=== PATIENT | male | born 1965 | race Caucasian/White ===

== ENCOUNTER 2018-03-10 01:23 | Inpatient (IN) | payer OTHER ==
[2018-03-10] MEDS ORDERED: MORPHINE SULFATE 2 MG/ML SYRINGE ONE ×2 (01:50→04:14)
[2018-03-10] MEDS ORDERED: PIPERACILLIN-TAZO 3.375 GM/50 ML PMX BAG ONE (01:50)
[2018-03-10] MEDS ORDERED: ONDANSETRON 4 MG/2 ML VIAL ONE (01:50)
[2018-03-10] MEDS ORDERED: SODIUM CHLORIDE 0.9% 1,000 ML BAG ONE (01:50)
[2018-03-10 05:31] LABS: Basophils % (A) 0 %; Eosinophils # (A) 0.1 k/uL (0-0.7); Eosinophils % (A) 1 %; HGB 16.9 gm/dL (13.0-17.5); Lymphocytes # (A) 1.5 k/uL (1.0-4.8); Lymphocytes % (A) 16 %; MCH 32.4 pg (25.0-35.0); MCHC 33.2 g/dL (31.0-37.0); MCV 97.4 fL (80.0-100.0); Mean Platelet Volume 7.1; Monocytes # (A) 0.5 k/uL (0-1.0); Monocytes % (A) 6 %; Neutrophils # (A) 7.3 k/uL (1.3-7.7); Neutrophils % (A) 76 %; Platelet Count 248 k/uL (150-450); RBC 5.23 m/uL (4.30-5.90); RDW 12.8 % (11.5-15.5); WBC 9.6 k/uL (3.8-10.6)
[2018-03-10 05:33] LABS: ALT 37 U/L (21-72); AST 35 U/L (17-59); Albumin 4.7 g/dL (3.5-5.0); Alkaline Phosphatase 62 U/L (38-126); Amylase 116 U/L (30-110); Anion Gap 16 mmol/L; Blood Urea Nitrogen 12 mg/dL (9-20); Calcium 10.6 mg/dL (8.4-10.2); Carbon Dioxide 25 mmol/L (22-30); Chloride 99 mmol/L (98-107); Glucose 121 mg/dL (74-99); Lipase 146 U/L (23-300); Potassium 4.6 mmol/L (3.5-5.1); Sodium 140 mmol/L (137-145); Total Bilirubin 0.6 mg/dL (0.2-1.3); Total Protein 8.1 g/dL (6.3-8.2)
--- NOTE | 2018-03-10 06:47 | CT ---
INDICATION: Hernia TECHNIQUE: CT acquisition is performed through the abdomen and pelvis following the administration of 100 mL Isovue-300 IV contrast. Sagittal and coronal reformatted images are provided. DOSE INFORMATION: CTDIvol 6.30 mGy; DLP 533.20 mGy-cm. One or more of the following dose reduction techniques were used: automated exposure control, adjustment of the mA and/or kV according to patient size, use of iterative reconstruction technique. COMPARISON: None. FINDINGS: The lung bases are clear. The liver, gallbladder, spleen, pancreas, adrenal glands, and kidneys are unremarkable. Aorta demonstrates mild atherosclerotic calcifications. There is no aneurysm. There is no adenopathy. There is a left inguinal hernia containing an incarcerated loop of small bowel. This results in small bowel obstruction with multiple dilated and fluid-filled loops of small bowel in the abdomen. Small bowel loops distal to the hernia are decompressed. There is no free fluid or free air. There is no pneumatosis or portal venous gas. Urinary bladder and prostate are unremarkable. There are no acute osseous findings. IMPRESSION: 1. Left inguinal hernia containing an incarcerated loop of small bowel and causing high-grade small bowel obstruction.
[2018-03-10] MEDS ORDERED: MORPHINE SULFATE 2 MG/ML SYRINGE IV PRN (09:50)
[2018-03-10] MEDS: PIPERACILLIN-TAZOBACTAM 3.375 GM in DEXTROSE/WATER 1 50ML.BAG IVPB SCH ×2 (12:50→19:54)
--- NOTE | 2018-03-10 13:21 | P.GSHP ---
History of Present Illness H&P Date: 03/10/18 Chief Complaint: Incarcerated left inguinal hernia This a 52-year-old male who's had a history of a left we will hernia. Patient has had a hernia for several years. It has been reducible the past. He presented emergently with complaints of abdominal pain nausea. His hernia is incarcerated. He is being admitted for repair of left incarcerated inguinal hernia. Past Medical History Past Medical History: Asthma, GERD/Reflux Additional Past Medical History / Comment(s): Asthma as a child History of Any Multi-Drug Resistant Organisms: None Reported Past Surgical History: Hernia Repair, Orthopedic Surgery Additional Past Surgical History / Comment(s): R forearm flexor muscle laceration with I&D/repair, possible L inguinal surgery as a child (pt not certain), circumcism. Past Anesthesia/Blood Transfusion Reactions: No Reported Reaction Smoking Status: Current every day smoker - Past Family History Mother Additional Family Medical History / Comment(s): Mother has had to have brain surgery but pt does not know the reason. She is 76yrs old. Father Family Medical History: Myocardial Infarction (AK) Additional Family Medical History / Comment(s): Father of a AK at the age of 69yrs. Medications and Allergies Home Medications Medication Instructions Recorded Confirmed Type Naproxen Sodium [Aleve] 220 mg PO BID PRN 03/10/18 03/10/18 History Allergies Allergy/AdvReac Type Severity Reaction Status Date / Time No Known Allergies Allergy Unverified 03/10/18 09:38 Surgical - Exam Vital Signs Temp Pulse Resp BP Pulse Ox 98.2 F 69 16 131/86 94 L 03/10/18 13:09 03/10/18 13:09 03/10/18 13:09 03/10/18 13:09 03/10/18 13:09 - General well developed, no distress - Eyes PERRL - ENT normal pinna - Neck no masses - Respiratory normal expansion - Cardiovascular Rhythm: regular - Abdomen Abdomen: soft, non tender Hernia: inguinal (Incarcerated left inguinal hernia) Results - Labs 03/10/18 01:55 03/10/18 01:55 Abnormal Lab Results - Last 24 Hours (Table) 03/10/18 03/10/18 Range/Units 01:55 01:55 Glucose 121 H (74-99) mg/dL Plasma Lactic Acid [place] 2.1 H* (0.7-2.0) mmol/L Calcium 10.6 H (8.4-10.2) mg/dL Amylase 116 H (30-110) U/L Diabetes panel 03/10/18 Range/Units 01:55 Sodium 140 (137-145) mmol/L Potassium 4.6 (3.5-5.1) mmol/L Chloride 99 (98-107) mmol/L Carbon Dioxide 25 (22-30) mmol/L BUN 12 (9-20) mg/dL Creatinine 1.00 (0.66-1.25) mg/dL Glucose 121 H (74-99) mg/dL Calcium 10.6 H (8.4-10.2) mg/dL AST 35 (17-59) U/L ALT 37 (21-72) U/L Alkaline Phosphatase 62 (38-126) U/L Total Protein 8.1 (6.3-8.2) g/dL Albumin 4.7 (3.5-5.0) g/dL Calcium panel 03/10/18 Range/Units 01:55 Calcium 10.6 H (8.4-10.2) mg/dL Albumin 4.7 (3.5-5.0) g/dL Pituitary panel 03/10/18 Range/Units 01:55 Sodium 140 (137-145) mmol/L Potassium 4.6 (3.5-5.1) mmol/L Chloride 99 (98-107) mmol/L Carbon Dioxide 25 (22-30) mmol/L BUN 12 (9-20) mg/dL Creatinine 1.00 (0.66-1.25) mg/dL Glucose 121 H (74-99) mg/dL Calcium 10.6 H (8.4-10.2) mg/dL Adrenal panel 03/10/18 Range/Units 01:55 Sodium 140 (137-145) mmol/L Potassium 4.6 (3.5-5.1) mmol/L Chloride 99 (98-107) mmol/L Carbon Dioxide 25 (22-30) mmol/L BUN 12 (9-20) mg/dL Creatinine 1.00 (0.66-1.25) mg/dL Glucose 121 H (74-99) mg/dL Calcium 10.6 H (8.4-10.2) mg/dL Total Bilirubin 0.6 (0.2-1.3) mg/dL AST 35 (17-59) U/L ALT 37 (21-72) U/L Alkaline Phosphatase 62 (38-126) U/L Total Protein 8.1 (6.3-8.2) g/dL Albumin 4.7 (3.5-5.0) g/dL - Imaging CT scan - abdomen: report reviewed (Incarcerated left inguinal hernia with high- grade small bowel obstruction) Assessment and Plan Assessment: Incarcerated left inguinal hernia. We'll perform repair.
[2018-03-10] MEDS ORDERED: IV FLUID CONTINUATION 1,000 ML IV ONE (13:28)
[2018-03-10] MEDS ORDERED: DEXAMETHASONE SOD PHOS (MDV) 100 MG/10 ML VIAL IVP ONE (13:52)
[2018-03-10] MEDS ORDERED: GLYCOPYRROLATE 0.2 MG/ML 2 ML VIAL ONE (14:10)
[2018-03-10] MEDS ORDERED: SUCCINYLCHOLINE CHLORIDE 100 MG/5 ML SYR IV ONE (14:10)
[2018-03-10] MEDS ORDERED: LIDOCAINE 1% INJ 10MG/ML (20 ML MDV) ONE (14:10)
[2018-03-10] MEDS ORDERED: ROCURONIUM BROMIDE 10 MG/ML 10 ML VIAL IV ONE (14:10)
[2018-03-10] MEDS ORDERED: NEOSTIGMINE 1 MG/ML 10 ML VIAL ONE (14:10)
[2018-03-10] MEDS ORDERED: fentaNYL (PF) 50 MCG/ML 2 ML AMP ONE (14:10)
[2018-03-10] MEDS ORDERED: HEPARIN SODIUM,PORCINE 5,000 UNIT/ML 1 ML VIAL ONE (14:10)
[2018-03-10] MEDS ORDERED: MIDAZOLAM 2 MG/2 ML VIAL ONE (14:10)
[2018-03-10] MEDS ORDERED: PROPOFOL 10 MG/ML 20 ML VIAL IV ONE (14:10)
[2018-03-10 14:28] VITALS: BMI 24.4
[2018-03-10] MEDS ORDERED: SODIUM CHLORIDE 0.9% 100 ML with ceFAZolin 2,000 MG IV ONE ×2 (14:32)
[2018-03-10] MEDS ORDERED: HEPARIN SODIUM,PORCINE 5,000 UNIT/ML 1 ML VIAL SQ STA (14:33)
[2018-03-10] MEDS ORDERED: LACTATED RINGERS 1,000 ML IV ONE ×2 (14:42→15:02)
[2018-03-10] MEDS ORDERED: BUPIVACAINE (PF) 0.5% 30 ML VIAL SQ ONE (14:45)
[2018-03-10] MEDS ORDERED: HYDROcodone/APAP 5-325MG 1 EACH TAB PO PRN (15:02)
[2018-03-10] MEDS ORDERED: METOCLOPRAMIDE 5 MG/ML 2 ML VIAL IVP PRN (15:02)
[2018-03-10] MEDS ORDERED: NALOXONE 0.4 MG/ML 1 ML VIAL IV PRN (15:02)
[2018-03-10] MEDS ORDERED: HYDROmorphone 0.5 MG/0.5 ML SYRINGE IVP PRN (15:02)
[2018-03-10] MEDS ORDERED: ONDANSETRON 4 MG/2 ML VIAL IVP PRN (15:02)
--- NOTE | 2018-03-10 15:09 | P.OP ---
Date of Procedure: 03/10/18 Preoperative Diagnosis: Incarcerated left inguinal hernia Postoperative Diagnosis: Incarcerated left inguinal hernia Procedure(s) Performed: Repair of incarcerated left inguinal hernia with Prolene hernia mesh system plug Anesthesia: GUILLAUMEA Surgeon: Power Humphrey Estimated Blood Loss (ml): 5 Pathology: none sent Condition: stable Disposition: PACU Description of Procedure: DESCRIPTION OF PROCEDURE: The patient was placed in the supine position after receiving adequate anesthesia. Patients groin was prepped and draped in the usual sterile fashion. A standard hernia incision was made and the subcutaneous tissues were divided with electrocautery. The fascia of the external oblique was exposed. A melba the fascia was made with #15 blade. The fascia was then opened with pair of Metzenbaum scissors. A Weitlaner retractor was placed in the wound and the cord structures were grasped and dissected free from the inguinal canal. A rubber Helena drain was placed around the cord structures. The hernial sac was seen on the anterior-medial portion of the cord and this was dissected free from the cord. The hernia sac was then invaginated to the peritoneal cavity. Using blunt finger dissection, the preperitoneal space was dissected and then the Prolene hernial mesh plug was placed into the prepared space. The inferior leaf was expanded. The superior leaf was secured to the pubic tubercle using 2-0 Prolene suture. The lateral portion of the superior leaf was incised and cords tied and secured to the transversalis fascia using 2-0 Prolene suture. Fascia of the external oblique was then closed using #0 Vicryl suture. The Helena drain was removed. The Scarpas fascia was then closed with 3-0 Vicryl suture and skin was closed with heidy. The patient tolerated the procedure well.
[2018-03-10] MEDS ORDERED: diphenhydrAMINE 50 MG/ML 1 ML VIAL IVP ONE (15:25)
[2018-03-10] MEDS: KETOROLAC 30 MG/ML 1 ML VIAL IVP SCH ×2 (15:25→19:53)
[2018-03-10 16:41] VITALS: RESP 16
[2018-03-11] MEDS: PIPERACILLIN-TAZOBACTAM 3.375 GM in DEXTROSE/WATER 1 50ML.BAG IVPB SCH ×2 (03:08→11:44)
[2018-03-11] MEDS: KETOROLAC 30 MG/ML 1 ML VIAL IVP SCH ×2 (03:08→09:49)
[2018-03-11 06:37] VITALS: BP 103/70; PULSE 77; TEMP 97.2
[2018-03-11] MEDS ORDERED: ENOXAPARIN 40 MG/0.4 ML SYRINGE SQ SCH (09:00)
--- NOTE | 2018-03-11 13:06 | P.DS ---
Providers Date of admission: 03/10/18 03:48 Expected date of discharge: 03/11/18 Attending physician: Power Humphrey Consults: 03/10/18 15:02 Consult Physician Routine Consulting Provider: Joslyn Lamb Consult Reason/Comments: med manage Do you want consulting provider notified?: Yes Primary care physician: Stated None Hospital Course: This is a 53-year-old male who was admitted to the hospital with complaints of abdominal pain and nausea. Patient's workup found have an incarcerated left hernia. Patient underwent operative repair. Please see hospital chart for details. Procedures: (Left incarcerated inguinal hernia Patient Condition at Discharge: Good Plan - Discharge Summary Discharge Rx Participant: Yes New Discharge Prescriptions: New Docusate [Colace] 100 mg PO BID #20 capsule HYDROcodone/APAP 7.5-325MG [Prosperity 7.5-325] 1 tab PO Q4H PRN 3 Days #18 tab PRN Reason: Pain No Action Naproxen Sodium [Aleve] 220 mg PO BID PRN PRN Reason: Pain Discharge Medication List Naproxen Sodium [Aleve] 220 mg PO BID PRN 03/10/18 [History] Docusate [Colace] 100 mg PO BID #20 capsule 03/11/18 [Rx] HYDROcodone/APAP 7.5-325MG [Prosperity 7.5-325] 1 tab PO Q4H PRN 3 Days #18 tab 03/11 [Rx] Follow up Appointment(s)/Referral(s): None,Stated [Primary Care Provider] - 1-2 days Power Humphrey MD [STAFF PHYSICIAN] - 1 Week Discharge Disposition: HOME SELF-CARE
--- NOTE | 2018-03-12 00:35 | P.CONS ---
History of Present Illness - Reason for Consult Consult date: 03/11/18 Medical management of asthma and GERD - Chief Complaint Hernia the patient - History of Present Illness Patient is a 53-year-old male with a known history of asthma and GERD and also history of left inguinal hernia for several years. It was reducible in the past. Patient came to ER with complaints of abdominal pain and nausea and was found have incarcerated hernia. Patient was admitted to the hospital for repair of left incarcerated inguinal hernia. Patient tolerated the procedure very well. Currently denied any complaints of chest pain or shortness of breath. No nausea vomiting or abdominal pain. Pain is fairly controlled. Patient underwent laparoscopic hernia repair. Patient is currently day smoker otherwise. Review of Systems Constitutional: Patient denies any fever or chills . No generalized weakness or weight loss. Abdomen: Patient denied nausea vomiting and diarrhea and abdominal pain. Cardiovascular: Patient denies any chest pain or short of breath no palpitations. Respiratory: patient denied any cough is from production. No shortness of breath Neurologic: Patient denied any numbness or tingling headache. Musculoskeletal: Patient denies any complaints of joint swelling or deformity. Skin: Negative Psychiatric: Negative Endocrine: No heat or cold intolerance. No recent weight gain. Genitourinary: No dysuria or hematuria. All other 14 point ROS negative except the above Past Medical History Past Medical History: Asthma, GERD/Reflux Additional Past Medical History / Comment(s): Asthma as a child History of Any Multi-Drug Resistant Organisms: None Reported Past Surgical History: Hernia Repair, Orthopedic Surgery Additional Past Surgical History / Comment(s): R forearm flexor muscle laceration with I&D/repair, possible L inguinal surgery as a child (pt not certain), circumcism. Past Anesthesia/Blood Transfusion Reactions: No Reported Reaction Smoking Status: Current every day smoker - Past Family History Mother Additional Family Medical History / Comment(s): Mother has had to have brain surgery but pt does not know the reason. She is 76yrs old. Father Family Medical History: Myocardial Infarction ([place]) Additional Family Medical History / Comment(s): Father of a ME at the age of 69yrs. Medications and Allergies Home Medications Medication Instructions Recorded Confirmed Type Naproxen Sodium [Aleve] 220 mg PO BID PRN 03/10/18 03/10/18 History Docusate [Colace] 100 mg PO BID #20 capsule 03/11/18 Rx HYDROcodone/APAP 7.5-325MG [Mentcle 1 tab PO Q4H PRN 3 Days #18 tab 03/11/18 Rx 7.5-325] Allergies Allergy/AdvReac Type Severity Reaction Status Date / Time No Known Allergies Allergy Unverified 03/10/18 09:38 Physical Exam Vitals: Vital Signs Temp Pulse Pulse Pulse Resp BP BP 03/11/18 05:45 97.2 F L 77 16 103/70 03/10/18 22:20 98.5 F 88 16 108/76 03/10/18 18:20 66 126/86 03/10/18 18:05 70 136/91 03/10/18 17:50 65 131/87 03/10/18 17:35 69 136/91 03/10/18 17:25 73 127/78 03/10/18 17:00 98.5 F 61 130/88 03/10/18 16:30 67 16 121/85 03/10/18 16:15 66 16 127/81 03/10/18 16:00 66 18 128/75 03/10/18 15:45 68 18 132/76 03/10/18 15:30 59 L 16 139/87 03/10/18 15:15 60 18 137/84 03/10/18 15:05 98.1 F 86 18 141/87 Pulse Ox 03/11/18 05:45 97 03/10/18 22:20 95 03/10/18 18:20 95 03/10/18 18:05 94 L 03/10/18 17:50 94 L 03/10/18 17:35 97 03/10/18 17:25 95 03/10/18 17:00 96 03/10/18 16:30 92 L 03/10/18 16:15 91 L 03/10/18 16:00 97 03/10/18 15:45 91 L 03/10/18 15:30 92 L 03/10/18 15:15 95 03/10/18 15:05 97 Intake and Output 03/10/18 03/11/18 03/11/18 22:59 06:59 14:59 Intake Total 400 50 Output Total 400 250 Balance 0 -200 Intake: IV 400 50 Piperacillin-Tazobactam 3 50 50 .375 gm In Dextrose/Water 1 50ml.bag @ 12.5 mls/hr IVPB Q8H [facility] Rx#: [id number] Output: Gastric Drainage 400 Urine 250 Other: # Voids 3 PHYSICAL EXAMINATION: Patient is lying in the bed comfortably, no acute distress, awake alert and oriented.. HEENT: Normocephalic. Neck is supple. Pupils reactive. Nostrils clear. Oral cavity is moist. Ears reveal no drainage. Neck reveals no JVD, carotid bruits, or thyromegaly. CHEST EXAMINATION: Trachea is central. Symmetrical expansion. Lung mendez clear to auscultation and percussion. CARDIAC: Normal S1, S2 with no gallops. No murmurs ABDOMEN: Soft. Mildly tender at surgical site. Site is intact. Bowel sounds normal. No organomegaly. No abdominal bruits. Extremities: reveal no edema. No clubbing or cyanosis Neurologically awake, alert, oriented x3 with well-coordinated movements. No focal deficits noted Skin: No rash or skin lesions. Psychiatric: Coperative. Nonsuicidal Musculoskeletal: No joint swelling or deformity. Normal range of motion. Results CBC & Chem 7: 03/10/18 01:55 03/10/18 01:55 Assessment and Plan Assessment: Left incarcerated inguinal hernia. Status post laparoscopic repair Asthma stable. Continue with the breathing treatments GERD Currently everyday smoker DVT prophylaxis Plan: Patient be continued on pain management and incentive spirometry. Negative examination. Continue the home medications including breathing treatments and as needed. Patient is ready to be discharged home today . Further recommendations based on the clinical course. Smoking cessation has been counseled. Recommended to follow with primary care physician as outpatient in 1-3 days. Time with Patient: Greater than 30
== END 2018-03-11 14:14 | disposition home or self-care (01) | DRG 352 ==
LOC: EC 01:23 → 4MS4W 03:48 → EC 05:50
PROVIDERS: ADMIT Surgery; ATTEND Surgery
PROC: 0YU60JZ Supplement Left Inguinal Region with Synthetic Substitute, Open Approach (ICD-10-PCS; principal; 2018-03-10 09:00)
DX: K40.30 Unilateral inguinal hernia, with obstruction, without gangrene, not specified as recurrent (principal); K21.9 Gastro-esophageal reflux disease without esophagitis; J45.909 Unspecified asthma, uncomplicated; F17.210 Nicotine dependence, cigarettes, uncomplicated; Z82.49 Family history of ischemic heart disease and other diseases of the circulatory system
CPT/HCPCS: 36415; 74177; 80053; 82150; 83605; 83690; 85025; 96361; 96365; 96366; 96375; 96376; 99285

== ENCOUNTER 2025-02-12 17:53 | Inpatient (IN) | payer OTHER ==
[2025-02-12] MEDS: ONDANSETRON 4 MG/2 ML VIAL IVP STA (18:31)
[2025-02-12] MEDS: SODIUM CHLORIDE 0.9% 1,000 ML IV ONE ×4 (18:34→21:47)
[2025-02-12] MEDS: PANTOPRAZOLE 40 MG/10 ML VIAL IVP STA (18:35)
[2025-02-12 18:40] LABS: HCT 23.6 % (39.6-50.0); HGB 7.8 g/dL (13.0-17.0); MCH 26.2 pg (27.0-32.0); MCHC 33.1 g/dL (32.0-37.0); MCV 79.2 fL (80.0-97.0); Platelet Count 571 10*3/uL (140-440); RBC 2.98 10*6/uL (4.40-5.60); RDW 16.2 % (11.5-14.5); WBC 8.47 10*3/uL (4.50-10.00)
[2025-02-12] MEDS: MORPHINE SULFATE 4 MG/ML SYRINGE IVP STA ×2 (18:44→19:44)
[2025-02-12 18:50] LABS: ALT 8 U/L (4-49); AST 14 U/L (17-59); African American GFR (CKD) >90 (>60 ml/min/1.73 sqM); Albumin 2.7 g/dL (3.5-5.0); Alkaline Phosphatase 102 U/L (38-126); Amylase 35 U/L (30-110); Anion Gap 12 mmol/L; Blood Urea Nitrogen 17 mg/dL (9-20); Calcium 8.7 mg/dL (8.4-10.2); Carbon Dioxide 24 mmol/L (22-30); Chloride 94 mmol/L (98-107); Glucose 88 mg/dL (74-99); Lipase 46 U/L (23-300); Non-African American GFR(CKD) 86 (>60 ml/min/1.73 sqM); Potassium 3.4 mmol/L (3.5-5.1); Sodium 130 mmol/L (137-145); Total Protein 5.4 g/dL (6.3-8.2)
[2025-02-12 18:54] LABS: INR 1.0 (<1.2); Partial Thromboplastin Time 23.3 sec (22.0-30.0); Prothrombin Time 11.1 sec (10.0-12.5)
[2025-02-12] MEDS: LACTATED RINGERS 1,000 ML IV ONE (19:22)
[2025-02-12] MEDS ORDERED: VANCOMYCIN IV PER PHARMACY 1 EACH MISC MISCELLANE PRN (19:45)
--- NOTE | 2025-02-12 19:52 | CT ---
EXAMINATION TYPE: CT abdomen pelvis w con DATE OF EXAM: 02/12/2025 7:23 PM COMPARISON: 03/10/2018 CLINICAL INDICATION: Male, 59 years old with history of abdominal pain; generalized abdominal pain TECHNIQUE: Axial CT abdomen pelvis w con;Sagittal and coronal reformats were created on a separate w orkstation. Contrast used:100 mL of Isovue 300 with IV Contrast, (none if empty) Oral contrast used: without Oral Contrast (none if empty) CT DLP: 744 mGycm, Automated exposure control for dose reduction was used. FINDINGS: LOWER CHEST: Unremarkable ABDOMEN LIVER: Hepatic lobe 50 mm lesion not seen on prior measuring 23 Hounsfield units suggestive of necrot ic mass versus abscess. GALLBLADDER AND BILE DUCTS: Unremarkable. PANCREAS: Unremarkable. SPLEEN: Unremarkable. ADRENAL GLANDS: Unremarkable. KIDNEYS AND URETERS: No evidence of hydronephrosis or obstructing renal calculus. The ureters are unr emarkable. PELVIS BLADDER: No evidence for wall thickening or mass given limitations of exam. REPRODUCTIVE: Unremarkable. ABDOMEN & PELVIS STOMACH AND BOWEL: Circumferential wall thickening of the hepatic flexure within the colon suspected to be in colonic mass measuring 7.4 x 4.7 cm in the right upper quadrant. Hyperemia of the small bowel throughout the abdomen with free fluid throughout the abdomen PERITONEUM/RETROPERITONEUM: . There is free air along the liver dome seen on series 201 image 8. Jose tionally along the anterior abdomen image 23 image 33. A organizing fluid collection he right abdomen measuring 7.9 x 3.7 cm is compatible with abscess. VASCULATURE: No evidence of aortic aneurysm. MUSCULOSKELETAL: No acute osseous abnormalities. Moderate disc degeneration changes are present throu ghout the thoracolumbar spine. LYMPH NODES: Suspicious lymph node mass in the mesentery series 201 image 42 with the largest measuri ng up to 25 mm series 201 image 38. SOFT TISSUE/ABDOMINAL WALL: Unremarkable IMPRESSION: 1. Hepatic flexure colonic mass with perforation resulting in pneumoperitoneum in and abscess format ion along the right lateral abdomen. 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 There is also a indeterminate but probable liver metastatic disease versus abscess. 2. Reactive enteritis/colitis likely secondary to perforation and intra-abdominal leak feces content s. Findings communicated to Nabil Zarco MD on 02/12/2025 7:[address] Joshua Underwood. [facility], , 02/12/2025 7:49 PM
[2025-02-12] MEDS ORDERED: ONDANSETRON 4 MG/2 ML VIAL IVP PRN (19:54)
[2025-02-12] MEDS ORDERED: NALOXONE 0.4 MG/ML 1 ML VIAL IV PRN (19:54)
--- NOTE | 2025-02-12 19:54 | ED ---
General Adult HPI - General Chief complaint: Abdominal Pain Stated complaint: Abd pain Time Seen by Provider: 02/12/25 18:05 Source: patient, EMS, RN notes reviewed, old records reviewed Mode of arrival: EMS Limitations: no limitations - History of Present Illness Initial comments: Patient is a 59-year-old male with past medical history remarkable for abdominal surgery for hernia repair in 2018 as well as prior history of chronic alcohol use presents emergency department with worsening of chronic abdominal pain. Has a history of chronic abdominal pain. Has been ongoing for months. States he had sudden worsening of it approximately 5 minutes prior to calling EMS. States he felt something pop over the upper right side of his abdomen. Denies any nausea. Denies any constipation lately. Denies any diarrhea. Denies any chest pain or shortness of breath. Is a tobacco user. Presents for further evaluation at this time. - Related Data Home Medications Medication Instructions Recorded Confirmed Naproxen Sodium [Aleve] 220 mg PO BID PRN 03/10/18 03/10/18 Previous Rx's Medication Instructions Recorded Docusate [Colace] 100 mg PO BID #20 capsule 03/11/18 HYDROcodone/APAP 7.5-325MG [[place] 1 tab PO Q4H PRN 3 Days #18 tab 03/11/18 7.5-325] Allergies Allergy/AdvReac Type Severity Reaction Status Date / Time No Known Allergies Allergy Unverified 03/10/18 09:38 Review of Systems ROS Statement: Those systems with pertinent positive or pertinent negative responses have been documented in the HPI. Review of Systems: CONST: Denies fever EYES: Denies blurry vision ENT: Denies nasal congestion C/V: Denies Chest pain RESP: Denies shortness of breath GI: Endorses abdominal pain : Denies dysuria SKIN: Denies rash. MSK: Denies joint pain. NEURO: Denies headache ROS Other: All systems not noted in ROS Statement are negative. Past Medical History Past Medical History: Asthma, GERD/Reflux Additional Past Medical History / Comment(s): Asthma as a child History of Any Multi-Drug Resistant Organisms: None Reported Past Surgical History: Hernia Repair, Orthopedic Surgery Additional Past Surgical History / Comment(s): R forearm flexor muscle laceration with I&D/repair, possible L inguinal surgery as a child (pt not certain), circumcism. Past Anesthesia/Blood Transfusion Reactions: No Reported Reaction Smoking Status: Current every day smoker Past Alcohol Use History: None Reported Past Drug Use History: Marijuana - Past Family History Mother Additional Family Medical History / Comment(s): Mother has had to have brain surgery but pt does not know the reason. She is 76yrs old. Father Family Medical History: Myocardial Infarction ([place]) Additional Family Medical History / Comment(s): Father of a [place] at the age of 69yrs. General Exam - General Exam Comments Initial Comments: General: Appears in moderate distress secondary to abdominal pain. HEAD: Normal with no signs of head trauma. EYES: PERRLA, EOMI, conjunctiva normal, no discharge. ENT: Hearing grossly intact, normal oropharynx. Mildly dry mucous membranes. RESPIRATORY: Mild end expiratory wheeze. No significant hypoxia or increased work of breathing. C/V: Regular rate and rhythm. S1 and S2 auscultated, no edema, peripheral pulses 2+ and intact throughout ABD: Abdomen is relatively soft, nondistended, tender to palpation over the upper abdomen primarily. Somewhat generalized tenderness to palpation. No g uarding or rebound tenderness. No peritoneal signs. EXT: No obvious deformity. SKIN: No rashes or lesions observed on exposed skin. NEURO: Alert and oriented x 4. Limitations: no limitations Course Vital Signs 02/12/25 02/12/25 02/12/25 17:54 18:35 18:44 Temperature 98.4 F Pulse Rate 87 89 90 Respiratory 18 16 16 Rate Blood Pressure 96/69 101/66 111/67 O2 Sat by Pulse 94 L 92 L 92 L Oximetry 02/12/25 02/12/25 19:23 20:06 Temperature Pulse Rate 98 103 H Respiratory 18 18 Rate Blood Pressure 130/72 115/70 O2 Sat by Pulse 100 98 Oximetry Medical Decision Making - Medical Decision Making Was pt. sent in by a medical professional or institution (, PA, RECOVERY COLLECTOR, urgent care, hospital, or custodial...) When possible be specific @ -No Did you speak to anyone other than the patient for history (EMS, parent, family, police, friend...)? What history was obtained from this source @ -No Did you review nursing and triage notes (agree or disagree)? Why? @ -I reviewed and agree with nursing and triage notes Were old charts reviewed (outside hosp., previous admission, EMS record, old EKG, old radiological studies, urgent care reports/EKG's, custodial records)? Report findings @ -No old charts were reviewed Differential Diagnosis (chest pain, altered mental status, abdominal pain women, abdominal pain men, vaginal bleeding, weakness, fever, dyspnea, syncope, headache, dizziness, GI bleed, back pain, seizure, CVA, palpatations, mental health, musculoskeletal)? @ -Differential Abdominal Pain Men: Appendicitis, cholecystitis, diverticulosis, ischemic bowel, pancreatitis, hepatitis, UTI, gastroenteritis, AAA, incarcerated hernia, bowel obstruction, constipation, inflammatory bowel, hepatitis, peptic ulcer disease, splenic infarction, perforated viscus, testicular torsion, this is not meant to be an all-inclusive list EKG interpreted by me (3pts min.). @ -As above X-rays interpreted by me (1pt min.). @ -None done CT interpreted by me (1pt min.). @ -CT imaging reported to me from radiology Dr. Underwood CT imaging remarkable for perforated viscus likely secondary to abdominal abscess and abdominal mass with pneumoperitoneum present. U/S interpreted by me (1pt. min.). @ -None done What testing was considered but not performed or refused? (CT, X-rays, U/S, labs)? Why? @ -None What meds were considered but not given or refused? Why? @ -None Did you discuss the management of the patient with other professionals (professionals i.e. , PA, RECOVERY COLLECTOR, lab, RT, psych nurse, social welfare administrator, grab driver, teacher, chemistry technical officer, rehabilitation case coordinator)? Give summary @ -Discussed with Dr. Humphrey on-call surgeon who accepted the admission. Patient will be taken to the OR. Discussed with the consulting medicine team, just because of the manage she accepted the consult. Was smoking cessation discussed for >3mins.? @ -No Was critical care preformed (if so, how long)? @ -Yes, 36 minutes. Were there social determinants of health that impacted care today? How? (Homelessness, low income, unemployed, alcoholism, drug addiction, transportation, low edu. Level, literacy, decrease access to med. care, nursing home, rehab)? @ -No Was there de-escalation of care discussed even if they declined (Discuss DNR or withdrawal of care, Hospice)? DNR status @ -No What co-morbidities impacted this encounter? (DM, HTN, Smoking, COPD, CAD, Cancer, CVA, ARF, Chemo, Hep., AIDS, mental health diagnosis, sleep apnea, morbid obesity)? @ -None Was patient admitted / discharged? Hospital course, mention meds given and route, prescriptions, significant lab abnormalities, going to OR and other pertinent info. @ -Patient presents with sudden onset worsening of chronic abdominal pain. Worsening occurred approximately 5 minutes prior to calling EMS. Vital signs remarkable for mildly soft blood pressures which did improve with fluids. He will be symptomatically treat with IV pain medications, IV fluids, IV Zofran. He was in agreement this plan. Laboratory studies remarkable for an anemia that is microcytic in nature. No recent comparison. Mild electrolyte abnormalities. EKG shows no signs of acute ischemia. CT abdomen pelvis returned and I was contacted by radiology. Appears to have a perforated viscus at the hepatic flexure where there is an intra- abdominal mass as well as abscess present as well. Concern for pneumoperitoneum. Patient immediately made NPO. Blood culture sent. Started on broad-spectrum antibiotics vancomycin and Zosyn. He has already received 2 L fluid bolus and we will continue on maintenance fluids. I. The patient and he will likely go to the OR. I spoke with the on-call surgeon, Dr. Humphrey who was in agreement this plan and will take the patient to the OR for stat ex lap. Consult placed to medicine and I spoke with Delia LARA who accepted the consult. Vital signs stable at the time of admission. Patient was in agreement with this plan. Undiagnosed new problem with uncertain prognosis? @ -No Drug Therapy requiring intensive monitoring for toxicity (Heparin, Nitro, Insulin, Cardizem)? @ -No Were any procedures done? @ -No Diagnosis/symptom? @ -Perforated bowel, intra-abdominal abscess, pneumoperitoneum, malignancy, anemia Acute, or Chronic, or Acute on Chronic? @ -Acute Uncomplicated (without systemic symptoms) or Complicated (systemic symptoms)? @ -Complicated Side effects of treatment? @ -No Exacerbation, Progression, or Severe Exacerbation? @ -No Poses a threat to life or bodily function? How? (Chest pain, [place], [place], pneumonia, PE, COPD, DKA, ARF, appy, cholecystitis, CVA, Diverticulitis, Homicidal, Suicidal, threat to staff... and all critical care pts) @ -Yes - Lab Data Result diagrams: 02/12/25 18:28 02/12/25 18:28 Lab Results 02/12/25 02/12/25 02/12/25 Range/Units 18:28 18:28 18:28 WBC 8.47 (4.50-10.00) 10*3/uL RBC 2.98 L (4.40-5.60) 10*6/uL Hgb 7.8 L (13.0-17.0) g/dL Hct 23.6 L (39.6-50.0) % MCV 79.2 L (80.0-97.0) fL MCH 26.2 L (27.0-32.0) pg MCHC 33.1 (32.0-37.0) g/dL Plt Count 571 H (140-440) 10*3/uL MPV 9.4 L (9.5-12.2) fL Immature Gran % (Auto) 0.8 % Neutrophils % (Manual) 82 % Band Neuts % (Manual) 3 % Lymphocytes % (Manual) 14 % Monocytes % (Manual) 2 % Basophils % (Manual) 1 % Immature Gran # 0.07 H (0.00-0.04) 10*3/uL Neutrophils # (Manual) 7.19 (1.3-7.7) k/uL Lymphocytes # (Manual) 1.19 (1.0-4.8) k/uL Monocytes # (Manual) 0.17 (0-1.0) k/uL Basophils # (Manual) 0.08 (0-0.2) k/uL Nucleated RBCs 0 (0-0) /100 WBC Manual Slide Review Performed RBC Morphology Normal PT 11.1 (10.0-12.5) sec INR 1.0 (<1.2) APTT 23.3 (22.0-30.0) sec Sodium 130 L (137-145) mmol/L Potassium 3.4 L (3.5-5.1) mmol/L Chloride 94 L (98-107) mmol/L Carbon Dioxide 24 (22-30) mmol/L Anion Gap 12 mmol/L BUN 17 (9-20) mg/dL Creatinine 0.97 (0.66-1.25) mg/dL Est GFR (CKD-EPI)AfAm >90 (>60 ml/min/1.73 sqM) Est GFR (CKD-EPI)NonAf 86 (>60 ml/min/1.73 sqM) Glucose 88 (74-99) mg/dL Plasma Lactic Acid [place] (0.7-2.0) mmol/L Calcium 8.7 (8.4-10.2) mg/dL Total Bilirubin 0.6 (0.2-1.3) mg/dL AST 14 L (17-59) U/L ALT 8 (4-49) U/L Alkaline Phosphatase 102 (38-126) U/L Total Protein 5.4 L (6.3-8.2) g/dL Albumin 2.7 L (3.5-5.0) g/dL Amylase 35 (30-110) U/L Lipase 46 (23-300) U/L / Range/Units 18:28 WBC (4.50-10.00) 10*3/uL RBC (4.40-5.60) 10*6/uL Hgb (13.0-17.0) g/dL Hct (39.6-50.0) % MCV (80.0-97.0) fL MCH (27.0-32.0) pg MCHC (32.0-37.0) g/dL Plt Count (140-440) 10*3/uL MPV (9.5-12.2) fL Immature Gran % (Auto) % Neutrophils % (Manual) % Band Neuts % (Manual) % Lymphocytes % (Manual) % Monocytes % (Manual) % Basophils % (Manual) % Immature Gran # (0.00-0.04) 10*3/uL Neutrophils # (Manual) (1.3-7.7) k/uL Lymphocytes # (Manual) (1.0-4.8) k/uL Monocytes # (Manual) (0-1.0) k/uL Basophils # (Manual) (0-0.2) k/uL Nucleated RBCs (0-0) /100 WBC Manual Slide Review RBC Morphology PT (10.0-12.5) sec INR (<1.2) APTT (22.0-30.0) sec Sodium (137-145) mmol/L Potassium (3.5-5.1) mmol/L Chloride (98-107) mmol/L Carbon Dioxide (22-30) mmol/L Anion Gap mmol/L BUN (9-20) mg/dL Creatinine (0.66-1.25) mg/dL Est GFR (CKD-EPI)AfAm (>60 ml/min/1.73 sqM) Est GFR (CKD-EPI)NonAf (>60 ml/min/1.73 sqM) Glucose (74-99) mg/dL Plasma Lactic Acid [place] 1.4 (0.7-2.0) mmol/L Calcium (8.4-10.2) mg/dL Total Bilirubin (0.2-1.3) mg/dL AST (17-59) U/L ALT (4-49) U/L Alkaline Phosphatase (38-126) U/L Total Protein (6.3-8.2) g/dL Albumin (3.5-5.0) g/dL Amylase (30-110) U/L Lipase (23-300) U/L - EKG Data -: EKG Interpreted by Me EKG Comments: 12-lead Electrocardiogram Interpretation Note EKG was reviewed and interpreted by myself. 12-lead ECG performed at 1021 is interpreted by me as revealing normal sinus rhythm at a rate of 86 beats per minute. [place] is normal. NM interval is 170 ms, QRS durations 86 ms, QTc is 416 ms.. There were no ST or T wave abnormalities to suggest myocardial ischemia or injury. R wave progression across the precordium was satisfactory. By my interpretation this EKG is non-diagnostic for acute ischemia. Critical Care Time Critical Care Time: Yes Total Critical Care Time: 36 Disposition Clinical Impression: Perforated bowel, Intra-abdominal abscess, Pneumoperitoneum, Malignancy, Anemia Disposition: ADMITTED IP TO THIS [facility] Condition: Serious Time of Disposition: 19:54
[2025-02-12] MEDS: SODIUM CHLORIDE 0.9% 1,000 ML IV STA (20:19)
[2025-02-12] MEDS: PIPERACILLIN-TAZOBACTAM 3.375 GM in SODIUM CHLORIDE 0.9% 100 ML IVPB SCH (20:21)
[2025-02-12 20:27] LABS: Basophils # (M) 0.08 k/uL (0-0.2); Lymphocytes # (M) 1.19 k/uL (1.0-4.8); Monocytes # (M) 0.17 k/uL (0-1.0); Neutrophils # (M) 7.19 k/uL (1.3-7.7); Neutrophils % (M) 82 %; Total Cells Counted 200
[2025-02-12 20:32] LABS: RBC Morphology Normal
[2025-02-12] MEDS: LACTATED RINGERS 1,000 ML IV SCH (20:41)
[2025-02-12] MEDS ORDERED: fentaNYL (PF) 50 MCG/ML 2 ML AMP ONE (20:52)
[2025-02-12] MEDS ORDERED: ETOMIDATE 2 MG/ML 10 ML VIAL ONE (20:52)
[2025-02-12] MEDS ORDERED: ROCURONIUM 10 MG/ML (5 ML VIAL) IV ONE (20:52)
[2025-02-12] MEDS ORDERED: PHENYLEPHRINE-0.9% NACL SYG 1,000 MCG/10 ML SYRINGE ONE (20:52)
[2025-02-12] MEDS ORDERED: SUCCINYLCHOLINE CHLORIDE 200 MG/10 ML VIAL IV ONE (20:52)
[2025-02-12] MEDS ORDERED: LIDOCAINE 1% INJ 10MG/ML (20 ML MDV) ONE (20:52)
[2025-02-12] MEDS ORDERED: PROPOFOL 10 MG/ML 20 ML VIAL IV ONE (20:52)
--- NOTE | 2025-02-12 20:58 | P.GSHP ---
History of Present Illness H&P Date: 02/12/25 Chief Complaint: Abdominal pain This a 59-year-old male whose had a several month history of abdominal pain. The patient's pain is worsened over the last few days. The patient presented the emergency room. He had a CAT scan performed which shows evidence of a right colon mass with perforation and abscess. Patient has never had a colonoscopy. He has noted to be anemic with hemoglobin 7.2. Past Medical History Past Medical History: Asthma, GERD/Reflux Additional Past Medical History / Comment(s): Asthma as a child History of Any Multi-Drug Resistant Organisms: None Reported Past Surgical History: Hernia Repair, Orthopedic Surgery Additional Past Surgical History / Comment(s): R forearm flexor muscle laceration with I&D/repair, possible L inguinal surgery as a child (pt not certain), circumcism. Past Anesthesia/Blood Transfusion Reactions: No Reported Reaction Smoking Status: Current every day smoker Past Alcohol Use History: None Reported Past Drug Use History: Marijuana - Past Family History Mother Additional Family Medical History / Comment(s): Mother has had to have brain surgery but pt does not know the reason. She is 76yrs old. Father Family Medical History: Myocardial Infarction ([place]) Additional Family Medical History / Comment(s): Father of a [place] at the age of 69yrs. Medications and Allergies Home Medications Medication Instructions Recorded Confirmed Type Naproxen Sodium [Aleve] 220 mg PO BID PRN 03/10/18 03/10/18 History Docusate [Colace] 100 mg PO BID #20 capsule 03/11/18 Rx HYDROcodone/APAP 7.5-325MG [[place] 1 tab PO Q4H PRN 3 Days #18 tab 03/11/18 Rx 7.5-325] Allergies Allergy/AdvReac Type Severity Reaction Status Date / Time No Known Allergies Allergy Unverified 03/10/18 09:38 Surgical - Exam Vital Signs Temp Pulse Resp BP Pulse Ox 98.4 F 87 18 96/69 94 L 02/12/25 17:54 02/12/25 17:54 02/12/25 17:54 02/12/25 17:54 02/12/25 17:54 - General well developed, moderate distress - Eyes PERRL - ENT normal pinna - Neck no masses - Respiratory normal expansion - Cardiovascular Rhythm: regular - Abdomen Abdomen is mildly distended. Abdomen is tender throughout with peritoneal signs in the right upper quadrant Results - Labs 02/12/25 18:28 02/12/25 18:28 Abnormal Lab Results - Last 24 Hours (Table) 02/12/25 02/12/25 02/12/25 Range/Units 18:28 18:28 20:04 RBC 2.98 L (4.40-5.60) 10*6/uL Hgb 7.8 L (13.0-17.0) g/dL Hct 23.6 L (39.6-50.0) % MCV 79.2 L (80.0-97.0) fL MCH 26.2 L (27.0-32.0) pg Plt Count 571 H (140-440) 10*3/uL MPV 9.4 L (9.5-12.2) fL Immature Gran # 0.07 H (0.00-0.04) 10*3/uL Sodium 130 L (137-145) mmol/L Potassium 3.4 L (3.5-5.1) mmol/L Chloride 94 L (98-107) mmol/L AST 14 L (17-59) U/L Total Protein 5.4 L (6.3-8.2) g/dL Albumin 2.7 L (3.5-5.0) g/dL Crossmatch See Detail Diabetes panel 02/12/25 Range/Units 18:28 Sodium 130 L (137-145) mmol/L Potassium 3.4 L (3.5-5.1) mmol/L Chloride 94 L (98-107) mmol/L Carbon Dioxide 24 (22-30) mmol/L BUN 17 (9-20) mg/dL Creatinine 0.97 (0.66-1.25) mg/dL Glucose 88 (74-99) mg/dL Calcium 8.7 (8.4-10.2) mg/dL AST 14 L (17-59) U/L ALT 8 (4-49) U/L Alkaline Phosphatase 102 (38-126) U/L Total Protein 5.4 L (6.3-8.2) g/dL Albumin 2.7 L (3.5-5.0) g/dL Calcium panel 02/12/25 Range/Units 18:28 Calcium 8.7 (8.4-10.2) mg/dL Albumin 2.7 L (3.5-5.0) g/dL Pituitary panel 02/12/25 Range/Units 18:28 Sodium 130 L (137-145) mmol/L Potassium 3.4 L (3.5-5.1) mmol/L Chloride 94 L (98-107) mmol/L Carbon Dioxide 24 (22-30) mmol/L BUN 17 (9-20) mg/dL Creatinine 0.97 (0.66-1.25) mg/dL Glucose 88 (74-99) mg/dL Calcium 8.7 (8.4-10.2) mg/dL Adrenal panel 02/12/25 Range/Units 18:28 Sodium 130 L (137-145) mmol/L Potassium 3.4 L (3.5-5.1) mmol/L Chloride 94 L (98-107) mmol/L Carbon Dioxide 24 (22-30) mmol/L BUN 17 (9-20) mg/dL Creatinine 0.97 (0.66-1.25) mg/dL Glucose 88 (74-99) mg/dL Calcium 8.7 (8.4-10.2) mg/dL Total Bilirubin 0.6 (0.2-1.3) mg/dL AST 14 L (17-59) U/L ALT 8 (4-49) U/L Alkaline Phosphatase 102 (38-126) U/L Total Protein 5.4 L (6.3-8.2) g/dL Albumin 2.7 L (3.5-5.0) g/dL Assessment and Plan Plan: Right colonic neoplasm with perforation. Patient will undergo exploratory lapa rotomy
--- NOTE | 2025-02-12 22:07 | P.OP ---
Date of Procedure: 02/12/25 Preoperative Diagnosis: Perforated right colon neoplasm with abscess Postoperative Diagnosis: Intraperitoneal abscess Right colon mass Metastatic disease Procedure(s) Performed: Exploratory laparotomy Drainage of abscess Right colectomy with ileostomy Partial omentectomy Anesthesia: MICHEL Surgeon: Power Humphrey Estimated Blood Loss (ml): 25 Pathology: other (Right colon, omentum, culture) Condition: critical Disposition: ICU Description of Procedure: The patient was placed on the operative table in the supine position. He received general endotracheal tube anesthesia. His abdomen was prepped and draped in you sterile fashion. The skin was incised the midline. These electrocautery the abdominal wall was divided. The abdominal cavity was entered. There was purulent fluid seen in the pleural cavity. This was cultured. The Book[place] was placed the wound. There was a large abscess on the right colon. This was drained. And then there was a mass palpated. There is obvious metastatic disease with enlarged lymph nodes in the mesentery. The right colon was mobilized by dividing the white line of [place]. And then the terminal ileum was transected with a LOPEZ stapler. And then the proximal transverse colon was transected with a LOPEZ stapler. Using blunt sharp/electrocautery and the LigaSure device the mesentery of the right colon was divided. The inflammatory mass was adherent to the duodenum. Using meticulous dissection the colon mass was dissected off the duodenum. The specimen sent to pathology. The abdomen irrigated there is no bleeding seen. It was decided perform an ileostomy due to the patient's poor condition. The ileostomy brought up in the right abdominal wall. The fascia was closed looped #1 PDS suture. Skin was closed heidy. Patient was left intubated and sent to the ICU on the ventilator.
[2025-02-12 22:52] LABS: Glucose,Whole Blood 72 mg/dL (70-110)
[2025-02-12 23:16] LABS: ABG HCO3 20 mmol/L (21-25); ABG PCO2 46 mmHg (35-45); ABG PH 7.24 (7.35-7.45); ABG TCO2 21 mmol/L (19-24)
[2025-02-12 23:19] LABS: ABG PO2 420 mmHg (83-108); Allen Test Performed? No
[2025-02-12] MEDS: IPRATROPIUM-ALBUTEROL 3 ML NEB INHALATION STA (23:23)
[2025-02-12] MEDS: VANCOMYCIN 1,500 MG in SODIUM CHLORIDE 0.9% 500 ML 500 ML IVPB STA (23:54)
[2025-02-12 23:56] LABS: Bilirubin,Urine Negative (Negative); Blood,Urine Negative (Negative); Color,Urine Yellow; Glucose,Urine (UA) Negative (Negative); Ketones,Urine 1+ (Negative); Leukocyte Esterase,Urine Negative (Negative); Nitrite,Urine Negative (Negative); PH, Urine 6.0 (5.0-8.0); Protein,Urine Trace (Negative); Urobilinogen,Urine <2.0 mg/dL (<2.0)
[2025-02-13 00:14] LABS: Specific Gravity,Urine >1.050 (1.001-1.035)
[2025-02-13] MEDS ORDERED: Potassium Replacement Protocol 1 EACH MISC MISCELLANE PRN (00:26)
[2025-02-13] MEDS ORDERED: Magnesium Replacement Protocol 1 EACH MISC MISCELLANE PRN (00:26)
[2025-02-13] MEDS: SODIUM CHLORIDE 0.9% 1,000 ML IV ONE (00:42)
[2025-02-13] MEDS: POTASSIUM CHLORIDE 10 MEQ in WATER FOR INJECTION 1 100ML.BAG IVPB SCH (01:48)
--- NOTE | 2025-02-13 03:52 | XR ---
EXAM: XR Chest, 1 View CLINICAL HISTORY: ITS.REASON XR Reason: Tube placement TECHNIQUE: Frontal view of the chest. COMPARISON: No relevant prior studies available. FINDINGS: Lungs: No consolidation or mass. Pleural space: No acute findings. Heart: No cardiomegaly. Bones/joints: No acute findings. ET tube in good position IMPRESSION: ET tube in good position
[2025-02-13 04:27] LABS: ALT 8 U/L (4-49); AST 22 U/L (17-59); African American GFR (CKD) 77 (>60 ml/min/1.73 sqM); Albumin 2.0 g/dL (3.5-5.0); Albumin/Globulin Ratio 0.8; Alkaline Phosphatase 62 U/L (38-126); Anion Gap 14 mmol/L; Blood Urea Nitrogen 23 mg/dL (9-20); Calcium 7.6 mg/dL (8.4-10.2); Carbon Dioxide 14 mmol/L (22-30); Chloride 105 mmol/L (98-107); Globulin 2.5 g/dL; Glucose 92 mg/dL (74-99); Magnesium 1.6 mg/dL (1.6-2.3); Non-African American GFR(CKD) 67 (>60 ml/min/1.73 sqM); Potassium 4.5 mmol/L (3.5-5.1); Sodium 133 mmol/L (137-145); Total Protein 4.5 g/dL (6.3-8.2)
[2025-02-13 04:34] LABS: Basophils # (A) 0.15 10*3/uL (0.00-0.10); Basophils % (A) 0.6 %; Eosinophils # (A) 0.01 10*3/uL (0.04-0.35); Eosinophils % (A) 0.0 %; HCT 47.0 % (39.6-50.0); Lymphocytes # (A) 0.64 10*3/uL (0.90-5.00); Lymphocytes % (A) 2.8 %; MCH 26.0 pg (27.0-32.0); MCHC 31.9 g/dL (32.0-37.0); MCV 81.3 fL (80.0-97.0); Monocytes # (A) 0.58 10*3/uL (0.20-1.00); Monocytes % (A) 2.5 %; Neutrophils # (A) 21.68 10*3/uL (1.80-7.70); Neutrophils % (A) 93.5 %; Platelet Count 772 10*3/uL (140-440); RBC 5.78 10*6/uL (4.40-5.60); RDW 16.4 % (11.5-14.5); WBC 23.21 10*3/uL (4.50-10.00)
[2025-02-13] MEDS: MAGNESIUM SULFATE-D5W PMX 1 GM in DEXTROSE/WATER 1 100ML.BAG IVPB SCH (04:38)
[2025-02-13 04:40] LABS: HGB 15.0 g/dL (13.0-17.0)
[2025-02-13 05:43] LABS: ABG HCO3 16 mmol/L (21-25); ABG PCO2 37 mmHg (35-45); ABG PH 7.23 (7.35-7.45); ABG PO2 177 mmHg (83-108); ABG TCO2 17 mmol/L (19-24)
[2025-02-13 05:46] LABS: Allen Test Performed? No
--- NOTE | 2025-02-13 05:54 | P.CNPUL ---
History of Present Illness Consult date: 02/13/25 Requesting physician: Power Humphrey Reason for consult: other Chief complaint: Abdominal pain History of present illness: Patient is a 59-year-old male with past medical history significant for alcohol abuse, and prior abdominal surgery for hernia repair in 2018. Presented emergency department yesterday evening complaining of abdominal pain. [place] something had popped in his right sided abdomen. Workup at the emergency department including an abdominal/pelvis CT remarkable for an hepatic flexure colonic mass with perforation resulting in pneumoperitoneum and an abscess formation along the right lateral abdomen. Concerns for metastatic disease to the mesentery with multiple lymph nodes present. Also, indeterminate but probable liver metastatic disease versus abscess noted. Reactive enteritis/colitis secondary to perforation and intra-abdominal leak feces contents. Patient was then taken to the operating room for exploratory laparotomy. Patient was noted to have a large abscess within the right colon which was drained. The colon mass was dissected off of the duodenum and sent to pathology. There was obvious concerns for enlarged lymphadenopathy within the mesentery. Underwent right colectomy with ileostomy and partial omentectomy. Following the procedure, patient was transferred to the intensive care unit in critical condition. He remains intubated to the mechanical ventilator. Postoperative chest x-rays the endotracheal tube in appropriate positioning above the nehemias. Nasogastric tube coursing below the diaphragm. No focal opacities, pleural effusions, pneumothoraces, or otherwise acute cardiopulmonary process. Current ventilator settings: AC, respiratory rate 24, tidal volume 450, FiO2 100% PEEP of 5. Postoperative ABG consistent with combined metabolic and respiratory acidosis with a PaO2 of 420, pCO2 46, pH of 7.24. Patient is currently synchronous with current settings and sedated on propofol at 40 mcg/kg/min. Normal saline also infusing at 130 mL/h. He is tachycardic and borderline hypotensive with a blood pressure of 93/72 mmHg, heart rate is 120 bpm. Did previously receive 2.4 L crystalloid fluid bolus. Also, received 2 units PRBCs perioperatively. Mottled appearance to the lower extremities. Previously, noted to be febrile. Patient was empirically covered on a combination of Zosyn and vancomycin for abdominal sepsis. He does have a midline abdominal incision with postoperative dressing clean and intact. There is a right-sided abdominal ileostomy which is pink and beefy red. No significant output. Postoperative labs including a CBC with a WBC count of 8.5, hemoglobin 7.8 g/dL, platelets 571. Postoperative CMP including a sodium 130, potassium 3.4, chloride 94, serum bicarb 24, BUN 17, creatinine 0.97, glucose 88. Lactic 1.4. LFTs unremarkable. Lipase 46. Patient's next of kin is his brother. States he does not have very much known medical history as he does not follow routinely with a doctor. He is reportedly a heavy alcohol drinker. Review of Systems ROS unobtainable: due to endotracheal tube Past Medical History Past Medical History: Asthma, GERD/Reflux Additional Past Medical History / Comment(s): Asthma as a child History of Any Multi-Drug Resistant Organisms: None Reported Past Surgical History: Hernia Repair, Orthopedic Surgery Additional Past Surgical History / Comment(s): R forearm flexor muscle lacerati on with I&D/repair, possible L inguinal surgery as a child (pt not certain), circumcism. Past Anesthesia/Blood Transfusion Reactions: No Reported Reaction Smoking Status: Current every day smoker Past Alcohol Use History: None Reported Past Drug Use History: Marijuana - Past Family History Mother Additional Family Medical History / Comment(s): Mother has had to have brain surgery but pt does not know the reason. She is 76yrs old. Father Family Medical History: Myocardial Infarction (AR) Additional Family Medical History / Comment(s): Father of a AR at the age of 69yrs. Medications and Allergies Home Medications Medication Instructions Recorded Confirmed Type Naproxen Sodium [Aleve] 220 mg PO BID PRN 03/10/18 03/10/18 History Docusate [Colace] 100 mg PO BID #20 capsule 03/11/18 Rx HYDROcodone/APAP 7.5-325MG [[place] 1 tab PO Q4H PRN 3 Days #18 tab 03/11/18 Rx 7.5-325] Allergies Allergy/AdvReac Type Severity Reaction Status Date / Time No Known Allergies Allergy Unverified 03/10/18 09:38 Physical Exam Vitals: Vital Signs Temp Pulse Resp BP Pulse Ox FiO2 02/12/25 23:20 60 02/12/25 22:56 100 02/12/25 22:53 100 02/12/25 20:41 98.3 F 92 18 110/70 98 02/12/25 20:06 103 H 18 115/70 98 02/12/25 19:23 98 18 130/72 100 02/12/25 18:44 90 16 111/67 92 L 02/12/25 18:35 89 16 101/66 92 L 02/12/25 17:54 98.4 F 87 18 96/69 94 L Intake and Output 02/12/25 02/12/25 02/13/25 14:59 22:59 06:59 Intake Total 1620 Output Total 250 Balance 1370 Intake: IV 1000 Blood Product 620 Rc As-1 Unit 310 [id number] Rc As-1 Unit 310 [id number] Output: Urine 200 Estimated Blood Loss 50 Other: Weight 72.575 kg GENERAL EXAM: Sedated, 59-year-old male, intubated to mechanical ventilator, synchronous with current settings HEAD: Normocephalic and atraumatic EYES: Normal reaction of pupils, equal size. NOSE: Clear with pink turbinates. Nasogastric tube inserted through left nare to LIS and small amount of dark brown content. THROAT: No erythema or exudates. NECK: No masses, no JVD. CHEST: No chest wall deformity. LUNGS: Equal air entry with no crackles, wheeze, rhonchi or dullness. No conversational dyspnea or accessory muscle use.. CVS: S1 and S2 normal with no audible murmur, regular rhythm. No extra heart sounds ABDOMEN: Midline abdominal incision with postoperative dressing clean and intact. Right ileostomy noted, stoma appears pink/beefy red. No output. Abdomen is soft. SPINE: No scoliosis or deformity SKIN: No rashes. Mottled appearance lower extremities. CENTRAL NERVOUS SYSTEM: Sedated, no focal deficits, tone is normal in all 4 extremities. EXTREMITIES: There is no peripheral edema, clubbing, or cyanosis. Peripheral pulses are intact. Right brachial arterial line noted. Results - Laboratory Findings CBC and BMP: 02/13/25 03:45 02/13/25 03:45 ABG ABG pH 7.24 (7.35-7.45) L 02/12/25 23:11 ABG pCO2 46 mmHg (35-45) H 02/12/25 23:11 ABG pO2 420 mmHg (83-108) H 02/12/25 23:11 ABG O2 Saturation 99.6 % (94-97) H 02/12/25 23:11 PT/INR, D-dimer PT 11.1 sec (10.0-12.5) 02/12/25 18:28 INR 1.0 (<1.2) 02/12/25 18:28 Abnormal lab findings: Abnormal Labs 02/12/25 02/12/25 02/12/25 18:28 18:28 20:04 RBC 2.98 L Hgb 7.8 L Hct 23.6 L MCV 79.2 L MCH 26.2 L Plt Count 571 H MPV 9.4 L Immature Gran # 0.07 H ABG pH ABG pCO2 ABG pO2 ABG HCO3 ABG O2 Saturation Sodium 130 L Potassium 3.4 L Chloride 94 L AST 14 L Total Protein 5.4 L Albumin 2.7 L Crossmatch See Detail 02/12/25 23:11 RBC Hgb Hct MCV MCH Plt Count MPV Immature Gran # ABG pH 7.24 L ABG pCO2 46 H ABG pO2 420 H ABG HCO3 20 L ABG O2 Saturation 99.6 H Sodium Potassium Chloride AST Total Protein Albumin Crossmatch - Diagnostic Findings Chest x-ray: image reviewed Assessment and Plan Assessment: Colonic mass with perforation, pneumoperitoneum, intra-abdominal abscess Status postoperative day #1 following exploratory laparotomy with drainage of abscess, right colectomy, end ileostomy, and partial omentectomy Colonic mass with concerns for metastatic disease with enlargement of mesenteric lymph nodes, also, indeterminate but probable metastatic disease to the liver. Postoperative ventilator management Abdominal sepsis Combined respiratory and metabolic acidosis Acute blood loss anemia, status post 2 units PRBCs Hypokalemia, replace per protocol History of alcohol abuse Plan: Patient is currently intubated mechanical ventilator, increased respiratory rate to 24 breaths/min. Drop FiO2 to 50% and continue to wean FiO2 as tolerated. Postoperative chest x-ray reviewed endotracheal tube in good location, nasogastric tube coursing below the diaphragm. Otherwise no acute cardiopulmonary process was noted Repeat chest x-ray in the morning, repeat ABG in the morning, continue propofol for sedation, wean for appropriate RASS Blood pressure currently hypotensive, give the patient an additional 1 L normal saline bolus Status post 2 units PRBC transfusion, repeat labs including H&H May end up requiring vasopressors for blood pressure support Continue Zosyn for abdominal sepsis Blood cultures are pending Pathology pending Patient's condition is currently critical and overall prognosis is guarded Case discussed with next of kin and brother at bedside I have personally seen and examined the patient, performed the documentation and the assessment and plan as written. Number of minutes spent on the visit:20 This dictation was produced using [employer] dictation software please excuse grammatical errors Time with Patient: Greater than 30
[2025-02-13] MEDS: SODIUM BICARB 8.4% 50 ML SYR (1 MEQ/ML) IV STA (05:56)
[2025-02-13] MEDS: DEXTROSE 5% IN WATER 1,000 ML with SODIUM BICARB (1 MEQ/ML) 150 ML IV SCH (06:16)
[2025-02-13] MEDS: IPRATROPIUM-ALBUTEROL 3 ML NEB INHALATION SCH (08:19)
[2025-02-13] MEDS: ENOXAPARIN 40 MG/0.4 ML SYRINGE SQ SCH (09:08)
[2025-02-13] MEDS: PANTOPRAZOLE 40 MG/10 ML VIAL IV SCH (09:08)
[2025-02-13] MEDS: CHLORHEXIDINE GLUCONATE 15 ML CUP MUCOUS MEM SCH (09:08)
--- NOTE | 2025-02-13 11:20 | P.PN ---
Subjective Progress Note Date: 02/13/25 SURGICAL PROGRESS NOTE CHIEF COMPLAINT: Right colon mass HISTORY OF PRESENT ILLNESS: Patient is postop day #1 status post exploratory laparotomy, drainage of abscess, right colectomy with ileostomy and partial pneumonectomy. Patient is in the ICU intubated and on mechanical ventilation. His urine output is decreased he is receiving IV fluids and is on a bicarb drip. Afebrile. Mild tachycardia improved. Urine output decreased. WBC is 23 hemoglobin did go up from 7.8-15 after 2 units of blood. OG tube 500 mL output PHYSICAL EXAM: VITAL SIGNS: Reviewed. GENERAL: Well-developed in no acute distress. HEENT: No sclera icterus. Extraocular movements grossly intact. Moist buccal mucosa. Head is atraumatic, normocephalic. ABDOMEN: Soft. Mildly distended. Midline incision dressing clean dry and intact. Ileostomy on the right with serosanguineous drainage noted in the ostomy bag. Ileostomy stoma is beefy red NEUROLOGIC: Alert and oriented. Cranial nerves II through XII grossly intact. ASSESSMENT: 1. Right colon mass with perforation and intraperitoneal abscess with metastatic disease PLAN: - Continue ICU management - Continue supportive care - Continue IV fluids - Continue antibiotics - Follow-up on pathology results - GI prophylaxis Protonix DVT prophylaxis Lovenox Physician Pr Manager note has been reviewed by physician. Signing provider agrees with the documented findings, assessment, and plan of care. Objective - Vital Signs Vital signs: Vital Signs Temp 98.3 F 02/13/25 08:00 Pulse 96 02/13/25 09:00 Resp 19 02/13/25 09:00 BP 100/72 02/13/25 09:00 Pulse Ox 100 02/13/25 09:00 FiO2 40 02/13/25 08:21 Intake & Output 02/12/25 02/13/25 02/13/25 18:59 06:59 18:59 Intake Total 2590.954 133 Output Total 465 60 Balance 2125.954 73 Weight 72.575 kg 69 kg Intake: IV 1931 133 Art line pressure bag 21 3 Sodium Chloride 0.9% 1, 910 130 000 ml @ 130 mls/hr IV . [id number] STA Rx#:[id number] Intake, IV Titration 39.954 Amount propofoL 1,000 mg In 39.954 Empty Bag 1 bag @ 15 MCG/ KG/MIN 6.532 mls/hr IV . [id number] [facility] Rx#:[id number] Blood Product 620 Rc As-1 Unit 310 [id number] Rc As-1 Unit 310 [id number] Output: Gastric Drainage 150 50 Urine 265 10 Estimated Blood Loss 50 Other: Voiding Method Indwelling Catheter ABP, PAP, CO, CI - Last Documented Arterial Blood Pressure 93/63 - Labs CBC & Chem 7: 02/13/25 03:45 02/13/25 03:45 Labs: Abnormal Lab Results - Last 24 Hours (Table) 02/12/25 02/12/25 02/12/25 Range/Units 18:28 18:28 20:04 WBC (4.50-10.00) 10*3/uL RBC 2.98 L (4.40-5.60) 10*6/uL Hgb 7.8 L (13.0-17.0) g/dL Hct 23.6 L (39.6-50.0) % MCV 79.2 L (80.0-97.0) fL MCH 26.2 L (27.0-32.0) pg MCHC (32.0-37.0) g/dL RDW (11.5-14.5) % Plt Count 571 H (140-440) 10*3/uL MPV 9.4 L (9.5-12.2) fL Immature Gran # 0.07 H (0.00-0.04) 10*3/uL Neutrophils # (1.80-7.70) 10*3/uL Lymphocytes # (0.90-5.00) 10*3/uL Eosinophils # (0.04-0.35) 10*3/uL Basophils # (0.00-0.10) 10*3/uL ABG pH (7.35-7.45) ABG pCO2 (35-45) mmHg ABG pO2 (83-108) mmHg ABG HCO3 (21-25) mmol/L ABG Total CO2 (19-24) mmol/L ABG O2 Saturation (94-97) % Sodium 130 L (137-145) mmol/L Potassium 3.4 L (3.5-5.1) mmol/L Chloride 94 L (98-107) mmol/L Carbon Dioxide (22-30) mmol/L BUN (9-20) mg/dL Calcium (8.4-10.2) mg/dL Total Bilirubin (0.2-1.3) mg/dL AST 14 L (17-59) U/L Total Protein 5.4 L (6.3-8.2) g/dL Albumin 2.7 L (3.5-5.0) g/dL Ur Specific [place] (1.001-1.035) Urine Protein (Negative) Urine Ketones (Negative) Crossmatch See Detail 02/12/25 02/12/25 02/13/25 Range/Units 23:11 23:20 03:45 WBC 23.21 H (4.50-10.00) 10*3/uL RBC 5.78 H (4.40-5.60) 10*6/uL Hgb (13.0-17.0) g/dL Hct (39.6-50.0) % MCV (80.0-97.0) fL MCH 26.0 L (27.0-32.0) pg MCHC 31.9 L (32.0-37.0) g/dL RDW 16.4 H (11.5-14.5) % Plt Count 772 H (140-440) 10*3/uL MPV 9.3 L (9.5-12.2) fL Immature Gran # 0.15 H (0.00-0.04) 10*3/uL Neutrophils # 21.68 H (1.80-7.70) 10*3/uL Lymphocytes # 0.64 L (0.90-5.00) 10*3/uL Eosinophils # 0.01 L (0.04-0.35) 10*3/uL Basophils # 0.15 H (0.00-0.10) 10*3/uL ABG pH 7.24 L (7.35-7.45) ABG pCO2 46 H (35-45) mmHg ABG pO2 420 H (83-108) mmHg ABG HCO3 20 L (21-25) mmol/L ABG Total CO2 (19-24) mmol/L ABG O2 Saturation 99.6 H (94-97) % Sodium (137-145) mmol/L Potassium (3.5-5.1) mmol/L Chloride (98-107) mmol/L Carbon Dioxide (22-30) mmol/L BUN (9-20) mg/dL Calcium (8.4-10.2) mg/dL Total Bilirubin (0.2-1.3) mg/dL AST (17-59) U/L Total Protein (6.3-8.2) g/dL Albumin (3.5-5.0) g/dL Ur Specific [place] >1.050 H (1.001-1.035) Urine Protein Trace H (Negative) Urine Ketones 1+ H (Negative) Crossmatch 02/13/25 02/13/25 Range/Units 03:45 05:38 WBC (4.50-10.00) 10*3/uL RBC (4.40-5.60) 10*6/uL Hgb (13.0-17.0) g/dL Hct (39.6-50.0) % MCV (80.0-97.0) fL MCH (27.0-32.0) pg MCHC (32.0-37.0) g/dL RDW (11.5-14.5) % Plt Count (140-440) 10*3/uL MPV (9.5-12.2) fL Immature Gran # (0.00-0.04) 10*3/uL Neutrophils # (1.80-7.70) 10*3/uL Lymphocytes # (0.90-5.00) 10*3/uL Eosinophils # (0.04-0.35) 10*3/uL Basophils # (0.00-0.10) 10*3/uL ABG pH 7.23 L (7.35-7.45) ABG pCO2 (35-45) mmHg ABG pO2 177 H (83-108) mmHg ABG HCO3 16 L (21-25) mmol/L ABG Total CO2 17 L (19-24) mmol/L ABG O2 Saturation 98.8 H (94-97) % Sodium 133 L (137-145) mmol/L Potassium (3.5-5.1) mmol/L Chloride (98-107) mmol/L Carbon Dioxide 14 L (22-30) mmol/L BUN 23 H (9-20) mg/dL Calcium 7.6 L (8.4-10.2) mg/dL Total Bilirubin 3.6 H (0.2-1.3) mg/dL AST (17-59) U/L Total Protein 4.5 L (6.3-8.2) g/dL Albumin 2.0 L (3.5-5.0) g/dL Ur Specific [place] (1.001-1.035) Urine Protein (Negative) Urine Ketones (Negative) Crossmatch
--- NOTE | 2025-02-13 12:00 | P.ANPRN ---
Procedure Note - Anesthesia - Invasive Line Right Arterial Line Time Out Performed: Yes Date of Procedure: 02/12/25 Time of Procedure: 21:10 Location of Patient: OR Preparation: Sterile Prep, Sterile Dressing Arterial Line Location: Briachial Ultrasound Used: No Purpose - Visualization and Identification of Vasculature: No Image Stored and Saved: No Narrative: Invasive line placement per sterile protocol utilized.
--- NOTE | 2025-02-13 12:06 | CONS ---
CONSULTATION REASON FOR CONSULTATION: Advice regarding asthma and other medical issues, requested by Surgery. HISTORY OF PRESENT ILLNESS: This is a 59-year-old gentleman with a past medical history of asthma, GERD, presented with colonic perforation. The patient underwent exploratory laparotomy and colostomy. The patient also had right colonic mass with lymphadenopathy. The patient is mechanically ventilated postop. The patient is being closely monitored in ICU at this time. There is no history of any fever, rigors, or chills. PAST MEDICAL HISTORY: Reviewed include asthma, GERD. Rest of the history and chart also reviewed. MEDICATIONS: [place]. Rest of medications reviewed, not confirmed yet. ALLERGIES: None. FAMILY HISTORY: Could not be taken because the patient is mechanically sedated. SOCIAL HISTORY: Could not be taken because the patient is mechanically sedated. REVIEW OF SYSTEMS: Could not be taken because the patient is mechanically sedated. PHYSICAL EXAMINATION: VITAL SIGNS: Pulse is 96, blood pressure 100/70, respirations 18. HEENT: Conjunctivae normal. NECK: No jugular venous distention. CARDIOVASCULAR: S1, S2. RESPIRATIONS: A few scattered rhonchi and crackles. ABDOMEN: Soft. Status post surgery. LEGS: No edema. NERVOUS SYSTEM: Sedated. LABORATORY DATA: Noted. ASSESSMENT: 1. 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 2. Postoperative mechanical ventilation. 3. Possible sepsis present on admission. 4. History of nicotine dependence. 5. History of asthma. 6. History of gastroesophageal reflux disease. 7. Elevated WBC. RECOMMENDATIONS AND DISCUSSION: This 59-year-old gentleman presented with multiple complex medical issues. We will monitor the patient closely. Broad-spectrum IV antibiotics. The patient is on IV Zosyn. Follow cultures. DVT prophylaxis. Closely follow with Pulmonary. A new chest x-ray was reviewed, discussed with staff. Prognosis guarded. Further recommendations to follow. MMODL / IJN: [id number] /
--- NOTE | 2025-02-13 15:01 | P.CONS ---
History of Present Illness - Reason for Consult Consult date: 02/13/25 colon mass Requesting physician: Nabil Zarco - Chief Complaint Abd pain - History of Present Illness When seen today patient is mechanically ventilated. All information is taken from review of the chart. Patient was brought to the emergency department 02/12/2025 at approximately 1800, complaints of abdominal pain, reported been going on for months with a sudden worsening. He had a CT of the abdomen pelvis with contrast reporting a 15 mm hepatic lesion, possibly a necrotic mass versus an abscess, circumferential wall thickening of the hepatic flexure of the colon, 7.4 x 4.7 cm, hyperemia of the small bowel throughout the abdomen, free fluid throughout the abdomen. Free air along the dome of the liver. Organizing fluid collection in the right abdomen 7.9 x 3.7 cm compatible with an abscess. Suspicious lymph node mass in the mesentery. He was taken to surgery within the hour. 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 Exploratory laparotomy, drainage of abscess, right colectomy with ileostomy, partial omentectomy. Pathology pending. Patient's vital signs are currently stable, CBC postop showing a WBC of 23.2, all neutrophils. Patient's hemoglobin was 7.8. He is status post 2 units of blood with a hemoglobin of 15-this is very unlikely, best Hgb would be after 2 units would be 9.8, re-check in a.m. Platelet count 772,000, BUN 23, creatinine 1.19. On admission patient was not on any home medications, he was hospitalized here in 2018 for an incarcerated hernia and small bowel obstruction, no other hospitalizations noted otherwise. Review of Systems ROS unobtainable: due to endotracheal tube Past Medical History Past Medical History: Asthma, GERD/Reflux Additional Past Medical History / Comment(s): Asthma as a child History of Any Multi-Drug Resistant Organisms: None Reported Past Surgical History: Hernia Repair, Orthopedic Surgery Additional Past Surgical History / Comment(s): R forearm flexor muscle laceration with I&D/repair, possible L inguinal surgery as a child (pt not certain), circumcism. Past Anesthesia/Blood Transfusion Reactions: No Reported Reaction Smoking Status: Current every day smoker Past Alcohol Use History: None Reported Past Drug Use History: Marijuana - Past Family History Mother Additional Family Medical History / Comment(s): Mother has had to have brain surgery but pt does not know the reason. She is 76yrs old. Father Family Medical History: Myocardial Infarction (NC) Additional Family Medical History / Comment(s): Father of a NC at the age of 69yrs. Medications and Allergies Home Medications Medication Instructions Recorded Confirmed Type No Known Home Medications 02/13/25 02/13/25 History Allergies Allergy/AdvReac Type Severity Reaction Status Date / Time No Known Allergies Allergy Verified 02/13/25 11:35 Physical Exam Vitals: Vital Signs Temp Pulse Resp BP Pulse Ox FiO2 02/13/25 12:09 93 02/13/25 11:51 90 40 02/13/25 09:00 96 19 100/72 100 02/13/25 08:40 95 02/13/25 08:30 93 21 100/72 100 02/13/25 08:21 40 02/13/25 08:19 94 02/13/25 08:00 98.3 F 92 25 H 95/69 100 40 02/13/25 07:30 96 24 95/69 100 02/13/25 07:00 99 24 96/78 100 40 02/13/25 06:30 103 H 24 96/78 100 02/13/25 06:09 40 02/13/25 06:00 105 H 24 108/73 100 40 02/13/25 05:30 109 H 24 108/73 100 02/13/25 05:00 111 H 27 H 110/74 100 50 02/13/25 04:30 111 H 26 H 110/74 100 02/13/25 04:13 50 02/13/25 04:00 98.4 F 112 H 28 H 104/50 100 60 02/13/25 03:30 110 H 27 H 104/50 100 02/13/25 03:00 112 H 25 H 114/76 96 60 02/13/25 02:30 112 H 25 H 118/77 93 L 02/13/25 02:00 110 H 24 118/77 96 60 02/13/25 01:30 108 H 24 96 02/13/25 01:00 115 H 24 118/77 97 60 02/13/25 00:31 60 02/13/25 00:30 118 H 24 118/77 98 02/13/25 00:22 118 H 24 118/77 93 L 02/13/25 00:00 120 H 24 96 60 02/12/25 23:30 117 H 20 92 L 02/12/25 23:20 60 02/12/25 23:00 110 H 20 93 L 100 02/12/25 22:56 100 02/12/25 22:53 100 02/12/25 22:42 107 H 20 02/12/25 20:41 98.3 F 92 18 110/70 98 02/12/25 20:06 103 H 18 115/70 98 02/12/25 19:23 98 18 130/72 100 02/12/25 18:44 90 16 111/67 92 L 02/12/25 18:35 89 16 101/66 92 L 02/12/25 17:54 98.4 F 87 18 96/69 94 L Intake and Output 02/12/25 02/13/25 02/13/25 22:59 06:59 14:59 Intake Total 1620 970.954 133 Output Total 250 215 60 Balance 1370 755.954 73 Intake: IV 1000 931 133 Art line pressure bag 21 3 Sodium Chloride 0.9% 1, 910 130 000 ml @ 130 mls/hr IV . Q7H42M [facility] Rx#:[id number] Intake, IV Titration 39.954 Amount propofoL 1,000 mg In 39.954 Empty Bag 1 bag @ 15 MCG/ KG/MIN 6.532 mls/hr IV . [id number] [facility] Rx#:[id number] Blood Product 620 Rc As-1 Unit 310 [id number] Rc As-1 Unit 310 [id number] Output: Gastric Drainage 150 50 Urine 200 65 10 Estimated Blood Loss 50 Other: Voiding Method Indwelling Catheter Weight 72.575 kg 69 kg ABP, PAP, CO, CI - Last 8 Hours Arterial Blood Pressure 93/63 Arterial Blood Pressure 92/62 Arterial Blood Pressure 91/66 Arterial Blood Pressure 90/65 Arterial Blood Pressure 88/63 - Constitutional General appearance: average body habitus, no acute distress - EENT Eyes: anicteric sclerae - Neck Neck: no lymphadenopathy - Respiratory Respiratory: bilateral: CTA - Cardiovascular Rhythm: regular Heart sounds: normal: S1, S2 Abnormal Heart Sounds: no systolic murmur, no diastolic murmur, no rub, no S3 Gallop, no S4 Gallop, no click, no other leg Peripheral Edema: bilateral: None - Gastrointestinal ostomy, midline incision with clean, dry dressing - Psychiatric Psychiatric: no A&O x's 3, no appropriate affect, no intact judgment & insight Results CBC & Chem 7: 02/13/25 03:45 02/13/25 03:45 Labs: Abnormal Lab Results - Last 24 Hours (Table) 02/12/25 02/12/25 02/12/25 Range/Units 18:28 18:28 20:04 WBC (4.50-10.00) 10*3/uL RBC 2.98 L (4.40-5.60) 10*6/uL Hgb 7.8 L (13.0-17.0) g/dL Hct 23.6 L (39.6-50.0) % MCV 79.2 L (80.0-97.0) fL MCH 26.2 L (27.0-32.0) pg MCHC (32.0-37.0) g/dL RDW (11.5-14.5) % Plt Count 571 H (140-440) 10*3/uL MPV 9.4 L (9.5-12.2) fL Immature Gran # 0.07 H (0.00-0.04) 10*3/uL Neutrophils # (1.80-7.70) 10*3/uL Lymphocytes # (0.90-5.00) 10*3/uL Eosinophils # (0.04-0.35) 10*3/uL Basophils # (0.00-0.10) 10*3/uL ABG pH (7.35-7.45) ABG pCO2 (35-45) mmHg ABG pO2 (83-108) mmHg ABG HCO3 (21-25) mmol/L ABG Total CO2 (19-24) mmol/L ABG O2 Saturation (94-97) % Sodium 130 L (137-145) mmol/L Potassium 3.4 L (3.5-5.1) mmol/L Chloride 94 L (98-107) mmol/L Carbon Dioxide (22-30) mmol/L BUN (9-20) mg/dL Calcium (8.4-10.2) mg/dL Total Bilirubin (0.2-1.3) mg/dL AST 14 L (17-59) U/L Total Protein 5.4 L (6.3-8.2) g/dL Albumin 2.7 L (3.5-5.0) g/dL Ur Specific [place] (1.001-1.035) Urine Protein (Negative) Urine Ketones (Negative) Crossmatch See Detail 02/12/25 02/12/25 02/13/25 Range/Units 23:11 23:20 03:45 WBC 23.21 H (4.50-10.00) 10*3/uL RBC 5.78 H (4.40-5.60) 10*6/uL Hgb (13.0-17.0) g/dL Hct (39.6-50.0) % MCV (80.0-97.0) fL MCH 26.0 L (27.0-32.0) pg MCHC 31.9 L (32.0-37.0) g/dL RDW 16.4 H (11.5-14.5) % Plt Count 772 H (140-440) 10*3/uL MPV 9.3 L (9.5-12.2) fL Immature Gran # 0.15 H (0.00-0.04) 10*3/uL Neutrophils # 21.68 H (1.80-7.70) 10*3/uL Lymphocytes # 0.64 L (0.90-5.00) 10*3/uL Eosinophils # 0.01 L (0.04-0.35) 10*3/uL Basophils # 0.15 H (0.00-0.10) 10*3/uL ABG pH 7.24 L (7.35-7.45) ABG pCO2 46 H (35-45) mmHg ABG pO2 420 H (83-108) mmHg ABG HCO3 20 L (21-25) mmol/L ABG Total CO2 (19-24) mmol/L ABG O2 Saturation 99.6 H (94-97) % Sodium (137-145) mmol/L Potassium (3.5-5.1) mmol/L Chloride (98-107) mmol/L Carbon Dioxide (22-30) mmol/L BUN (9-20) mg/dL Calcium (8.4-10.2) mg/dL Total Bilirubin (0.2-1.3) mg/dL AST (17-59) U/L Total Protein (6.3-8.2) g/dL Albumin (3.5-5.0) g/dL Ur Specific [place] >1.050 H (1.001-1.035) Urine Protein Trace H (Negative) Urine Ketones 1+ H (Negative) Crossmatch 02/13/25 02/13/25 Range/Units 03:45 05:38 WBC (4.50-10.00) 10*3/uL RBC (4.40-5.60) 10*6/uL Hgb (13.0-17.0) g/dL Hct (39.6-50.0) % MCV (80.0-97.0) fL MCH (27.0-32.0) pg MCHC (32.0-37.0) g/dL RDW (11.5-14.5) % Plt Count (140-440) 10*3/uL MPV (9.5-12.2) fL Immature Gran # (0.00-0.04) 10*3/uL Neutrophils # (1.80-7.70) 10*3/uL Lymphocytes # (0.90-5.00) 10*3/uL Eosinophils # (0.04-0.35) 10*3/uL Basophils # (0.00-0.10) 10*3/uL ABG pH 7.23 L (7.35-7.45) ABG pCO2 (35-45) mmHg ABG pO2 177 H (83-108) mmHg ABG HCO3 16 L (21-25) mmol/L ABG Total CO2 17 L (19-24) mmol/L ABG O2 Saturation 98.8 H (94-97) % Sodium 133 L (137-145) mmol/L Potassium (3.5-5.1) mmol/L Chloride (98-107) mmol/L Carbon Dioxide 14 L (22-30) mmol/L BUN 23 H (9-20) mg/dL Calcium 7.6 L (8.4-10.2) mg/dL Total Bilirubin 3.6 H (0.2-1.3) mg/dL AST (17-59) U/L Total Protein 4.5 L (6.3-8.2) g/dL Albumin 2.0 L (3.5-5.0) g/dL Ur Specific [place] (1.001-1.035) Urine Protein (Negative) Urine Ketones (Negative) Crossmatch Microbiology - Last 24 Hours (Table) 02/12/25 23:55 Gram Stain - Preliminary Other - Other CT scan - abdomen: report reviewed CT scan - pelvis: report reviewed Assessment and Plan (1) Perforated bowel Current Visit: Yes Status: Acute Priority: High Code(s): K63.1 - PERFORATI ON OF INTESTINE (NONTRAUMATIC) SNOMED Code(s): 73279900 (2) Intra-abdominal abscess Current Visit: Yes Status: Acute Priority: High Code(s): K65.1 - PERITONEAL ABSCESS SNOMED Code(s): 38306935 (3) Anemia Current Visit: Yes Status: Acute Priority: High Code(s): D64.9 - ANEMIA, UNSPECIFIED SNOMED Code(s): 790280957 Plan: Colon mass, perforated mass, intra-abdominal abscess. -Patient presented with sudden onset abdominal pain. He was taken to surgery rather urgently, he is status post exploratory laparotomy, resection of colon mass, partial omentectomy, drainage of abscess and creation of end ileostomy - Pathology is pending. Patient is still sedated and mechanically ventilated. - Will follow-up on pathology results and discuss with the patient and his family - Will need to complete staging imaging at some point in time. Pending when patient is more stable Anemia - Likely secondary to blood loss from colon mass. - Will order iron studies, if able to be done on pre-transfusion blood. If not, we will have to take the laboratory values into account when making recommendations for parenteral iron, which patient is likely going to need Doctor attests: I performed a history and physical examination of this patient, developed impression and plan of care. Discussed with dictator. I agree with dictators note, documented as a scribe.
[2025-02-13] MEDS: VANCOMYCIN 1,250 MG in SODIUM CHLORIDE 0.9% 250 ML IVPB SCH (15:21)
[2025-02-13 17:29] LABS: Glucose,Whole Blood 217 mg/dL (70-110)
[2025-02-13] MEDS: HYDROmorphone 1 MG/ML 1 ML SYRINGE IVP PRN (20:54)
[2025-02-14] MEDS: SODIUM CHLORIDE 0.9% 500 ML 500 ML IV ONE (01:11)
[2025-02-14 03:01] LABS: Ferritin 531.0 ng/mL (22.0-322.0); Iron <6 UG/DL (65-175); Total Iron Binding Capacity 154 UG/DL (228-460); Vitamin B12 1285.0 pg/mL (200.0-944.0)
[2025-02-14 05:00] LABS: ABG HCO3 25 mmol/L (21-25); ABG PCO2 35 mmHg (35-45); ABG PH 7.45 (7.35-7.45); ABG PO2 94 mmHg (83-108); ABG TCO2 26 mmol/L (19-24)
[2025-02-14 05:01] LABS: Allen Test Performed? no
[2025-02-14 05:46] LABS: Glucose,Whole Blood 209 mg/dL (70-110)
[2025-02-14 05:48] LABS: HCT 30.9 % (39.6-50.0); HGB 10.5 g/dL (13.0-17.0); MCH 26.6 pg (27.0-32.0); MCHC 34.0 g/dL (32.0-37.0); MCV 78.2 fL (80.0-97.0); Platelet Count 439 10*3/uL (140-440); RBC 3.95 10*6/uL (4.40-5.60); RDW 16.2 % (11.5-14.5); WBC 23.42 10*3/uL (4.50-10.00)
[2025-02-14 06:08] LABS: African American GFR (CKD) 58 (>60 ml/min/1.73 sqM); Anion Gap 11 mmol/L; Blood Urea Nitrogen 29 mg/dL (9-20); Calcium 6.6 mg/dL (8.4-10.2); Carbon Dioxide 22 mmol/L (22-30); Chloride 104 mmol/L (98-107); Glucose 203 mg/dL (74-99); Magnesium 1.9 mg/dL (1.6-2.3); Non-African American GFR(CKD) 50 (>60 ml/min/1.73 sqM); Potassium 3.3 mmol/L (3.5-5.1); Sodium 137 mmol/L (137-145)
[2025-02-14] MEDS ORDERED: CALCIUM GLUCONATE IN NACL 2 GM in SALINE 1 100ML.BAG IVPB ONE (06:23)
[2025-02-14] MEDS: POTASSIUM CHLORIDE 10 MEQ in WATER FOR INJECTION 1 100ML.BAG IVPB SCH (06:36)
[2025-02-14] MEDS: MAGNESIUM SULFATE-D5W PMX 1 GM in DEXTROSE/WATER 1 100ML.BAG IVPB ONE (06:37)
[2025-02-14 07:21] LABS: Lymphocytes # (M) 0.94 k/uL (1.0-4.8); Monocytes # (M) 0.94 k/uL (0-1.0); Neutrophils # (M) 21.54 k/uL (1.3-7.7); Neutrophils % (M) 67 %; Total Cells Counted 100
--- NOTE | 2025-02-14 08:24 | XR ---
EXAMINATION TYPE: XR chest 1V portable DATE OF EXAM: 02/14/2025 6:04 AM COMPARISON: Chest radiograph from two days prior. CLINICAL INDICATION: Male, 59 years old with history of Tube placement; [facility] TECHNIQUE: XR chest 1V portable Frontal view of the chest. FINDINGS: Lungs/Pleura: Blunting of the right costophrenic angle. Hazy airspace opacities in the left midlung. There is no evidence of left pleural effusion, focal consolidation, or pneumothorax Pulmonary vascularity: Unremarkable. Heart/mediastinum: Cardiomediastinal silhouette is unremarkable. Musculoskeletal: No acute osseous pathology. Other findings: None Lines/Tubes: Endotracheal tube with distal tip 4.9cm above the nehemias. Nasogastric tube with its distal tip and side-port projecting under the diaphragm. IMPRESSION: Suspected right layering pleural effusion. Subtle left-sided airspace opacities correlate for infection.[facility], , 02/14/2025 8:21 AM
--- NOTE | 2025-02-14 10:58 | P.PN ---
Subjective Progress Note Date: 02/14/25 History of present illness; Patient is a 59-year-old male with past medical history significant for alcohol abuse, and prior abdominal surgery for hernia repair in 2018. Presented emergency department yesterday evening complaining of abdominal pain. [place] something had popped in his right sided abdomen. Workup at the emergency department including an abdominal/pelvis CT remarkable for an hepatic flexure colonic mass with perforation resulting in pneumoperitoneum and an abscess formation along the right lateral abdomen. Concerns for metastatic disease to the mesentery with multiple lymph nodes present. Also, indeterminate but probable liver metastatic disease versus abscess noted. Reactive ente ritis/colitis secondary to perforation and intra-abdominal leak feces contents. Patient was then taken to the operating room for exploratory laparotomy. Patient was noted to have a large abscess within the right colon which was drained. The colon mass was dissected off of the duodenum and sent to pathology. There was obvious concerns for enlarged lymphadenopathy within the mesentery. Underwent right colectomy with ileostomy and partial omentectomy. Following the procedure, patient was transferred to the intensive care unit in critical condition. He remains intubated to the mechanical ventilator. Postoperative chest x-rays the endotracheal tube in appropriate positioning above the nehemias. Nasogastric tube coursing below the diaphragm. No focal opacities, pleural effusions, pneumothoraces, or otherwise acute cardiopulmonary process. Current ventilator settings: AC, respiratory rate 24, tidal volume 450, FiO2 100% PEEP of 5. Postoperative ABG consistent with combined metabolic and respiratory acidosis with a PaO2 of 420, pCO2 46, pH of 7.24. Patient is currently synchronous with current settings and sedated on propofol at 40 mcg/kg/min. Normal saline also infusing at 130 mL/h. He is tachycardic and borderline hypotensive with a blood pressure of 93/72 mmHg, heart rate is 120 bpm. Did previously receive 2.4 L crystalloid fluid bolus. Also, received 2 units PRBCs perioperatively. Mottled appearance to the lower extremities. Previously, noted to be febrile. Patient was empirically covered on a combination of Zosyn and vancomycin for abdominal sepsis. He does have a midline abdominal incision with postoperative dressing clean and intact. There is a right-sided abdominal ileostomy which is pink and beefy red. No significant output. Postoperative labs including a CBC with a WBC count of 8.5, hemoglobin 7.8 g/dL, platelets 571. Postoperative CMP including a sodium 130, potassium 3.4, chloride 94, serum bicarb 24, BUN 17, creatinine 0.97, glucose 88. Lactic 1.4. LFTs unremarkable. Lipase 46. Patient's next of kin is his brother. States he does not have very much known medical history as he does not follow routinely with a doctor. He is reportedly a heavy alcohol drinker. 02/14/25 - He is seen and evaluated in the ICU, room 259. He is on the mechanical ventilator, volume assist control , rate of 24, tidal volume of 450, FiO2 40% and PEEP of 5. Blood gases this morning show pO2 of 94, pCO2 of 25, pH of 7.45. He continues to be on Propofol at 35 mcg/kg/min, Zosyn and Vancomycin. Current labs include WBCs 23.42, Hgb 10.5, Hct 30.9, PLT 439, Na 137, K 3.3, BUN 29, Cr 1.52, Ca 6.6. Blood cultures continue to be pending at this time. Chest X-ray from this morning shows possible right layering pleural effusion. REVIEW OF SYSTEMS: Pertinent positives and negatives noted in HPI. Physical Exam: General: nontoxic, no distress, appears at stated age; intubated and mechanically ventilated. Derm: warm, dry, intact Head: atraumatic, normocephalic, symmetric Eyes: EOMI, anicteric sclera NOSE: Clear with pink turbinates. Nasogastric tube inserted through left nare to LIS and small amount of dark brown content. Mouth: no lip lesion, mucus membranes moist Cardiovascular: S1 S2 reg, no murmur, rubs, or gallops; distant heart sounds. Lungs: CTA bilateral, no rales, no accessory muscle use ABDOMEN: Midline abdominal incision with postoperative dressing clean and intact. Right ileostomy noted, stoma appears pink/beefy red. No output. Abdomen is soft. Extremities: No cyanosis or edema present. Right brachial arterial line noted. Neuro: Cannot be assessed at this time. Psych: well appearing, appropriate affect Assessment/Plan: #Colonic mass with perforation, pneumoperitoneum, intra-abdominal abscess #Status postoperative day #1 following exploratory laparotomy with drainage of abscess, right colectomy, end ileostomy, and partial omentectomy #Colonic mass with concerns for metastatic disease with enlargement of mesenteric lymph nodes, also, indeterminate but probable metastatic disease to the liver. #Postoperative ventilator management #Abdominal sepsis #Combined respiratory and metabolic acidosis #Acute blood loss anemia, status post 2 units PRBCs #Hypokalemia, replace per protocol #Hypocalcemia #History of alcohol abuse Plan dated February 14, 2025. The patient is seen today in room 259. He remains on mechanical ventilator, settings noted above. Blood gases show pO2 94, pCO2 25, pH is 7.45. He continues on propofol at 35 mcg/kg/min, Zosyn and Vancomycin. D5W with 3 ampoules of sodium bicarbonate 100 cc an hour has been discontinued as patients bicarb was 22. Calcium was noted to be 6.6 - ionized calcium ordered, will continue to replace as necessary. He will undergo spontaneous breathing trial today to assess whether it may be possible to extubate. Labs, x-rays, and all medications are reviewed. We will continue to follow the patient, make recommendations. Overall prognosis remains guarded. The patient continues on GI and DVT prophylaxis. Dictation was produced using tarpipe dictation software. Please excuse any grammatical, word or spelling errors. Dictation was produced using [employer] software. please excuse any grammatical, word or spelling errors. Doc Nunez MD PGY-1 IM Objective - Vital Signs Vital signs: Vital Signs Temp 97.8 F 02/14/25 08:00 Pulse 101 H 02/14/25 08:36 Resp 19 02/14/25 08:00 BP 98/66 02/14/25 08:00 Pulse Ox 98 02/14/25 08:00 FiO2 40 02/14/25 10:38 Intake & Output 02/13/25 02/14/25 02/14/25 18:59 06:59 18:59 Intake Total 1596 2582.478 Output Total 350 1010 Balance 1246 1572.478 Weight 76.657 kg Intake: IV 1596 2389 Art line pressure bag 36 39 Dextrose 5% in Water 1, 1200 000 ml @ 100 mls/hr IV . [id number] [facility] with Sodium Bicarb (1 Meq/ml) 150 ml Rx#:[id number] Sodium Chloride 0.9% 1, 1560 650 000 ml @ 130 mls/hr IV . Q7H42M [facility] Rx#:[id number] Sodium Chloride 0.9% 500 500 ml 500 ml @ 999 mls/hr IV .Q31M ONE Rx#:[id number] Intake, IV Titration 193.478 Amount propofoL 1,000 mg In 193.478 Empty Bag 1 bag @ 15 MCG/ KG/MIN 6.532 mls/hr IV . [id number] [facility] Rx#:[id number] Output: Gastric Drainage 50 100 Urine 300 910 Other: Voiding Method Indwelling Catheter Indwelling Catheter ABP, PAP, CO, CI - Last Documented Arterial Blood Pressure 82/62 - Labs CBC & Chem 7: 02/14/25 05:00 02/14/25 05:00 Labs: Abnormal Lab Results - Last 24 Hours (Table) 02/13/25 02/13/25 02/14/25 Range/Units 15:01 17:28 04:58 WBC (4.50-10.00) 10*3/uL RBC (4.40-5.60) 10*6/uL Hgb (13.0-17.0) g/dL Hct (39.6-50.0) % MCV (80.0-97.0) fL MCH (27.0-32.0) pg Immature Gran # (0.00-0.04) 10*3/uL Neutrophils # (Manual) (1.3-7.7) k/uL Lymphocytes # (Manual) (1.0-4.8) k/uL ABG Total CO2 26 H (19-24) mmol/L ABG O2 Saturation 97.7 H (94-97) % Hemoglobin 10.7 L (13.0-17.5) gm/dL Potassium (3.5-5.1) mmol/L BUN (9-20) mg/dL Creatinine (0.66-1.25) mg/dL Glucose (74-99) mg/dL POC Glucose (mg/dL) 217 H (70-110) mg/dL Calcium (8.4-10.2) mg/dL Iron <6 L (65-175) UG/DL TIBC 154 L (228-460) UG/DL % Saturation <3.90 L (15.00-50.00) Transferrin 110.0 L (204.0-354.0) mg/dL Ferritin 531.0 H (22.0-322.0) ng/mL Vitamin B12 1285.0 H (200.0-944.0) pg/mL 02/14/25 02/14/25 02/14/25 Range/Units 05:00 05:00 05:45 WBC 23.42 H (4.50-10.00) 10*3/uL RBC 3.95 L (4.40-5.60) 10*6/uL Hgb 10.5 L D (13.0-17.0) g/dL Hct 30.9 L (39.6-50.0) % MCV 78.2 L (80.0-97.0) fL MCH 26.6 L (27.0-32.0) pg Immature Gran # 1.79 H (0.00-0.04) 10*3/uL Neutrophils # (Manual) 21.54 H (1.3-7.7) k/uL Lymphocytes # (Manual) 0.94 L (1.0-4.8) k/uL ABG Total CO2 (19-24) mmol/L ABG O2 Saturation (94-97) % Hemoglobin (13.0-17.5) gm/dL Potassium 3.3 L (3.5-5.1) mmol/L BUN 29 H (9-20) mg/dL Creatinine 1.52 H (0.66-1.25) mg/dL Glucose 203 H (74-99) mg/dL POC Glucose (mg/dL) 209 H (70-110) mg/dL Calcium 6.6 L (8.4-10.2) mg/dL Iron (65-175) UG/DL TIBC (228-460) UG/DL % Saturation (15.00-50.00) Transferrin (204.0-354.0) mg/dL Ferritin (22.0-322.0) ng/mL Vitamin B12 (200.0-944.0) pg/mL Microbiology - Last 24 Hours (Table) 02/12/25 20:04 Blood Culture - Preliminary Blood 02/12/25 23:55 Gram Stain - Preliminary Other - Other
--- NOTE | 2025-02-14 12:39 | P.PN ---
Subjective Progress Note Date: 02/14/25 SURGICAL PROGRESS NOTE CHIEF COMPLAINT: Right colon mass HISTORY OF PRESENT ILLNESS: Patient is postop day #2 status post exploratory laparotomy, drainage of abscess, right colectomy with ileostomy and partial pneumonectomy. Patient was extubated this morning. Pain is controlled. Denies any nausea or vomiting. Afebrile. WBC 23.42 Hgb 7.8 up 15 after 2 units of blood and now down to 10.5 PHYSICAL EXAM: VITAL SIGNS: Reviewed. GENERAL: Well-developed in no acute distress. HEENT: No sclera icterus. Extraocular movements grossly intact. Moist buccal mucosa. Head is atraumatic, normocephalic. ABDOMEN: Soft. Mildly distended. Midline incision dressing clean dry and intact. Ileostomy on the right with serosanguineous drainage noted in the ostomy bag. Ileostomy stoma is beefy red NEUROLOGIC: Alert and oriented. Cranial nerves II through XII grossly intact. ASSESSMENT: 1. Right colon mass with perforation and intraperitoneal abscess with metastatic disease PLAN: -Advance diet to clear liquid - Continue ICU management - Continue supportive care - Continue IV fluids - Continue antibiotics - Follow-up on pathology results - GI prophylaxis Protonix DVT prophylaxis Lovenox Physician Industrial Welder note has been reviewed by physician. Signing provider agrees with the documented findings, assessment, and plan of care. Objective - Vital Signs Vital signs: Vital Signs Temp 97.8 F 02/14/25 08:00 Pulse 103 H 02/14/25 12:10 Resp 24 02/14/25 11:00 BP 120/74 02/14/25 11:00 Pulse Ox 99 02/14/25 11:00 FiO2 40 02/14/25 10:38 Intake & Output 02/13/25 02/14/25 02/14/25 18:59 06:59 18:59 Intake Total 1596 2582.478 12 Output Total 350 1010 Balance 1246 1572.478 12 Weight 76.657 kg Intake: IV 1596 2389 12 Art line pressure bag 36 39 12 Dextrose 5% in Water 1, 1200 000 ml @ 100 mls/hr IV . [id number] ALEXANDR with Sodium Bicarb (1 Meq/ml) 150 ml Rx#:[id number] Sodium Chloride 0.9% 1, 1560 650 000 ml @ 130 mls/hr IV . [id number] STA Rx#:[id number] Sodium Chloride 0.9% 500 500 ml 500 ml @ 999 mls/hr IV .Q31M ONE Rx#:[id number] Intake, IV Titration 193.478 Amount propofoL 1,000 mg In 193.478 Empty Bag 1 bag @ 15 MCG/ KG/MIN 6.532 mls/hr IV . [id number] ALEXANDR Rx#:[id number] Output: Gastric Drainage 50 100 Urine 300 910 Other: Voiding Method Indwelling Catheter Indwelling Catheter ABP, PAP, CO, CI - Last Documented Arterial Blood Pressure 91/61 - Labs CBC & Chem 7: 02/14/25 05:00 02/14/25 05:00 Labs: Abnormal Lab Results - Last 24 Hours (Table) 02/13/25 02/13/25 02/14/25 Range/Units 15:01 17:28 04:58 WBC (4.50-10.00) 10*3/uL RBC (4.40-5.60) 10*6/uL Hgb (13.0-17.0) g/dL Hct (39.6-50.0) % MCV (80.0-97.0) fL MCH (27.0-32.0) pg Immature Gran # (0.00-0.04) 10*3/uL Neutrophils # (Manual) (1.3-7.7) k/uL Lymphocytes # (Manual) (1.0-4.8) k/uL ABG Total CO2 26 H (19-24) mmol/L ABG O2 Saturation 97.7 H (94-97) % Hemoglobin 10.7 L (13.0-17.5) gm/dL Potassium (3.5-5.1) mmol/L BUN (9-20) mg/dL Creatinine (0.66-1.25) mg/dL Glucose (74-99) mg/dL POC Glucose (mg/dL) 217 H (70-110) mg/dL Calcium (8.4-10.2) mg/dL Ionized Calcium Rebeka (4.5-5.3) mg/dL Iron <6 L (65-175) UG/DL TIBC 154 L (228-460) UG/DL % Saturation <3.90 L (15.00-50.00) Transferrin 110.0 L (204.0-354.0) mg/dL Ferritin 531.0 H (22.0-322.0) ng/mL Vitamin B12 1285.0 H (200.0-944.0) pg/mL 02/14/25 02/14/25 02/14/25 Range/Units 05:00 05:00 05:45 WBC 23.42 H (4.50-10.00) 10*3/uL RBC 3.95 L (4.40-5.60) 10*6/uL Hgb 10.5 L D (13.0-17.0) g/dL Hct 30.9 L (39.6-50.0) % MCV 78.2 L (80.0-97.0) fL MCH 26.6 L (27.0-32.0) pg Immature Gran # 1.79 H (0.00-0.04) 10*3/uL Neutrophils # (Manual) 21.54 H (1.3-7.7) k/uL Lymphocytes # (Manual) 0.94 L (1.0-4.8) k/uL ABG Total CO2 (19-24) mmol/L ABG O2 Saturation (94-97) % Hemoglobin (13.0-17.5) gm/dL Potassium 3.3 L (3.5-5.1) mmol/L BUN 29 H (9-20) mg/dL Creatinine 1.52 H (0.66-1.25) mg/dL Glucose 203 H (74-99) mg/dL POC Glucose (mg/dL) 209 H (70-110) mg/dL Calcium 6.6 L (8.4-10.2) mg/dL Ionized Calcium Rebeka (4.5-5.3) mg/dL Iron (65-175) UG/DL TIBC (228-460) UG/DL % Saturation (15.00-50.00) Transferrin (204.0-354.0) mg/dL Ferritin (22.0-322.0) ng/mL Vitamin B12 (200.0-944.0) pg/mL 02/14/25 Range/Units 11:00 WBC (4.50-10.00) 10*3/uL RBC (4.40-5.60) 10*6/uL Hgb (13.0-17.0) g/dL Hct (39.6-50.0) % MCV (80.0-97.0) fL MCH (27.0-32.0) pg Immature Gran # (0.00-0.04) 10*3/uL Neutrophils # (Manual) (1.3-7.7) k/uL Lymphocytes # (Manual) (1.0-4.8) k/uL ABG Total CO2 (19-24) mmol/L ABG O2 Saturation (94-97) % Hemoglobin (13.0-17.5) gm/dL Potassium (3.5-5.1) mmol/L BUN (9-20) mg/dL Creatinine (0.66-1.25) mg/dL Glucose (74-99) mg/dL POC Glucose (mg/dL) (70-110) mg/dL Calcium (8.4-10.2) mg/dL Ionized Calcium Rebeka 4.0 L (4.5-5.3) mg/dL Iron (65-175) UG/DL TIBC (228-460) UG/DL % Saturation (15.00-50.00) Transferrin (204.0-354.0) mg/dL Ferritin (22.0-322.0) ng/mL Vitamin B12 (200.0-944.0) pg/mL Microbiology - Last 24 Hours (Table) 02/12/25 20:04 Blood Culture - Preliminary Blood 02/12/25 23:55 Gram Stain - Preliminary Other - Other
[2025-02-14] MEDS ORDERED: Magnesium Replacement Protocol 1 EACH MISC MISCELLANE PRN (13:09)
[2025-02-14] MEDS ORDERED: Potassium Replacement Protocol 1 EACH MISC MISCELLANE PRN (13:09)
--- NOTE | 2025-02-14 13:51 | PN ---
PROGRESS NOTE DATE OF SERVICE: 02/14/2025 SUBJECTIVE: This is a 59-year-old gentleman, who was admitted with right chronic perforation, was mechanically ventilated. The patient is extubated. Currently, the patient is confused. Multiple consultants are following the patient. The patient is on broad spectrum IV antibiotics. Chest x-ray showed some atelectasis. The cultures are negative so far. PAST MEDICAL HISTORY: Reviewed. REVIEW OF SYSTEMS: Could not be taken as the patient is confused, post extubation. CURRENT MEDICATIONS: Reviewed. PHYSICAL EXAMINATION: VITAL SIGNS: Pulse 103, blood pressure 110/74, respirations 24. HEENT: Conjunctivae normal. NECK: No JVD. No mass. CARDIOVASCULAR: S1, S2 muffled. RESPIRATIONS: Breath sounds diminished at the bases. Scattered rhonchi. ABDOMEN: Soft, status post surgery. NERVOUS SYSTEM: Nonfocal. LABORATORY DATA: WBC is 22.42, glucose 209. Calcium is 6.6. ASSESSMENT: 1. Right colonic perforation secondary to chronic malignancy with METS, status post exploratory laparotomy as well as colostomy. 2. Postoperative mechanical ventilation, improved. 3. Possible sepsis, present on admission. 4. History of nicotine dependence. 5. Hypocalcemia. 6. History of asthma. 7. History of gastroesophageal reflux disease. 8. Elevated WBC. RECOMMENDATIONS AND DISCUSSION: Continue current management and symptomatic treatment, otherwise monitor lytes closely. DVT prophylaxis. Bronchodilators. Broad-spectrum IV antibiotics. Also, recommend to supplement calcium. Continue to monitor. Further recommendations to follow. MMODL / IJN: [id number] /
[2025-02-14] MEDS: CALCIUM GLUCONATE IN NACL 1 GM in SALINE 1 100ML.BAG IVPB ONE (15:25)
[2025-02-14] MEDS: CALCIUM CARB-VIT D 500 MG-5 MCG TAB PO SCH (20:18)
[2025-02-14 23:03] LABS: HCT 30.2 % (39.6-50.0); HGB 10.5 g/dL (13.0-17.0); MCH 27.1 pg (27.0-32.0); MCHC 34.8 g/dL (32.0-37.0); MCV 77.8 fL (80.0-97.0); Platelet Count 395 10*3/uL (140-440); RBC 3.88 10*6/uL (4.40-5.60); RDW 16.3 % (11.5-14.5); WBC 20.18 10*3/uL (4.50-10.00)
[2025-02-15] MEDS: VANCOMYCIN TROUGH DUE 1 EACH MISC MISCELLANE ONE (00:21)
[2025-02-15 06:18] LABS: HCT 31.5 % (39.6-50.0); HGB 10.6 g/dL (13.0-17.0); MCH 26.2 pg (27.0-32.0); MCHC 33.7 g/dL (32.0-37.0); MCV 78.0 fL (80.0-97.0); Platelet Count 403 10*3/uL (140-440); RBC 4.04 10*6/uL (4.40-5.60); RDW 16.3 % (11.5-14.5); WBC 18.97 10*3/uL (4.50-10.00)
[2025-02-15 06:41] LABS: ALT 10 U/L (4-49); AST 21 U/L (17-59); African American GFR (CKD) 86 (>60 ml/min/1.73 sqM); Albumin 1.9 g/dL (3.5-5.0); Alkaline Phosphatase 86 U/L (38-126); Anion Gap 4 mmol/L; Blood Urea Nitrogen 25 mg/dL (9-20); Calcium 7.8 mg/dL (8.4-10.2); Carbon Dioxide 27 mmol/L (22-30); Chloride 102 mmol/L (98-107); Glucose 79 mg/dL (74-99); Magnesium 2.3 mg/dL (1.6-2.3); Non-African American GFR(CKD) 75 (>60 ml/min/1.73 sqM); Potassium 3.7 mmol/L (3.5-5.1); Sodium 133 mmol/L (137-145); Total Protein 4.3 g/dL (6.3-8.2)
[2025-02-15 08:39] LABS: Eosinophils # (M) 0.19 k/uL (0-0.7); Lymphocytes # (M) 0.19 k/uL (1.0-4.8); Monocytes # (M) 0.38 k/uL (0-1.0); Neutrophils # (M) 18.21 k/uL (1.3-7.7); Neutrophils % (M) 96 %; Total Cells Counted 100
[2025-02-15] MEDS: IPRATROPIUM-ALBUTEROL 3 ML NEB INHALATION SCH (09:23)
[2025-02-15] MEDS: ACETAMINOPHEN IV (For NPO) 1,000 MG in EMPTY BAG 1 BAG IVPB SCH (12:10)
--- NOTE | 2025-02-15 15:04 | P.PN ---
Subjective Progress Note Date: 02/15/25 Patient is a 59-year-old male with past medical history significant for alcohol abuse, and prior abdominal surgery for hernia repair in 2018. Presented emergency department yesterday evening complaining of abdominal pain. Tama something had popped in his right sided abdomen. Workup at the emergency depa rtment including an abdominal/pelvis CT remarkable for an hepatic flexure colonic mass with perforation resulting in pneumoperitoneum and an abscess formation along the right lateral abdomen. Concerns for metastatic disease to the mesentery with multiple lymph nodes present. Also, indeterminate but probable liver metastatic disease versus abscess noted. Reactive enteritis/colitis secondary to perforation and intra-abdominal leak feces contents. Patient was then taken to the operating room for exploratory laparotomy. Patient was noted to have a large abscess within the right colon which was drained. The colon mass was dissected off of the duodenum and sent to pathology. There was obvious concerns for enlarged lymphadenopathy within the mesentery. Underwent right colectomy with ileostomy and partial omentectomy. Following the procedure, patient was transferred to the intensive care unit in critical condition. He remains intubated to the mechanical ventilator. Postoperative chest x-rays the endotracheal tube in appropriate positioning above the nehemias. Nasogastric tube coursing below the diaphragm. No focal opacities, pleural effusions, pneumothoraces, or otherwise acute cardiopulmonary process. Current ventilator settings: AC, respiratory rate 24, tidal volume 450, FiO2 100% PEEP of 5. Postoperative ABG consistent with combined metabolic and respiratory acidosis with a PaO2 of 420, pCO2 46, pH of 7.24. Patient is currently synchronous with current settings and sedated on propofol at 40 mcg/kg/min. Normal saline also infusing at 130 mL/h. He is tachycardic and borderline hypotensive with a blood pressure of 93/72 mmHg, heart rate is 120 bpm. Did previously receive 2.4 L crystalloid fluid bolus. Also, received 2 units PRBCs perioperatively. Mottled appearance to the lower extremities. Previously, noted to be febrile. Patient was empirically covered on a combination of Zosyn and vancomycin for abdominal sepsis. He does have a midline abdominal incision with postoperative dressing clean and intact. There is a right-sided abdominal ileostomy which is pink and beefy red. No significant output. Postoperative labs including a CBC with a WBC count of 8.5, hemoglobin 7.8 g/dL, platelets 571. Postoperative CMP including a sodium 130, potassium 3.4, chloride 94, serum bicarb 24, BUN 17, creatinine 0.97, glucose 88. Lactic 1.4. LFTs unremarkable. Lipase 46. Patient's next of kin is his brother. States he does not have very much known medical history as he does not follow routinely with a doctor. He is reportedly a heavy alcohol drinker. 02/14/25 - He is seen and evaluated in the ICU, room 259. He is on the mechanical ventilator, volume assist control , rate of 24, tidal volume of 450, FiO2 40% and PEEP of 5. Blood gases this morning show pO2 of 94, pCO2 of 25, pH of 7.45. He continues to be on Propofol at 35 mcg/kg/min, Zosyn and Vancomycin. Current labs include WBCs 23.42, Hgb 10.5, Hct 30.9, PLT 439, Na 137, K 3.3, BUN 29, Cr 1.52, Ca 6.6. Blood cultures continue to be pending at this time. Chest X-ray from this morning shows possible right layering pleural effusion. The patient is seen today February 15, 2025 selective care unit. He was transferred out of the intensive care unit yesterday. He is currently resting in bed. Awake and alert in no acute distress. Maintaining O2 saturations in the 90s on 2 L/min per nasal cannula. He has normal saline at 10 mL/h. Colon mass pathology pending. He is status post 2 units of packed red blood cells this admission. Current hemoglobin 10.6. Platelets 403. White count 18.9. Sodium 133. Potassium 3.7. Bicarb 27. BUN 25. Creatinine 1.08. Glucose 79. Blood culture revealed no growth. Wound culture revealed Streptococcus anginosus, beta-hemolytic strep group C. He remains on Zosyn and vancomycin along with Flagyl. Lovenox for DVT prophylaxis. Continued on bronchodilators. Objective - Vital Signs Vital signs: Vital Signs Temp 98.2 F 02/15/25 12:00 Pulse 95 02/15/25 12:34 Resp 16 02/15/25 12:00 BP 126/84 02/15/25 12:00 Pulse Ox 98 02/15/25 12:00 FiO2 40 02/14/25 12:00 Intake & Output 02/14/25 02/15/2525 18:59 06:59 18:59 Intake Total 128.524 960 Output Total 900 1300 Balance -771.476 -1300 960 Intake: IV 27 Art line pressure bag 27 Intake, IV Titration 101.524 Amount propofoL 1,000 mg In 101.524 Empty Bag 1 bag @ 15 MCG/ KG/MIN 6.532 mls/hr IV . [id number] ALEXANDR Rx#:[id number] Oral 960 Output: Urine 900 1300 Other: Voiding Method Indwelling Catheter Indwelling Catheter # Voids 2 ABP, PAP, CO, CI - Last Documented Arterial Blood Pressure 108/62 - Exam General: Awake, 59-year-old male patient, in no distress, appears at stated age. Derm: Warm, dry, intact Head: Atraumatic, normocephalic, symmetric Eyes: EOMI, anicteric sclera NOSE: Clear with pink turbinates. Mouth: No lip lesion, mucus membranes moist Cardiovascular: S1 S2 reg, no murmur, rubs, or gallops; distant heart sounds. Lungs: CTA bilateral, no rales, no accessory muscle use ABDOMEN: Midline abdominal incision with postoperative dressing clean and intact. Right ileostomy noted, stoma appears pink/beefy red. No output. Abdomen is soft. Extremities: No cyanosis or edema present. Right brachial arterial line noted. Neuro: Cannot be assessed at this time. Psych: Well appearing, appropriate affect - Labs CBC & Chem 7: 02/15/25 06:02/15/25 06:02 Labs: Abnormal Lab Results - Last 24 Hours (Table) 02/14/25 02/15/25 02/15/25 Range/Units 22:33 06:02 06:02 WBC 20.18 H 18.97 H (4.50-10.00) 10*3/uL RBC 3.88 L 4.04 L (4.40-5.60) 10*6/uL Hgb 10.5 L 10.6 L (13.0-17.0) g/dL Hct 30.2 L 31.5 L (39.6-50.0) % MCV 77.8 L 78.0 L (80.0-97.0) fL MCH 26.2 L (27.0-32.0) pg MPV 9.3 L (9.5-12.2) fL Immature Gran # 0.19 H (0.00-0.04) 10*3/uL Neutrophils # (Manual) 18.21 H (1.3-7.7) k/uL Lymphocytes # (Manual) 0.19 L (1.0-4.8) k/uL Sodium 133 L (137-145) mmol/L BUN 25 H (9-20) mg/dL Calcium 7.8 L (8.4-10.2) mg/dL Total Protein 4.3 L (6.3-8.2) g/dL Albumin 1.9 L (3.5-5.0) g/dL Microbiology - Last 24 Hours (Table) 02/12/25 23:55 Gram Stain - Preliminary Other - Other Wound Culture - Preliminary Streptococcus anginosus Beta Hemolytic Strep Group C 02/12/25 20:04 Blood Culture - Preliminary Blood Assessment and Plan Assessment: Colonic mass with perforation, pneumoperitoneum, intra-abdominal abscess. Status postoperative day #2 following exploratory laparotomy with drainage of abscess, right colectomy, end ileostomy, and partial omentectomy. Pathology pending, cultures revealed Streptococcus anginosus, beta-hemolytic strep group C Colonic mass with concerns for metastatic disease with enlargement of mesenteric lymph nodes, also, indeterminate but probable metastatic disease to the liver. Postoperative ventilator management, extubated and on 2 liters nasal cannula Abdominal sepsis Combined respiratory and metabolic acidosis Acute blood loss anemia, status post 2 units PRBCs Hypokalemia, replace per protocol Hypocalcemia, replaced History of alcohol abuse Plan: The patient was seen and evaluated Labs and medications reviewed Microbiology reviewed Stable and on 2 L nasal cannula Continued on DuoNeb and elations Lovenox for DVT prophylaxis Remains on vancomycin and Zosyn Remains on Flagyl Pathology still pending Titrate down/off the FiO2 as tolerated Increase his activity as tolerated Currently tolerating a clear liquid diet Advance per surgical services We will continue to follow I have personally seen and examined the patient, performed the documentation and the assessment and plan as written. Number of minutes spent on the visit: 10 Dictation was produced using [employer] software. Please excuse any grammatical, word or spelling errors.
[2025-02-15] MEDS: metroNIDAZOLE-NS PMX 500 MG in SALINE 1 100ML.BAG IVPB SCH (16:11)
--- NOTE | 2025-02-15 19:32 | P.PN ---
Subjective Progress Note Date: 02/15/25 Patient complaining of abdominal discomfort. Continues on IV antibiotics. WBC 18.9, hemoglobin 10.6, platelets 403,000 Objective - Vital Signs Vital signs: Vital Signs Temp 98.2 F 02/15/25 12:00 Pulse 87 02/15/25 16:27 Resp 16 02/15/25 12:00 BP 126/84 02/15/25 12:00 Pulse Ox 98 02/15/25 12:00 FiO2 40 02/14/25 12:00 Intake & Output 02/14/25 02/15/25 02/15/25 18:59 06:59 18:59 Intake Total 128.524 960 Output Total 900 1300 Balance -771.476 -1300 960 Intake: IV 27 Art line pressure bag 27 Intake, IV Titration 101.524 Amount propofoL 1,000 mg In 101.524 Empty Bag 1 bag @ 15 MCG/ KG/MIN 6.532 mls/hr IV . [id number] [facility] Rx#:[id number] Oral 960 Output: Urine 900 1300 Other: Voiding Method Indwelling Catheter Indwelling Catheter Urinal # Voids 2 ABP, PAP, CO, CI - Last Documented Arterial Blood Pressure 108/62 - Constitutional General appearance: Present: average body habitus, no acute distress - EENT Eyes: Present: anicteric sclerae, EOMI ENT: Present: hearing grossly normal - Respiratory Details: breathing is even - Cardiovascular Details: skin warm and dry - Integumentary Integumentary: Absent: cyanotic, jaundiced - Musculoskeletal Musculoskeletal: Present: generalized weakness - Psychiatric Psychiatric: Present: A&O x's 3 - Labs CBC & Chem 7: 02/15/25 06:02 02/15/25 06:02 Labs: Abnormal Lab Results - Last 24 Hours (Table) 02/14/25 02/15/25 02/15/25 Range/Units 22:33 06:02 06:02 WBC 20.18 H 18.97 H (4.50-10.00) 10*3/uL RBC 3.88 L 4.04 L (4.40-5.60) 10*6/uL Hgb 10.5 L 10.6 L (13.0-17.0) g/dL Hct 30.2 L 31.5 L (39.6-50.0) % MCV 77.8 L 78.0 L (80.0-97.0) fL MCH 26.2 L (27.0-32.0) pg MPV 9.3 L (9.5-12.2) fL Immature Gran # 0.19 H (0.00-0.04) 10*3/uL Neutrophils # (Manual) 18.21 H (1.3-7.7) k/uL Lymphocytes # (Manual) 0.19 L (1.0-4.8) k/uL Sodium 133 L (137-145) mmol/L BUN 25 H (9-20) mg/dL Calcium 7.8 L (8.4-10.2) mg/dL Total Protein 4.3 L (6.3-8.2) g/dL Albumin 1.9 L (3.5-5.0) g/dL Microbiology - Last 24 Hours (Table) 02/12/25 23:55 Anaerobic Culture - Final Other - Other Parvimonas micra Fusobacterium nucleatum Bacteroides ovatus 02/12/25 23:55 Gram Stain - Preliminary Other - Other Wound Culture - Preliminary Streptococcus anginosus Beta Hemolytic Strep Group C 02/12/25 20:04 Blood Culture - Preliminary Blood Assessment and Plan (1) Anemia Current Visit: Yes Status: Acute Priority: High Code(s): D64.9 - ANEMIA, UNSPECIFIED SNOMED Code(s): 526194793 (2) Intra-abdominal abscess Current Visit: Yes Status: Acute Priority: High Code(s): K65.1 - PERITONEAL ABSCESS SNOMED Code(s): 87610129 (3) Perforated bowel Current Visit: Yes Status: Acute Priority: High Code(s): K63.1 - PERFORA TION OF INTESTINE (NONTRAUMATIC) SNOMED Code(s): 22629273 (4) Pneumoperitoneum Current Visit: Yes Status: Acute Code(s): K66.8 - OTHER SPECIFIED DISORDERS OF PERITONEUM SNOMED Code(s): 31861090 Plan: Colon mass, perforated mass, intra-abdominal abscess. -Patient presented with sudden onset abdominal pain. He was taken to surgery rather urgently, he is status post exploratory laparotomy, resection of colon mass, partial omentectomy, drainage of abscess and creation of end ileostomy -Continues on IV abx - Pathology is pending - Will follow-up on pathology results and discuss with the patient and his family - Will plan for outpt PET CT and liver MRI. - Clinic f/u upon discharge Anemia - Likely secondary to blood loss from colon mass. -Iron sat <3.9%, ferritin 531, however these were drawn after 2 units PRBCs. Pt will need parenteral iron, but due to infection, will plan for iron transfusions outpt once recovered -No Vitamin B12 or folate deficiency -Hgb stable at 10.6 -Continue to monitor CBC
--- NOTE | 2025-02-16 04:36 | PN ---
PROGRESS NOTE DATE OF SERVICE: 02/15/2025 CHIEF COMPLAINT: Abdominal pain. SUBJECTIVE: The patient is postop day #3, status post exploratory laparotomy with right colectomy and ileostomy for a perforated right colon mass. Pathology results are pending. WBC is down from 20 to 18. The patient does complain of abdominal pain. Ostomy is not functioning yet. Denies any nausea or vomiting. PHYSICAL EXAM: ABDOMEN: Soft. Ileostomy stoma, beefy red, serosanguineous drainage noted in colostomy bag. Incisional dressing clean, dry, and intact. ASSESSMENT AND PLAN: Perforated right colon mass. Change abdominal surgical dressing and place Optifoam dressing. Clean incision with chlorhexidine wipes. IV Tylenol added for pain control. Continue clear liquid diet. Continue antibiotics. Encourage the patient to ambulate. Encourage the patient to use incentive spirometer. The patient also has a known history of daily alcohol use, and is currently not requiring the CIWA protocol. MMODL / IJN: [id number] /
--- NOTE | 2025-02-16 04:54 | PN ---
PROGRESS NOTE DATE OF SERVICE: 02/15/2025 SUBJECTIVE: This is a 59-year-old gentleman, admitted with right colon perforation and colonic mass. The patient is extubated. At this time, the patient is much better. The patient also had liver lesion, the possible abscess also has been raised. The white count is still elevated up to 18.97. The biopsy report is still pending at this time. The cultures are negative so far. PAST MEDICAL HISTORY: Reviewed. REVIEW OF SYSTEMS: A 14-point review is negative. CURRENT MEDICATIONS: Reviewed. PHYSICAL EXAMINATION: VITAL SIGNS: Pulse is 93, blood pressure n, respirations 16. HEENT: Conjunctivae normal. n a few scattered rhonchi. ABDOMEN: Soft, status post surgery n. LABORATORY DATA: Reviewed. ASSESSMENT: 1. Right colonic perforation secondary to chronic malignancy with METS, possibly status post exploratory laparotomy as well as colostomy. 2. Possible hepatic lesion, rule out hepatic abscess. 3. Postoperative mechanical ventilation, extubated. 4. Possible sepsis present on admission. 5. History of nicotine dependence. 6. Hypocalcemia. 7. History of asthma. 8. History of gastroesophageal reflux disease. 9. Elevated WBC. RECOMMENDATIONS AND DISCUSSION: Continue current management and drug treatment, otherwise continue with broad- spectrum IV antibiotics. I would recommend to add Flagyl to the current regimen. Follow the cultures. Monitor lytes closely. The patient is on Zosyn and vancomycin, closely with Infectious Disease. Monitor calcium closely. Prognosis extremely guarded because of multiple complex, will follow up liver function tests. See orders for details. Further recommendations . MMODL / IJN: [id number] / LUIGI
[2025-02-16 07:55] LABS: ALT 11 U/L (4-49); AST 21 U/L (17-59); African American GFR (CKD) >90 (>60 ml/min/1.73 sqM); Albumin 2.0 g/dL (3.5-5.0); Alkaline Phosphatase 113 U/L (38-126); Anion Gap 6 mmol/L; Blood Urea Nitrogen 19 mg/dL (9-20); Calcium 8.1 mg/dL (8.4-10.2); Carbon Dioxide 26 mmol/L (22-30); Chloride 100 mmol/L (98-107); Glucose 85 mg/dL (74-99); Non-African American GFR(CKD) >90 (>60 ml/min/1.73 sqM); Potassium 3.8 mmol/L (3.5-5.1); Sodium 132 mmol/L (137-145); Total Protein 4.6 g/dL (6.3-8.2)
[2025-02-16 07:56] LABS: HCT 32.6 % (39.6-50.0); HGB 10.8 g/dL (13.0-17.0); MCH 26.1 pg (27.0-32.0); MCHC 33.1 g/dL (32.0-37.0); MCV 78.7 fL (80.0-97.0); Platelet Count 398 10*3/uL (140-440); RBC 4.14 10*6/uL (4.40-5.60); RDW 16.4 % (11.5-14.5); WBC 16.29 10*3/uL (4.50-10.00)
--- NOTE | 2025-02-16 08:53 | XR ---
EXAMINATION TYPE: XR chest 1V portable DATE OF EXAM: 02/16/2025 6:42 AM COMPARISON: Chest radiograph from two days prior. CLINICAL INDICATION: Male, 59 years old with history of chf; [facility] TECHNIQUE: XR chest 1V portable Frontal view of the chest. FINDINGS: Lungs/Pleura: Right basilar atelectasis. There is no evidence of pleural effusion, focal consolidatio n, or pneumothorax. Pulmonary vascularity: Unremarkable. Heart/mediastinum: Cardiomediastinal silhouette is unremarkable. Musculoskeletal: No acute osseous pathology. Other findings: None Lines/Tubes: Interval removal of the endotracheal tube. Interval removal of the enteric tube, IMPRESSION: Improved aeration of the lungs with right basilar atelectasis.. [facility], , 02/16/2025 8:51 AM
[2025-02-16 09:41] LABS: Lymphocytes # (M) 0.65 k/uL (1.0-4.8); Monocytes # (M) 0.33 k/uL (0-1.0); Neutrophils # (M) 15.31 k/uL (1.3-7.7); Neutrophils % (M) 94 %; Total Cells Counted 100
--- NOTE | 2025-02-16 12:30 | P.PN ---
Subjective Progress Note Date: 02/16/25 SURGICAL PROGRESS NOTE CHIEF COMPLAINT: Right colon mass HISTORY OF PRESENT ILLNESS: Patient is postop day #4 status post exploratory laparotomy, drainage of abscess, right colectomy with ileostomy and partial pneumonectomy. Patient remains on the cardiac floor. No output from his ostomy. His pain is controlled. Denies any nausea or vomiting. Afebrile. WBC is down from 18-16.29 Hgb 10.8 PHYSICAL EXAM: VITAL SIGNS: Reviewed. GENERAL: Well-developed in no acute distress. HEENT: No sclera icterus. Extraocular movements grossly intact. Moist buccal mucosa. Head is atraumatic, normocephalic. ABDOMEN: Soft. Mildly distended. Midline incision dressing clean dry and intact. Ileostomy on the right with serosanguineous drainage noted in the ostomy bag. Ileostomy stoma is beefy red NEUROLOGIC: Alert and oriented. Cranial nerves II through XII grossly intact. ASSESSMENT: 1. Right colon mass with perforation and intraperitoneal abscess with metastatic disease PLAN: -Continue clear liquid diet -Continue antibiotics -Follow-up on pathology results -Encourage patient to increase activity level -Encourage incentive spirometer use -Continue pain management -GI prophylaxis Protonix DVT prophylaxis Lovenox Physician Scale Adjuster note has been reviewed by physician. Signing provider agrees with the documented findings, assessment, and plan of care. Objective - Vital Signs Vital signs: Vital Signs Temp 98.2 F 02/16/25 08:00 Pulse 90 02/16/25 11:53 Resp 16 02/16/25 08:00 BP 136/80 02/16/25 08:00 Pulse Ox 97 02/16/25 08:08 FiO2 40 02/14/25 12:00 Intake & Output 02/15/25 02/16/25 02/16/25 18:59 06:59 18:59 Intake Total 1200 Output Total 600 550 Balance 1200 -600 -550 Weight 76 kg Intake: Oral 1200 Output: Urine 600 550 Other: Voiding Method Urinal Urinal Urinal # Voids 2 ABP, PAP, CO, CI - Last Documented Arterial Blood Pressure 108/62 - Labs CBC & Chem 7: 02/16/25 07:08 02/16/25 07:08 Labs: Abnormal Lab Results - Last 24 Hours (Table) 02/13/25 02/16/25 02/16/25 Range/Units 15:01 07:08 07:08 WBC 16.29 H (4.50-10.00) 10*3/uL RBC 4.14 L (4.40-5.60) 10*6/uL Hgb 10.8 L (13.0-17.0) g/dL Hct 32.6 L (39.6-50.0) % MCV 78.7 L (80.0-97.0) fL MCH 26.1 L (27.0-32.0) pg MPV 9.3 L (9.5-12.2) fL Immature Gran # 0.21 H (0.00-0.04) 10*3/uL Neutrophils # (Manual) 15.31 H (1.3-7.7) k/uL Lymphocytes # (Manual) 0.65 L (1.0-4.8) k/uL Sodium 132 L (137-145) mmol/L Calcium 8.1 L (8.4-10.2) mg/dL Total Bilirubin 1.8 H (0.2-1.3) mg/dL Total Protein 4.6 L (6.3-8.2) g/dL Albumin 2.0 L (3.5-5.0) g/dL Methylmalonic Acid 0.50 H (<0.40) umol/L Microbiology - Last 24 Hours (Table) 02/12/25 20:04 Blood Culture - Preliminary Blood 02/12/25 23:55 Anaerobic Culture - Final Other - Other Parvimonas micra Fusobacterium nucleatum Bacteroides ovatus 02/12/25 23:55 Gram Stain - Preliminary Other - Other Wound Culture - Preliminary Streptococcus anginosus Beta Hemolytic Strep Group C
--- NOTE | 2025-02-16 12:54 | PN ---
PROGRESS NOTE DATE OF SERVICE: 02/16/2025 SUBJECTIVE: This is a 59-year-old gentleman who was admitted with right colonic perforation, is being closely monitored. At this time, the most recent chest x-ray, which I reviewed today showed some atelectasis. PAST MEDICAL HISTORY: Reviewed. PHYSICAL EXAMINATION: VITAL SIGNS: Pulse is 84, blood pressure 136/80, and respirations 16. CHEST: A few scattered rhonchi and crackles. ABDOMEN: Soft. Status post surgery. NERVOUS SYSTEM: Nonfocal. LABORATORY DATA: WBC 16.29. ASSESSMENT: 1. 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 2. Possible hepatic lesions, rule out hepatic abscess. 3. Postoperative mechanical ventilation, extubated. 4. Bilateral atelectasis. 5. Possible sepsis present on admission. 6. History of nicotine dependence. 7. Hypocalcemia. 8. History of asthma. 9. History of gastroesophageal reflux disease. 10.Elevated WBC. RECOMMENDATIONS AND DISCUSSION: Recommend to continue current management and continue symptomatic treatment. Continue with the broad-spectrum IV antibiotics. The cultures are reviewed and recommend to continue with the current medications. Closely follow with multiple consultants. Prognosis extremely guarded. Further recommendations to follow. Continue with the bronchodilators. MMODL / IJN: [id number] /
--- NOTE | 2025-02-16 13:55 | P.PN ---
Subjective Progress Note Date: 02/16/25 Patient is a 59-year-old male with past medical history significant for alcohol abuse, and prior abdominal surgery for hernia repair in 2018. Presented emergency department yesterday evening complaining of abdominal pain. [place] something had popped in his right sided abdomen. Workup at the emergency depa rtment including an abdominal/pelvis CT remarkable for an hepatic flexure colonic mass with perforation resulting in pneumoperitoneum and an abscess formation along the right lateral abdomen. Concerns for metastatic disease to the mesentery with multiple lymph nodes present. Also, indeterminate but probable liver metastatic disease versus abscess noted. Reactive enteritis/colitis secondary to perforation and intra-abdominal leak feces contents. Patient was then taken to the operating room for exploratory laparotomy. Patient was noted to have a large abscess within the right colon which was drained. The colon mass was dissected off of the duodenum and sent to pathology. There was obvious concerns for enlarged lymphadenopathy within the mesentery. Underwent right colectomy with ileostomy and partial omentectomy. Following the procedure, patient was transferred to the intensive care unit in critical condition. He remains intubated to the mechanical ventilator. Postoperative chest x-rays the endotracheal tube in appropriate positioning above the nehemias. Nasogastric tube coursing below the diaphragm. No focal opacities, pleural effusions, pneumothoraces, or otherwise acute cardiopulmonary process. Current ventilator settings: AC, respiratory rate 24, tidal volume 450, FiO2 100% PEEP of 5. Postoperative ABG consistent with combined metabolic and respiratory acidosis with a PaO2 of 420, pCO2 46, pH of 7.24. Patient is currently synchronous with current settings and sedated on propofol at 40 mcg/kg/min. Normal saline also infusing at 130 mL/h. He is tachycardic and borderline hypotensive with a blood pressure of 93/72 mmHg, heart rate is 120 bpm. Did previously receive 2.4 L crystalloid fluid bolus. Also, received 2 units PRBCs perioperatively. Mottled appearance to the lower extremities. Previously, noted to be febrile. Patient was empirically covered on a combination of Zosyn and vancomycin for abdominal sepsis. He does have a midline abdominal incision with postoperative dressing clean and intact. There is a right-sided abdominal ileostomy which is pink and beefy red. No significant output. Postoperative labs including a CBC with a WBC count of 8.5, hemoglobin 7.8 g/dL, platelets 571. Postoperative CMP including a sodium 130, potassium 3.4, chloride 94, serum bicarb 24, BUN 17, creatinine 0.97, glucose 88. Lactic 1.4. LFTs unremarkable. Lipase 46. Patient's next of kin is his brother. States he does not have very much known medical history as he does not follow routinely with a doctor. He is reportedly a heavy alcohol drinker. 02/14/25 - He is seen and evaluated in the ICU, room 259. He is on the mechanical ventilator, volume assist control , rate of 24, tidal volume of 450, FiO2 40% and PEEP of 5. Blood gases this morning show pO2 of 94, pCO2 of 25, pH of 7.45. He continues to be on Propofol at 35 mcg/kg/min, Zosyn and Vancomycin. Current labs include WBCs 23.42, Hgb 10.5, Hct 30.9, PLT 439, Na 137, K 3.3, BUN 29, Cr 1.52, Ca 6.6. Blood cultures continue to be pending at this time. Chest X-ray from this morning shows possible right layering pleural effusion. The patient is seen today February 15, 2025 selective care unit. He was transferred out of the intensive care unit yesterday. He is currently resting in bed. Awake and alert in no acute distress. Maintaining O2 saturations in the 90s on 2 L/min per nasal cannula. He has normal saline at 10 mL/h. Colon mass pathology pending. He is status post 2 units of packed red blood cells this admission. Current hemoglobin 10.6. Platelets 403. White count 18.9. Sodium 133. Potassium 3.7. Bicarb 27. BUN 25. Creatinine 1.08. Glucose 79. Blood culture revealed no growth. Wound culture revealed Streptococcus anginosus, beta-hemolytic strep group C. He remains on Zosyn and vancomycin along with Flagyl. Lovenox for DVT prophylaxis. Continued on bronchodilators. The patient is seen today February 16, 2025 in follow-up on the selective care unit. He is currently resting in bed. Awake and alert in no acute distress. Maintaining O2 saturations in the 90s on 2 L/min per nasal cannula. Has been afebrile. Hemodynamically stable. Chest x-ray shows improved aeration of the lungs bilaterally. Some right basilar atelectasis. Colonic abscess was positive for Streptococcus anginosus, beta-hemolytic strep group C. White count 16.2. Hemoglobin 10.8. Platelets 398. Sodium 132. Potassium 3.8. Bicarb 26. BUN 19. Creatinine 0.89. Glucose 85. He remains on Flagyl, vancomycin and Zosyn. Lovenox for DVT prophylaxis. Remains on bronchodilators. Encouraged regarding the increased use of the incentive spirometer. Tolerating a clear liquid diet. Objective - Vital Signs Vital signs: Vital Signs Temp 98.2 F 02/16/25 08:00 Pulse 90 02/16/25 11:53 Resp 16 02/16/25 08:00 BP 136/80 02/16/25 08:00 Pulse Ox 97 02/16/25 08:08 FiO2 40 02/14/25 12:00 Intake & Output 02/15/25 02/16/25 02/16/25 18:59 06:59 18:59 Intake Total 1200 Output Total 600 550 Balance 1200 -600 -550 Weight 76 kg Intake: Oral 1200 Output: Urine 600 550 Other: Voiding Method Urinal Urinal Urinal # Voids 2 ABP, PAP, CO, CI - Last Documented Arterial Blood Pressure 108/62 - Exam General: Awake, 59-year-old male patient, sitting up in bed, on 2 L nasal cannula, in no distress, appears at stated age. Derm: Warm, dry, intact Head: Atraumatic, normocephalic, symmetric Eyes: EOMI, anicteric sclera NOSE: Clear with pink turbinates. Mouth: No lip lesion, mucus membranes moist Cardiovascular: S1 S2 reg, no murmur, rubs, or gallops; distant heart sounds. Lungs: CTA bilateral, no rales, no accessory muscle use ABDOMEN: Midline abdominal incision with postoperative dressing clean and intact. Right ileostomy noted, stoma appears pink/beefy red. No output. Abdomen is soft. Extremities: No cyanosis or edema present. Right brachial arterial line noted. Neuro: Cannot be assessed at this time. Psych: Well appearing, appropriate affect - Labs CBC & Chem 7: 02/16/25 07:08 02/16/25 07:08 Labs: Abnormal Lab Results - Last 24 Hours (Table) 02/13/25 02/16/25 02/16/25 Range/Units 15:01 07:08 07:08 WBC 16.29 H (4.50-10.00) 10*3/uL RBC 4.14 L (4.40-5.60) 10*6/uL Hgb 10.8 L (13.0-17.0) g/dL Hct 32.6 L (39.6-50.0) % MCV 78.7 L (80.0-97.0) fL MCH 26.1 L (27.0-32.0) pg MPV 9.3 L (9.5-12.2) fL Immature Gran # 0.21 H (0.00-0.04) 10*3/uL Neutrophils # (Manual) 15.31 H (1.3-7.7) k/uL Lymphocytes # (Manual) 0.65 L (1.0-4.8) k/uL Sodium 132 L (137-145) mmol/L Calcium 8.1 L (8.4-10.2) mg/dL Total Bilirubin 1.8 H (0.2-1.3) mg/dL Total Protein 4.6 L (6.3-8.2) g/dL Albumin 2.0 L (3.5-5.0) g/dL Methylmalonic Acid 0.50 H (<0.40) umol/L Microbiology - Last 24 Hours (Table) 02/12/25 23:55 Gram Stain - Final Other - Other Wound Culture - Final Streptococcus anginosus Beta Hemolytic Strep Group C 02/12/25 20:04 Blood Culture - Preliminary Blood 02/12/25 23:55 Anaerobic Culture - Final Other - Other Parvimonas micra Fusobacterium nucleatum Bacteroides ovatus Assessment and Plan Assessment: Colonic mass with perforation, pneumoperitoneum, intra-abdominal abscess. Status postoperative day #4 following exploratory laparotomy with drainage of abscess, right colectomy, end ileostomy, and partial omentectomy. Pathology pending, cultures revealed Streptococcus anginosus, beta-hemolytic strep group C Colonic mass with concerns for metastatic disease with enlargement of mesenteric lymph nodes, also, indeterminate but probable metastatic disease to the liver. Postoperative ventilator management, extubated and on 2 liters nasal cannula Abdominal sepsis Combined respiratory and metabolic acidosis Acute blood loss anemia, status post 2 units PRBCs Hypokalemia, replace per protocol Hypocalcemia, replaced History of alcohol abuse Plan: The patient was seen and evaluated Labs and medications reviewed Microbiology reviewed Stable and on 2 L nasal cannula Continued on DuoNeb inhalations Lovenox for DVT prophylaxis Remains on vancomycin Remains on Zosyn Remains on Flagyl Pathology still pending Titrate down/off the FiO2 as tolerated Increase his activity as tolerated Tolerating a clear liquid diet Advance diet per surgical services Plan is for subacute rehabilitation at discharge I have personally seen and examined the patient, performed the documentation and the assessment and plan as written. Number of minutes spent on the visit: 10 Dictation was produced using creads dictation software. Please excuse any grammatical, word or spelling errors.
[2025-02-16] MEDS: TEMAZEPAM 7.5 MG CAP PO PRN (20:10)
[2025-02-16 20:22] LABS: Glucose,Whole Blood 244 mg/dL (70-110)
[2025-02-17 08:41] LABS: Basophils # (A) 0.06 10*3/uL (0.00-0.10); Basophils % (A) 0.5 %; Eosinophils # (A) 0.10 10*3/uL (0.04-0.35); Eosinophils % (A) 0.9 %; HCT 34.1 % (39.6-50.0); HGB 11.4 g/dL (13.0-17.0); Lymphocytes # (A) 1.20 10*3/uL (0.90-5.00); Lymphocytes % (A) 10.2 %; MCH 26.5 pg (27.0-32.0); MCHC 33.4 g/dL (32.0-37.0); MCV 79.3 fL (80.0-97.0); Monocytes # (A) 1.18 10*3/uL (0.20-1.00); Monocytes % (A) 10.0 %; Neutrophils # (A) 8.97 10*3/uL (1.80-7.70); Neutrophils % (A) 76.3 %; Platelet Count 381 10*3/uL (140-440); RBC 4.30 10*6/uL (4.40-5.60); RDW 16.7 % (11.5-14.5); WBC 11.76 10*3/uL (4.50-10.00)
[2025-02-17 09:14] LABS: ALT 11 U/L (4-49); AST 20 U/L (17-59); African American GFR (CKD) >90 (>60 ml/min/1.73 sqM); Albumin 2.1 g/dL (3.5-5.0); Alkaline Phosphatase 116 U/L (38-126); Anion Gap 12 mmol/L; Blood Urea Nitrogen 17 mg/dL (9-20); Calcium 8.3 mg/dL (8.4-10.2); Carbon Dioxide 21 mmol/L (22-30); Chloride 99 mmol/L (98-107); Glucose 65 mg/dL (74-99); Non-African American GFR(CKD) >90 (>60 ml/min/1.73 sqM); Potassium 4.1 mmol/L (3.5-5.1); Sodium 132 mmol/L (137-145); Total Protein 4.7 g/dL (6.3-8.2)
--- NOTE | 2025-02-17 10:08 | P.PN ---
Subjective Progress Note Date: 02/17/25 Patient has had large output through his ileostomy. On exam vital signs appear stable. Abdomen soft. Status post right colectomy for colonic neoplasm perforation. Patient will have his diet advanced. He will also have a shower today. Objective - Vital Signs Vital signs: Vital Signs Temp 98.5 F 02/17/25 08:00 Pulse 92 02/17/25 08:29 Resp 16 02/17/25 08:00 BP 146/84 02/17/25 08:00 Pulse Ox 99 02/17/25 08:00 FiO2 40 02/14/25 12:00 Intake & Output 02/16/25 02/17/25 02/17/25 18:59 06:59 18:59 Intake Total 600 50 Output Total 550 600 760 Balance 50 -600 -710 Weight 76 kg Intake: Oral 600 50 Output: Gastric Drainage 760 Urine 550 400 Stool 200 Other: Voiding Method Urinal Urinal # Bowel Movements 1 ABP, PAP, CO, CI - Last Documented Arterial Blood Pressure 108/62 - Labs CBC & Chem 7: 02/17/25 08:03 02/17/25 08:03 Labs: Abnormal Lab Results - Last 24 Hours (Table) 02/16/25 02/17/25 02/17/25 Range/Units 20:20 08:03 08:03 WBC 11.76 H (4.50-10.00) 10*3/uL RBC 4.30 L (4.40-5.60) 10*6/uL Hgb 11.4 L (13.0-17.0) g/dL Hct 34.1 L (39.6-50.0) % MCV 79.3 L (80.0-97.0) fL MCH 26.5 L (27.0-32.0) pg Immature Gran # 0.25 H (0.00-0.04) 10*3/uL Neutrophils # 8.97 H (1.80-7.70) 10*3/uL Monocytes # 1.18 H (0.20-1.00) 10*3/uL Sodium 132 L (137-145) mmol/L Carbon Dioxide 21 L (22-30) mmol/L Glucose 65 L (74-99) mg/dL POC Glucose (mg/dL) 244 H (70-110) mg/dL Calcium 8.3 L (8.4-10.2) mg/dL Total Bilirubin 1.5 H (0.2-1.3) mg/dL Total Protein 4.7 L (6.3-8.2) g/dL Albumin 2.1 L (3.5-5.0) g/dL Microbiology - Last 24 Hours (Table) 02/12/25 23:55 Anaerobic Culture - Final Other - Other Parvimonas micra Fusobacterium nucleatum Bacteroides ovatus Prevotella nigrescens 02/12/25 23:55 Gram Stain - Final Other - Other Wound Culture - Final Streptococcus anginosus Beta Hemolytic Strep Group C
[2025-02-17] MEDS: VANCOMYCIN TROUGH DUE 1 EACH MISC MISCELLANE ONE (12:49)
--- NOTE | 2025-02-17 14:40 | P.PN ---
Subjective Progress Note Date: 02/17/25 Patient is a 59-year-old male with past medical history significant for alcohol abuse, and prior abdominal surgery for hernia repair in 2018. Presented emergency department yesterday evening complaining of abdominal pain. [place] something had popped in his right sided abdomen. Workup at the emergency depa rtment including an abdominal/pelvis CT remarkable for an hepatic flexure colonic mass with perforation resulting in pneumoperitoneum and an abscess formation along the right lateral abdomen. Concerns for metastatic disease to the mesentery with multiple lymph nodes present. Also, indeterminate but probable liver metastatic disease versus abscess noted. Reactive enteritis/colitis secondary to perforation and intra-abdominal leak feces contents. Patient was then taken to the operating room for exploratory laparotomy. Patient was noted to have a large abscess within the right colon which was drained. The colon mass was dissected off of the duodenum and sent to pathology. There was obvious concerns for enlarged lymphadenopathy within the mesentery. Underwent right colectomy with ileostomy and partial omentectomy. Following the procedure, patient was transferred to the intensive care unit in critical condition. He remains intubated to the mechanical ventilator. Postoperative chest x-rays the endotracheal tube in appropriate positioning above the nehemias. Nasogastric tube coursing below the diaphragm. No focal opacities, pleural effusions, pneumothoraces, or otherwise acute cardiopulmonary process. Current ventilator settings: AC, respiratory rate 24, tidal volume 450, FiO2 100% PEEP of 5. Postoperative ABG consistent with combined metabolic and respiratory acidosis with a PaO2 of 420, pCO2 46, pH of 7.24. Patient is currently synchronous with current settings and sedated on propofol at 40 mcg/kg/min. Normal saline also infusing at 130 mL/h. He is tachycardic and borderline hypotensive with a blood pressure of 93/72 mmHg, heart rate is 120 bpm. Did previously receive 2.4 L crystalloid fluid bolus. Also, received 2 units PRBCs perioperatively. Mottled appearance to the lower extremities. Previously, noted to be febrile. Patient was empirically covered on a combination of Zosyn and vancomycin for abdominal sepsis. He does have a midline abdominal incision with postoperative dressing clean and intact. There is a right-sided abdominal ileostomy which is pink and beefy red. No significant output. Postoperative labs including a CBC with a WBC count of 8.5, hemoglobin 7.8 g/dL, platelets 571. Postoperative CMP including a sodium 130, potassium 3.4, chloride 94, serum bicarb 24, BUN 17, creatinine 0.97, glucose 88. Lactic 1.4. LFTs unremarkable. Lipase 46. Patient's next of kin is his brother. States he does not have very much known medical history as he does not follow routinely with a doctor. He is reportedly a heavy alcohol drinker. 02/14/25 - He is seen and evaluated in the ICU, room 259. He is on the mechanical ventilator, volume assist control , rate of 24, tidal volume of 450, FiO2 40% and PEEP of 5. Blood gases this morning show pO2 of 94, pCO2 of 25, pH of 7.45. He continues to be on Propofol at 35 mcg/kg/min, Zosyn and Vancomycin. Current labs include WBCs 23.42, Hgb 10.5, Hct 30.9, PLT 439, Na 137, K 3.3, BUN 29, Cr 1.52, Ca 6.6. Blood cultures continue to be pending at this time. Chest X-ray from this morning shows possible right layering pleural effusion. The patient is seen today February 15, 2025 selective care unit. He was transferred out of the intensive care unit yesterday. He is currently resting in bed. Awake and alert in no acute distress. Maintaining O2 saturations in the 90s on 2 L/min per nasal cannula. He has normal saline at 10 mL/h. Colon mass pathology pending. He is status post 2 units of packed red blood cells this admission. Current hemoglobin 10.6. Platelets 403. White count 18.9. Sodium 133. Potassium 3.7. Bicarb 27. BUN 25. Creatinine 1.08. Glucose 79. Blood culture revealed no growth. Wound culture revealed Streptococcus anginosus, beta-hemolytic strep group C. He remains on Zosyn and vancomycin along with Flagyl. Lovenox for DVT prophylaxis. Continued on bronchodilators. The patient is seen today February 16, 2025 in follow-up on the selective care unit. He is currently resting in bed. Awake and alert in no acute distress. Maintaining O2 saturations in the 90s on 2 L/min per nasal cannula. Has been afebrile. Hemodynamically stable. Chest x-ray shows improved aeration of the lungs bilaterally. Some right basilar atelectasis. Colonic abscess was positive for Streptococcus anginosus, beta-hemolytic strep group C. White count 16.2. Hemoglobin 10.8. Platelets 398. Sodium 132. Potassium 3.8. Bicarb 26. BUN 19. Creatinine 0.89. Glucose 85. He remains on Flagyl, vancomycin and Zosyn. Lovenox for DVT prophylaxis. Remains on bronchodilators. Encouraged regarding the increased use of the incentive spirometer. Tolerating a clear liquid diet. The patient is seen today February 17, 2025 in follow-up on the selective care unit. He is currently sitting up in bed. Awake and alert in no acute distress. He denies any worsening shortness of breath, cough or congestion. He does have some ongoing surgical site pain of the abdomen. He is maintaining good O2 saturations in the upper 90s on 2 L/min per nasal cannula. He is afebrile. He modynamically stable. He is status post 2 units of packed red blood cells this admission. Today's hemoglobin is 11.4. Platelets 381. White count 11.7. Sodium 132. Potassium 4.1. Bicarb 21. BUN 17. Creatinine 0.79. He remains on DuoNeb inhalations. Lovenox for DVT prophylaxis. Antibiotics in the form of vancomycin and Zosyn along with Flagyl. Diet advanced per surgical services. Objective - Vital Signs Vital signs: Vital Signs Temp 98.5 F 02/17/25 08:00 Pulse 92 02/17/25 12:00 Resp 16 02/17/25 12:00 BP 151/72 02/17/25 12:00 Pulse Ox 98 02/17/25 12:00 FiO2 40 02/14/25 12:00 Intake & Output 02/16/25 02/17/25 02/17/25 18:59 06:59 18:59 Intake Total 600 168 Output Total 550 600 910 Balance 50 -600 -742 Weight 76 kg Intake: Oral 600 168 Output: Gastric Drainage 810 Urine 550 400 100 Stool 200 Other: Voiding Method Urinal Urinal Urinal # Bowel Movements 1 ABP, PAP, CO, CI - Last Documented Arterial Blood Pressure 108/62 - Exam General: Awake, 59-year-old male, sitting up in bed, on 2 L nasal cannula, in no distress. Derm: Warm, dry, intact Head: Atraumatic, normocephalic, symmetric Eyes: EOMI, anicteric sclera NOSE: Clear with pink turbinates. Mouth: No lip lesion, mucus membranes moist Cardiovascular: S1 S2 reg, no murmur, rubs, or gallops; distant heart sounds. Lungs: CTA bilateral, no rales, no accessory muscle use ABDOMEN: Midline abdominal incision with postoperative dressing clean and intact. Right ileostomy noted, stoma appears pink/beefy red. Positive output. Abdomen is soft. Extremities: No cyanosis or edema present. Right brachial arterial line noted. Neuro: Cannot be assessed at this time. Psych: Well appearing, appropriate affect - Labs CBC & Chem 7: 02/17/25 08:03 02/17/25 08:03 Labs: Abnormal Lab Results - Last 24 Hours (Table) 02/16/25 02/17/25 02/17/25 Range/Units : 08:03 08:03 WBC 11.76 H (4.50-10.00) 10*3/uL RBC 4.30 L (4.40-5.60) 10*6/uL Hgb 11.4 L (13.0-17.0) g/dL Hct 34.1 L (39.6-50.0) % MCV 79.3 L (80.0-97.0) fL MCH 26.5 L (27.0-32.0) pg Immature Gran # 0.25 H (0.00-0.04) 10*3/uL Neutrophils # 8.97 H (1.80-7.70) 10*3/uL Monocytes # 1.18 H (0.20-1.00) 10*3/uL Sodium 132 L (137-145) mmol/L Carbon Dioxide 21 L (22-30) mmol/L Glucose 65 L (74-99) mg/dL POC Glucose (mg/dL) 244 H (70-110) mg/dL Calcium 8.3 L (8.4-10.2) mg/dL Total Bilirubin 1.5 H (0.2-1.3) mg/dL Total Protein 4.7 L (6.3-8.2) g/dL Albumin 2.1 L (3.5-5.0) g/dL Microbiology - Last 24 Hours (Table) 02/12/25 23:55 Anaerobic Culture - Final Other - Other Parvimonas micra Fusobacterium nucleatum Bacteroides ovatus Prevotella nigrescens 02/12/25 23:55 Gram Stain - Final Other - Other Wound Culture - Final Streptococcus anginosus Beta Hemolytic Strep Group C Assessment and Plan Assessment: Colonic mass with perforation, pneumoperitoneum, intra-abdominal abscess. Status postoperative day #4 following exploratory laparotomy with drainage of abscess, right colectomy, end ileostomy, and partial omentectomy. Pathology pending, cultures revealed Streptococcus anginosus, beta-hemolytic strep group C Colonic mass with concerns for metastatic disease with enlargement of mesenteric lymph nodes, also, indeterminate but probable metastatic disease to the liver Postoperative ventilator management, extubated and on 2 liters nasal cannula Abdominal sepsis Combined respiratory and metabolic acidosis Acute blood loss anemia, status post 2 units PRBCs Hypokalemia, replace per protocol Hypocalcemia, replaced History of alcohol abuse Plan: The patient was seen and evaluated Labs and medications reviewed Microbiology reviewed Ostomy functioning Stable and on 2 L nasal cannula Titrate down/off the FiO2 as tolerated Continued on DuoNeb inhalations Lovenox for DVT prophylaxis Remains on vancomycin Remains on Zosyn Remains on Flagyl Pathology still pending Increase his activity as tolerated Tolerating a clear liquid diet Advance to full liquids today per surgical services Plan is for subacute rehabilitation at discharge I have personally seen and examined the patient, performed the documentation and the assessment and plan as written. Number of minutes spent on the visit: 10 Dictation was produced using [employer] dictation software. Please excuse any grammatical, word or spelling errors.
[2025-02-17] MEDS: HYDROcodone/APAP 7.5-325MG 1 EACH TAB PO PRN (16:59)
--- NOTE | 2025-02-17 17:52 | P.PN ---
Subjective Progress Note Date: 02/17/25 59-year-old male with past medical history significant for alcohol abuse, and prior abdominal surgery for hernia repair in 2018. Presented emergency department yesterday evening complaining of abdominal pain. [place] something had popped in his right sided abdomen. Workup at the emergency department including an abdominal/pelvis CT remarkable for an hepatic flexure colonic mass with perforation resulting in pneumoperitoneum and an abscess formation along the right lateral abdomen. Concerns for metastatic disease to the mesentery with multiple lymph nodes present. Also, indeterminate but probable liver metastatic disease versus abscess noted. Reactive enteritis/colitis secondary to perforation and intra-abdominal leak feces contents. Patient was then taken to the operating room for exploratory laparotomy. Patient was noted to have a large abscess within the right colon which was drained. The colon mass was dissected off of the duodenum and sent to pathology. There was obvious concerns for enlarged lymphadenopathy within the mesentery. Underwent right colectomy with ileostomy and partial omentectomy. Following the procedure, patient was transferred to the intensive care unit in critical condition. He remains intubated to the mechanical ventilator. Postoperative chest x-rays the endotracheal tube in appropriate positioning above the nehemias. Nasogastric tube coursing below the diaphragm. No focal opacities, pleural effusions, pneumothoraces, or otherwise acute cardiopulmonary process. Current ventilator settings: AC, respiratory rate 24, tidal volume 450, FiO2 100% PEEP of 5. Postoperative ABG consistent with combined metabolic and respiratory acidosis with a PaO2 of 420, pCO2 46, pH of 7.24. Patient is currently synchronous with current settings and sedated on propofol at 40 mcg/kg/min. Normal saline also infusing at 130 mL/h. He is tachycardic and borderline hypotensive with a blood pressure of 93/72 mmHg, heart rate is 120 bpm. Did previously receive 2.4 L crystalloid fluid bolus. Also, received 2 units PRBCs perioperatively. Mottled appearance to the lower extremities. Previously, noted to be febrile. Patient was empirically covered on a combination of Zosyn and vancomycin for abdominal sepsis. He does have a midline abdominal incision with postoperative dressing clean and intact. There is a right-sided abdominal ileostomy which is pink and beefy red. No significant output. Postoperative labs including a CBC with a WBC count of 8.5, hemoglobin 7.8 g/dL, platelets 571. Objective - Vital Signs Vital signs: Vital Signs Temp 98.5 F 02/17/25 08:00 Pulse 92 02/17/25 08:29 Resp 16 02/17/25 08:00 BP 146/84 02/17/25 08:00 Pulse Ox 99 02/17/25 08:00 FiO2 40 02/14/25 12:00 Intake & Output 02/16/25 02/17/25 02/17/25 18:59 06:59 18:59 Intake Total 600 50 Output Total 550 600 760 Balance 50 -600 -710 Weight 76 kg Intake: Oral 600 50 Output: Gastric Drainage 760 Urine 550 400 Stool 200 Other: Voiding Method Urinal Urinal Urinal # Bowel Movements 1 ABP, PAP, CO, CI - Last Documented Arterial Blood Pressure 108/62 - Exam General: Awake, 59-year-old male, sitting up in bed, on 2 L nasal cannula, in no distress. Derm: Warm, dry, intact Head: Atraumatic, normocephalic, symmetric Eyes: EOMI, anicteric sclera Mouth: No lip lesion, mucus membranes moist Cardiovascular: S1 S2 reg, no murmur, rubs, or gallops; distant heart sounds. Lungs: CTA bilateral, no rales, no accessory muscle use ABDOMEN: Midline abdominal incision with postoperative dressing clean and intact. Right ileostomy noted, stoma appears pink/beefy red. Positive output. Abdomen is soft. Extremities: No cyanosis or edema present. Right brachial arterial line noted. Neuro: Cannot be assessed at this time. Psych: Well appearing, appropriate affect - Labs CBC & Chem 7: 02/17/25 08:03 02/17/25 08:03 Labs: Abnormal Lab Results - Last 24 Hours (Table) 02/16/25 02/17/25 02/17/25 Range/Units 20:20 08:03 08:03 WBC 11.76 H (4.50-10.00) 10*3/uL RBC 4.30 L (4.40-5.60) 10*6/uL Hgb 11.4 L (13.0-17.0) g/dL Hct 34.1 L (39.6-50.0) % MCV 79.3 L (80.0-97.0) fL MCH 26.5 L (27.0-32.0) pg Immature Gran # 0.25 H (0.00-0.04) 10*3/uL Neutrophils # 8.97 H (1.80-7.70) 10*3/uL Monocytes # 1.18 H (0.20-1.00) 10*3/uL Sodium 132 L (137-145) mmol/L Carbon Dioxide 21 L (22-30) mmol/L Glucose 65 L (74-99) mg/dL POC Glucose (mg/dL) 244 H (70-110) mg/dL Calcium 8.3 L (8.4-10.2) mg/dL Total Bilirubin 1.5 H (0.2-1.3) mg/dL Total Protein 4.7 L (6.3-8.2) g/dL Albumin 2.1 L (3.5-5.0) g/dL Microbiology - Last 24 Hours (Table) 02/12/25 23:55 Anaerobic Culture - Final Other - Other Parvimonas micra Fusobacterium nucleatum Bacteroides ovatus Prevotella nigrescens 02/12/25 23:55 Gram Stain - Final Other - Other Wound Culture - Final Streptococcus anginosus Beta Hemolytic Strep Group C Assessment and Plan Assessment: Colonic mass with perforation, pneumoperitoneum, intra-abdominal abscess. Status postoperative day #4 following exploratory laparotomy with drainage of abscess, right colectomy, end ileostomy, and partial omentectomy. Pathology pending, cultures revealed Streptococcus anginosus, beta-hemolytic strep group C --Patient remains on IV Zosyn, vancomycin and Flagyl Colonic mass with concerns for metastatic disease with enlargement of mesenteric lymph nodes, also, indeterminate but probable metastatic disease to the liver Postoperative ventilator management, extubated and on 2 liters nasal cannula; currently saturating above 92% on 2 L; plan to titrate or wean as able - Patient has been placed on a diet with plans to advance as tolerated Combined respiratory and metabolic acidosis Acute blood loss anemia, status post 2 units PRBCs Hypokalemia, replace per protocol; will monitor electrolytes closely Hypocalcemia, replaced History of alcohol abuse DVT prophylaxis; CDs/Lovenox CODE STATUS; full code
[2025-02-18 07:09] LABS: Basophils # (A) 0.05 10*3/uL (0.00-0.10); Basophils % (A) 0.5 %; Eosinophils # (A) 0.24 10*3/uL (0.04-0.35); Eosinophils % (A) 2.6 %; HCT 34.1 % (39.6-50.0); HGB 11.2 g/dL (13.0-17.0); Lymphocytes # (A) 1.33 10*3/uL (0.90-5.00); Lymphocytes % (A) 14.2 %; MCH 26.1 pg (27.0-32.0); MCHC 32.8 g/dL (32.0-37.0); MCV 79.5 fL (80.0-97.0); Monocytes # (A) 1.15 10*3/uL (0.20-1.00); Monocytes % (A) 12.2 %; Neutrophils # (A) 6.33 10*3/uL (1.80-7.70); Neutrophils % (A) 67.4 %; Platelet Count 333 10*3/uL (140-440); RBC 4.29 10*6/uL (4.40-5.60); RDW 16.9 % (11.5-14.5); WBC 9.39 10*3/uL (4.50-10.00)
[2025-02-18 07:31] LABS: African American GFR (CKD) >90 (>60 ml/min/1.73 sqM); Anion Gap 6 mmol/L; Blood Urea Nitrogen 10 mg/dL (9-20); Calcium 8.0 mg/dL (8.4-10.2); Carbon Dioxide 26 mmol/L (22-30); Chloride 99 mmol/L (98-107); Glucose 90 mg/dL (74-99); Non-African American GFR(CKD) >90 (>60 ml/min/1.73 sqM); Potassium 3.8 mmol/L (3.5-5.1); Sodium 131 mmol/L (137-145)
--- NOTE | 2025-02-18 10:03 | P.PN ---
Subjective Progress Note Date: 02/18/25 Patient luis enrique stable. He has complaints of incisional pain. On exam vital signs are stable. Abdomen is soft. Status post right colectomy with ileostomy. Patient's pathology still pending. He will continue receive supportive care. Objective - Vital Signs Vital signs: Vital Signs Temp 97.7 F 02/18/25 08:00 Pulse 90 02/18/25 09:52 Resp 17 02/18/25 08:00 BP 158/97 02/18/25 08:00 Pulse Ox 95 02/18/25 09:43 FiO2 40 02/14/25 12:00 Intake & Output 02/17/25 02/18/25 02/18/25 18:59 06:59 18:59 Intake Total 368 Output Total 1210 460 400 Balance -842 -460 -400 Weight 75.5 kg Intake: Oral 368 Output: Gastric Drainage 935 Urine 275 460 300 Stool 100 Other: Voiding Method Urinal Urinal Urinal # Bowel Movements 1 ABP, PAP, CO, CI - Last Documented Arterial Blood Pressure 108/62 - Labs CBC & Chem 7: 02/18/25 06:21 02/18/25 06:21 Labs: Abnormal Lab Results - Last 24 Hours (Table) 02/18/25 02/18/25 Range/Units 06:21 06:21 RBC 4.29 L (4.40-5.60) 10*6/uL Hgb 11.2 L (13.0-17.0) g/dL Hct 34.1 L (39.6-50.0) % MCV 79.5 L (80.0-97.0) fL MCH 26.1 L (27.0-32.0) pg Immature Gran # 0.29 H (0.00-0.04) 10*3/uL Monocytes # 1.15 H (0.20-1.00) 10*3/uL Sodium 131 L (137-145) mmol/L Calcium 8.0 L (8.4-10.2) mg/dL Microbiology - Last 24 Hours (Table) 02/12/25 20:04 Blood Culture - Final Blood
[2025-02-19 06:58] LABS: Basophils # (A) 0.05 10*3/uL (0.00-0.10); Basophils % (A) 0.5 %; Eosinophils # (A) 0.17 10*3/uL (0.04-0.35); Eosinophils % (A) 1.6 %; HCT 31.7 % (39.6-50.0); HGB 10.3 g/dL (13.0-17.0); Lymphocytes # (A) 1.51 10*3/uL (0.90-5.00); Lymphocytes % (A) 14.1 %; MCH 25.9 pg (27.0-32.0); MCHC 32.5 g/dL (32.0-37.0); MCV 79.8 fL (80.0-97.0); Monocytes # (A) 1.02 10*3/uL (0.20-1.00); Monocytes % (A) 9.5 %; Neutrophils # (A) 7.61 10*3/uL (1.80-7.70); Neutrophils % (A) 71.1 %; Platelet Count 376 10*3/uL (140-440); RBC 3.97 10*6/uL (4.40-5.60); RDW 17.2 % (11.5-14.5); WBC 10.70 10*3/uL (4.50-10.00)
[2025-02-19 07:16] LABS: African American GFR (CKD) >90 (>60 ml/min/1.73 sqM); Anion Gap 5 mmol/L; Blood Urea Nitrogen 7 mg/dL (9-20); Calcium 7.9 mg/dL (8.4-10.2); Carbon Dioxide 26 mmol/L (22-30); Chloride 100 mmol/L (98-107); Glucose 86 mg/dL (74-99); Non-African American GFR(CKD) >90 (>60 ml/min/1.73 sqM); Potassium 3.9 mmol/L (3.5-5.1); Sodium 131 mmol/L (137-145)
--- NOTE | 2025-02-19 08:57 | P.PN ---
Subjective Progress Note Date: 02/19/25 Patient is slowly improving. He is tolerating diet. On exam vital signs appear stable. Abdomen is soft. Status post right colectomy for perforated colonic neoplasm. Patient will hopefully be discharged home in next 48 hours. Objective - Vital Signs Vital signs: Vital Signs Temp 98.1 F 02/19/25 03:29 Pulse 85 02/19/25 03:29 Resp 20 02/19/25 03:29 BP 154/83 02/19/25 03:29 Pulse Ox 97 02/19/25 03:29 FiO2 40 02/14/25 12:00 Intake & Output 02/18/25 02/19/25 02/19/25 18:59 06:59 18:59 Intake Total 480 Output Total 700 1060 Balance -220 -1060 Weight 75.5 kg 75.5 kg Intake: Oral 480 Output: Urine 300 260 Stool 400 800 Other: Voiding Method Urinal Urinal # Voids 200 ABP, PAP, CO, CI - Last Documented Arterial Blood Pressure 108/62 - Labs CBC & Chem 7: 02/19/25 05:48 02/19/25 05:48 Labs: Abnormal Lab Results - Last 24 Hours (Table) 02/19/25 02/19/25 Range/Units 05:48 05:48 WBC 10.70 H (4.50-10.00) 10*3/uL RBC 3.97 L (4.40-5.60) 10*6/uL Hgb 10.3 L (13.0-17.0) g/dL Hct 31.7 L (39.6-50.0) % MCV 79.8 L (80.0-97.0) fL MCH 25.9 L (27.0-32.0) pg Immature Gran # 0.34 H (0.00-0.04) 10*3/uL Monocytes # 1.02 H (0.20-1.00) 10*3/uL Sodium 131 L (137-145) mmol/L BUN 7 L (9-20) mg/dL Creatinine 0.59 L (0.66-1.25) mg/dL Calcium 7.9 L (8.4-10.2) mg/dL
[2025-02-19] MEDS: FUROSEMIDE 10 MG/ML 2 ML VIAL IV ONE (14:46)
[2025-02-19] MEDS: SIMETHICONE 80 MG CHEWABLE PO PRN (14:47)
--- NOTE | 2025-02-19 17:11 | P.PN ---
Subjective Progress Note Date: 02/18/25 59-year-old male with past medical history significant for alcohol abuse, and prior abdominal surgery for hernia repair in 2018. Presented emergency department yesterday evening complaining of abdominal pain. [place] something had popped in his right sided abdomen. Workup at the emergency department including an abdominal/pelvis CT remarkable for an hepatic flexure colonic mass with perforation resulting in pneumoperitoneum and an abscess formation along the right lateral abdomen. Concerns for metastatic disease to the mesentery with multiple lymph nodes present. Also, indeterminate but probable liver metastatic disease versus abscess noted. Reactive enteritis/colitis secondary to perforation and intra-abdominal leak feces contents. Patient was then taken to the operating room for exploratory laparotomy. Patient was noted to have a large abscess within the right colon which was drained. The colon mass was dissected off of the duodenum and sent to pathology. There was obvious concerns for enlarged lymphadenopathy within the mesentery. Underwent right colectomy with ileostomy and partial omentectomy. Following the procedure, patient was transferred to the intensive care unit in critical condition. He remains intubated to the mechanical ventilator. Postoperative chest x-rays the endotracheal tube in appropriate positioning above the nehemias. Nasogastric tube coursing below the diaphragm. No focal opacities, pleural effusions, pneumothoraces, or otherwise acute cardiopulmonary process. Current ventilator settings: AC, respiratory rate 24, tidal volume 450, FiO2 100% PEEP of 5. Postoperative ABG consistent with combined metabolic and respiratory acidosis with a PaO2 of 420, pCO2 46, pH of 7.24. Patient is currently synchronous with current settings and sedated on propofol at 40 mcg/kg/min. Normal saline also infusing at 130 mL/h. He is tachycardic and borderline hypotensive with a blood pressure of 93/72 mmHg, heart rate is 120 bpm. Did previously receive 2.4 L crystalloid fluid bolus. Also, received 2 units PRBCs perioperatively. Mottled appearance to the lower extremities. Previously, noted to be febrile. Patient was empirically covered on a combination of Zosyn and vancomycin for abdominal sepsis. He does have a midline abdominal incision with postoperative dressing clean and intact. There is a right-sided abdominal ileostomy which is pink and beefy red. No significant output. Postoperative labs including a CBC with a WBC count of 8.5, hemoglobin 7.8 g/dL, platelets 571. 02/18/2025 Patient is seen and evaluated resting comfortably in bed; has been transferred out of ICU Vital signs are reviewed and stable with temperature of 97.7, pulse 90, respiration 18 and blood pressure 158/97, O2 saturation 95% Lab review shows WBC 9.39, hemoglobin of 11.2, sodium 131, potassium 3.8, BUN/creatinine of 10/0.68 -Patient is status post right colectomy with ileostomy on 02/13/2025; surgery on board; patient is maintaining oral intake - Continue with IV antibiotics in form of Zosyn and Flagyl Objective - Vital Signs Vital signs: Vital Signs Temp 97.7 F 02/18/25 08:00 Pulse 90 02/18/25 09:52 Resp 17 02/18/25 08:00 BP 158/97 02/18/25 08:00 Pulse Ox 95 02/18/25 09:43 FiO2 40 02/14/25 12:00 Intake & Output 02/17/25 02/18/25 02/18/25 18:59 06:59 18:59 Intake Total 368 Output Total 1210 460 400 Balance -842 -460 -400 Weight 75.5 kg Intake: Oral 368 Output: Gastric Drainage 935 Urine 275 460 300 Stool 100 Other: Voiding Method Urinal Urinal Urinal # Bowel Movements 1 ABP, PAP, CO, CI - Last Documented Arterial Blood Pressure 108/62 - Exam General: Awake, 59-year-old male, sitting up in bed, on 2 L nasal cannula, in no distress. Derm: Warm, dry, intact Head: Atraumatic, normocephalic, symmetric Eyes: EOMI, anicteric sclera Mouth: No lip lesion, mucus membranes moist Cardiovascular: S1 S2 reg, no murmur, rubs, or gallops; distant heart sounds. Lungs: CTA bilateral, no rales, no accessory muscle use ABDOMEN: Midline abdominal incision with postoperative dressing clean and intact. Right ileostomy noted, stoma appears pink/beefy red. Positive output. Abdomen is soft. Extremities: No cyanosis or edema present. Right brachial arterial line noted. Neuro: Cannot be assessed at this time. Psych: Well appearing, appropriate affect - Labs CBC & Chem 7: 02/19/25 05:48 02/19/25 05:48 Labs: Abnormal Lab Results - Last 24 Hours (Table) 02/18/25 02/18/25 Range/Units 06:21 06:21 RBC 4.29 L (4.40-5.60) 10*6/uL Hgb 11.2 L (13.0-17.0) g/dL Hct 34.1 L (39.6-50.0) % MCV 79.5 L (80.0-97.0) fL MCH 26.1 L (27.0-32.0) pg Immature Gran # 0.29 H (0.00-0.04) 10*3/uL Monocytes # 1.15 H (0.20-1.00) 10*3/uL Sodium 131 L (137-145) mmol/L Calcium 8.0 L (8.4-10.2) mg/dL Microbiology - Last 24 Hours (Table) 02/12/25 20:04 Blood Culture - Final Blood Assessment and Plan Assessment: Colonic mass with perforation, pneumoperitoneum, intra-abdominal abscess. Status postoperative day #4 following exploratory laparotomy with drainage of abscess, right colectomy, end ileostomy, and partial omentectomy. Pathology pending, cultures revealed Streptococcus anginosus, beta-hemolytic strep group C --Patient remains on IV Zosyn, vancomycin and Flagyl Colonic mass with concerns for metastatic disease with enlargement of mesenteric lymph nodes, also, indeterminate but probable metastatic disease to the liver Postoperative ventilator management, extubated and on 2 liters nasal cannula; currently saturating above 92% on 2 L; plan to titrate or wean as able - Patient has been placed on a diet with plans to advance as tolerated Combined respiratory and metabolic acidosis Acute blood loss anemia, status post 2 units PRBCs Hypokalemia, replace per protocol; will monitor electrolytes closely Hypocalcemia, replaced History of alcohol abuse DVT prophylaxis; CDs/Lovenox CODE STATUS; full code
--- NOTE | 2025-02-19 17:12 | P.PN ---
Subjective Progress Note Date: 02/19/25 59-year-old male with past medical history significant for alcohol abuse, and prior abdominal surgery for hernia repair in 2018. Presented emergency department yesterday evening complaining of abdominal pain. [place] something had popped in his right sided abdomen. Workup at the emergency department including an abdominal/pelvis CT remarkable for an hepatic flexure colonic mass with perforation resulting in pneumoperitoneum and an abscess formation along the right lateral abdomen. Concerns for metastatic disease to the mesentery with multiple lymph nodes present. Also, indeterminate but probable liver metastatic disease versus abscess noted. Reactive enteritis/colitis secondary to perforation and intra-abdominal leak feces contents. Patient was then taken to the operating room for exploratory laparotomy. Patient was noted to have a large abscess within the right colon which was drained. The colon mass was dissected off of the duodenum and sent to pathology. There was obvious concerns for enlarged lymphadenopathy within the mesentery. Underwent right colectomy with ileostomy and partial omentectomy. Following the procedure, patient was transferred to the intensive care unit in critical condition. He remains intubated to the mechanical ventilator. Postoperative chest x-rays the endotracheal tube in appropriate positioning above the nehemias. Nasogastric tube coursing below the diaphragm. No focal opacities, pleural effusions, pneumothoraces, or otherwise acute cardiopulmonary process. Current ventilator settings: AC, respiratory rate 24, tidal volume 450, FiO2 100% PEEP of 5. Postoperative ABG consistent with combined metabolic and respiratory acidosis with a PaO2 of 420, pCO2 46, pH of 7.24. Patient is currently synchronous with current settings and sedated on propofol at 40 mcg/kg/min. Normal saline also infusing at 130 mL/h. He is tachycardic and borderline hypotensive with a blood pressure of 93/72 mmHg, heart rate is 120 bpm. Did previously receive 2.4 L crystalloid fluid bolus. Also, received 2 units PRBCs perioperatively. Mottled appearance to the lower extremities. Previously, noted to be febrile. Patient was empirically covered on a combination of Zosyn and vancomycin for abdominal sepsis. He does have a midline abdominal incision with postoperative dressing clean and intact. There is a right-sided abdominal ileostomy which is pink and beefy red. No significant output. Postoperative labs including a CBC with a WBC count of 8.5, hemoglobin 7.8 g/dL, platelets 571. 02/18/2025 Patient is seen and evaluated resting comfortably in bed; has been transferred out of ICU Vital signs are reviewed and stable with temperature of 97.7, pulse 90, respiration 18 and blood pressure 158/97, O2 saturation 95% Lab review shows WBC 9.39, hemoglobin of 11.2, sodium 131, potassium 3.8, BUN/creatinine of 10/0.68 -Patient is status post right colectomy with ileostomy on 02/13/2025; surgery on board; patient is maintaining oral intake - Continue with IV antibiotics in form of Zosyn and Flagyl 02/19/2025 Patient seen and evaluated and discussed with nursing staff; continue to ask for IV Dilaudid every 3 hours; remains on [place] Vital signs are reviewed temperature 98.1, pulse 85, respiration 20 and blood pressure 154/83 Blood work reveals WBC of 10.7, hemoglobin of 10.3, sodium 131, potassium 3.9, BUN/creatinine 7/0.59 Patient is status post colectomy for perforated colonic neoplasm on 02/14/2024 -General Surgery on board; patient continues to make improvement; possible discharge in next 24-48 Objective - Vital Signs Vital signs: Vital Signs Temp 98.3 F 02/19/25 08:10 Pulse 80 02/19/25 10:02 Resp 18 02/19/25 08:10 BP 137/92 02/19/25 08:10 Pulse Ox 98 02/19/25 08:10 FiO2 40 02/14/25 12:00 Intake & Output 02/18/25 02/19/25 02/19/25 18:59 06:59 18:59 Intake Total 480 236 Output Total 700 1060 675 Balance -220 -1060 -439 Weight 75.5 kg 75.5 kg Intake: Oral 480 236 Output: Urine 300 260 625 Stool 400 800 50 Other: Voiding Method Urinal Urinal Urinal # Voids 200 ABP, PAP, CO, CI - Last Documented Arterial Blood Pressure 108/62 - Exam General: Awake, 59-year-old male, sitting up in bed, on 2 L nasal cannula, in no distress. Derm: Warm, dry, intact Head: Atraumatic, normocephalic, symmetric Eyes: EOMI, anicteric sclera Mouth: No lip lesion, mucus membranes moist Cardiovascular: S1 S2 reg, no murmur, rubs, or gallops; distant heart sounds. Lungs: CTA bilateral, no rales, no accessory muscle use ABDOMEN: Midline abdominal incision with postoperative dressing clean and intact. Right ileostomy noted, stoma appears pink/beefy red. Positive output. Abdomen is soft. Extremities: No cyanosis or edema present. Right brachial arterial line noted. Neuro: Cannot be assessed at this time. Psych: Well appearing, appropriate affect - Labs CBC & Chem 7: 02/19/25 05:48 02/19/25 05:48 Labs: Abnormal Lab Results - Last 24 Hours (Table) 02/19/25 02/19/25 Range/Units 05:48 05:48 WBC 10.70 H (4.50-10.00) 10*3/uL RBC 3.97 L (4.40-5.60) 10*6/uL Hgb 10.3 L (13.0-17.0) g/dL Hct 31.7 L (39.6-50.0) % MCV 79.8 L (80.0-97.0) fL MCH 25.9 L (27.0-32.0) pg Immature Gran # 0.34 H (0.00-0.04) 10*3/uL Monocytes # 1.02 H (0.20-1.00) 10*3/uL Sodium 131 L (137-145) mmol/L BUN 7 L (9-20) mg/dL Creatinine 0.59 L (0.66-1.25) mg/dL Calcium 7.9 L (8.4-10.2) mg/dL Assessment and Plan Assessment: Colonic mass with perforation, pneumoperitoneum, intra-abdominal abscess. Status postoperative day #4 following exploratory laparotomy with drainage of abscess, right colectomy, end ileostomy, and partial omentectomy. Pathology pending, cultures revealed Streptococcus anginosus, beta-hemolytic strep group C --Patient remains on IV Zosyn, vancomycin and Flagyl Colonic mass with concerns for metastatic disease with enlargement of mesenteric lymph nodes, also, indeterminate but probable metastatic disease to the liver Postoperative ventilator management, extubated and on 2 liters nasal cannula; currently saturating above 92% on 2 L; plan to titrate or wean as able - Patient has been placed on a diet with plans to advance as tolerated Combined respiratory and metabolic acidosis Acute blood loss anemia, status post 2 units PRBCs Hypokalemia, replace per protocol; will monitor electrolytes closely Hypocalcemia, replaced History of alcohol abuse DVT prophylaxis; CDs/Lovenox CODE STATUS; full code
[2025-02-19] MEDS: HYDROmorphone 1 MG/ML 1 ML SYRINGE IVP PRN (17:15)
--- NOTE | 2025-02-20 11:06 | P.PN ---
Subjective 59-year-old male with past medical history significant for alcohol abuse, and prior abdominal surgery for hernia repair in 2018. Presented emergency department yesterday evening complaining of abdominal pain. [place] something had popped in his right sided abdomen. Workup at the emergency department including an abdominal/pelvis CT remarkable for an hepatic flexure colonic mass with perforation resulting in pneumoperitoneum and an abscess formation along the right lateral abdomen. Concerns for metastatic disease to the mesentery with multiple lymph nodes present. Also, indeterminate but probable liver metastatic disease versus abscess noted. Reactive enteritis/colitis secondary to perforation and intra-abdominal leak feces contents. Patient was then taken to the operating room for exploratory laparotomy. Patient was noted to have a large abscess within the right colon which was drained. The colon mass was dissected off of the duodenum and sent to pathology. There was obvious concerns for enlarged lymphadenopathy within the mesentery. Underwent right colectomy with ileostomy and partial omentectomy. Following the procedure, patient was transferred to the intensive care unit in critical condition. He remains intubated to the mechanical ventilator. Postoperative chest x-rays the endotracheal tube in appropriate positioning above the nehemias. Nasogastric tube coursing below the diaphragm. No focal opacities, pleural effusions, pneumothoraces, or otherwise acute cardiopulmonary process. Current ventilator settings: AC, respiratory rate 24, tidal volume 450, FiO2 100% PEEP of 5. Postoperative ABG consistent with combined metabolic and respiratory acidosis with a PaO2 of 420, pCO2 46, pH of 7.24. Patient is currently synchronous with current settings and sedated on propofol at 40 mcg/kg/min. Normal saline also infusing at 130 mL/h. He is tachycardic and borderline hypotensive with a blood pressure of 93/72 mmHg, heart rate is 120 bpm. Did previously receive 2.4 L crystalloid fluid bolus. Also, received 2 units PRBCs perioperatively. Mottled appearance to the lower extremities. Previously, noted to be febrile. Patient was empirically covered on a combination of Zosyn and vancomycin for abdominal sepsis. He does have a midline abdominal incision with postoperative dressing clean and intact. There is a right-sided abdominal ileostomy which is pink and beefy red. No significant output. Postoperative labs including a CBC with a WBC count of 8.5, hemoglobin 7.8 g/dL, platelets 571. 02/18/2025 Patient is seen and evaluated resting comfortably in bed; has been transferred out of ICU Vital signs are reviewed and stable with temperature of 97.7, pulse 90, respiration 18 and blood pressure 158/97, O2 saturation 95% Lab review shows WBC 9.39, hemoglobin of 11.2, sodium 131, potassium 3.8, BUN/creatinine of 10/0.68 -Patient is status post right colectomy with ileostomy on 02/13/2025; surgery on board; patient is maintaining oral intake - Continue with IV antibiotics in form of Zosyn and Flagyl 02/19/2025 Patient seen and evaluated and discussed with nursing staff; continue to ask for IV Dilaudid every 3 hours; remains on [place] Vital signs are reviewed temperature 98.1, pulse 85, respiration 20 and blood pressure 154/83 Blood work reveals WBC of 10.7, hemoglobin of 10.3, sodium 131, potassium 3.9, BUN/creatinine 7/0.59 Patient is status post colectomy for perforated colonic neoplasm on 02/14/2024 -General Surgery on board; patient continues to make improvement; possible discharge in next 24-02/20 Patient is little bit, he got full quickly. No vomiting Abdominal pain but is not down. Colostomy is working and he had 3-4 bowel movements yesterday No other new complaint Objective - Vital Signs Vital signs: Vital Signs Temp 98.8 F 02/20/25 09:01 Pulse 95 02/20/25 09:01 Resp 16 02/20/25 09:01 BP 169/68 02/20/25 09:01 Pulse Ox 97 02/20/25 09:19 FiO2 40 02/14/25 12:00 Intake & Output 02/19/25 02/20/25 02/20/25 18:59 06:59 18:59 Intake Total 1526 0 Output Total 2945 750 120 Balance -1419 -750 -120 Weight 43 kg Intake: Intake, IV Titration 450 Amount Piperacillin-Tazobactam 3 100 .375 gm In Sodium Chloride 0.9% 100 ml @ 25 mls/hr IVPB Q8H [facility] Rx#: [id number] Vancomycin 1,250 mg In 250 Sodium Chloride 0.9% 250 ml @ 125 mls/hr IVPB Q12H [facility] Rx#:[id number] metroNIDAZOLE-NS PMX 500 100 mg In Saline 1 100ml.bag @ 100 mls/hr IVPB Q8HR [facility] Rx#:[id number] Oral 1076 0 Output: Urine 2775 750 Stool 170 120 Other: Voiding Method Urinal Urinal Urinal ABP, PAP, CO, CI - Last Documented Arterial Blood Pressure 108/62 - Exam -GENERAL: The patient is alert and oriented x3, not in any acute distress. Well developed, well nourished. Generally weak HEENT: Pupils are round and equally reacting to light. EOMI. No scleral icterus. No conjunctival pallor. Normocephalic, atraumatic. No pharyngeal erythema. No thyromegaly. CARDIOVASCULAR: S1 and S2 present. No murmurs, rubs, or gallops. PULMONARY: Chest is clear to auscultation, no wheezing , no crackles. -ABDOMEN: Soft, nontender, nondistended, normoactive bowel sounds. No palpable organomegaly. Midline surgical incision in place with right lower quadrant colostomy in MUSCULOSKELETAL: No joint swelling or deformity. EXTREMITIES: No cyanosis, clubbing, or pedal edema. NEUROLOGICAL: Gross neurological examination did not reveal any focal deficits. SKIN: No rashes. no petechiae. - Labs CBC & Chem 7: 02/19/25 05:48 02/19/25 05:48 Assessment and Plan Assessment: Colonic mass with perforation, pneumoperitoneum, intra-abdominal abscess. Status post exploratory laparotomy with drainage of abscess, right colectomy, end ileostomy, and partial omentectomy. Pathology pending, cultures revealed Streptococcus anginosus, beta-hemolytic strep group C --Patient remains on IV Zosyn, vancomycin and Flagyl Colonic mass with concerns for metastatic disease with enlargement of mesenteric lymph nodes, also, indeterminate but probable metastatic disease to the liver Postoperative ventilator management, extubated and on 2 liters nasal cannula; currently saturating above 92% on 2 L; plan to titrate or wean as able - Patient has been placed on a diet with plans to advance as tolerated Combined respiratory and metabolic acidosis Acute blood loss anemia, status post 2 units PRBCs Hypokalemia, replace per protocol; will monitor electrolytes closely Hypocalcemia, replaced History of alcohol abuse DVT prophylaxis; CDs/Lovenox CODE STATUS; full code
--- NOTE | 2025-02-20 11:12 | P.PN ---
Subjective Progress Note Date: 02/20/25 SURGICAL PROGRESS NOTE CHIEF COMPLAINT: Right colon mass HISTORY OF PRESENT ILLNESS: Patient is postop day #8 status post exploratory laparotomy, drainage of abscess, right colectomy with ileostomy and partial pneumonectomy. Pain controlled. Ostomy functioning. Does report decreased appetite. Denies any nausea or vomiting. Afebrile. WBC 10.7 Hgb 10.3 PHYSICAL EXAM: VITAL SIGNS: Reviewed. GENERAL: Well-developed in no acute distress. HEENT: No sclera icterus. Extraocular movements grossly intact. Moist buccal mucosa. Head is atraumatic, normocephalic. ABDOMEN: Soft. Nondistended. Incision dressing clean dry and intact. Ileostomy with stool present NEUROLOGIC: Alert and oriented. Cranial nerves II through XII grossly intact. ASSESSMENT: 1. Right colon mass with perforation and intraperitoneal abscess with metastatic disease PLAN: -Continue regular diet -Continue pain management -Follow-up on pathology results. Patient seen by oncology service. -Continue antibiotics -Increase activity level -GI prophylaxis Protonix DVT prophylaxis Lovenox Physician Rf Test Engineer note has been reviewed by physician. Signing provider agrees with the documented findings, assessment, and plan of care. Objective - Vital Signs Vital signs: Vital Signs Temp 98.8 F 02/20/25 09:01 Pulse 95 02/20/25 09:01 Resp 16 02/20/25 09:01 BP 169/68 02/20/25 09:01 Pulse Ox 97 02/20/25 09:19 FiO2 40 02/14/25 12:00 Intake & Output 02/19/25 02/20/25 02/20/25 18:59 06:59 18:59 Intake Total 1526 0 Output Total 2945 750 120 Balance -1419 -750 -120 Weight 43 kg Intake: Intake, IV Titration 450 Amount Piperacillin-Tazobactam 3 100 .375 gm In Sodium Chloride 0.9% 100 ml @ 25 mls/hr IVPB Q8H [facility] Rx#: [id number] Vancomycin 1,250 mg In 250 Sodium Chloride 0.9% 250 ml @ 125 mls/hr IVPB Q12H [facility] Rx#:[id number] metroNIDAZOLE-NS PMX 500 100 mg In Saline 1 100ml.bag @ 100 mls/hr IVPB Q8HR [facility] Rx#:[id number] Oral 1076 0 Output: Urine 2775 750 Stool 170 120 Other: Voiding Method Urinal Urinal Urinal ABP, PAP, CO, CI - Last Documented Arterial Blood Pressure 108/62 - Labs CBC & Chem 7: 02/19/25 05:48 02/19/25 05:48
[2025-02-20] MEDS: HYDROcodone/APAP 7.5-325MG 1 EACH TAB PO ONE (13:43)
--- NOTE | 2025-02-20 19:12 | P.PN ---
Subjective Progress Note Date: 02/20/25 Patient is a 59-year-old male with past medical history significant for alcohol abuse, and prior abdominal surgery for hernia repair in 2018. Presented emergency department yesterday evening complaining of abdominal pain. [place] something had popped in his right sided abdomen. Workup at the emergency de partment including an abdominal/pelvis CT remarkable for an hepatic flexure colonic mass with perforation resulting in pneumoperitoneum and an abscess formation along the right lateral abdomen. Concerns for metastatic disease to the mesentery with multiple lymph nodes present. Also, indeterminate but probable liver metastatic disease versus abscess noted. Reactive enteritis/colitis secondary to perforation and intra-abdominal leak feces contents. Patient was then taken to the operating room for exploratory laparotomy. Patient was noted to have a large abscess within the right colon which was drained. The colon mass was dissected off of the duodenum and sent to pathology. There was obvious concerns for enlarged lymphadenopathy within the mesentery. Underwent right colectomy with ileostomy and partial omentectomy. Following the procedure, patient was transferred to the intensive care unit in critical condition. He remains intubated to the mechanical ventilator. Postoperative chest x-rays the endotracheal tube in appropriate positioning above the nehemias. Nasogastric tube coursing below the diaphragm. No focal opacities, pleural effusions, pneumothoraces, or otherwise acute cardiopulmonary process. Current ventilator settings: AC, respiratory rate 24, tidal volume 450, FiO2 100% PEEP of 5. Postoperative ABG consistent with combined metabolic and respiratory acidosis with a PaO2 of 420, pCO2 46, pH of 7.24. Patient is currently synchronous with current settings and sedated on propofol at 40 mcg/kg/min. Normal saline also infusing at 130 mL/h. He is tachycardic and borderline hypotensive with a blood pressure of 93/72 mmHg, heart rate is 120 bpm. Did previously receive 2.4 L crystalloid fluid bolus. Also, received 2 units PRBCs perioperatively. Mottled appearance to the lower extremities. Previously, noted to be febrile. Patient was empirically covered on a combination of Zosyn and vancomycin for abdominal sepsis. He does have a midline abdominal incision with postoperative dressing clean and intact. There is a right-sided abdominal ileostomy which is pink and beefy red. No significant output. Postoperative labs including a CBC with a WBC count of 8.5, hemoglobin 7.8 g/dL, platelets 571. Postoperative CMP including a sodium 130, potassium 3.4, chloride 94, serum bicarb 24, BUN 17, creatinine 0.97, glucose 88. Lactic 1.4. LFTs unremarkable. Lipase 46. Patient's next of kin is his brother. States he does not have very much known medical history as he does not follow routinely with a doctor. He is reportedly a heavy alcohol drinker. 02/14/25 - He is seen and evaluated in the ICU, room 259. He is on the mechanical ventilator, volume assist control , rate of 24, tidal volume of 450, FiO2 40% and PEEP of 5. Blood gases this morning show pO2 of 94, pCO2 of 25, pH of 7.45. He continues to be on Propofol at 35 mcg/kg/min, Zosyn and Vancomycin. Current labs include WBCs 23.42, Hgb 10.5, Hct 30.9, PLT 439, Na 137, K 3.3, BUN 29, Cr 1.52, Ca 6.6. Blood cultures continue to be pending at this time. Chest X-ray from this morning shows possible right layering pleural effusion. The patient is seen today February 15, 2025 selective care unit. He was transferred out of the intensive care unit yesterday. He is currently resting in bed. Awake and alert in no acute distress. Maintaining O2 saturations in the 90s on 2 L/min per nasal cannula. He has normal saline at 10 mL/h. Colon mass pathology pending. He is status post 2 units of packed red blood cells this admission. Current hemoglobin 10.6. Platelets 403. White count 18.9. Sodium 133. Potassium 3.7. Bicarb 27. BUN 25. Creatinine 1.08. Glucose 79. Blood culture revealed no growth. Wound culture revealed Streptococcus anginosus, beta-hemolytic strep group C. He remains on Zosyn and vancomycin along with Flagyl. Lovenox for DVT prophylaxis. Continued on bronchodilators. The patient is seen today February 16, 2025 in follow-up on the selective care unit. He is currently resting in bed. Awake and alert in no acute distress. Maintaining O2 saturations in the 90s on 2 L/min per nasal cannula. Has been afebrile. Hemodynamically stable. Chest x-ray shows improved aeration of the lungs bilaterally. Some right basilar atelectasis. Colonic abscess was positive for Streptococcus anginosus, beta-hemolytic strep group C. White count 16.2. Hemoglobin 10.8. Platelets 398. Sodium 132. Potassium 3.8. Bicarb 26. BUN 19. Creatinine 0.89. Glucose 85. He remains on Flagyl, vancomycin and Zosyn. Lovenox for DVT prophylaxis. Remains on bronchodilators. Encouraged regarding the increased use of the incentive spirometer. Tolerating a clear liq uid diet. The patient is seen today February 17, 2025 in follow-up on the selective care unit. He is currently sitting up in bed. Awake and alert in no acute distress. He denies any worsening shortness of breath, cough or congestion. He does have some ongoing surgical site pain of the abdomen. He is maintaining good O2 saturations in the upper 90s on 2 L/min per nasal cannula. He is afebrile. Hemodynamically stable. He is status post 2 units of packed red blood cells this admission. Today's hemoglobin is 11.4. Platelets 381. White count 11.7. Sodium 132. Potassium 4.1. Bicarb 21. BUN 17. Creatinine 0.79. He remains on DuoNeb inhalations. Lovenox for DVT prophylaxis. Antibiotics in the form of vancomycin and Zosyn along with Flagyl. Diet advanced per surgical services. On 02/20/2025, the patient is being seen for a follow-up. The patient is recovering from a colonic surgery. The patient had a colonic mass with secondary perforation and pneumoperitoneum and intra-abdominal abscess formation. The patient is postop day #5 following expected laparotomy and drainage of the abscess and right colectomy. He also had end ileostomy. Ileostomy is functional at this point in time. Cultures from the abdomen is showing strep and beta-hemolytic strep group C and anaerobes. Based on that, the patient is currently on a combination of Zosyn and Flagyl. The patient is also on IV vancomycin. ID is on the case. Final pathology from the intra- abdominal surgical sample is not ready yet. Meanwhile, the patient is comfortable. Using incentive spirometer. Is currently on 2 L of oxygen by nasal cannula. WBC count is at 10.7 with a hemoglobin 10.3 and a platelet count of 376. BUN 7 with a creatinine of 0.59 and sodium levels at 131. The patient is on Dilaudid for pain control. He is ambulating. Using incentive spirometer. Remains on IV Protonix. Gradually trying to advance his diet as tolerated. Surgical site is dry clean and intact. Objective - Vital Signs Vital signs: Vital Signs Temp 98.8 F 02/20/25 09:01 Pulse 91 02/20/25 12:57 Resp 16 02/20/25 12:57 BP 152/96 02/20/25 11:23 Pulse Ox 98 02/20/25 11:23 FiO2 40 02/14/25 12:00 Intake & Output 02/19/25 02/20/25 02/20/25 18:59 06:59 18:59 Intake Total 1526 477 Output Total 2945 750 440 Balance -1419 -750 37 Weight 43 kg Intake: Intake, IV Titration 450 Amount Piperacillin-Tazobactam 3 100 .375 gm In Sodium Chloride 0.9% 100 ml @ 25 mls/hr IVPB Q8H [facility] Rx#: [id number] Vancomycin 1,250 mg In 250 Sodium Chloride 0.9% 250 ml @ 125 mls/hr IVPB Q12H [facility] Rx#:[id number] metroNIDAZOLE-NS PMX 500 100 mg In Saline 1 100ml.bag @ 100 mls/hr IVPB Q8HR [facility]LEX[facility] Rx#:[id number] Oral 1076 477 Output: Urine 2775 750 200 Stool 170 240 Other: Voiding Method Urinal Urinal Urinal ABP, PAP, CO, CI - Last Documented Arterial Blood Pressure 108/62 - Exam General: Awake, 59-year-old male, sitting up in bed, on 2 L nasal cannula, in no distress. Derm: Warm, dry, intact Head: Atraumatic, normocephalic, symmetric Eyes: EOMI, anicteric sclera NOSE: Clear with pink turbinates. Mouth: No lip lesion, mucus membranes moist Cardiovascular: S1 S2 reg, no murmur, rubs, or gallops; distant heart sounds. Lungs: CTA bilateral, no rales, no accessory muscle use ABDOMEN: Midline abdominal incision with postoperative dressing clean and intac t. Right ileostomy noted, stoma appears pink/beefy red. Positive output. Abdomen is soft. Extremities: No cyanosis or edema present. Right brachial arterial line noted. Neuro: Cannot be assessed at this time. Psych: Well appearing, appropriate affect - Labs CBC & Chem 7: 02/19/25 05:48 02/19/25 05:48 Assessment and Plan Plan: Colonic mass with perforation, pneumoperitoneum, intra-abdominal abscess. Status postoperative day #5 following exploratory laparotomy with drainage of abscess, right colectomy, end ileostomy, and partial omentectomy. Pathology pending, cultures revealed Streptococcus anginosus, beta-hemolytic strep group C. Patient also has anaerobes. Ileostomy is functional. Colonic mass with concerns for metastatic disease with enlargement of mesenteric lymph nodes, also, indeterminate but probable metastatic disease to the liver Acute hypoxic respiratory failure following abdominal surgery, possibly related to some atelectatic changes in lung bases. The patient has been extubated and the patient is currently on 2 L of oxygen nasal cannula. No significant respiratory distress. Abdominal sepsis, polymicrobial secondary to above. The patient has strep and anaerobes and the patient is currently on a combination of Zosyn and Flagyl and vancomycin. Acute blood loss anemia, status post 2 units PRBCs, hemoglobin stable History of alcohol abuse Plan: Currently on 2 L of oxygen by nasal cannula Ostomy functioning Advance diet as tolerated Continued on DuoNeb inhalations Lovenox for DVT prophylaxis Remains on vancomycin Remains on Zosyn Remains on Flagyl Abdominal cultures are polymicrobial as expected Pathology still pending Increase his activity as tolerated Tolerating a clear liquid diet Advance to full liquids today per surgical services Increase mobility as tolerated and will continue to follow.
--- NOTE | 2025-02-21 10:12 | P.PN ---
Subjective 59-year-old male with past medical history significant for alcohol abuse, and prior abdominal surgery for hernia repair in 2018. Presented emergency department yesterday evening complaining of abdominal pain. [place] something had popped in his right sided abdomen. Workup at the emergency department including an abdominal/pelvis CT remarkable for an hepatic flexure colonic mass with perforation resulting in pneumoperitoneum and an abscess formation along the right lateral abdomen. Concerns for metastatic disease to the mesentery with multiple lymph nodes present. Also, indeterminate but probable liver metastatic disease versus abscess noted. Reactive enteritis/colitis secondary to perforation and intra-abdominal leak feces contents. Patient was then taken to the operating room for exploratory laparotomy. Patient was noted to have a large abscess within the right colon which was drained. The colon mass was dissected off of the duodenum and sent to pathology. There was obvious concerns for enlarged lymphadenopathy within the mesentery. Underwent right colectomy with ileostomy and partial omentectomy. Following the procedure, patient was transferred to the intensive care unit in critical condition. He remains intubated to the mechanical ventilator. Postoperative chest x-rays the endotracheal tube in appropriate positioning above the nehemias. Nasogastric tube coursing below the diaphragm. No focal opacities, pleural effusions, pneumothoraces, or otherwise acute cardiopulmonary process. Current ventilator settings: AC, respiratory rate 24, tidal volume 450, FiO2 100% PEEP of 5. Postoperative ABG consistent with combined metabolic and respiratory acidosis with a PaO2 of 420, pCO2 46, pH of 7.24. Patient is currently synchronous with current settings and sedated on propofol at 40 mcg/kg/min. Normal saline also infusing at 130 mL/h. He is tachycardic and borderline hypotensive with a blood pressure of 93/72 mmHg, heart rate is 120 bpm. Did previously receive 2.4 L crystalloid fluid bolus. Also, received 2 units PRBCs perioperatively. Mottled appearance to the lower extremities. Previously, noted to be febrile. Patient was empirically covered on a combination of Zosyn and vancomycin for abdominal sepsis. He does have a midline abdominal incision with postoperative dressing clean and intact. There is a right-sided abdominal ileostomy which is pink and beefy red. No significant output. Postoperative labs including a CBC with a WBC count of 8.5, hemoglobin 7.8 g/dL, platelets 571. 02/18/2025 Patient is seen and evaluated resting comfortably in bed; has been transferred out of ICU Vital signs are reviewed and stable with temperature of 97.7, pulse 90, respiration 18 and blood pressure 158/97, O2 saturation 95% Lab review shows WBC 9.39, hemoglobin of 11.2, sodium 131, potassium 3.8, BUN/creatinine of 10/0.68 -Patient is status post right colectomy with ileostomy on 02/13/2025; surgery on board; patient is maintaining oral intake - Continue with IV antibiotics in form of Zosyn and Flagyl 02/19/2025 Patient seen and evaluated and discussed with nursing staff; continue to ask for IV Dilaudid every 3 hours; remains on [place] Vital signs are reviewed temperature 98.1, pulse 85, respiration 20 and blood pressure 154/83 Blood work reveals WBC of 10.7, hemoglobin of 10.3, sodium 131, potassium 3.9, BUN/creatinine 7/0.59 Patient is status post colectomy for perforated colonic neoplasm on 02/14/2024 -General Surgery on board; patient continues to make improvement; possible discharge in next 24-02/20 Patient is little bit, he got full quickly. No vomiting Abdominal pain but is not down. Colostomy is working and he had 3-4 bowel movements yesterday No other new complaint 02/21 Patient states he feels the same, he is fully awake and oriented sitting up in bed. No vomiting. He still is little bit Abdominal pain is mild to moderate and controlled. He is having bowel movement through his ileostomy He has 1+ bilateral pitting leg edema He remains on broad-spectrum antibiotics with IV vancomycin and Zosyn and Flagyl Objective - Vital Signs Vital signs: Vital Signs Temp 99.3 F 02/21/25 08:13 Pulse 92 02/21/25 08:14 Resp 16 02/21/25 08:14 BP 141/92 02/21/25 08:13 Pulse Ox 96 02/21/25 08:13 FiO2 40 02/14/25 12:00 Intake & Output 02/20/25 02/21/25 02/21/25 18:59 06:59 18:59 Intake Total 477 250 246 Output Total 840 1780 350 Balance -363 -1530 -104 Weight 41 kg Intake: IV 10 10 Invasive Line 8 10 10 Oral 477 240 236 Output: Urine 600 680 350 Stool 240 1100 Other: Voiding Method Urinal Urinal Urinal # Voids 1 ABP, PAP, CO, CI - Last Documented Arterial Blood Pressure 108/62 - Exam -GENERAL: The patient is alert and oriented x3, not in any acute distress. Well developed, well nourished. Generally weak HEENT: Pupils are round and equally reacting to light. EOMI. No scleral icterus. No conjunctival pallor. Normocephalic, atraumatic. No pharyngeal erythema. No thyromegaly. CARDIOVASCULAR: S1 and S2 present. No murmurs, rubs, or gallops. PULMONARY: Chest is clear to auscultation, no wheezing , no crackles. -ABDOMEN: Soft, nontender, nondistended, normoactive bowel sounds. No palpable organomegaly. Midline surgical incision in place with right lower quadrant colostomy in MUSCULOSKELETAL: No joint swelling or deformity. EXTREMITIES: No cyanosis, clubbing, or pedal edema. NEUROLOGICAL: Gross neurological examination did not reveal any focal deficits. SKIN: No rashes. no petechiae. - Labs CBC & Chem 7: 02/19/25 05:48 02/19/25 05:48 Assessment and Plan Assessment: Colonic mass with perforation, pneumoperitoneum, intra-abdominal abscess. Status post exploratory laparotomy with drainage of abscess, right colectomy, end ileostomy, and partial omentectomy. Pathology pending, cultures revealed Streptococcus anginosus, beta-hemolytic strep group C --Patient remains on IV Zosyn, vancomycin and Flagyl Colonic mass with concerns for metastatic disease with enlargement of mesenteric lymph nodes, also, indeterminate but probable metastatic disease to the liver Postoperative ventilator management, extubated and on 2 liters nasal cannula; currently saturating above 92% on 2 L; plan to titrate or wean as able - Patient has been placed on a diet with plans to advance as tolerated Combined respiratory and metabolic acidosis Acute blood loss anemia, status post 2 units PRBCs Hypokalemia, replace per protocol; will monitor electrolytes closely Hypocalcemia, replaced History of alcohol abuse DVT prophylaxis; CDs/Lovenox CODE STATUS; full code
--- NOTE | 2025-02-21 11:22 | P.PN ---
Subjective Progress Note Date: 02/21/25 SURGICAL PROGRESS NOTE CHIEF COMPLAINT: Right colon mass HISTORY OF PRESENT ILLNESS: Patient is postop day #9 status post exploratory laparotomy, drainage of abscess, right colectomy with ileostomy and partial pneumonectomy. Patient does complain of some pain across the lower abdomen. Denies any nausea or vomiting. Ostomy is functioning. Afebrile. Pathology results reporting colonic adenocarcinoma and lymph node involvement. Nursing staff did note some drainage on the surgical dressing. Medicine service added Atarax for anxiety Patient seen and examined with Dr. Humphrey PHYSICAL EXAM: VITAL SIGNS: Reviewed. GENERAL: Well-developed in no acute distress. ABDOMEN: Soft. Nondistended. Ileostomy with stool present NEUROLOGIC: Alert and oriented. Cranial nerves II through XII grossly intact. ASSESSMENT: 1. Right colon mass with perforation and intraperitoneal abscess with metasta tic disease. Pathology reporting colonic adenocarcinoma PLAN: -Dr. Humphrey did review pathology results with patient -Remove Optifoam abdominal dressing. Patient can shower or chlorhexidine clean the incision. Cover incision with ABD. -Continue regular diet -Continue pain management -Continue antibiotics -Increase activity level -Anticipate discharge possibly -GI prophylaxis Protonix DVT prophylaxis Lovenox Physician [employer] Clerk note has been reviewed by physician. Signing provider agrees with the documented findings, assessment, and plan of care. Objective - Vital Signs Vital signs: Vital Signs Temp 99.3 F 02/21/25 08:13 Pulse 92 02/21/25 08:14 Resp 16 02/21/25 08:14 BP 141/92 02/21/25 08:13 Pulse Ox 96 02/21/25 08:13 FiO2 40 02/14/25 12:00 Intake & Output 02/20/25 02/21/25 02/21/25 18:59 06:59 18:59 Intake Total 477 250 246 Output Total 840 1780 650 Balance -874 -8987 -404 Weight 41 kg Intake: IV 10 10 Invasive Line 8 10 10 Oral 477 240 236 Output: Urine 600 680 350 Stool 240 1100 300 Other: Voiding Method Urinal Urinal Urinal # Voids 1 ABP, PAP, CO, CI - Last Documented Arterial Blood Pressure 108/62 - Labs CBC & Chem 7: 02/19/25 05:48 02/19/25 05:48
[2025-02-21] MEDS: hydrOXYzine HCL 25 MG TAB PO STA (11:36)
[2025-02-21] MEDS: VANCOMYCIN TROUGH DUE 1 EACH MISC MISCELLANE ONE (11:44)
[2025-02-21 12:36] LABS: African American GFR (CKD) >90 (>60 ml/min/1.73 sqM); Non-African American GFR(CKD) 88 (>60 ml/min/1.73 sqM)
--- NOTE | 2025-02-21 16:56 | P.PN ---
Subjective Progress Note Date: 02/21/25 Patient complaining of abdominal discomfort. Continues on IV antibiotics. WBC improved, 10.7. hemoglobin stable at 10.3 Objective - Vital Signs Vital signs: Vital Signs Temp 98.9 F 02/21/25 11:23 Pulse 93 02/21/25 11:23 Resp 16 02/21/25 11:23 BP 151/98 02/21/25 11:23 Pulse Ox 96 02/21/25 08:13 FiO2 40 02/14/25 12:00 Intake & Output 02/20/25 02/21/25 02/21/25 18:59 06:59 18:59 Intake Total 477 250 246 Output Total 840 6316 535 Vxovbhh -513 -0233 -954 Weight 41 kg Intake: IV 10 10 Invasive Line 8 10 10 Oral 477 240 236 Output: Urine 600 680 475 Stool 240 1100 300 Other: Voiding Method Urinal Urinal Urinal # Voids 1 ABP, PAP, CO, CI - Last Documented Arterial Blood Pressure 108/62 - Constitutional General appearance: Present: average body habitus, no acute distress - EENT Eyes: Present: anicteric sclerae, EOMI ENT: Present: hearing grossly normal - Respiratory Details: breathing is even and unlabored - Cardiovascular Details: skin warm and dry - Integumentary Integumentary: Absent: cyanotic, jaundiced - Musculoskeletal Musculoskeletal: Present: generalized weakness - Psychiatric Psychiatric: Present: A&O x's 3 - Labs CBC & Chem 7: 02/19/25 05:48 02/21/25 11:05 Assessment and Plan (1) Anemia Current Visit: Yes Status: Acute Priority: High Code(s): D64.9 - ANEMIA, UNSPECIFIED SNOMED Code(s): 963689538 (2) Intra-abdominal abscess Current Visit: Yes Status: Acute Priority: High Code(s): K65.1 - PERITO RADHA ABSCESS SNOMED Code(s): 79264156 (3) Perforated bowel Current Visit: Yes Status: Acute Priority: High Code(s): K63.1 - PERFORATION OF INTESTINE (NONTRAUMATIC) SNOMED Code(s): 12332736 (4) Pneumoperitoneum Current Visit: Yes Status: Acute Code(s): K66.8 - OTHER SPECIFIED DISORDERS OF PERITONEUM SNOMED Code(s): 66119362 Plan: Colon adenocarcinoma: intra-abdominal abscess. -Patient presented with sudden onset abdominal pain. He was taken to surgery rather urgently, he is status post exploratory laparotomy, resection of colon mass, partial omentectomy, drainage of abscess and creation of end ileostomy -Continues on IV abx - Pathology positive for invasive moderately differentiated colon adenocarcinoma, with 7/ lymph nodes positive. Discussed findings with patient, and need for adjuvant chemo. Treatment will be on hold typically 4 weeks s/p surgery to allow adequate healing time - NGS, PDL-1 requested on path - Will plan for outpt PET CT and liver MRI. - Clinic f/u upon discharge Anemia - Likely secondary to blood loss from colon mass. -Iron sat <3.9%, ferritin 531, however these were drawn after 2 units PRBCs. Pt will need parenteral iron, but due to infection, will plan for iron transfusions outpt once recovered -No Vitamin B12 or folate deficiency -Hgb stable in the 10 range -Continue to monitor CBC
[2025-02-21] MEDS: hydrOXYzine HCL 25 MG TAB PO PRN (22:29)
--- NOTE | 2025-02-21 22:49 | P.PN ---
Subjective Progress Note Date: 02/21/25 Patient is a 59-year-old male with past medical history significant for alcohol abuse, and prior abdominal surgery for hernia repair in 2018. Presented emergency department yesterday evening complaining of abdominal pain. [place] something had popped in his right sided abdomen. Workup at the emergency de partment including an abdominal/pelvis CT remarkable for an hepatic flexure colonic mass with perforation resulting in pneumoperitoneum and an abscess formation along the right lateral abdomen. Concerns for metastatic disease to the mesentery with multiple lymph nodes present. Also, indeterminate but probable liver metastatic disease versus abscess noted. Reactive enteritis/colitis secondary to perforation and intra-abdominal leak feces contents. Patient was then taken to the operating room for exploratory laparotomy. Patient was noted to have a large abscess within the right colon which was drained. The colon mass was dissected off of the duodenum and sent to pathology. There was obvious concerns for enlarged lymphadenopathy within the mesentery. Underwent right colectomy with ileostomy and partial omentectomy. Following the procedure, patient was transferred to the intensive care unit in critical condition. He remains intubated to the mechanical ventilator. Postoperative chest x-rays the endotracheal tube in appropriate positioning above the nehemias. Nasogastric tube coursing below the diaphragm. No focal opacities, pleural effusions, pneumothoraces, or otherwise acute cardiopulmonary process. Current ventilator settings: AC, respiratory rate 24, tidal volume 450, FiO2 100% PEEP of 5. Postoperative ABG consistent with combined metabolic and respiratory acidosis with a PaO2 of 420, pCO2 46, pH of 7.24. Patient is currently synchronous with current settings and sedated on propofol at 40 mcg/kg/min. Normal saline also infusing at 130 mL/h. He is tachycardic and borderline hypotensive with a blood pressure of 93/72 mmHg, heart rate is 120 bpm. Did previously receive 2.4 L crystalloid fluid bolus. Also, received 2 units PRBCs perioperatively. Mottled appearance to the lower extremities. Previously, noted to be febrile. Patient was empirically covered on a combination of Zosyn and vancomycin for abdominal sepsis. He does have a midline abdominal incision with postoperative dressing clean and intact. There is a right-sided abdominal ileostomy which is pink and beefy red. No significant output. Postoperative labs including a CBC with a WBC count of 8.5, hemoglobin 7.8 g/dL, platelets 571. Postoperative CMP including a sodium 130, potassium 3.4, chloride 94, serum bicarb 24, BUN 17, creatinine 0.97, glucose 88. Lactic 1.4. LFTs unremarkable. Lipase 46. Patient's next of kin is his brother. States he does not have very much known medical history as he does not follow routinely with a doctor. He is reportedly a heavy alcohol drinker. 02/14/25 - He is seen and evaluated in the ICU, room 259. He is on the mechanical ventilator, volume assist control , rate of 24, tidal volume of 450, FiO2 40% and PEEP of 5. Blood gases this morning show pO2 of 94, pCO2 of 25, pH of 7.45. He continues to be on Propofol at 35 mcg/kg/min, Zosyn and Vancomycin. Current labs include WBCs 23.42, Hgb 10.5, Hct 30.9, PLT 439, Na 137, K 3.3, BUN 29, Cr 1.52, Ca 6.6. Blood cultures continue to be pending at this time. Chest X-ray from this morning shows possible right layering pleural effusion. The patient is seen today February 15, 2025 selective care unit. He was transferred out of the intensive care unit yesterday. He is currently resting in bed. Awake and alert in no acute distress. Maintaining O2 saturations in the 90s on 2 L/min per nasal cannula. He has normal saline at 10 mL/h. Colon mass pathology pending. He is status post 2 units of packed red blood cells this admission. Current hemoglobin 10.6. Platelets 403. White count 18.9. Sodium 133. Potassium 3.7. Bicarb 27. BUN 25. Creatinine 1.08. Glucose 79. Blood culture revealed no growth. Wound culture revealed Streptococcus anginosus, beta-hemolytic strep group C. He remains on Zosyn and vancomycin along with Flagyl. Lovenox for DVT prophylaxis. Continued on bronchodilators. The patient is seen today February 16, 2025 in follow-up on the selective care unit. He is currently resting in bed. Awake and alert in no acute distress. Maintaining O2 saturations in the 90s on 2 L/min per nasal cannula. Has been afebrile. Hemodynamically stable. Chest x-ray shows improved aeration of the lungs bilaterally. Some right basilar atelectasis. Colonic abscess was positive for Streptococcus anginosus, beta-hemolytic strep group C. White count 16.2. Hemoglobin 10.8. Platelets 398. Sodium 132. Potassium 3.8. Bicarb 26. BUN 19. Creatinine 0.89. Glucose 85. He remains on Flagyl, vancomycin and Zosyn. Lovenox for DVT prophylaxis. Remains on bronchodilators. Encouraged regarding the increased use of the incentive spirometer. Tolerating a clear liq uid diet. The patient is seen today February 17, 2025 in follow-up on the selective care unit. He is currently sitting up in bed. Awake and alert in no acute distress. He denies any worsening shortness of breath, cough or congestion. He does have some ongoing surgical site pain of the abdomen. He is maintaining good O2 saturations in the upper 90s on 2 L/min per nasal cannula. He is afebrile. Hemodynamically stable. He is status post 2 units of packed red blood cells this admission. Today's hemoglobin is 11.4. Platelets 381. White count 11.7. Sodium 132. Potassium 4.1. Bicarb 21. BUN 17. Creatinine 0.79. He remains on DuoNeb inhalations. Lovenox for DVT prophylaxis. Antibiotics in the form of vancomycin and Zosyn along with Flagyl. Diet advanced per surgical services. On 02/20/2025, the patient is being seen for a follow-up. The patient is recovering from a colonic surgery. The patient had a colonic mass with secondary perforation and pneumoperitoneum and intra-abdominal abscess formation. The patient is postop day #5 following expected laparotomy and drainage of the abscess and right colectomy. He also had end ileostomy. Ileostomy is functional at this point in time. Cultures from the abdomen is showing strep and beta-hemolytic strep group C and anaerobes. Based on that, the patient is currently on a combination of Zosyn and Flagyl. The patient is also on IV vancomycin. ID is on the case. Final pathology from the intra- abdominal surgical sample is not ready yet. Meanwhile, the patient is comfortable. Using incentive spirometer. Is currently on 2 L of oxygen by nasal cannula. WBC count is at 10.7 with a hemoglobin 10.3 and a platelet count of 376. BUN 7 with a creatinine of 0.59 and sodium levels at 131. The patient is on Dilaudid for pain control. He is ambulating. Using incentive spirometer. Remains on IV Protonix. Gradually trying to advance his diet as tolerated. Surgical site is dry clean and intact. On 02/21/2025, patient is being seen for a follow-up. Doing well. Currently on 2 L of oxygen nasal cannula, the patient is postop day #6 following an expiratory laparotomy, right colectomy end ileostomy and partial omentectomy. Ostomy is functional. Afebrile. 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 The patient will need an oncology evaluation at a later stage. Meanwhile, he still recovering from his surgery. He remains on IV Zosyn and vancomycin and Flagyl. Remains on Lovenox for DVT prophylaxis. Tolerating diet. WBC has at 10.7 with a hemoglobin 10.3 and a platelet count 376. Creatinine stable at 0.9. Objective - Vital Signs Vital signs: Vital Signs Temp 98.9 F 02/21/25 11:23 Pulse 93 02/21/25 11:23 Resp 16 02/21/25 11:23 BP 151/98 02/21/25 11:23 Pulse Ox 96 02/21/25 08:13 FiO2 40 02/14/25 12:00 Intake & Output 02/20/25 02/21/25 02/21/25 18:59 06:59 18:59 Intake Total 477 250 246 Output Total 840 1780 775 Balance -084 -1530 -269 Weight 41 kg Intake: IV 10 10 Invasive Line 8 10 10 Oral 477 240 236 Output: Urine 600 680 475 Stool 240 1100 300 Other: Voiding Method Urinal Urinal Urinal # Voids 1 ABP, PAP, CO, CI - Last Documented Arterial Blood Pressure 108/62 - Exam General: Awake, 59-year-old male, sitting up in bed, on 2 L of oxygen nasal cannula Derm: Warm, dry, intact Head: Atraumatic, normocephalic, symmetric Eyes: EOMI, anicteric sclera NOSE: Clear with pink turbinates. Mouth: No lip lesion, mucus membranes moist Cardiovascular: S1 S2 reg, no murmur, rubs, or gallops; distant heart sounds. Lungs: CTA bilateral, no rales, no accessory muscle use ABDOMEN: Midline abdominal incision with postoperative dressing clean and intact. Right ileostomy noted, stoma appears pink/beefy red. Positive output. Abdomen is soft. Extremities: No cyanosis or edema present. Right brachial arterial line noted. Neuro: Cannot be assessed at this time. Psych: Well appearing, appropriate affect - Labs CBC & Chem 7: 02/19/25 05:48 02/21/25 11:05 Assessment and Plan Plan: Colonic mass with perforation, pneumoperitoneum, intra-abdominal abscess. Status postoperative day # 6 following exploratory laparotomy with drainage of abscess, right colectomy, end ileostomy, and partial omentectomy. Pathology pending, cultures revealed Streptococcus anginosus, beta-hemolytic strep group C. Patient also has anaerobes. Ileostomy is functional. Colonic adenocarcinoma Acute hypoxic respiratory failure following abdominal surgery, possibly related to some atelectatic changes in lung bases. The patient has been extubated and the patient is currently on 2 L of nasal cannula oxygen Abdominal sepsis, polymicrobial secondary to above. The patient has strep and anaerobes and the patient is currently on a combination of Zosyn and Flagyl and vancomycin. Acute blood loss anemia, status post 2 units PRBCs, hemoglobin stable History of alcohol abuse Plan: Currently on 2 L of oxygen by nasal cannula Ostomy functioning Advance diet as tolerated Continued on DuoNeb inhalations Lovenox for DVT prophylaxis Remains on vancomycin Remains on Zosyn Remains on Flagyl Abdominal cultures are polymicrobial as expected Pathology is consistent with colonic adenocarcinoma with positive lymph nodes Increase his activity as tolerated Tolerating a clear liquid diet Advance to full liquids today per surgical services Increase mobility as tolerated and will continue to follow.
[2025-02-21] MEDS: VANCOMYCIN 1,000 MG in SODIUM CHLORIDE 0.9% 250 ML IVPB SCH (23:30)
[2025-02-22 07:04] LABS: Basophils # (A) 0.03 10*3/uL (0.00-0.10); Basophils % (A) 0.2 %; Eosinophils # (A) 0.10 10*3/uL (0.04-0.35); Eosinophils % (A) 0.7 %; HCT 29.7 % (39.6-50.0); HGB 9.7 g/dL (13.0-17.0); Lymphocytes # (A) 1.52 10*3/uL (0.90-5.00); Lymphocytes % (A) 10.0 %; MCH 25.9 pg (27.0-32.0); MCHC 32.7 g/dL (32.0-37.0); MCV 79.2 fL (80.0-97.0); Monocytes # (A) 1.64 10*3/uL (0.20-1.00); Monocytes % (A) 10.8 %; Neutrophils # (A) 11.74 10*3/uL (1.80-7.70); Neutrophils % (A) 77.1 %; Platelet Count 721 10*3/uL (140-440); RBC 3.75 10*6/uL (4.40-5.60); RDW 18.2 % (11.5-14.5); WBC 15.22 10*3/uL (4.50-10.00)
[2025-02-22 07:16] LABS: African American GFR (CKD) 84 (>60 ml/min/1.73 sqM); Anion Gap 6 mmol/L; Blood Urea Nitrogen 7 mg/dL (9-20); Calcium 8.0 mg/dL (8.4-10.2); Carbon Dioxide 25 mmol/L (22-30); Chloride 105 mmol/L (98-107); Glucose 83 mg/dL (74-99); Non-African American GFR(CKD) 73 (>60 ml/min/1.73 sqM); Potassium 3.6 mmol/L (3.5-5.1); Sodium 136 mmol/L (137-145)
--- NOTE | 2025-02-22 09:46 | P.PN ---
Subjective 59-year-old male with past medical history significant for alcohol abuse, and prior abdominal surgery for hernia repair in 2018. Presented emergency department yesterday evening complaining of abdominal pain. [place] something had popped in his right sided abdomen. Workup at the emergency department including an abdominal/pelvis CT remarkable for an hepatic flexure colonic mass with perforation resulting in pneumoperitoneum and an abscess formation along the right lateral abdomen. Concerns for metastatic disease to the mesentery with multiple lymph nodes present. Also, indeterminate but probable liver metastatic disease versus abscess noted. Reactive enteritis/colitis secondary to perforation and intra-abdominal leak feces contents. Patient was then taken to the operating room for exploratory laparotomy. Patient was noted to have a large abscess within the right colon which was drained. The colon mass was dissected off of the duodenum and sent to pathology. There was obvious concerns for enlarged lymphadenopathy within the mesentery. Underwent right colectomy with ileostomy and partial omentectomy. Following the procedure, patient was transferred to the intensive care unit in critical condition. He remains intubated to the mechanical ventilator. Postoperative chest x-rays the endotracheal tube in appropriate positioning above the nehemias. Nasogastric tube coursing below the diaphragm. No focal opacities, pleural effusions, pneumothoraces, or otherwise acute cardiopulmonary process. Current ventilator settings: AC, respiratory rate 24, tidal volume 450, FiO2 100% PEEP of 5. Postoperative ABG consistent with combined metabolic and respiratory acidosis with a PaO2 of 420, pCO2 46, pH of 7.24. Patient is currently synchronous with current settings and sedated on propofol at 40 mcg/kg/min. Normal saline also infusing at 130 mL/h. He is tachycardic and borderline hypotensive with a blood pressure of 93/72 mmHg, heart rate is 120 bpm. Did previously receive 2.4 L crystalloid fluid bolus. Also, received 2 units PRBCs perioperatively. Mottled appearance to the lower extremities. Previously, noted to be febrile. Patient was empirically covered on a combination of Zosyn and vancomycin for abdominal sepsis. He does have a midline abdominal incision with postoperative dressing clean and intact. There is a right-sided abdominal ileostomy which is pink and beefy red. No significant output. Postoperative labs including a CBC with a WBC count of 8.5, hemoglobin 7.8 g/dL, platelets 571. 02/18/2025 Patient is seen and evaluated resting comfortably in bed; has been transferred out of ICU Vital signs are reviewed and stable with temperature of 97.7, pulse 90, respiration 18 and blood pressure 158/97, O2 saturation 95% Lab review shows WBC 9.39, hemoglobin of 11.2, sodium 131, potassium 3.8, BUN/creatinine of 10/0.68 -Patient is status post right colectomy with ileostomy on 02/13/2025; surgery on board; patient is maintaining oral intake - Continue with IV antibiotics in form of Zosyn and Flagyl 02/19/2025 Patient seen and evaluated and discussed with nursing staff; continue to ask for IV Dilaudid every 3 hours; remains on [place] Vital signs are reviewed temperature 98.1, pulse 85, respiration 20 and blood pressure 154/83 Blood work reveals WBC of 10.7, hemoglobin of 10.3, sodium 131, potassium 3.9, BUN/creatinine 7/0.59 Patient is status post colectomy for perforated colonic neoplasm on 02/14/2024 -General Surgery on board; patient continues to make improvement; possible discharge in next -02/20 Patient is little bit, he got full quickly. No vomiting Abdominal pain but is not down. Colostomy is working and he had 3-4 bowel movements yesterday No other new complaint 02/21 Patient states he feels the same, he is fully awake and oriented sitting up in bed. No vomiting. He still is little bit Abdominal pain is mild to moderate and controlled. He is having bowel movement through his ileostomy He has 1+ bilateral pitting leg edema He remains on broad-spectrum antibiotics with IV vancomycin and Zosyn and Flagyl 02/22 Patient is not eating much Abdominal wound healing Hemodynamically stable WBC is up to 15.2. Hemoglobin 9.7. Sodium 136 creatinine 1.1 IV vancomycin dosed per pharmacy been adjusted. Trough is therapeutic at 20.5 yesterday. Remains on IV vancomycin and Zosyn and Flagyl Colon biopsy Invasive moderately differentiated colonic adenocarcinoma Monitor kidney function as well Discussed the plan with the patient Objective - Vital Signs Vital signs: Vital Signs Temp 98.5 F 02/22/25 04:26 Pulse 92 02/22/25 04:26 Resp 16 02/22/25 04:26 BP 132/86 02/22/25 04:26 Pulse Ox 99 02/22/25 04:26 FiO2 40 02/14/25 12:00 Intake & Output 02/21/25 02/22/25 02/22/25 18:59 06:59 18:59 Intake Total 256 Output Total 1125 350 Balance -869 -350 Weight 72.5 kg 72.5 kg Intake: IV 20 Invasive Line 8 20 Oral 236 Output: Urine 825 250 Stool 300 100 Other: Voiding Method Urinal Urinal ABP, PAP, CO, CI - Last Documented Arterial Blood Pressure 108/62 - Exam -GENERAL: The patient is alert and oriented x3, not in any acute distress. Well developed, well nourished. Generally weak HEENT: Pupils are round and equally reacting to light. EOMI. No scleral icterus. No conjunctival pallor. Normocephalic, atraumatic. No pharyngeal erythema. No thyromegaly. CARDIOVASCULAR: S1 and S2 present. No murmurs, rubs, or gallops. PULMONARY: Chest is clear to auscultation, no wheezing , no crackles. -ABDOMEN: Soft, nontender, nondistended, normoactive bowel sounds. No palpable organomegaly. Midline surgical incision in place with right lower quadrant colostomy in MUSCULOSKELETAL: No joint swelling or deformity. EXTREMITIES: No cyanosis, clubbing, or pedal edema. NEUROLOGICAL: Gross neurological examination did not reveal any focal deficits. SKIN: No rashes. no petechiae. - Labs CBC & Chem 7: 02/22/25 06:07 02/22/25 06:07 Labs: Abnormal Lab Results - Last 24 Hours (Table) 02/22/25 02/22/25 Range/Units 06:07 06:07 WBC 15.22 H (4.50-10.00) 10*3/uL RBC 3.75 L (4.40-5.60) 10*6/uL Hgb 9.7 L (13.0-17.0) g/dL Hct 29.7 L (39.6-50.0) % MCV 79.2 L (80.0-97.0) fL MCH 25.9 L (27.0-32.0) pg Plt Count 721 H (140-440) 10*3/uL Immature Gran # 0.19 H (0.00-0.04) 10*3/uL Neutrophils # 11.74 H (1.80-7.70) 10*3/uL Monocytes # 1.64 H (0.20-1.00) 10*3/uL Sodium 136 L (137-145) mmol/L BUN 7 L (9-20) mg/dL Calcium 8.0 L (8.4-10.2) mg/dL Assessment and Plan Assessment: Colonic mass with perforation, pneumoperitoneum, intra-abdominal abscess. Status post exploratory laparotomy with drainage of abscess, right colectomy, end ileostomy, and partial omentectomy. Pathology pending, cultures revealed Streptococcus anginosus, beta-hemolytic strep group C --Patient remains on IV Zosyn, vancomycin and Flagyl Colonic mass with concerns for metastatic disease with enlargement of mesenteric lymph nodes, also, indeterminate but probable metastatic disease to the liver - Colon biopsy Invasive moderately differentiated colonic adenocarcinoma, patient is aware Postoperative ventilator management, extubated and on 2 liters nasal cannula; currently saturating above 92% on 2 L; plan to titrate or wean as able - Patient has been placed on a diet with plans to advance as tolerated Combined respiratory and metabolic acidosis Acute blood loss anemia, status post 2 units PRBCs Hypokalemia, replace per protocol; will monitor electrolytes closely Hypocalcemia, replaced History of alcohol abuse DVT prophylaxis; CDs/Lovenox CODE STATUS; full code
--- NOTE | 2025-02-22 10:58 | P.PN ---
Subjective Progress Note Date: 02/22/25 SURGICAL PROGRESS NOTE CHIEF COMPLAINT: Right colon mass HISTORY OF PRESENT ILLNESS: Patient is postop day #10 status post exploratory laparotomy, drainage of abscess, right colectomy with ileostomy and partial pneumonectomy. Pain controlled. Denies any nausea or vomiting. Ostomy is functioning. Patient [facility] at time of discharge. Afebrile. WBC up from 10-15 Hgb 9.7 Patient seen and examined with Dr. Humphrey PHYSICAL EXAM: VITAL SIGNS: Reviewed. GENERAL: Well-developed in no acute distress. ABDOMEN: Soft. Nondistended. Ileostomy with stool present. Incision site mild tenderness with palpation. No erythema. There is drainage noted on the dressing. NEUROLOGIC: Alert and oriented. Cranial nerves II through XII grossly intact. ASSESSMENT: 1. Right colon mass with perforation and intraperitoneal abscess with metastatic disease 2. Colonic adenocarcinoma PLAN: -Anticipate possible discharge tomorrow to [facility] -Discussed with nursing staff to have patient shower today -Continue regular diet -Continue pain management -Continue antibiotics -Increase activity level -GI prophylaxis Protonix DVT prophylaxis Lovenox Physician Accounts Payables Clerk note has been reviewed by physician. Signing provider agrees with the documented findings, assessment, and plan of care. Objective - Vital Signs Vital signs: Vital Signs Temp 98.5 F 02/22/25 04:26 Pulse 96 02/22/25 10:13 Resp 16 02/22/25 04:26 BP 132/86 02/22/25 04:26 Pulse Ox 99 02/22/25 04:26 FiO2 40 02/14/25 12:00 Intake & Output 02/21/25 02/22/25 02/22/25 18:59 06:59 18:59 Intake Total 256 Output Total 1125 350 Balance -869 -350 Weight 72.5 kg 72.5 kg Intake: IV 20 Invasive Line 8 20 Oral 236 Output: Urine 825 250 Stool 300 100 Other: Voiding Method Urinal Urinal ABP, PAP, CO, CI - Last Documented Arterial Blood Pressure 108/62 - Labs CBC & Chem 7: 02/22/25 06:07 02/22/25 06:07 Labs: Abnormal Lab Results - Last 24 Hours (Table) 02/22/25 02/22/25 Range/Units 06:07 06:07 WBC 15.22 H (4.50-10.00) 10*3/uL RBC 3.75 L (4.40-5.60) 10*6/uL Hgb 9.7 L (13.0-17.0) g/dL Hct 29.7 L (39.6-50.0) % MCV 79.2 L (80.0-97.0) fL MCH 25.9 L (27.0-32.0) pg Plt Count 721 H (140-440) 10*3/uL Immature Gran # 0.19 H (0.00-0.04) 10*3/uL Neutrophils # 11.74 H (1.80-7.70) 10*3/uL Monocytes # 1.64 H (0.20-1.00) 10*3/uL Sodium 136 L (137-145) mmol/L BUN 7 L (9-20) mg/dL Calcium 8.0 L (8.4-10.2) mg/dL
--- NOTE | 2025-02-22 21:06 | P.PN ---
Subjective Progress Note Date: 02/22/25 Patient is a 59-year-old male with past medical history significant for alcohol abuse, and prior abdominal surgery for hernia repair in 2018. Presented emergency department yesterday evening complaining of abdominal pain. [place] something had popped in his right sided abdomen. Workup at the emergency de partment including an abdominal/pelvis CT remarkable for an hepatic flexure colonic mass with perforation resulting in pneumoperitoneum and an abscess formation along the right lateral abdomen. Concerns for metastatic disease to the mesentery with multiple lymph nodes present. Also, indeterminate but probable liver metastatic disease versus abscess noted. Reactive enteritis/colitis secondary to perforation and intra-abdominal leak feces contents. Patient was then taken to the operating room for exploratory laparotomy. Patient was noted to have a large abscess within the right colon which was drained. The colon mass was dissected off of the duodenum and sent to pathology. There was obvious concerns for enlarged lymphadenopathy within the mesentery. Underwent right colectomy with ileostomy and partial omentectomy. Following the procedure, patient was transferred to the intensive care unit in critical condition. He remains intubated to the mechanical ventilator. Postoperative chest x-rays the endotracheal tube in appropriate positioning above the nehemias. Nasogastric tube coursing below the diaphragm. No focal opacities, pleural effusions, pneumothoraces, or otherwise acute cardiopulmonary process. Current ventilator settings: AC, respiratory rate 24, tidal volume 450, FiO2 100% PEEP of 5. Postoperative ABG consistent with combined metabolic and respiratory acidosis with a PaO2 of 420, pCO2 46, pH of 7.24. Patient is currently synchronous with current settings and sedated on propofol at 40 mcg/kg/min. Normal saline also infusing at 130 mL/h. He is tachycardic and borderline hypotensive with a blood pressure of 93/72 mmHg, heart rate is 120 bpm. Did previously receive 2.4 L crystalloid fluid bolus. Also, received 2 units PRBCs perioperatively. Mottled appearance to the lower extremities. Previously, noted to be febrile. Patient was empirically covered on a combination of Zosyn and vancomycin for abdominal sepsis. He does have a midline abdominal incision with postoperative dressing clean and intact. There is a right-sided abdominal ileostomy which is pink and beefy red. No significant output. Postoperative labs including a CBC with a WBC count of 8.5, hemoglobin 7.8 g/dL, platelets 571. Postoperative CMP including a sodium 130, potassium 3.4, chloride 94, serum bicarb 24, BUN 17, creatinine 0.97, glucose 88. Lactic 1.4. LFTs unremarkable. Lipase 46. Patient's next of kin is his brother. States he does not have very much known medical history as he does not follow routinely with a doctor. He is reportedly a heavy alcohol drinker. 02/14/25 - He is seen and evaluated in the ICU, room 259. He is on the mechanical ventilator, volume assist control , rate of 24, tidal volume of 450, FiO2 40% and PEEP of 5. Blood gases this morning show pO2 of 94, pCO2 of 25, pH of 7.45. He continues to be on Propofol at 35 mcg/kg/min, Zosyn and Vancomycin. Current labs include WBCs 23.42, Hgb 10.5, Hct 30.9, PLT 439, Na 137, K 3.3, BUN 29, Cr 1.52, Ca 6.6. Blood cultures continue to be pending at this time. Chest X-ray from this morning shows possible right layering pleural effusion. The patient is seen today February 15, 2025 selective care unit. He was transferred out of the intensive care unit yesterday. He is currently resting in bed. Awake and alert in no acute distress. Maintaining O2 saturations in the 90s on 2 L/min per nasal cannula. He has normal saline at 10 mL/h. Colon mass pathology pending. He is status post 2 units of packed red blood cells this admission. Current hemoglobin 10.6. Platelets 403. White count 18.9. Sodium 133. Potassium 3.7. Bicarb 27. BUN 25. Creatinine 1.08. Glucose 79. Blood culture revealed no growth. Wound culture revealed Streptococcus anginosus, beta-hemolytic strep group C. He remains on Zosyn and vancomycin along with Flagyl. Lovenox for DVT prophylaxis. Continued on bronchodilators. The patient is seen today February 16, 2025 in follow-up on the selective care unit. He is currently resting in bed. Awake and alert in no acute distress. Maintaining O2 saturations in the 90s on 2 L/min per nasal cannula. Has been afebrile. Hemodynamically stable. Chest x-ray shows improved aeration of the lungs bilaterally. Some right basilar atelectasis. Colonic abscess was positive for Streptococcus anginosus, beta-hemolytic strep group C. White count 16.2. Hemoglobin 10.8. Platelets 398. Sodium 132. Potassium 3.8. Bicarb 26. BUN 19. Creatinine 0.89. Glucose 85. He remains on Flagyl, vancomycin and Zosyn. Lovenox for DVT prophylaxis. Remains on bronchodilators. Encouraged regarding the increased use of the incentive spirometer. Tolerating a clear liq uid diet. The patient is seen today February 17, 2025 in follow-up on the selective care unit. He is currently sitting up in bed. Awake and alert in no acute distress. He denies any worsening shortness of breath, cough or congestion. He does have some ongoing surgical site pain of the abdomen. He is maintaining good O2 saturations in the upper 90s on 2 L/min per nasal cannula. He is afebrile. Hemodynamically stable. He is status post 2 units of packed red blood cells this admission. Today's hemoglobin is 11.4. Platelets 381. White count 11.7. Sodium 132. Potassium 4.1. Bicarb 21. BUN 17. Creatinine 0.79. He remains on DuoNeb inhalations. Lovenox for DVT prophylaxis. Antibiotics in the form of vancomycin and Zosyn along with Flagyl. Diet advanced per surgical services. On 02/20/2025, the patient is being seen for a follow-up. The patient is recovering from a colonic surgery. The patient had a colonic mass with secondary perforation and pneumoperitoneum and intra-abdominal abscess formation. The patient is postop day #5 following expected laparotomy and drainage of the abscess and right colectomy. He also had end ileostomy. Ileostomy is functional at this point in time. Cultures from the abdomen is showing strep and beta-hemolytic strep group C and anaerobes. Based on that, the patient is currently on a combination of Zosyn and Flagyl. The patient is also on IV vancomycin. ID is on the case. Final pathology from the intra- abdominal surgical sample is not ready yet. Meanwhile, the patient is comfortable. Using incentive spirometer. Is currently on 2 L of oxygen by nasal cannula. WBC count is at 10.7 with a hemoglobin 10.3 and a platelet count of 376. BUN 7 with a creatinine of 0.59 and sodium levels at 131. The patient is on Dilaudid for pain control. He is ambulating. Using incentive spirometer. Remains on IV Protonix. Gradually trying to advance his diet as tolerated. Surgical site is dry clean and intact. On 02/21/2025, patient is being seen for a follow-up. Doing well. Currently on 2 L of oxygen nasal cannula, the patient is postop day #6 following an expiratory laparotomy, right colectomy end ileostomy and partial omentectomy. Ostomy is functional. Afebrile. 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 The patient will need an oncology evaluation at a later stage. Meanwhile, he still recovering from his surgery. He remains on IV Zosyn and vancomycin and Flagyl. Remains on Lovenox for DVT prophylaxis. Tolerating diet. WBC has at 10.7 with a hemoglobin 10.3 and a platelet count 376. Creatinine stable at 0.9. 02/22/2025, the patient is being seen for a follow-up. The patient is currently on room air oxygen. Resting comfortably in bed. The patient is postop day #7. He has undergone exploratory laparotomy, right colectomy and end ileostomy and partial omentectomy. He does have underlying colonic adenocarcinoma. His ostomy is functional. Surgical wound site is dry clean and intact. The white cell count is at 15.2 with a hemoglobin of 9.7 and a platelet count of 721. Normal electrolytes. BUN is at 7 with a creatinine of 1.1. The patient remains on Lovenox for DVT prophylaxis. He remains on Zosyn, Flagyl and vancomycin. The abdominal cultures are polymicrobial including anaerobes, strep and ID is on the case. Afebrile. Hemodynamically stable. A bit depressed due to his underlying condition. Doing limited amount of activity. Adequate pain management. Will need to increase his level of activity. Using incentive spirometer. Objective - Vital Signs Vital signs: Vital Signs Temp 98.4 F 02/22/25 08:40 Pulse 96 02/22/25 10:13 Resp 18 02/22/25 08:40 BP 152/92 02/22/25 08:40 Pulse Ox 94 L 02/22/25 08:40 FiO2 40 02/14/25 12:00 Intake & Output 02/21/25 02/22/25 02/22/25 18:59 06:59 18:59 Intake Total 256 Output Total 1125 350 Balance -869 -350 Weight 72.5 kg 72.5 kg Intake: IV 20 Invasive Line 8 20 Oral 236 Output: Urine 825 250 Stool 300 100 Other: Voiding Method Urinal Urinal ABP, PAP, CO, CI - Last Documented Arterial Blood Pressure 108/62 - Exam General: Awake, 59-year-old male, sitting up in bed, on room air oxygen Derm: Warm, dry, intact Head: Atraumatic, normocephalic, symmetric Eyes: EOMI, anicteric sclera NOSE: Clear with pink turbinates. Mouth: No lip lesion, mucus membranes moist Cardiovascular: S1 S2 reg, no murmur, rubs, or gallops; distant heart sounds. Lungs: CTA bilateral, no rales, no accessory muscle use ABDOMEN: Midline abdominal incision with postoperative dressing clean and intact. Right ileostomy noted, stoma appears pink/beefy red. Positive output. Abdomen is soft. Extremities: No cyanosis or edema present. Right brachial arterial line noted. Neuro: Cannot be assessed at this time. Psych: Well appearing, appropriate affect - Labs CBC & Chem 7: 02/22/25 06:07 02/22/25 06:07 Labs: Abnormal Lab Results - Last 24 Hours (Table) 02/22/25 02/22/25 Range/Units 06:07 06:07 WBC 15.22 H (4.50-10.00) 10*3/uL RBC 3.75 L (4.40-5.60) 10*6/uL Hgb 9.7 L (13.0-17.0) g/dL Hct 29.7 L (39.6-50.0) % MCV 79.2 L (80.0-97.0) fL MCH 25.9 L (27.0-32.0) pg Plt Count 721 H (140-440) 10*3/uL Immature Gran # 0.19 H (0.00-0.04) 10*3/uL Neutrophils # 11.74 H (1.80-7.70) 10*3/uL Monocytes # 1.64 H (0.20-1.00) 10*3/uL Sodium 136 L (137-145) mmol/L BUN 7 L (9-20) mg/dL Calcium 8.0 L (8.4-10.2) mg/dL Assessment and Plan Plan: Colonic mass with perforation, pneumoperitoneum, intra-abdominal abscess. Status postoperative day # 7 following exploratory laparotomy with drainage of abscess, right colectomy, end ileostomy, and partial omentectomy. Pathology pending, cultures revealed Streptococcus anginosus, beta-hemolytic strep group C. Patient also has anaerobes. Ileostomy is functional. Colonic adenocarcinoma Acute hypoxic respiratory failure following abdominal surgery, possibly related to some atelectatic changes in lung bases. The patient has been extubated and the patient is currently on 2 L of nasal cannula oxygen Abdominal sepsis, polymicrobial secondary to above. The patient has strep and anaerobes and the patient is currently on a combination of Zosyn and Flagyl and vancomycin. Acute blood loss anemia, status post 2 units PRBCs, hemoglobin stable History of alcohol abuse Plan: Aggressive pulmonary toileting and incentive spirometer and increased level of activity as tolerated Ostomy functioning Advance diet as tolerated Continued on DuoNeb inhalations Lovenox for DVT prophylaxis Remains on vancomycin Remains on Zosyn Remains on Flagyl Abdominal cultures are polymicrobial as expected Pathology is consistent with colonic adenocarcinoma with positive lymph nodes Increase his activity as tolerated Advance diet as tolerated Increase mobility as tolerated and will continue to follow.
[2025-02-23 11:05] LABS: Basophils # (A) 0.03 10*3/uL (0.00-0.10); Basophils % (A) 0.2 %; Eosinophils # (A) 0.09 10*3/uL (0.04-0.35); Eosinophils % (A) 0.6 %; HCT 27.9 % (39.6-50.0); HGB 9.4 g/dL (13.0-17.0); Lymphocytes # (A) 1.13 10*3/uL (0.90-5.00); Lymphocytes % (A) 7.8 %; MCH 26.3 pg (27.0-32.0); MCHC 33.7 g/dL (32.0-37.0); MCV 78.2 fL (80.0-97.0); Monocytes # (A) 1.92 10*3/uL (0.20-1.00); Monocytes % (A) 13.2 %; Neutrophils # (A) 11.27 10*3/uL (1.80-7.70); Neutrophils % (A) 77.4 %; Platelet Count 789 10*3/uL (140-440); RBC 3.57 10*6/uL (4.40-5.60); RDW 18.0 % (11.5-14.5); WBC 14.55 10*3/uL (4.50-10.00)
[2025-02-23] MEDS: VANCOMYCIN TROUGH DUE 1 EACH MISC MISCELLANE ONE (11:16)
--- NOTE | 2025-02-23 11:59 | P.PN ---
Subjective 59-year-old male with past medical history significant for alcohol abuse, and prior abdominal surgery for hernia repair in 2018. Presented emergency department yesterday evening complaining of abdominal pain. [place] something had popped in his right sided abdomen. Workup at the emergency department including an abdominal/pelvis CT remarkable for an hepatic flexure colonic mass with perforation resulting in pneumoperitoneum and an abscess formation along the right lateral abdomen. Concerns for metastatic disease to the mesentery with multiple lymph nodes present. Also, indeterminate but probable liver metastatic disease versus abscess noted. Reactive enteritis/colitis secondary to perforation and intra-abdominal leak feces contents. Patient was then taken to the operating room for exploratory laparotomy. Patient was noted to have a large abscess within the right colon which was drained. The colon mass was dissected off of the duodenum and sent to pathology. There was obvious concerns for enlarged lymphadenopathy within the mesentery. Underwent right colectomy with ileostomy and partial omentectomy. Following the procedure, patient was transferred to the intensive care unit in critical condition. He remains intubated to the mechanical ventilator. Postoperative chest x-rays the endotracheal tube in appropriate positioning above the nehemias. Nasogastric tube coursing below the diaphragm. No focal opacities, pleural effusions, pneumothoraces, or otherwise acute cardiopulmonary process. Current ventilator settings: AC, respiratory rate 24, tidal volume 450, FiO2 100% PEEP of 5. Postoperative ABG consistent with combined metabolic and respiratory acidosis with a PaO2 of 420, pCO2 46, pH of 7.24. Patient is currently synchronous with current settings and sedated on propofol at 40 mcg/kg/min. Normal saline also infusing at 130 mL/h. He is tachycardic and borderline hypotensive with a blood pressure of 93/72 mmHg, heart rate is 120 bpm. Did previously receive 2.4 L crystalloid fluid bolus. Also, received 2 units PRBCs perioperatively. Mottled appearance to the lower extremities. Previously, noted to be febrile. Patient was empirically covered on a combination of Zosyn and vancomycin for abdominal sepsis. He does have a midline abdominal incision with postoperative dressing clean and intact. There is a right-sided abdominal ileostomy which is pink and beefy red. No significant output. Postoperative labs including a CBC with a WBC count of 8.5, hemoglobin 7.8 g/dL, platelets 571. 02/18/2025 Patient is seen and evaluated resting comfortably in bed; has been transferred out of ICU Vital signs are reviewed and stable with temperature of 97.7, pulse 90, respiration 18 and blood pressure 158/97, O2 saturation 95% Lab review shows WBC 9.39, hemoglobin of 11.2, sodium 131, potassium 3.8, BUN/creatinine of 10/0.68 -Patient is status post right colectomy with ileostomy on 02/13/2025; surgery on board; patient is maintaining oral intake - Continue with IV antibiotics in form of Zosyn and Flagyl 02/19/2025 Patient seen and evaluated and discussed with nursing staff; continue to ask for IV Dilaudid every 3 hours; remains on [place] Vital signs are reviewed temperature 98.1, pulse 85, respiration 20 and blood pressure 154/83 Blood work reveals WBC of 10.7, hemoglobin of 10.3, sodium 131, potassium 3.9, BUN/creatinine 7/0.59 Patient is status post colectomy for perforated colonic neoplasm on 02/14/2024 -General Surgery on board; patient continues to make improvement; possible discharge in next -02/20 Patient is little bit, he got full quickly. No vomiting Abdominal pain but is not down. Colostomy is working and he had 3-4 bowel movements yesterday No other new complaint 02/21 Patient states he feels the same, he is fully awake and oriented sitting up in bed. No vomiting. He still is little bit Abdominal pain is mild to moderate and controlled. He is having bowel movement through his ileostomy He has 1+ bilateral pitting leg edema He remains on broad-spectrum antibiotics with IV vancomycin and Zosyn and Flagyl 02/22 Patient is not eating much Abdominal wound healing Hemodynamically stable WBC is up to 15.2. Hemoglobin 9.7. Sodium 136 creatinine 1.1 IV vancomycin dosed per pharmacy been adjusted. Trough is therapeutic at 20.5 yesterday. Remains on IV vancomycin and Zosyn and Flagyl Colon biopsy Invasive moderately differentiated colonic adenocarcinoma Monitor kidney function as well Discussed the plan with the patient 02/23 Patient still not eating much No much abdominal pain Has not bowel movement through the ileostomy Objective - Vital Signs Vital signs: Vital Signs Temp 98.4 F 02/23/25 08:00 Pulse 99 02/23/25 08:00 Resp 20 02/23/25 08:00 BP 151/92 02/23/25 08:00 Pulse Ox 95 06/26/25 07:57 FiO2 40 02/14/25 12:00 Intake & Output 02/22/25 02/23/25 02/23/25 18:59 06:59 18:59 Intake Total 240 Output Total 5 1949 Balance -1274 -1949 240 Weight 72.5 kg 67 kg Intake: Oral 240 Output: Urine 275 850 Stool 1000 1100 Other: Voiding Method Urinal Urinal # Voids 1 ABP, PAP, CO, CI - Last Documented Arterial Blood Pressure 108/62 - Exam -GENERAL: The patient is alert and oriented x3, not in any acute distress. Well developed, well nourished. Generally weak HEENT: Pupils are round and equally reacting to light. EOMI. No scleral icterus. No conjunctival pallor. Normocephalic, atraumatic. No pharyngeal erythema. No thyromegaly. CARDIOVASCULAR: S1 and S2 present. No murmurs, rubs, or gallops. PULMONARY: Chest is clear to auscultation, no wheezing , no crackles. -ABDOMEN: Soft, nontender, nondistended, normoactive bowel sounds. No palpable organomegaly. Midline surgical incision in place with right lower quadrant colostomy in MUSCULOSKELETAL: No joint swelling or deformity. EXTREMITIES: No cyanosis, clubbing, or pedal edema. NEUROLOGICAL: Gross neurological examination did not reveal any focal deficits. SKIN: No rashes. no petechiae. - Labs CBC & Chem 7: 02/23/25 10:45 02/22/25 06:07 Labs: Abnormal Lab Results - Last 24 Hours (Table) 02/23/25 Range/Units 10:45 WBC 14.55 H (4.50-10.00) 10*3/uL RBC 3.57 L (4.40-5.60) 10*6/uL Hgb 9.4 L (13.0-17.0) g/dL Hct 27.9 L (39.6-50.0) % MCV 78.2 L (80.0-97.0) fL MCH 26.3 L (27.0-32.0) pg Plt Count 789 H (140-440) 10*3/uL MPV 8.9 L (9.5-12.2) fL Immature Gran # 0.11 H (0.00-0.04) 10*3/uL Neutrophils # 11.27 H (1.80-7.70) 10*3/uL Monocytes # 1.92 H (0.20-1.00) 10*3/uL Assessment and Plan Assessment: Colonic mass with perforation, pneumoperitoneum, intra-abdominal abscess. Status post exploratory laparotomy with drainage of abscess, right colectomy, end ileostomy, and partial omentectomy. Pathology pending, cultures revealed Streptococcus anginosus, beta-hemolytic strep group C --Patient remains on IV Zosyn, vancomycin and Flagyl Colonic mass with concerns for metastatic disease with enlargement of mesenteric lymph nodes, also, indeterminate but probable metastatic disease to the liver - Colon biopsy Invasive moderately differentiated colonic adenocarcinoma, patient is aware Postoperative ventilator management, extubated and on 2 liters nasal cannula; currently saturating above 92% on 2 L; plan to titrate or wean as able - Patient has been placed on a diet with plans to advance as tolerated Combined respiratory and metabolic acidosis Acute blood loss anemia, status post 2 units PRBCs Hypokalemia, replace per protocol; will monitor electrolytes closely Hypocalcemia, replaced History of alcohol abuse DVT prophylaxis; CDs/Lovenox CODE STATUS; full code
--- NOTE | 2025-02-23 12:01 | P.PN ---
Subjective Progress Note Date: 02/23/25 SURGICAL PROGRESS NOTE CHIEF COMPLAINT: Right colon mass HISTORY OF PRESENT ILLNESS: Patient is postop day #11 status post exploratory laparotomy, drainage of abscess, right colectomy with ileostomy and partial pneumonectomy. Pain controlled. He does report pain across the lower abdomen. Ostomy is functioning. Denies any nausea or vomiting. Afebrile. Patient has pain with ambulating. He will try to work with physical therapy today. WBC 15- 14 Hgb 9.4 Patient seen and examined with Dr. Humphrey PHYSICAL EXAM: VITAL SIGNS: Reviewed. GENERAL: Well-developed in no acute distress. ABDOMEN: Soft. Nondistended. Ileostomy with stool present. NEUROLOGIC: Alert and oriented. Cranial nerves II through XII grossly intact. ASSESSMENT: 1. Right colon mass with perforation and intraperitoneal abscess with metastatic disease 2. Colonic adenocarcinoma PLAN: -Remove every other staple from midline incision -Possible discharge tomorrow to [facility]. Continue to monitor -Continue regular diet -Continue pain management -Continue antibiotics -Increase activity level -GI prophylaxis Protonix DVT prophylaxis Lovenox Physician Radar Repairer note has been reviewed by physician. Signing provider agrees with the documented findings, assessment, and plan of care. Objective - Vital Signs Vital signs: Vital Signs Temp 98.4 F 02/23/25 08:00 Pulse 99 02/23/25 08:00 Resp 20 02/23/25 08:00 BP 151/92 02/23/25 08:00 Pulse Ox 95 02/23/25 07:57 FiO2 40 02/14/25 12:00 Intake & Output 02/22/25 02/23/25 02/23/25 18:59 06:59 18:59 Intake Total 240 Output Total 1275 1950 Balance -1275 -1950 240 Weight 72.5 kg 67 kg Intake: Oral 240 Output: Urine 275 850 Stool 1000 1100 Other: Voiding Method Urinal Urinal # Voids 1 ABP, PAP, CO, CI - Last Documented Arterial Blood Pressure 108/62 - Labs CBC & Chem 7: 02/23/25 10:45 02/22/25 06:07 Labs: Abnormal Lab Results - Last 24 Hours (Table) 02/23/25 Range/Units 10:45 WBC 14.55 H (4.50-10.00) 10*3/uL RBC 3.57 L (4.40-5.60) 10*6/uL Hgb 9.4 L (13.0-17.0) g/dL Hct 27.9 L (39.6-50.0) % MCV 78.2 L (80.0-97.0) fL MCH 26.3 L (27.0-32.0) pg Plt Count 789 H (140-440) 10*3/uL MPV 8.9 L (9.5-12.2) fL Immature Gran # 0.11 H (0.00-0.04) 10*3/uL Neutrophils # 11.27 H (1.80-7.70) 10*3/uL Monocytes # 1.92 H (0.20-1.00) 10*3/uL
--- NOTE | 2025-02-23 17:59 | P.PN ---
Subjective Progress Note Date: 02/23/25 Patient complaining of abdominal discomfort, but is starting to feel improved. Continues on IV antibiotics. Objective - Vital Signs Vital signs: Vital Signs Temp 98.4 F 02/23/25 08:00 Pulse 99 02/23/25 08:00 Resp 20 02/23/25 08:00 BP 151/92 02/23/25 08:00 Pulse Ox 95 02/23/25 07:57 FiO2 40 02/14/25 12:00 Intake & Output 02/22/25 02/23/25 02/23/25 18:59 06:59 18:59 Intake Total 240 Output Total 1275 1950 Balance -5 -1949 240 Weight 72.5 kg 67 kg Intake: Oral 240 Output: Urine 275 850 Stool 1000 1100 Other: Voiding Method Urinal Urinal # Voids 1 ABP, PAP, CO, CI - Last Documented Arterial Blood Pressure 108/62 - Constitutional General appearance: Present: average body habitus, no acute distress - EENT Eyes: Present: anicteric sclerae, EOMI ENT: Present: hearing grossly normal - Respiratory Details: breathing is even and unlabored - Cardiovascular Details: skin warm and dry - Integumentary Integumentary: Absent: cyanotic, jaundiced - Psychiatric Psychiatric: Present: A&O x's 3 - Labs CBC & Chem 7: 02/23/25 10:45 02/22/25 06:07 Labs: Abnormal Lab Results - Last 24 Hours (Table) 02/23/25 Range/Units 10:45 WBC 14.55 H (4.50-10.00) 10*3/uL RBC 3.57 L (4.40-5.60) 10*6/uL Hgb 9.4 L (13.0-17.0) g/dL Hct 27.9 L (39.6-50.0) % MCV 78.2 L (80.0-97.0) fL MCH 26.3 L (27.0-32.0) pg Plt Count 789 H (140-440) 10*3/uL MPV 8.9 L (9.5-12.2) fL Immature Gran # 0.11 H (0.00-0.04) 10*3/uL Neutrophils # 11.27 H (1.80-7.70) 10*3/uL Monocytes # 1.92 H (0.20-1.00) 10*3/uL Assessment and Plan (1) Anemia Current Visit: Yes Status: Acute Priority: High Code(s): D64.9 - ANEMIA, UNSPECIFIED SNOMED Code(s): 402243183 (2) Intra-abdominal abscess Current Visit: Yes Status: Acute Priority: High Code(s): K65.1 - PERITONEAL ABSCESS SNOMED Code(s): 13434116 (3) Perforated bowel Current Visit: Yes Status: Acute Priority: High Code(s): K63.1 - PERFORATION OF INTESTINE (NONTRAUMATIC) SNOMED Code(s): 89275382 (4) Pneumoperitoneum Current Visit: Yes Status: Acute Code(s): K66.8 - OTHER SPECIFIED DISORDERS OF PERITONEUM SNOMED Code(s): 32367813 Plan: Colon adenocarcinoma: intra-abdominal abscess. -Patient presented with sudden onset abdominal pain. He was taken to surgery rather urgently, he is status post exploratory laparotomy, resection of colon mass, partial omentectomy, drainage of abscess and creation of end ileostomy -Continues on IV abx - Pathology positive for invasive moderately differentiated colon adenocarcinoma , with 03/27 lymph nodes positive. Discussed findings with patient, and need for adjuvant chemo. Treatment will be on hold typically 4 weeks s/p surgery to allow adequate healing time - NGS, PDL-1 requested on path - Will plan for outpt PET CT and liver MRI. - Clinic f/u upon discharge Anemia - Likely secondary to blood loss from colon mass. -Iron sat <3.9%, ferritin 531, however these were drawn after 2 units PRBCs. Pt will need parenteral iron, but due to infection, will plan for iron transfusions outpt once recovered -No Vitamin B12 or folate deficiency -Hgb stable in the 9-10 range -Continue to monitor CBC Doctor attests: I performed a history and physical examination of this patient, developed impression and plan of care. Discussed with dictator. I agree with dictators note, documented as a scribe.
--- NOTE | 2025-02-23 22:12 | P.PN ---
Subjective Progress Note Date: 02/23/25 Patient is a 59-year-old male with past medical history significant for alcohol abuse, and prior abdominal surgery for hernia repair in 2018. Presented emergency department yesterday evening complaining of abdominal pain. Riva something had popped in his right sided abdomen. Workup at the emergency de partment including an abdominal/pelvis CT remarkable for an hepatic flexure colonic mass with perforation resulting in pneumoperitoneum and an abscess formation along the right lateral abdomen. Concerns for metastatic disease to the mesentery with multiple lymph nodes present. Also, indeterminate but probable liver metastatic disease versus abscess noted. Reactive enteritis/colitis secondary to perforation and intra-abdominal leak feces contents. Patient was then taken to the operating room for exploratory laparotomy. Patient was noted to have a large abscess within the right colon which was drained. The colon mass was dissected off of the duodenum and sent to pathology. There was obvious concerns for enlarged lymphadenopathy within the mesentery. Underwent right colectomy with ileostomy and partial omentectomy. Following the procedure, patient was transferred to the intensive care unit in critical condition. He remains intubated to the mechanical ventilator. Postoperative chest x-rays the endotracheal tube in appropriate positioning above the nehemias. Nasogastric tube coursing below the diaphragm. No focal opacities, pleural effusions, pneumothoraces, or otherwise acute cardiopulmonary process. Current ventilator settings: AC, respiratory rate 24, tidal volume 450, FiO2 100% PEEP of 5. Postoperative ABG consistent with combined metabolic and respiratory acidosis with a PaO2 of 420, pCO2 46, pH of 7.24. Patient is currently synchronous with current settings and sedated on propofol at 40 mcg/kg/min. Normal saline also infusing at 130 mL/h. He is tachycardic and borderline hypotensive with a blood pressure of 93/72 mmHg, heart rate is 120 bpm. Did previously receive 2.4 L crystalloid fluid bolus. Also, received 2 units PRBCs perioperatively. Mottled appearance to the lower extremities. Previously, noted to be febrile. Patient was empirically covered on a combination of Zosyn and vancomycin for abdominal sepsis. He does have a midline abdominal incision with postoperative dressing clean and intact. There is a right-sided abdominal ileostomy which is pink and beefy red. No significant output. Postoperative labs including a CBC with a WBC count of 8.5, hemoglobin 7.8 g/dL, platelets 571. Postoperative CMP including a sodium 130, potassium 3.4, chloride 94, serum bicarb 24, BUN 17, creatinine 0.97, glucose 88. Lactic 1.4. LFTs unremarkable. Lipase 46. Patient's next of kin is his brother. States he does not have very much known medical history as he does not follow routinely with a doctor. He is reportedly a heavy alcohol drinker. 02/14/25 - He is seen and evaluated in the ICU, room 259. He is on the mechanical ventilator, volume assist control , rate of 24, tidal volume of 450, FiO2 40% and PEEP of 5. Blood gases this morning show pO2 of 94, pCO2 of 25, pH of 7.45. He continues to be on Propofol at 35 mcg/kg/min, Zosyn and Vancomycin. Current labs include WBCs 23.42, Hgb 10.5, Hct 30.9, PLT 439, Na 137, K 3.3, BUN 29, Cr 1.52, Ca 6.6. Blood cultures continue to be pending at this time. Chest X-ray from this morning shows possible right layering pleural effusion. The patient is seen today February 15, 2025 selective care unit. He was transferred out of the intensive care unit yesterday. He is currently resting in bed. Awake and alert in no acute distress. Maintaining O2 saturations in the 90s on 2 L/min per nasal cannula. He has normal saline at 10 mL/h. Colon mass pathology pending. He is status post 2 units of packed red blood cells this admission. Current hemoglobin 10.6. Platelets 403. White count 18.9. Sodium 133. Potassium 3.7. Bicarb 27. BUN 25. Creatinine 1.08. Glucose 79. Blood culture revealed no growth. Wound culture revealed Streptococcus anginosus, beta-hemolytic strep group C. He remains on Zosyn and vancomycin along with Flagyl. Lovenox for DVT prophylaxis. Continued on bronchodilators. The patient is seen today February 16, 2025 in follow-up on the selective care unit. He is currently resting in bed. Awake and alert in no acute distress. Maintaining O2 saturations in the 90s on 2 L/min per nasal cannula. Has been afebrile. Hemodynamically stable. Chest x-ray shows improved aeration of the lungs bilaterally. Some right basilar atelectasis. Colonic abscess was positive for Streptococcus anginosus, beta-hemolytic strep group C. White count 16.2. Hemoglobin 10.8. Platelets 398. Sodium 132. Potassium 3.8. Bicarb 26. BUN 19. Creatinine 0.89. Glucose 85. He remains on Flagyl, vancomycin and Zosyn. Lovenox for DVT prophylaxis. Remains on bronchodilators. Encouraged regarding the increased use of the incentive spirometer. Tolerating a clear liq uid diet. The patient is seen today February 17, 2025 in follow-up on the selective care unit. He is currently sitting up in bed. Awake and alert in no acute distress. He denies any worsening shortness of breath, cough or congestion. He does have some ongoing surgical site pain of the abdomen. He is maintaining good O2 saturations in the upper 90s on 2 L/min per nasal cannula. He is afebrile. Hemodynamically stable. He is status post 2 units of packed red blood cells this admission. Today's hemoglobin is 11.4. Platelets 381. White count 11.7. Sodium 132. Potassium 4.1. Bicarb 21. BUN 17. Creatinine 0.79. He remains on DuoNeb inhalations. Lovenox for DVT prophylaxis. Antibiotics in the form of vancomycin and Zosyn along with Flagyl. Diet advanced per surgical services. On 02/20/2025, the patient is being seen for a follow-up. The patient is recovering from a colonic surgery. The patient had a colonic mass with secondary perforation and pneumoperitoneum and intra-abdominal abscess formation. The patient is postop day #5 following expected laparotomy and drainage of the abscess and right colectomy. He also had end ileostomy. Ileostomy is functional at this point in time. Cultures from the abdomen is showing strep and beta-hemolytic strep group C and anaerobes. Based on that, the patient is currently on a combination of Zosyn and Flagyl. The patient is also on IV vancomycin. ID is on the case. Final pathology from the intra- abdominal surgical sample is not ready yet. Meanwhile, the patient is comfortable. Using incentive spirometer. Is currently on 2 L of oxygen by nasal cannula. WBC count is at 10.7 with a hemoglobin 10.3 and a platelet count of 376. BUN 7 with a creatinine of 0.59 and sodium levels at 131. The patient is on Dilaudid for pain control. He is ambulating. Using incentive spirometer. Remains on IV Protonix. Gradually trying to advance his diet as tolerated. Surgical site is dry clean and intact. On 02/21/2025, patient is being seen for a follow-up. Doing well. Currently on 2 L of oxygen nasal cannula, the patient is postop day #6 following an expiratory laparotomy, right colectomy end ileostomy and partial omentectomy. Ostomy is functional. Afebrile. 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 The patient will need an oncology evaluation at a later stage. Meanwhile, he still recovering from his surgery. He remains on IV Zosyn and vancomycin and Flagyl. Remains on Lovenox for DVT prophylaxis. Tolerating diet. WBC has at 10.7 with a hemoglobin 10.3 and a platelet count 376. Creatinine stable at 0.9. 02/22/2025, the patient is being seen for a follow-up. The patient is currently on room air oxygen. Resting comfortably in bed. The patient is postop day #7. He has undergone exploratory laparotomy, right colectomy and end ileostomy and partial omentectomy. He does have underlying colonic adenocarcinoma. His ostomy is functional. Surgical wound site is dry clean and intact. The white cell count is at 15.2 with a hemoglobin of 9.7 and a platelet count of 721. Normal electrolytes. BUN is at 7 with a creatinine of 1.1. The patient remains on Lovenox for DVT prophylaxis. He remains on Zosyn, Flagyl and vancomycin. The abdominal cultures are polymicrobial including anaerobes, strep and ID is on the case. Afebrile. Hemodynamically stable. A bit depressed due to his underlying condition. Doing limited amount of activity. Adequate pain management. Will need to increase his level of activity. Using incentive spirometer. On 02/23/2025, the patient is being seen for a follow-up. The patient is stable on room air oxygen. Tolerating diet. Hemodynamically stable. Ostomy is functional. Currently on 2 L of oxygen by nasal cannula. No signs of a respiratory distress. White cell count is 14.5 with a hemoglobin of 0.4 and platelet count of 789. BUN is at 7 with a creatinine of 1.1. Sodium levels at 136. The patient is postop day #11 following exposure laparotomy and drainage of an abscess in addition to right colectomy and diverting ileostomy and partial omentectomy. No nausea. No vomiting. No other complaints otherwise. Final pathology was consistent with colonic adenocarcinoma. The patient will be seen by oncology. Meanwhile, the patient remains on IV Zosyn. Remains on Lovenox for DVT prophylaxis. Using the incentive spirometer. Surgical wound site is dry clean and intact. Objective - Vital Signs Vital signs: Vital Signs Temp 98.4 F 02/23/25 08:00 Pulse 99 02/23/25 08:00 Resp 20 02/23/25 08:00 BP 151/92 02/23/25 08:00 Pulse Ox 95 02/23/25 07:57 FiO2 40 02/14/25 12:00 Intake & Output 02/22/25 02/23/25 02/23/25 18:59 06:59 18:59 Intake Total 240 Output Total 1275 1950 Balance -1275 -1950 240 Weight 72.5 kg 67 kg Intake: Oral 240 Output: Urine 275 850 Stool 1000 1100 Other: Voiding Method Urinal Urinal # Voids 1 ABP, PAP, CO, CI - Last Documented Arterial Blood Pressure 108/62 - Exam General: Awake, 59-year-old male, sitting up in bed, on 2 L of oxygen nasal cannula Derm: Warm, dry, intact Head: Atraumatic, normocephalic, symmetric Eyes: EOMI, anicteric sclera NOSE: Clear with pink turbinates. Mouth: No lip lesion, mucus membranes moist Cardiovascular: S1 S2 reg, no murmur, rubs, or gallops; distant heart sounds. Lungs: CTA bilateral, no rales, no accessory muscle use ABDOMEN: Midline abdominal incision with postoperative dressing clean and intact. Right ileostomy noted, stoma appears pink/beefy red. Positive output. Abdomen is soft. Extremities: No cyanosis or edema present. Right brachial arterial line noted. Neuro: Cannot be assessed at this time. Psych: Well appearing, appropriate affect - Labs CBC & Chem 7: 02/23/25 10:45 02/22/25 06:07 Labs: Abnormal Lab Results - Last 24 Hours (Table) 02/23/25 Range/Units 10:45 WBC 14.55 H (4.50-10.00) 10*3/uL RBC 3.57 L (4.40-5.60) 10*6/uL Hgb 9.4 L (13.0-17.0) g/dL Hct 27.9 L (39.6-50.0) % MCV 78.2 L (80.0-97.0) fL MCH 26.3 L (27.0-32.0) pg Plt Count 789 H (140-440) 10*3/uL MPV 8.9 L (9.5-12.2) fL Immature Gran # 0.11 H (0.00-0.04) 10*3/uL Neutrophils # 11.27 H (1.80-7.70) 10*3/uL Monocytes # 1.92 H (0.20-1.00) 10*3/uL Assessment and Plan Plan: Colonic mass with perforation, pneumoperitoneum, intra-abdominal abscess. Status postoperative day # 8 following exploratory laparotomy with drainage of abscess, right colectomy, end ileostomy, and partial omentectomy. Pathology is consistent with colonic adenocarcinoma, cultures revealed Streptococcus ang inosus, beta-hemolytic strep group C. Patient also has anaerobes. Ileostomy is functional. The patient remains on IV Zosyn. Colonic adenocarcinoma Acute hypoxic respiratory failure following abdominal surgery, possibly related to some atelectatic changes in lung bases. The patient has been extubated and the patient is currently on 2 L of nasal cannula oxygen Abdominal sepsis, polymicrobial secondary to above. The patient has strep and anaerobes and the patient is currently on a combination of Zosyn and Flagyl and vancomycin. Acute blood loss anemia, status post 2 units PRBCs, hemoglobin stable History of alcohol abuse Plan: Aggressive pulmonary toileting and incentive spirometer and increased level of activity as tolerated Ostomy functioning Advance diet as tolerated Continued on DuoNeb inhalations Lovenox for DVT prophylaxis Continue IV Zosyn Abdominal cultures are polymicrobial as expected Pathology is consistent with colonic adenocarcinoma with positive lymph nodes Oncology consultation is appreciated Increase his activity as tolerated Advance diet as tolerated Increase mobility as tolerated and will continue to follow.
[2025-02-24] MEDS ORDERED: ALBUTEROL NEBULIZED 2.5 MG/3 ML INHALATION PRN (08:47)
--- NOTE | 2025-02-24 14:28 | P.PN ---
Subjective Progress Note Date: 02/24/25 SURGICAL PROGRESS NOTE CHIEF COMPLAINT: Right colon mass HISTORY OF PRESENT ILLNESS: Patient is postop day #12 status post exploratory laparotomy, drainage of abscess, right colectomy with ileostomy and partial pneumonectomy. Patient continues to have pain at incision site. He denies any nausea or vomiting. Ostomy is functioning. Every other staple removed yesterday. Afebrile. WBC 14 yesterday. Patient did ambulate with PT yesterday Dr. Hillman is covering for Dr. De La Cruz PHYSICAL EXAM: VITAL SIGNS: Reviewed. GENERAL: Well-developed in no acute distress. ABDOMEN: Soft. Nondistended. Tenderness with palpation at incision site. Incision site clean dry and intact. Ileostomy with stool present. NEUROLOGIC: Alert and oriented. Cranial nerves II through XII grossly intact. ASSESSMENT: 1. Right colon mass with perforation and intraperitoneal abscess with metastatic disease 2. Colonic adenocarcinoma PLAN: -Continue pain management -Continue to work with physical therapy -Patient planning for ECF at discharge -Continue regular diet -Continue antibiotics -Increase activity level -Repeat CBC -GI prophylaxis Protonix DVT prophylaxis Lovenox Physician Warp Bleaching Vat Tender note has been reviewed by physician. Signing provider agrees with the documented findings, assessment, and plan of care. I have personally seen and examined the patient, reviewed the FLOOR INSTALLER /PAs history, exam and MDM and agree with the assessment and plan as written. Based on total visit time, I have performed more than 50% of the visit. As above: Patient feels well. He has been active. Tolerating regular diet. Appetite diminished. White blood cell count remains elevated. Monitor ileostomy output. Plan ECF on Thursday. Continue antibiotics. Objective - Vital Signs Vital signs: Vital Signs Temp 100.2 F H 02/24/25 12:55 Pulse 106 H 02/24/25 12:55 Resp 18 02/24/25 12:55 BP 147/97 02/24/25 12:55 Pulse Ox 97 02/24/25 12:55 FiO2 40 02/14/25 12:00 Intake & Output 02/23/25 02/24/25 02/24/25 18:59 06:59 18:59 Intake Total 480 480 Output Total 300 675 Balance 180 -195 Weight 67 kg 71 kg Intake: Oral 480 480 Output: Urine 300 675 Other: Voiding Method Urinal Urinal ABP, PAP, CO, CI - Last Documented Arterial Blood Pressure 108/62 - Labs CBC & Chem 7: 02/24/25 14:29 02/22/25 06:07
[2025-02-24 14:38] LABS: Basophils # (A) 0.04 10*3/uL (0.00-0.10); Basophils % (A) 0.3 %; Eosinophils # (A) 0.08 10*3/uL (0.04-0.35); Eosinophils % (A) 0.5 %; HCT 27.7 % (39.6-50.0); HGB 9.3 g/dL (13.0-17.0); Lymphocytes # (A) 1.63 10*3/uL (0.90-5.00); Lymphocytes % (A) 10.9 %; MCH 26.1 pg (27.0-32.0); MCHC 33.6 g/dL (32.0-37.0); MCV 77.8 fL (80.0-97.0); Monocytes # (A) 2.26 10*3/uL (0.20-1.00); Monocytes % (A) 15.1 %; Neutrophils # (A) 10.81 10*3/uL (1.80-7.70); Neutrophils % (A) 72.5 %; Platelet Count 923 10*3/uL (140-440); RBC 3.56 10*6/uL (4.40-5.60); RDW 18.0 % (11.5-14.5); WBC 14.93 10*3/uL (4.50-10.00)
--- NOTE | 2025-02-24 19:17 | P.PN ---
Subjective Progress Note Date: 02/24/25 Patient is a 59-year-old male with past medical history significant for alcohol abuse, and prior abdominal surgery for hernia repair in 2018. Presented emergency department yesterday evening complaining of abdominal pain. [place] something had popped in his right sided abdomen. Workup at the emergency de partment including an abdominal/pelvis CT remarkable for an hepatic flexure colonic mass with perforation resulting in pneumoperitoneum and an abscess formation along the right lateral abdomen. Concerns for metastatic disease to the mesentery with multiple lymph nodes present. Also, indeterminate but probable liver metastatic disease versus abscess noted. Reactive enteritis/colitis secondary to perforation and intra-abdominal leak feces contents. Patient was then taken to the operating room for exploratory laparotomy. Patient was noted to have a large abscess within the right colon which was drained. The colon mass was dissected off of the duodenum and sent to pathology. There was obvious concerns for enlarged lymphadenopathy within the mesentery. Underwent right colectomy with ileostomy and partial omentectomy. Following the procedure, patient was transferred to the intensive care unit in critical condition. He remains intubated to the mechanical ventilator. Postoperative chest x-rays the endotracheal tube in appropriate positioning above the nehemias. Nasogastric tube coursing below the diaphragm. No focal opacities, pleural effusions, pneumothoraces, or otherwise acute cardiopulmonary process. Current ventilator settings: AC, respiratory rate 24, tidal volume 450, FiO2 100% PEEP of 5. Postoperative ABG consistent with combined metabolic and respiratory acidosis with a PaO2 of 420, pCO2 46, pH of 7.24. Patient is currently synchronous with current settings and sedated on propofol at 40 mcg/kg/min. Normal saline also infusing at 130 mL/h. He is tachycardic and borderline hypotensive with a blood pressure of 93/72 mmHg, heart rate is 120 bpm. Did previously receive 2.4 L crystalloid fluid bolus. Also, received 2 units PRBCs perioperatively. Mottled appearance to the lower extremities. Previously, noted to be febrile. Patient was empirically covered on a combination of Zosyn and vancomycin for abdominal sepsis. He does have a midline abdominal incision with postoperative dressing clean and intact. There is a right-sided abdominal ileostomy which is pink and beefy red. No significant output. Postoperative labs including a CBC with a WBC count of 8.5, hemoglobin 7.8 g/dL, platelets 571. Postoperative CMP including a sodium 130, potassium 3.4, chloride 94, serum bicarb 24, BUN 17, creatinine 0.97, glucose 88. Lactic 1.4. LFTs unremarkable. Lipase 46. Patient's next of kin is his brother. States he does not have very much known medical history as he does not follow routinely with a doctor. He is reportedly a heavy alcohol drinker. 02/14/25 - He is seen and evaluated in the ICU, room 259. He is on the mechanical ventilator, volume assist control , rate of 24, tidal volume of 450, FiO2 40% and PEEP of 5. Blood gases this morning show pO2 of 94, pCO2 of 25, pH of 7.45. He continues to be on Propofol at 35 mcg/kg/min, Zosyn and Vancomycin. Current labs include WBCs 23.42, Hgb 10.5, Hct 30.9, PLT 439, Na 137, K 3.3, BUN 29, Cr 1.52, Ca 6.6. Blood cultures continue to be pending at this time. Chest X-ray from this morning shows possible right layering pleural effusion. The patient is seen today February 15, 2025 selective care unit. He was transferred out of the intensive care unit yesterday. He is currently resting in bed. Awake and alert in no acute distress. Maintaining O2 saturations in the 90s on 2 L/min per nasal cannula. He has normal saline at 10 mL/h. Colon mass pathology pending. He is status post 2 units of packed red blood cells this admission. Current hemoglobin 10.6. Platelets 403. White count 18.9. Sodium 133. Potassium 3.7. Bicarb 27. BUN 25. Creatinine 1.08. Glucose 79. Blood culture revealed no growth. Wound culture revealed Streptococcus anginosus, beta-hemolytic strep group C. He remains on Zosyn and vancomycin along with Flagyl. Lovenox for DVT prophylaxis. Continued on bronchodilators. The patient is seen today February 16, 2025 in follow-up on the selective care unit. He is currently resting in bed. Awake and alert in no acute distress. Maintaining O2 saturations in the 90s on 2 L/min per nasal cannula. Has been afebrile. Hemodynamically stable. Chest x-ray shows improved aeration of the lungs bilaterally. Some right basilar atelectasis. Colonic abscess was positive for Streptococcus anginosus, beta-hemolytic strep group C. White count 16.2. Hemoglobin 10.8. Platelets 398. Sodium 132. Potassium 3.8. Bicarb 26. BUN 19. Creatinine 0.89. Glucose 85. He remains on Flagyl, vancomycin and Zosyn. Lovenox for DVT prophylaxis. Remains on bronchodilators. Encouraged regarding the increased use of the incentive spirometer. Tolerating a clear liq uid diet. The patient is seen today February 17, 2025 in follow-up on the selective care unit. He is currently sitting up in bed. Awake and alert in no acute distress. He denies any worsening shortness of breath, cough or congestion. He does have some ongoing surgical site pain of the abdomen. He is maintaining good O2 saturations in the upper 90s on 2 L/min per nasal cannula. He is afebrile. Hemodynamically stable. He is status post 2 units of packed red blood cells this admission. Today's hemoglobin is 11.4. Platelets 381. White count 11.7. Sodium 132. Potassium 4.1. Bicarb 21. BUN 17. Creatinine 0.79. He remains on DuoNeb inhalations. Lovenox for DVT prophylaxis. Antibiotics in the form of vancomycin and Zosyn along with Flagyl. Diet advanced per surgical services. On 02/20/2025, the patient is being seen for a follow-up. The patient is recovering from a colonic surgery. The patient had a colonic mass with secondary perforation and pneumoperitoneum and intra-abdominal abscess formation. The patient is postop day #5 following expected laparotomy and drainage of the abscess and right colectomy. He also had end ileostomy. Ileostomy is functional at this point in time. Cultures from the abdomen is showing strep and beta-hemolytic strep group C and anaerobes. Based on that, the patient is currently on a combination of Zosyn and Flagyl. The patient is also on IV vancomycin. ID is on the case. Final pathology from the intra- abdominal surgical sample is not ready yet. Meanwhile, the patient is comfortable. Using incentive spirometer. Is currently on 2 L of oxygen by nasal cannula. WBC count is at 10.7 with a hemoglobin 10.3 and a platelet count of 376. BUN 7 with a creatinine of 0.59 and sodium levels at 131. The patient is on Dilaudid for pain control. He is ambulating. Using incentive spirometer. Remains on IV Protonix. Gradually trying to advance his diet as tolerated. Surgical site is dry clean and intact. On 02/21/2025, patient is being seen for a follow-up. Doing well. Currently on 2 L of oxygen nasal cannula, the patient is postop day #6 following an expiratory laparotomy, right colectomy end ileostomy and partial omentectomy. Ostomy is functional. Afebrile. 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 The patient will need an oncology evaluation at a later stage. Meanwhile, he still recovering from his surgery. He remains on IV Zosyn and vancomycin and Flagyl. Remains on Lovenox for DVT prophylaxis. Tolerating diet. WBC has at 10.7 with a hemoglobin 10.3 and a platelet count 376. Creatinine stable at 0.9. 02/22/2025, the patient is being seen for a follow-up. The patient is currently on room air oxygen. Resting comfortably in bed. The patient is postop day #7. He has undergone exploratory laparotomy, right colectomy and end ileostomy and partial omentectomy. He does have underlying colonic adenocarcinoma. His ostomy is functional. Surgical wound site is dry clean and intact. The white cell count is at 15.2 with a hemoglobin of 9.7 and a platelet count of 721. Normal electrolytes. BUN is at 7 with a creatinine of 1.1. The patient remains on Lovenox for DVT prophylaxis. He remains on Zosyn, Flagyl and vancomycin. The abdominal cultures are polymicrobial including anaerobes, strep and ID is on the case. Afebrile. Hemodynamically stable. A bit depressed due to his underlying condition. Doing limited amount of activity. Adequate pain management. Will need to increase his level of activity. Using incentive spirometer. On 02/23/2025, the patient is being seen for a follow-up. The patient is stable on room air oxygen. Tolerating diet. Hemodynamically stable. Ostomy is functional. Currently on 2 L of oxygen by nasal cannula. No signs of a respiratory distress. White cell count is 14.5 with a hemoglobin of 0.4 and platelet count of 789. BUN is at 7 with a creatinine of 1.1. Sodium levels at 136. The patient is postop day #11 following exposure laparotomy and drainage of an abscess in addition to right colectomy and diverting ileostomy and partial omentectomy. No nausea. No vomiting. No other complaints otherwise. Final pathology was consistent with colonic adenocarcinoma. The patient will be seen by oncology. Meanwhile, the patient remains on IV Zosyn. Remains on Lovenox for DVT prophylaxis. Using the incentive spirometer. Surgical wound site is dry clean and intact. On 02/24/2025, the patient remains on room air oxygen. Ostomy is functional. The patient is postop day #12. Tolerating diet. Ambulating. Surgical wound site is dry clean and intact. No nausea or vomiting. Afebrile. Blood work shows a white cell count of 14 with a hemoglobin of 0.3 and a platelet count of 923 and all of those labs are stable. The patient remains on IV Zosyn. Lovenox for DVT prophylaxis. Dilaudid for pain control. Ambulating. Objective - Vital Signs Vital signs: Vital Signs Temp 99.3 F 02/24/25 16:45 Pulse 106 H 02/24/25 16:45 Resp 16 02/24/25 16:45 BP 106/93 02/24/25 16:45 Pulse Ox 95 02/24/25 16:45 FiO2 40 02/14/25 12:00 Intake & Output 02/24/25 02/24/25 02/25/25 06:59 18:59 06:59 Intake Total 480 Output Total 1350 Balance -870 Weight 71 kg Intake: Oral 480 Output: Urine 850 Stool 500 Other: Voiding Method Urinal ABP, PAP, CO, CI - Last Documented Arterial Blood Pressure 108/62 - Exam General: Awake, 59-year-old male, sitting up in bed, on 2 L of oxygen nasal cannula Derm: Warm, dry, intact Head: Atraumatic, normocephalic, symmetric Eyes: EOMI, anicteric sclera NOSE: Clear with pink turbinates. Mouth: No lip lesion, mucus membranes moist Cardiovascular: S1 S2 reg, no murmur, rubs, or gallops; distant heart sounds. Lungs: CTA bilateral, no rales, no accessory muscle use ABDOMEN: Midline abdominal incision with postoperative dressing clean and intact. Right ileostomy noted, stoma appears pink/beefy red. Positive output. Abdomen is soft. Extremities: No cyanosis or edema present. Right brachial arterial line noted. Neuro: Cannot be assessed at this time. Psych: Well appearing, appropriate affect - Labs CBC & Chem 7: 02/24/25 14:29 02/22/25 06:07 Labs: Abnormal Lab Results - Last 24 Hours (Table) 02/24/25 Range/Units 14:29 WBC 14.93 H (4.50-10.00) 10*3/uL RBC 3.56 L (4.40-5.60) 10*6/uL Hgb 9.3 L (13.0-17.0) g/dL Hct 27.7 L (39.6-50.0) % MCV 77.8 L (80.0-97.0) fL MCH 26.1 L (27.0-32.0) pg Plt Count 923 H (140-440) 10*3/uL MPV 8.8 L (9.5-12.2) fL Immature Gran # 0.11 H (0.00-0.04) 10*3/uL Neutrophils # 10.81 H (1.80-7.70) 10*3/uL Monocytes # 2.26 H (0.20-1.00) 10*3/uL Assessment and Plan Plan: Colonic mass with perforation, pneumoperitoneum, intra-abdominal abscess. Status postoperative day # 12 following exploratory laparotomy with drainage of abscess, right colectomy, end ileostomy, and partial omentectomy. Pathology is consistent with colonic adenocarcinoma, cultures revealed Streptococcus anginosus, beta-hemolytic strep group C. Patient also has anaerobes. Ileostomy is functional. The patient remains on IV Zosyn. Colonic adenocarcinoma Acute hypoxic respiratory failure following abdominal surgery, possibly related to some atelectatic changes in lung bases. This has recovered and the patient is currently on room air oxygen, using the incentive spirometer. Abdominal sepsis, polymicrobial secondary to above. The patient has strep and anaerobes and the patient is currently on IV Zosyn Acute blood loss anemia, status post 2 units PRBCs, hemoglobin stable History of alcohol abuse Plan: Clinically stable on room air oxygen Aggressive pulmonary toileting and incentive spirometer and increased level of activity as tolerated Ostomy functioning Advance diet as tolerated Continued on DuoNeb inhalations Lovenox for DVT prophylaxis Continue IV Zosyn Abdominal cultures are polymicrobial as expected Pathology is consistent with colonic adenocarcinoma with positive lymph nodes Oncology consultation is appreciated Increase his activity as tolerated Advance diet as tolerated Increase mobility as tolerated and will continue to follow.
--- NOTE | 2025-02-25 00:15 | P.PN ---
Subjective 59-year-old male with past medical history significant for alcohol abuse, and prior abdominal surgery for hernia repair in 2018. Presented emergency department yesterday evening complaining of abdominal pain. [place] something had popped in his right sided abdomen. Workup at the emergency department including an abdominal/pelvis CT remarkable for an hepatic flexure colonic mass with perforation resulting in pneumoperitoneum and an abscess formation along the right lateral abdomen. Concerns for metastatic disease to the mesentery with multiple lymph nodes present. Also, indeterminate but probable liver metastatic disease versus abscess noted. Reactive enteritis/colitis secondary to perforation and intra-abdominal leak feces contents. Patient was then taken to the operating room for exploratory laparotomy. Patient was noted to have a large abscess within the right colon which was drained. The colon mass was dissected off of the duodenum and sent to pathology. There was obvious concerns for enlarged lymphadenopathy within the mesentery. Underwent right colectomy with ileostomy and partial omentectomy. Following the procedure, patient was transferred to the intensive care unit in critical condition. He remains intubated to the mechanical ventilator. Postoperative chest x-rays the endotracheal tube in appropriate positioning above the nehemias. Nasogastric tube coursing below the diaphragm. No focal opacities, pleural effusions, pneumothoraces, or otherwise acute cardiopulmonary process. Current ventilator settings: AC, respiratory rate 24, tidal volume 450, FiO2 100% PEEP of 5. Postoperative ABG consistent with combined metabolic and respiratory acidosis with a PaO2 of 420, pCO2 46, pH of 7.24. Patient is currently synchronous with current settings and sedated on propofol at 40 mcg/kg/min. Normal saline also infusing at 130 mL/h. He is tachycardic and borderline hypotensive with a blood pressure of 93/72 mmHg, heart rate is 120 bpm. Did previously receive 2.4 L crystalloid fluid bolus. Also, received 2 units PRBCs perioperatively. Mottled appearance to the lower extremities. Previously, noted to be febrile. Patient was empirically covered on a combination of Zosyn and vancomycin for abdominal sepsis. He does have a midline abdominal incision with postoperative dressing clean and intact. There is a right-sided abdominal ileostomy which is pink and beefy red. No significant output. Postoperative labs including a CBC with a WBC count of 8.5, hemoglobin 7.8 g/dL, platelets 571. 02/18/2025 Patient is seen and evaluated resting comfortably in bed; has been transferred out of ICU Vital signs are reviewed and stable with temperature of 97.7, pulse 90, respiration 18 and blood pressure 158/97, O2 saturation 95% Lab review shows WBC 9.39, hemoglobin of 11.2, sodium 131, potassium 3.8, BUN/creatinine of 10/0.68 -Patient is status post right colectomy with ileostomy on 02/13/2025; surgery on board; patient is maintaining oral intake - Continue with IV antibiotics in form of Zosyn and Flagyl 02/19/2025 Patient seen and evaluated and discussed with nursing staff; continue to ask for IV Dilaudid every 3 hours; remains on [place] Vital signs are reviewed temperature 98.1, pulse 85, respiration 20 and blood pressure 154/83 Blood work reveals WBC of 10.7, hemoglobin of 10.3, sodium 131, potassium 3.9, BUN/creatinine 7/0.59 Patient is status post colectomy for perforated colonic neoplasm on 02/14/2024 -General Surgery on board; patient continues to make improvement; possible discharge in next -02/20 Patient is little bit, he got full quickly. No vomiting Abdominal pain but is not down. Colostomy is working and he had 3-4 bowel movements yesterday No other new complaint 02/21 Patient states he feels the same, he is fully awake and oriented sitting up in bed. No vomiting. He still is little bit Abdominal pain is mild to moderate and controlled. He is having bowel movement through his ileostomy He has 1+ bilateral pitting leg edema He remains on broad-spectrum antibiotics with IV vancomycin and Zosyn and Flagyl 02/22 Patient is not eating much Abdominal wound healing Hemodynamically stable WBC is up to 15.2. Hemoglobin 9.7. Sodium 136 creatinine 1.1 IV vancomycin dosed per pharmacy been adjusted. Trough is therapeutic at 20.5 yesterday. Remains on IV vancomycin and Zosyn and Flagyl Colon biopsy Invasive moderately differentiated colonic adenocarcinoma Monitor kidney function as well Discussed the plan with the patient 02/23 Patient still not eating much No much abdominal pain Has not bowel movement through the ileostomy 02/24 Patient feels the same, he is little bit He has little abdominal pain He has limited bowel movement through the ileostomy bag He is mildly tachycardic He has persistent leukocytosis about 14.9 and hemoglobin stable at 9.3 He remains on broad-spectrum antibiotics with IV vancomycin and Zosyn and Flagyl Colonic biopsy: Invasive moderately differentiated colonic adenocarcinoma arising within right colon Objective - Vital Signs Vital signs: Vital Signs Temp 100.2 F H 02/24/25 12:55 Pulse 106 H 02/24/25 12:55 Resp 18 02/24/25 12:55 BP 147/97 02/24/25 12:55 Pulse Ox 97 02/24/25 12:55 FiO2 40 02/14/25 12:00 Intake & Output 02/23/25 02/24/25 02/24/25 18:59 06:59 18:59 Intake Total 480 480 Output Total 300 1175 Balance 180 -695 Weight 67 kg 71 kg Intake: Oral 480 480 Output: Urine 300 675 Stool 500 Other: Voiding Method Urinal Urinal ABP, PAP, CO, CI - Last Documented Arterial Blood Pressure 108/62 - Exam -GENERAL: The patient is alert and oriented x3, not in any acute distress. Well developed, well nourished. Generally weak HEENT: Pupils are round and equally reacting to light. EOMI. No scleral icterus. No conjunctival pallor. Normocephalic, atraumatic. No pharyngeal erythema. No thyromegaly. CARDIOVASCULAR: S1 and S2 present. No murmurs, rubs, or gallops. PULMONARY: Chest is clear to auscultation, no wheezing , no crackles. -ABDOMEN: Soft, nontender, nondistended, normoactive bowel sounds. No palpable organomegaly. Midline surgical incision in place with right lower quadrant colostomy in MUSCULOSKELETAL: No joint swelling or deformity. EXTREMITIES: No cyanosis, clubbing, or pedal edema. NEUROLOGICAL: Gross neurological examination did not reveal any focal deficits. SKIN: No rashes. no petechiae. - Labs CBC & Chem 7: 02/24/25 14:29 02/22/25 06:07 Labs: Abnormal Lab Results - Last 24 Hours (Table) 02/24/25 Range/Units 14:29 WBC 14.93 H (4.50-10.00) 10*3/uL RBC 3.56 L (4.40-5.60) 10*6/uL Hgb 9.3 L (13.0-17.0) g/dL Hct 27.7 L (39.6-50.0) % MCV 77.8 L (80.0-97.0) fL MCH 26.1 L (27.0-32.0) pg Plt Count 923 H (140-440) 10*3/uL MPV 8.8 L (9.5-12.2) fL Immature Gran # 0.11 H (0.00-0.04) 10*3/uL Neutrophils # 10.81 H (1.80-7.70) 10*3/uL Monocytes # 2.26 H (0.20-1.00) 10*3/uL Assessment and Plan Assessment: Colonic mass with perforation, pneumoperitoneum, intra-abdominal abscess. Status post exploratory laparotomy with drainage of abscess, right colectomy, end ileostomy, and partial omentectomy. Pathology pending, cultures revealed Streptococcus anginosus, beta-hemolytic strep group C --Patient remains on IV Zosyn, while vancomycin and Flagyl were discontinued per pharmacy team recommendation as pt was on day 13 of iv vancomycin and unarobic mo can be covered by zosyn alreayd , we will keep monitor , if worsening infection or fever , we will consider resuming them again Colonic mass with concerns for metastatic disease with enlargement of mesenteric lymph nodes, also, indeterminate but probable metastatic disease to the liver - Colon biopsy Invasive moderately differentiated colonic adenocarcinoma, patient is aware Postoperative ventilator management, extubated and on 2 liters nasal cannula; currently saturating above 92% on 2 L; plan to titrate or wean as able - Patient has been placed on a diet with plans to advance as tolerated Combined respiratory and metabolic acidosis Acute blood loss anemia, status post 2 units PRBCs Hypokalemia, replace per protocol; will monitor electrolytes closely Hypocalcemia, replaced History of alcohol abuse DVT prophylaxis; CDs/Lovenox CODE STATUS; full code
[2025-02-25 09:45] LABS: Basophils # (A) 0.04 10*3/uL (0.00-0.10); Basophils % (A) 0.3 %; Eosinophils # (A) 0.10 10*3/uL (0.04-0.35); Eosinophils % (A) 0.7 %; HCT 28.2 % (39.6-50.0); HGB 9.2 g/dL (13.0-17.0); Lymphocytes # (A) 1.67 10*3/uL (0.90-5.00); Lymphocytes % (A) 12.2 %; MCH 25.6 pg (27.0-32.0); MCHC 32.6 g/dL (32.0-37.0); MCV 78.6 fL (80.0-97.0); Monocytes # (A) 1.92 10*3/uL (0.20-1.00); Monocytes % (A) 14.1 %; Neutrophils # (A) 9.84 10*3/uL (1.80-7.70); Neutrophils % (A) 72.0 %; Platelet Count 962 10*3/uL (140-440); RBC 3.59 10*6/uL (4.40-5.60); RDW 18.3 % (11.5-14.5); WBC 13.66 10*3/uL (4.50-10.00)
--- NOTE | 2025-02-25 10:16 | P.PN ---
Subjective Progress Note Date: 02/25/25 Principal diagnosis: Perforated colon cancer Patient having some crampy abdominal pain. Mild tachycardia. Tmax 100.2. White blood cell count slightly improved at 13.6. Does have ostomy output. Appetite low. Objective - Vital Signs Vital signs: Vital Signs Temp 99.4 F 02/25/25 09:00 Pulse 112 H 02/25/25 09:00 Resp 18 02/25/25 09:00 BP 141/78 02/25/25 09:00 Pulse Ox 98 02/25/25 09:00 FiO2 40 02/14/25 12:00 Intake & Output 02/24/25 02/25/25 02/25/25 18:59 06:59 18:59 Intake Total 480 240 Output Total 1350 275 200 Balance -870 -275 40 Weight 71 kg 71 kg Intake: Oral 480 240 Output: Urine 850 275 200 Stool 500 Other: Voiding Method Urinal Urinal ABP, PAP, CO, CI - Last Documented Arterial Blood Pressure 108/62 - Exam Abdomen: Soft, nondistended, mild diffuse tenderness, incision clean and dry, ostomy with ileus output - Labs CBC & Chem 7: 02/25/25 09:15 02/22/25 06:07 Labs: Abnormal Lab Results - Last 24 Hours (Table) 02/24/25 02/25/25 Range/Units 14:29 09:15 WBC 14.93 H 13.66 H (4.50-10.00) 10*3/uL RBC 3.56 L 3.59 L (4.40-5.60) 10*6/uL Hgb 9.3 L 9.2 L (13.0-17.0) g/dL Hct 27.7 L 28.2 L (39.6-50.0) % MCV 77.8 L 78.6 L (80.0-97.0) fL MCH 26.1 L 25.6 L (27.0-32.0) pg Plt Count 923 H 962 H (140-440) 10*3/uL MPV 8.8 L 8.8 L (9.5-12.2) fL Immature Gran # 0.11 H 0.09 H (0.00-0.04) 10*3/uL Neutrophils # 10.81 H 9.84 H (1.80-7.70) 10*3/uL Monocytes # 2.26 H 1.92 H (0.20-1.00) 10*3/uL Assessment and Plan (1) Perforated bowel Narrative/Plan: Patient still having some abdominal discomforts and decreased intake. Description of his symptoms sounds like ileus or PSBO. Will order CT abdomen pelvis to evaluate. Current Visit: Yes Status: Acute Priority: High Code(s): K63.1 - PERFORATION OF INTESTINE (NONTRAUMATIC) SNOMED Code(s): 71093910
[2025-02-25] MEDS: IOPAMIDOL CONTRAST (ORAL USE) VIAL PO PRN (11:12)
--- NOTE | 2025-02-25 15:35 | CT ---
EXAMINATION TYPE: CT abdomen pelvis w con DATE OF EXAM: 02/25/2025 12:47 PM COMPARISON: 02/12/2025 CLINICAL INDICATION: Male, 59 years old with history of Ileus post colectomy; TECHNIQUE: Axial CT abdomen pelvis w con;Sagittal and coronal reformats were created on a separate w orkstation. Contrast used: mL of , (none if empty) Oral contrast used: (none if empty) CT DLP: mGycm, Automated exposure control for dose reduction was used. FINDINGS: LOWER CHEST: moderate bilateral pleural effusions associated atelectasis present. ABDOMEN LIVER: Hepatic lobe 50 mm lesion not seen on prior measuring 23 Hounsfield units suggestive of necrot ic mass versus abscess remains present. GALLBLADDER AND BILE DUCTS: Unremarkable. PANCREAS: Unremarkable. SPLEEN: Unremarkable. ADRENAL GLANDS: Unremarkable. KIDNEYS AND URETERS: No evidence of hydronephrosis or obstructing renal calculus. The ureters are unr emarkable. PELVIS BLADDER: No evidence for wall thickening or mass given limitations of exam. REPRODUCTIVE: Large hydrocele seen in the scrotum. ABDOMEN & PELVIS STOMACH AND BOWEL: Hepatic flexure mass is no longer visualized there is been partial colectomy [place] es present. PERITONEUM/RETROPERITONEUM: Large amount of fluid is seen surrounding the spleen unclear if this is a subcapsular hemorrhage right abdomen colostomy present. VASCULATURE: No evidence of aortic aneurysm. MUSCULOSKELETAL: No acute osseous abnormalities. Moderate disc degeneration changes are present throu ghout the thoracolumbar spine. LYMPH NODES: Lymph node seen on prior are not definitively visualized on today's exam and likely surg ically absent. SOFT TISSUE/ABDOMINAL WALL: Diffuse anasarca present. Midline surgical heidy. IMPRESSION: 1. New left upper quadrant fluid collection which might be a subcapsular hemorrhage involving the sp demetrio. Further evaluation of the spleen and abdomen is recommended with IV contrast. Correlate with se rum markers for hemorrhage. 2. Postsurgical changes from prior 02/12/2025 CT. Reduction in gas seen throughout the abdomen. Prior hepatic flexure mass is no longer visualized. Lymphadenopathy not feeling visualized. Colostomy pres ent. Post surgical changes anterior abdominal wall. 3. Right hepatic lobe lesion possibly necrotic mass versus abscess remains present. 4. Moderate bilateral pleural effusions and anasarca quit for volume overload. 5. Large hydrocele. Findings communicated to Gerald Quinn 02/25/2025 1:[address] Joshua Underwood. [facility], , 02/25/2025 3:33 PM
[2025-02-25] MEDS: PIPERACILLIN-TAZOBACTAM 3.375 GM in SODIUM CHLORIDE 0.9% 100 ML IVPB SCH (20:25)
--- NOTE | 2025-02-25 23:22 | P.PN ---
Subjective Progress Note Date: 02/25/25 Patient is a 59-year-old male with past medical history significant for alcohol abuse, and prior abdominal surgery for hernia repair in 2018. Presented emergency department yesterday evening complaining of abdominal pain. Afton something had popped in his right sided abdomen. Workup at the emergency de partment including an abdominal/pelvis CT remarkable for an hepatic flexure colonic mass with perforation resulting in pneumoperitoneum and an abscess formation along the right lateral abdomen. Concerns for metastatic disease to the mesentery with multiple lymph nodes present. Also, indeterminate but probable liver metastatic disease versus abscess noted. Reactive enteritis/colitis secondary to perforation and intra-abdominal leak feces contents. Patient was then taken to the operating room for exploratory laparotomy. Patient was noted to have a large abscess within the right colon which was drained. The colon mass was dissected off of the duodenum and sent to pathology. There was obvious concerns for enlarged lymphadenopathy within the mesentery. Underwent right colectomy with ileostomy and partial omentectomy. Following the procedure, patient was transferred to the intensive care unit in critical condition. He remains intubated to the mechanical ventilator. Postoperative chest x-rays the endotracheal tube in appropriate positioning above the nehemias. Nasogastric tube coursing below the diaphragm. No focal opacities, pleural effusions, pneumothoraces, or otherwise acute cardiopulmonary process. Current ventilator settings: AC, respiratory rate 24, tidal volume 450, FiO2 100% PEEP of 5. Postoperative ABG consistent with combined metabolic and respiratory acidosis with a PaO2 of 420, pCO2 46, pH of 7.24. Patient is currently synchronous with current settings and sedated on propofol at 40 mcg/kg/min. Normal saline also infusing at 130 mL/h. He is tachycardic and borderline hypotensive with a blood pressure of 93/72 mmHg, heart rate is 120 bpm. Did previously receive 2.4 L crystalloid fluid bolus. Also, received 2 units PRBCs perioperatively. Mottled appearance to the lower extremities. Previously, noted to be febrile. Patient was empirically covered on a combination of Zosyn and vancomycin for abdominal sepsis. He does have a midline abdominal incision with postoperative dressing clean and intact. There is a right-sided abdominal ileostomy which is pink and beefy red. No significant output. Postoperative labs including a CBC with a WBC count of 8.5, hemoglobin 7.8 g/dL, platelets 571. Postoperative CMP including a sodium 130, potassium 3.4, chloride 94, serum bicarb 24, BUN 17, creatinine 0.97, glucose 88. Lactic 1.4. LFTs unremarkable. Lipase 46. Patient's next of kin is his brother. States he does not have very much known medical history as he does not follow routinely with a doctor. He is reportedly a heavy alcohol drinker. 02/14/25 - He is seen and evaluated in the ICU, room 259. He is on the mechanical ventilator, volume assist control , rate of 24, tidal volume of 450, FiO2 40% and PEEP of 5. Blood gases this morning show pO2 of 94, pCO2 of 25, pH of 7.45. He continues to be on Propofol at 35 mcg/kg/min, Zosyn and Vancomycin. Current labs include WBCs 23.42, Hgb 10.5, Hct 30.9, PLT 439, Na 137, K 3.3, BUN 29, Cr 1.52, Ca 6.6. Blood cultures continue to be pending at this time. Chest X-ray from this morning shows possible right layering pleural effusion. The patient is seen today February 15, 2025 selective care unit. He was transferred out of the intensive care unit yesterday. He is currently resting in bed. Awake and alert in no acute distress. Maintaining O2 saturations in the 90s on 2 L/min per nasal cannula. He has normal saline at 10 mL/h. Colon mass pathology pending. He is status post 2 units of packed red blood cells this admission. Current hemoglobin 10.6. Platelets 403. White count 18.9. Sodium 133. Potassium 3.7. Bicarb 27. BUN 25. Creatinine 1.08. Glucose 79. Blood culture revealed no growth. Wound culture revealed Streptococcus anginosus, beta-hemolytic strep group C. He remains on Zosyn and vancomycin along with Flagyl. Lovenox for DVT prophylaxis. Continued on bronchodilators. The patient is seen today February 16, 2025 in follow-up on the selective care unit. He is currently resting in bed. Awake and alert in no acute distress. Maintaining O2 saturations in the 90s on 2 L/min per nasal cannula. Has been afebrile. Hemodynamically stable. Chest x-ray shows improved aeration of the lungs bilaterally. Some right basilar atelectasis. Colonic abscess was positive for Streptococcus anginosus, beta-hemolytic strep group C. White count 16.2. Hemoglobin 10.8. Platelets 398. Sodium 132. Potassium 3.8. Bicarb 26. BUN 19. Creatinine 0.89. Glucose 85. He remains on Flagyl, vancomycin and Zosyn. Lovenox for DVT prophylaxis. Remains on bronchodilators. Encouraged regarding the increased use of the incentive spirometer. Tolerating a clear liq uid diet. The patient is seen today February 17, 2025 in follow-up on the selective care unit. He is currently sitting up in bed. Awake and alert in no acute distress. He denies any worsening shortness of breath, cough or congestion. He does have some ongoing surgical site pain of the abdomen. He is maintaining good O2 saturations in the upper 90s on 2 L/min per nasal cannula. He is afebrile. Hemodynamically stable. He is status post 2 units of packed red blood cells this admission. Today's hemoglobin is 11.4. Platelets 381. White count 11.7. Sodium 132. Potassium 4.1. Bicarb 21. BUN 17. Creatinine 0.79. He remains on DuoNeb inhalations. Lovenox for DVT prophylaxis. Antibiotics in the form of vancomycin and Zosyn along with Flagyl. Diet advanced per surgical services. On 02/20/2025, the patient is being seen for a follow-up. The patient is recovering from a colonic surgery. The patient had a colonic mass with secondary perforation and pneumoperitoneum and intra-abdominal abscess formation. The patient is postop day #5 following expected laparotomy and drainage of the abscess and right colectomy. He also had end ileostomy. Ileostomy is functional at this point in time. Cultures from the abdomen is showing strep and beta-hemolytic strep group C and anaerobes. Based on that, the patient is currently on a combination of Zosyn and Flagyl. The patient is also on IV vancomycin. ID is on the case. Final pathology from the intra- abdominal surgical sample is not ready yet. Meanwhile, the patient is comfortable. Using incentive spirometer. Is currently on 2 L of oxygen by nasal cannula. WBC count is at 10.7 with a hemoglobin 10.3 and a platelet count of 376. BUN 7 with a creatinine of 0.59 and sodium levels at 131. The patient is on Dilaudid for pain control. He is ambulating. Using incentive spirometer. Remains on IV Protonix. Gradually trying to advance his diet as tolerated. Surgical site is dry clean and intact. On 02/21/2025, patient is being seen for a follow-up. Doing well. Currently on 2 L of oxygen nasal cannula, the patient is postop day #6 following an expiratory laparotomy, right colectomy end ileostomy and partial omentectomy. Ostomy is functional. Afebrile. 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 The patient will need an oncology evaluation at a later stage. Meanwhile, he still recovering from his surgery. He remains on IV Zosyn and vancomycin and Flagyl. Remains on Lovenox for DVT prophylaxis. Tolerating diet. WBC has at 10.7 with a hemoglobin 10.3 and a platelet count 376. Creatinine stable at 0.9. 02/22/2025, the patient is being seen for a follow-up. The patient is currently on room air oxygen. Resting comfortably in bed. The patient is postop day #7. He has undergone exploratory laparotomy, right colectomy and end ileostomy and partial omentectomy. He does have underlying colonic adenocarcinoma. His ostomy is functional. Surgical wound site is dry clean and intact. The white cell count is at 15.2 with a hemoglobin of 9.7 and a platelet count of 721. Normal electrolytes. BUN is at 7 with a creatinine of 1.1. The patient remains on Lovenox for DVT prophylaxis. He remains on Zosyn, Flagyl and vancomycin. The abdominal cultures are polymicrobial including anaerobes, strep and ID is on the case. Afebrile. Hemodynamically stable. A bit depressed due to his underlying condition. Doing limited amount of activity. Adequate pain management. Will need to increase his level of activity. Using incentive spirometer. On 02/23/2025, the patient is being seen for a follow-up. The patient is stable on room air oxygen. Tolerating diet. Hemodynamically stable. Ostomy is functional. Currently on 2 L of oxygen by nasal cannula. No signs of a respiratory distress. White cell count is 14.5 with a hemoglobin of 0.4 and platelet count of 789. BUN is at 7 with a creatinine of 1.1. Sodium levels at 136. The patient is postop day #11 following exposure laparotomy and drainage of an abscess in addition to right colectomy and diverting ileostomy and partial omentectomy. No nausea. No vomiting. No other complaints otherwise. Final pathology was consistent with colonic adenocarcinoma. The patient will be seen by oncology. Meanwhile, the patient remains on IV Zosyn. Remains on Lovenox for DVT prophylaxis. Using the incentive spirometer. Surgical wound site is dry clean and intact. On 02/24/2025, the patient remains on room air oxygen. Ostomy is functional. The patient is postop day #12. Tolerating diet. Ambulating. Surgical wound site is dry clean and intact. No nausea or vomiting. Afebrile. Blood work shows a white cell count of 14 with a hemoglobin of 0.3 and a platelet count of 923 and all of those labs are stable. The patient remains on IV Zosyn. Lovenox for DVT prophylaxis. Dilaudid for pain control. Ambulating. AR on 02/25/2025, no new complaints. The patient remains clinically stable. Having some crampy abdominal pain. Tmax is 100.2. The ventricles are 13.6. Normal ostomy output. Room air oxygen. No new complaints. The patient remains on IV Zosyn. Based on those complaints, the patient was seen by general surgery and a CAT scan of the abdomen and pelvis was obtained and the CAT scan showed a new left upper lobe quadrant fluid collection that may be a subcapsular hemorrhage involving the spleen. Further evaluation of the spleen and abdomen is recommended with IV contrast. Postsurgical changes is seen throughout the abdomen. Prior hepatic flexure mass is no longer visualized. Lymphadenopathy is not visualized. Colostomy is present. Right hepatic dome lesion possibly a necrotic mass versus an abscess remains present. There is also moderate bilate ral pleural effusion anasarca and volume overload and a large hydrocele. The hemoglobin is at 9.2. Platelet count is at 962. Objective - Vital Signs Vital signs: Vital Signs Temp 99.9 F H 02/25/25 23:05 Pulse 104 H 02/25/25 23:05 Resp 18 02/25/25 23:05 BP 150/98 02/25/25 23:05 Pulse Ox 93 L 02/25/25 23:05 FiO2 40 02/14/25 12:00 Intake & Output 02/25/25 02/25/25 02/26/25 06:59 18:59 06:59 Intake Total 240 Output Total 275 1500 Balance -275 -1260 Weight 71 kg Intake: Oral 240 Output: Urine 275 700 Stool 800 Other: Voiding Method Urinal Urinal Urinal ABP, PAP, CO, CI - Last Documented Arterial Blood Pressure 108/62 - Exam General: Awake, 59-year-old male, sitting up in bed, on 2 L of oxygen nasal cannula Derm: Warm, dry, intact Head: Atraumatic, normocephalic, symmetric Eyes: EOMI, anicteric sclera NOSE: Clear with pink turbinates. Mouth: No lip lesion, mucus membranes moist Cardiovascular: S1 S2 reg, no murmur, rubs, or gallops; distant heart sounds. Lungs: CTA bilateral, no rales, no accessory muscle use ABDOMEN: Midline abdominal incision with postoperative dressing clean and intact. Right ileostomy noted, stoma appears pink/beefy red. Positive output. Abdomen is soft. Extremities: No cyanosis or edema present. Right brachial arterial line noted. Neuro: Cannot be assessed at this time. Psych: Well appearing, appropriate affect - Labs CBC & Chem 7: 02/25/25 09:15 02/22/25 06:07 Labs: Abnormal Lab Results - Last 24 Hours (Table) 02/25/25 Range/Units 09:15 WBC 13.66 H (4.50-10.00) 10*3/uL RBC 3.59 L (4.40-5.60) 10*6/uL Hgb 9.2 L (13.0-17.0) g/dL Hct 28.2 L (39.6-50.0) % MCV 78.6 L (80.0-97.0) fL MCH 25.6 L (27.0-32.0) pg Plt Count 962 H (140-440) 10*3/uL MPV 8.8 L (9.5-12.2) fL Immature Gran # 0.09 H (0.00-0.04) 10*3/uL Neutrophils # 9.84 H (1.80-7.70) 10*3/uL Monocytes # 1.92 H (0.20-1.00) 10*3/uL Assessment and Plan Plan: Colonic mass with perforation, pneumoperitoneum, intra-abdominal abscess. Status postoperative day # 13following exploratory laparotomy with drainage of abscess, right colectomy, end ileostomy, and partial omentectomy. Pathology is consistent with colonic adenocarcinoma, cultures revealed Streptococcus anginosus, beta-hemolytic strep group C. Patient also has anaerobes. Ileostomy is functional. The patient remains on IV Zosyn. Crampy abdominal pain. Follow-up CAT scan of the abdomen and pelvis on 02/25/2025 shows new left upper lobe quadrant fluid collection that may be a subcapsular hemorrhage involving the spleen. Further evaluation of the spleen and abdomen is recommended with IV contrast. Postsurgical changes is seen throughout the abdomen. Prior hepatic flexure mass is no longer visualized. Lymphadenopathy is not visualized. Colostomy is present. Right hepatic dome lesion possibly a necrotic mass versus an abscess remains present. Colonic adenocarcinoma Small bilateral pleural effusion Diffuse anasarca Hydrocele Acute hypoxic respiratory failure following abdominal surgery, possibly related to some atelectatic changes in lung bases. This has recovered and the patient is currently on room air oxygen, using the incentive spirometer. Abdominal sepsis, polymicrobial secondary to above. The patient has strep and anaerobes and the patient is currently on IV Zosyn Acute blood loss anemia, status post 2 units PRBCs, hemoglobin stable History of alcohol abuse Plan: Clinically stable on room air oxygen Follow-up CAT scan of the abdomen and pelvis was noted and awaiting further recommendations from general surgery. Aggressive pulmonary toileting and incentive spirometer and increased level of activity as tolerated Ostomy functioning Advance diet as tolerated Continued on DuoNeb inhalations Lovenox for DVT prophylaxis Continue IV Zosyn Abdominal cultures are polymicrobial as expected Pathology is consistent with colonic adenocarcinoma with positive lymph nodes Oncology consultation is appreciated Increase his activity as tolerated Advance diet as tolerated Increase mobility as tolerated and will continue to follow.
--- NOTE | 2025-02-26 00:09 | P.PN ---
Subjective 59-year-old male with past medical history significant for alcohol abuse, and prior abdominal surgery for hernia repair in 2018. Presented emergency department yesterday evening complaining of abdominal pain. [place] something had popped in his right sided abdomen. Workup at the emergency department including an abdominal/pelvis CT remarkable for an hepatic flexure colonic mass with perforation resulting in pneumoperitoneum and an abscess formation along the right lateral abdomen. Concerns for metastatic disease to the mesentery with multiple lymph nodes present. Also, indeterminate but probable liver metastatic disease versus abscess noted. Reactive enteritis/colitis secondary to perforation and intra-abdominal leak feces contents. Patient was then taken to the operating room for exploratory laparotomy. Patient was noted to have a large abscess within the right colon which was drained. The colon mass was dissected off of the duodenum and sent to pathology. There was obvious concerns for enlarged lymphadenopathy within the mesentery. Underwent right colectomy with ileostomy and partial omentectomy. Following the procedure, patient was transferred to the intensive care unit in critical condition. He remains intubated to the mechanical ventilator. Postoperative chest x-rays the endotracheal tube in appropriate positioning above the nehemias. Nasogastric tube coursing below the diaphragm. No focal opacities, pleural effusions, pneumothoraces, or otherwise acute cardiopulmonary process. Current ventilator settings: AC, respiratory rate 24, tidal volume 450, FiO2 100% PEEP of 5. Postoperative ABG consistent with combined metabolic and respiratory acidosis with a PaO2 of 420, pCO2 46, pH of 7.24. Patient is currently synchronous with current settings and sedated on propofol at 40 mcg/kg/min. Normal saline also infusing at 130 mL/h. He is tachycardic and borderline hypotensive with a blood pressure of 93/72 mmHg, heart rate is 120 bpm. Did previously receive 2.4 L crystalloid fluid bolus. Also, received 2 units PRBCs perioperatively. Mottled appearance to the lower extremities. Previously, noted to be febrile. Patient was empirically covered on a combination of Zosyn and vancomycin for abdominal sepsis. He does have a midline abdominal incision with postoperative dressing clean and intact. There is a right-sided abdominal ileostomy which is pink and beefy red. No significant output. Postoperative labs including a CBC with a WBC count of 8.5, hemoglobin 7.8 g/dL, platelets 571. 02/18/2025 Patient is seen and evaluated resting comfortably in bed; has been transferred out of ICU Vital signs are reviewed and stable with temperature of 97.7, pulse 90, respiration 18 and blood pressure 158/97, O2 saturation 95% Lab review shows WBC 9.39, hemoglobin of 11.2, sodium 131, potassium 3.8, BUN/creatinine of 10/0.68 -Patient is status post right colectomy with ileostomy on 02/13/2025; surgery on board; patient is maintaining oral intake - Continue with IV antibiotics in form of Zosyn and Flagyl 02/19/2025 Patient seen and evaluated and discussed with nursing staff; continue to ask for IV Dilaudid every 3 hours; remains on [place] Vital signs are reviewed temperature 98.1, pulse 85, respiration 20 and blood pressure 154/83 Blood work reveals WBC of 10.7, hemoglobin of 10.3, sodium 131, potassium 3.9, BUN/creatinine 7/0.59 Patient is status post colectomy for perforated colonic neoplasm on 02/14/2024 -General Surgery on board; patient continues to make improvement; possible discharge in next -02/20 Patient is little bit, he got full quickly. No vomiting Abdominal pain but is not down. Colostomy is working and he had 3-4 bowel movements yesterday No other new complaint 02/21 Patient states he feels the same, he is fully awake and oriented sitting up in bed. No vomiting. He still is little bit Abdominal pain is mild to moderate and controlled. He is having bowel movement through his ileostomy He has 1+ bilateral pitting leg edema He remains on broad-spectrum antibiotics with IV vancomycin and Zosyn and Flagyl 02/22 Patient is not eating much Abdominal wound healing Hemodynamically stable WBC is up to 15.2. Hemoglobin 9.7. Sodium 136 creatinine 1.1 IV vancomycin dosed per pharmacy been adjusted. Trough is therapeutic at 20.5 yesterday. Remains on IV vancomycin and Zosyn and Flagyl Colon biopsy Invasive moderately differentiated colonic adenocarcinoma Monitor kidney function as well Discussed the plan with the patient 02/23 Patient still not eating much No much abdominal pain Has not bowel movement through the ileostomy 02/24 Patient feels the same, he is little bit He has little abdominal pain He has limited bowel movement through the ileostomy bag He is mildly tachycardic He has persistent leukocytosis about 14.9 and hemoglobin stable at 9.3 He remains on broad-spectrum antibiotics with IV vancomycin and Zosyn and Flagyl Colonic biopsy: Invasive moderately differentiated colonic adenocarcinoma arising within right colon 02/25 Patient improving slowly and gradually Still has abdominal pain and tenderness. Still is little bit He is spiking low-grade fever He is on Zosyn. IV vancomycin and Flagyl were held after initial treatment for several days and weeks We will check MRSA screen, also we will monitor if keep spiking fever may consider adding further antibiotic Objective - Vital Signs Vital signs: Vital Signs Temp 99.4 F 02/25/25 09:00 Pulse 112 H 02/25/25 09:00 Resp 18 02/25/25 09:00 BP 141/78 02/25/25 09:00 Pulse Ox 98 02/25/25 09:00 FiO2 40 02/14/25 12:00 Intake & Output 02/24/25 02/25/25 02/25/25 18:59 06:59 18:59 Intake Total 480 240 Output Total 1350 275 400 Balance -870 -275 -160 Weight 71 kg 71 kg Intake: Oral 480 240 Output: Urine 850 275 400 Stool 500 Other: Voiding Method Urinal Urinal ABP, PAP, CO, CI - Last Documented Arterial Blood Pressure 108/62 - Exam -GENERAL: The patient is alert and oriented x3, not in any acute distress. Well developed, well nourished. Generally weak HEENT: Pupils are round and equally reacting to light. EOMI. No scleral icterus. No conjunctival pallor. Normocephalic, atraumatic. No pharyngeal erythema. No thyromegaly. CARDIOVASCULAR: S1 and S2 present. No murmurs, rubs, or gallops. PULMONARY: Chest is clear to auscultation, no wheezing , no crackles. -ABDOMEN: Soft, nontender, nondistended, normoactive bowel sounds. No palpable organomegaly. Midline surgical incision in place with right lower quadrant c olostomy in MUSCULOSKELETAL: No joint swelling or deformity. EXTREMITIES: No cyanosis, clubbing, or pedal edema. NEUROLOGICAL: Gross neurological examination did not reveal any focal deficits. SKIN: No rashes. no petechiae. - Labs CBC & Chem 7: 02/25/25 09:15 02/22/25 06:07 Labs: Abnormal Lab Results - Last 24 Hours (Table) 06/27/25 06/28/25 Range/Units 14:29 09:15 WBC 14.93 H 13.66 H (4.50-10.00) 10*3/uL RBC 3.56 L 3.59 L (4.40-5.60) 10*6/uL Hgb 9.3 L 9.2 L (13.0-17.0) g/dL Hct 27.7 L 28.2 L (39.6-50.0) % MCV 77.8 L 78.6 L (80.0-97.0) fL MCH 26.1 L 25.6 L (27.0-32.0) pg Plt Count 923 H 962 H (140-440) 10*3/uL MPV 8.8 L 8.8 L (9.5-12.2) fL Immature Gran # 0.11 H 0.09 H (0.00-0.04) 10*3/uL Neutrophils # 10.81 H 9.84 H (1.80-7.70) 10*3/uL Monocytes # 2.26 H 1.92 H (0.20-1.00) 10*3/uL Assessment and Plan Assessment: Colonic mass with perforation, pneumoperitoneum, intra-abdominal abscess. Status post exploratory laparotomy with drainage of abscess, right colectomy, end ileostomy, and partial omentectomy. Pathology pending, cultures revealed Streptococcus anginosus, beta-hemolytic strep group C --Patient remains on IV Zosyn, while vancomycin and Flagyl were discontinued per pharmacy team recommendation as pt was on day 13 of iv vancomycin and unarobic mo can be covered by zosyn alreayd , we will keep monitor , if worsening infection or fever , we will consider resuming them again Colonic mass with concerns for metastatic disease with enlargement of mesenteric lymph nodes, also, indeterminate but probable metastatic disease to the liver - Colon biopsy Invasive moderately differentiated colonic adenocarcinoma, patient is aware Postoperative ventilator management, extubated and on 2 liters nasal cannula; currently saturating above 92% on 2 L; plan to titrate or wean as able - Patient has been placed on a diet with plans to advance as tolerated Combined respiratory and metabolic acidosis Acute blood loss anemia, status post 2 units PRBCs Hypokalemia, replace per protocol; will monitor electrolytes closely Hypocalcemia, replaced History of alcohol abuse DVT prophylaxis; CDs/Lovenox CODE STATUS; full code
--- NOTE | 2025-02-26 12:37 | P.PN ---
Subjective Progress Note Date: 02/26/25 Principal diagnosis: Perforated colon cancer Patient was seen while he was taking a shower today. In the shower patient was feeling weak and short of breath. He was taken out of the shower. Was tachycardic. Blood pressure was stable. He was hypoxic in the 80s at that time. He was placed on nasal cannula 4 L and pulse ox came up to 96%. Awaiting morning labs. Says his abdominal discomfort is actually better today. Hemoglobin yesterday 9.2. Prior to this morning's episode continue to have intermittent mild tachycardia episodes. CAT scan was reviewed with radiology yesterday. The patient has a large fluid collection in the left upper quadrant. This appears to be a subcapsular splenic fluid collection. Etiology unclear. Patient's hemoglobin has been relatively stable during his hospital stay. His hemoglobin appeared to be 7.8 on admission. Was given 2 units when he came into the hospital initially with the hemoglobin going up into the 10 range. Now down in the nines. Does say he has left-sided back pain and left abdominal pain today. Says this has been going on all along. Objective - Vital Signs Vital signs: Vital Signs Temp 99.1 F 02/26/25 12:14 Pulse 119 H 02/26/25 12:14 Resp 22 02/26/25 12:14 BP 130/94 02/26/25 12:14 Pulse Ox 96 02/26/25 12:14 FiO2 21 02/26/25 11:09 Intake & Output 02/25/25 02/26/25 02/26/25 18:59 06:59 18:59 Intake Total 240 236 Output Total 1500 800 450 Balance -1260 -800 -214 Weight 53.5 kg Intake: Oral 240 236 Output: Urine 700 400 450 Stool 800 400 Other: Voiding Method Urinal Urinal Urinal ABP, PAP, CO, CI - Last Documented Arterial Blood Pressure 108/62 - Exam Abdomen: Soft, mild diffuse tenderness slightly more on the left side of his abdomen, no rebound or guarding, incision clean and dry, ostomy functioning - Labs CBC & Chem 7: 02/25/25 09:15 02/22/25 06:07 Assessment and Plan (1) Perforated bowel Narrative/Plan: 59-year-old male status post right colectomy for perforated colon cancer. CAT scan findings reviewed with patient. Etiology unclear. Operative management reviewed with the patient. He and I have decided to continue with close observation for now. Await morning repeat labs. Continue diet. Current Visit: Yes Status: Acute Priority: High Code(s): K63.1 - PERFORATION OF INTESTINE (NONTRAUMATIC) SNOMED Code(s): 40658903
[2025-02-26 12:59] LABS: HCT 29.4 % (39.6-50.0); HGB 9.9 g/dL (13.0-17.0); MCH 26.3 pg (27.0-32.0); MCHC 33.7 g/dL (32.0-37.0); MCV 78.2 fL (80.0-97.0); RBC 3.76 10*6/uL (4.40-5.60); RDW 18.3 % (11.5-14.5); WBC 13.98 10*3/uL (4.50-10.00)
[2025-02-26 13:42] LABS: Platelet Count 1027 10*3/uL (140-440)
--- NOTE | 2025-02-26 21:33 | P.PN ---
Subjective Progress Note Date: 02/26/25 Patient is a 59-year-old male with past medical history significant for alcohol abuse, and prior abdominal surgery for hernia repair in 2018. Presented emergency department yesterday evening complaining of abdominal pain. [place] something had popped in his right sided abdomen. Workup at the emergency de partment including an abdominal/pelvis CT remarkable for an hepatic flexure colonic mass with perforation resulting in pneumoperitoneum and an abscess formation along the right lateral abdomen. Concerns for metastatic disease to the mesentery with multiple lymph nodes present. Also, indeterminate but probable liver metastatic disease versus abscess noted. Reactive enteritis/colitis secondary to perforation and intra-abdominal leak feces contents. Patient was then taken to the operating room for exploratory laparotomy. Patient was noted to have a large abscess within the right colon which was drained. The colon mass was dissected off of the duodenum and sent to pathology. There was obvious concerns for enlarged lymphadenopathy within the mesentery. Underwent right colectomy with ileostomy and partial omentectomy. Following the procedure, patient was transferred to the intensive care unit in critical condition. He remains intubated to the mechanical ventilator. Postoperative chest x-rays the endotracheal tube in appropriate positioning above the nehemias. Nasogastric tube coursing below the diaphragm. No focal opacities, pleural effusions, pneumothoraces, or otherwise acute cardiopulmonary process. Current ventilator settings: AC, respiratory rate 24, tidal volume 450, FiO2 100% PEEP of 5. Postoperative ABG consistent with combined metabolic and respiratory acidosis with a PaO2 of 420, pCO2 46, pH of 7.24. Patient is currently synchronous with current settings and sedated on propofol at 40 mcg/kg/min. Normal saline also infusing at 130 mL/h. He is tachycardic and borderline hypotensive with a blood pressure of 93/72 mmHg, heart rate is 120 bpm. Did previously receive 2.4 L crystalloid fluid bolus. Also, received 2 units PRBCs perioperatively. Mottled appearance to the lower extremities. Previously, noted to be febrile. Patient was empirically covered on a combination of Zosyn and vancomycin for abdominal sepsis. He does have a midline abdominal incision with postoperative dressing clean and intact. There is a right-sided abdominal ileostomy which is pink and beefy red. No significant output. Postoperative labs including a CBC with a WBC count of 8.5, hemoglobin 7.8 g/dL, platelets 571. Postoperative CMP including a sodium 130, potassium 3.4, chloride 94, serum bicarb 24, BUN 17, creatinine 0.97, glucose 88. Lactic 1.4. LFTs unremarkable. Lipase 46. Patient's next of kin is his brother. States he does not have very much known medical history as he does not follow routinely with a doctor. He is reportedly a heavy alcohol drinker. 02/14/25 - He is seen and evaluated in the ICU, room 259. He is on the mechanical ventilator, volume assist control , rate of 24, tidal volume of 450, FiO2 40% and PEEP of 5. Blood gases this morning show pO2 of 94, pCO2 of 25, pH of 7.45. He continues to be on Propofol at 35 mcg/kg/min, Zosyn and Vancomycin. Current labs include WBCs 23.42, Hgb 10.5, Hct 30.9, PLT 439, Na 137, K 3.3, BUN 29, Cr 1.52, Ca 6.6. Blood cultures continue to be pending at this time. Chest X-ray from this morning shows possible right layering pleural effusion. The patient is seen today February 15, 2025 selective care unit. He was transferred out of the intensive care unit yesterday. He is currently resting in bed. Awake and alert in no acute distress. Maintaining O2 saturations in the 90s on 2 L/min per nasal cannula. He has normal saline at 10 mL/h. Colon mass pathology pending. He is status post 2 units of packed red blood cells this admission. Current hemoglobin 10.6. Platelets 403. White count 18.9. Sodium 133. Potassium 3.7. Bicarb 27. BUN 25. Creatinine 1.08. Glucose 79. Blood culture revealed no growth. Wound culture revealed Streptococcus anginosus, beta-hemolytic strep group C. He remains on Zosyn and vancomycin along with Flagyl. Lovenox for DVT prophylaxis. Continued on bronchodilators. The patient is seen today February 16, 2025 in follow-up on the selective care unit. He is currently resting in bed. Awake and alert in no acute distress. Maintaining O2 saturations in the 90s on 2 L/min per nasal cannula. Has been afebrile. Hemodynamically stable. Chest x-ray shows improved aeration of the lungs bilaterally. Some right basilar atelectasis. Colonic abscess was positive for Streptococcus anginosus, beta-hemolytic strep group C. White count 16.2. Hemoglobin 10.8. Platelets 398. Sodium 132. Potassium 3.8. Bicarb 26. BUN 19. Creatinine 0.89. Glucose 85. He remains on Flagyl, vancomycin and Zosyn. Lovenox for DVT prophylaxis. Remains on bronchodilators. Encouraged regarding the increased use of the incentive spirometer. Tolerating a clear liq uid diet. The patient is seen today February 17, 2025 in follow-up on the selective care unit. He is currently sitting up in bed. Awake and alert in no acute distress. He denies any worsening shortness of breath, cough or congestion. He does have some ongoing surgical site pain of the abdomen. He is maintaining good O2 saturations in the upper 90s on 2 L/min per nasal cannula. He is afebrile. Hemodynamically stable. He is status post 2 units of packed red blood cells this admission. Today's hemoglobin is 11.4. Platelets 381. White count 11.7. Sodium 132. Potassium 4.1. Bicarb 21. BUN 17. Creatinine 0.79. He remains on DuoNeb inhalations. Lovenox for DVT prophylaxis. Antibiotics in the form of vancomycin and Zosyn along with Flagyl. Diet advanced per surgical services. On 02/20/2025, the patient is being seen for a follow-up. The patient is recovering from a colonic surgery. The patient had a colonic mass with secondary perforation and pneumoperitoneum and intra-abdominal abscess formation. The patient is postop day #5 following expected laparotomy and drainage of the abscess and right colectomy. He also had end ileostomy. Ileostomy is functional at this point in time. Cultures from the abdomen is showing strep and beta-hemolytic strep group C and anaerobes. Based on that, the patient is currently on a combination of Zosyn and Flagyl. The patient is also on IV vancomycin. ID is on the case. Final pathology from the intra- abdominal surgical sample is not ready yet. Meanwhile, the patient is comfortable. Using incentive spirometer. Is currently on 2 L of oxygen by nasal cannula. WBC count is at 10.7 with a hemoglobin 10.3 and a platelet count of 376. BUN 7 with a creatinine of 0.59 and sodium levels at 131. The patient is on Dilaudid for pain control. He is ambulating. Using incentive spirometer. Remains on IV Protonix. Gradually trying to advance his diet as tolerated. Surgical site is dry clean and intact. On 02/21/2025, patient is being seen for a follow-up. Doing well. Currently on 2 L of oxygen nasal cannula, the patient is postop day #6 following an expiratory laparotomy, right colectomy end ileostomy and partial omentectomy. Ostomy is functional. Afebrile. 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 The patient will need an oncology evaluation at a later stage. Meanwhile, he still recovering from his surgery. He remains on IV Zosyn and vancomycin and Flagyl. Remains on Lovenox for DVT prophylaxis. Tolerating diet. WBC has at 10.7 with a hemoglobin 10.3 and a platelet count 376. Creatinine stable at 0.9. 02/22/2025, the patient is being seen for a follow-up. The patient is currently on room air oxygen. Resting comfortably in bed. The patient is postop day #7. He has undergone exploratory laparotomy, right colectomy and end ileostomy and partial omentectomy. He does have underlying colonic adenocarcinoma. His ostomy is functional. Surgical wound site is dry clean and intact. The white cell count is at 15.2 with a hemoglobin of 9.7 and a platelet count of 721. Normal electrolytes. BUN is at 7 with a creatinine of 1.1. The patient remains on Lovenox for DVT prophylaxis. He remains on Zosyn, Flagyl and vancomycin. The abdominal cultures are polymicrobial including anaerobes, strep and ID is on the case. Afebrile. Hemodynamically stable. A bit depressed due to his underlying condition. Doing limited amount of activity. Adequate pain management. Will need to increase his level of activity. Using incentive spirometer. On 02/23/2025, the patient is being seen for a follow-up. The patient is stable on room air oxygen. Tolerating diet. Hemodynamically stable. Ostomy is functional. Currently on 2 L of oxygen by nasal cannula. No signs of a respiratory distress. White cell count is 14.5 with a hemoglobin of 0.4 and platelet count of 789. BUN is at 7 with a creatinine of 1.1. Sodium levels at 136. The patient is postop day #11 following exposure laparotomy and drainage of an abscess in addition to right colectomy and diverting ileostomy and partial omentectomy. No nausea. No vomiting. No other complaints otherwise. Final pathology was consistent with colonic adenocarcinoma. The patient will be seen by oncology. Meanwhile, the patient remains on IV Zosyn. Remains on Lovenox for DVT prophylaxis. Using the incentive spirometer. Surgical wound site is dry clean and intact. On 02/24/2025, the patient remains on room air oxygen. Ostomy is functional. The patient is postop day #12. Tolerating diet. Ambulating. Surgical wound site is dry clean and intact. No nausea or vomiting. Afebrile. Blood work shows a white cell count of 14 with a hemoglobin of 0.3 and a platelet count of 923 and all of those labs are stable. The patient remains on IV Zosyn. Lovenox for DVT prophylaxis. Dilaudid for pain control. Ambulating. AR on 02/25/2025, no new complaints. The patient remains clinically stable. Having some crampy abdominal pain. Tmax is 100.2. The ventricles are 13.6. Normal ostomy output. Room air oxygen. No new complaints. The patient remains on IV Zosyn. Based on those complaints, the patient was seen by general surgery and a CAT scan of the abdomen and pelvis was obtained and the CAT scan showed a new left upper lobe quadrant fluid collection that may be a subcapsular hemorrhage involving the spleen. Further evaluation of the spleen and abdomen is recommended with IV contrast. Postsurgical changes is seen throughout the abdomen. Prior hepatic flexure mass is no longer visualized. Lymphadenopathy is not visualized. Colostomy is present. Right hepatic dome lesion possibly a necrotic mass versus an abscess remains present. There is also moderate bilate ral pleural effusion anasarca and volume overload and a large hydrocele. The hemoglobin is at 9.2. Platelet count is at 962. 02/26/2025, the patient continues to have functional ileostomy. Some vague abdominal pain is present. CAT scan of the abdomen and pelvis from yesterday was noted. The patient has small bilateral pleural effusions. The patient has postsurgical changes in the subcapsular hematoma involving the spleen. There is a necrotic mass also in the right hepatic lobe, metastases versus an abscess. There is diffuse anasarca and a hydrocele. Oral intake is quite diminished. It is improving. The patient is quite discouraged and progressively getting more debilitated. The white cell count of 13.9. Hemoglobin 9.9 and platelet count is 1027. Antibiotic coverage with IV Zosyn. No significant respiratory distress. No chest pain. General surgery is on the case. Blood pressure is stable. Hemoglobin from yesterday is at 9.2 and today is at 9.9. General surgery remains on the case. The patient is postop day #14. Objective - Vital Signs Vital signs: Vital Signs Temp 99.1 F 02/26/25 12:14 Pulse 119 H 02/26/25 12:14 Resp 22 02/26/25 12:14 BP 130/94 02/26/25 12:14 Pulse Ox 96 02/26/25 12:14 FiO2 21 02/26/25 11:09 Intake & Output 02/25/25 02/26/25 02/26/25 18:59 06:59 18:59 Intake Total 240 236 Output Total 1500 800 450 Balance -1260 -800 -214 Weight 53.5 kg Intake: Oral 240 236 Output: Urine 700 400 450 Stool 800 400 Other: Voiding Method Urinal Urinal Urinal ABP, PAP, CO, CI - Last Documented Arterial Blood Pressure 108/62 - Exam General: Awake, 59-year-old male, sitting up in bed, on 4 L of oxygen nasal cannula Derm: Warm, dry, intact Head: Atraumatic, normocephalic, symmetric Eyes: EOMI, anicteric sclera NOSE: Clear with pink turbinates. Mouth: No lip lesion, mucus membranes moist Cardiovascular: S1 S2 reg, no murmur, rubs, or gallops; distant heart sounds. Lungs: CTA bilateral, no rales, no accessory muscle use, there is diminished breath sounds lung base bilaterally consistent with pleural effusion ABDOMEN: Midline abdominal incision with postoperative dressing clean and intact. Right ileostomy noted, stoma appears pink/beefy red. Positive output. Abdomen is soft. Extremities: No cyanosis or edema present. Right brachial arterial line noted. Neuro: Cannot be assessed at this time. Psych: Well appearing, appropriate affect - Labs CBC & Chem 7: 02/26/25 12:39 02/22/25 06:07 Assessment and Plan Plan: Colonic mass with perforation, pneumoperitoneum, intra-abdominal abscess. Status postoperative day # 14 following exploratory laparotomy with drainage of abscess, right colectomy, end ileostomy, and partial omentectomy. Pathology is consistent with colonic adenocarcinoma, cultures revealed Streptococcus anginosus, beta-hemolytic strep group C. Patient also has anaerobes. Ileostomy is functional. The patient remains on IV Zosyn. Crampy abdominal pain. Follow-up CAT scan of the abdomen and pelvis on 02/25/2025 shows new left upper lobe quadrant fluid collection that may be a subcapsular hemorrhage involving the spleen. Further evaluation of the spleen and abdomen is recommended with IV contrast. Postsurgical changes is seen throughout the abdomen. Prior hepatic flexure mass is no longer visualized. Lymphadenopathy is not visualized. Colostomy is present. Right hepatic dome lesion possibly a necrotic mass versus an abscess remains present. Colonic adenocarcinoma Small bilateral pleural effusion Acute hypoxic respiratory failure, currently on 4 L of oxygen by nasal cannula Diffuse anasarca Hydrocele Acute hypoxic respiratory failure following abdominal surgery, possibly related to some atelectatic changes in lung bases. This has recovered and the patient is currently on room air oxygen, using the incentive spirometer. Abdominal sepsis, polymicrobial secondary to above. The patient has strep and anaerobes and the patient is currently on IV Zosyn Acute blood loss anemia, status post 2 units PRBCs, hemoglobin stable History of alcohol abuse Plan: Clinically stable on 4 L of O2 nasal cannula Pleural effusions related to hypoproteinemia and generalized anasarca. No need for thoracentesis. Follow-up CAT scan of the abdomen and pelvis was noted, general surgery on the case. Will monitor. Aggressive pulmonary toileting and incentive spirometer and increased level of activity as tolerated Ostomy functioning Advance diet as tolerated Continued on DuoNeb inhalations Lovenox for DVT prophylaxis Continue IV Zosyn Abdominal cultures are polymicrobial as expected Pathology is consistent with colonic adenocarcinoma with positive lymph nodes Oncology consultation is appreciated Increase his activity as tolerated Advance diet as tolerated Increase mobility as tolerated and will continue to follow.
--- NOTE | 2025-02-27 07:08 | P.PN ---
Subjective 59-year-old male with past medical history significant for alcohol abuse, and prior abdominal surgery for hernia repair in 2018. Presented emergency department yesterday evening complaining of abdominal pain. [place] something had popped in his right sided abdomen. Workup at the emergency department including an abdominal/pelvis CT remarkable for an hepatic flexure colonic mass with perforation resulting in pneumoperitoneum and an abscess formation along the right lateral abdomen. Concerns for metastatic disease to the mesentery with multiple lymph nodes present. Also, indeterminate but probable liver metastatic disease versus abscess noted. Reactive enteritis/colitis secondary to perforation and intra-abdominal leak feces contents. Patient was then taken to the operating room for exploratory laparotomy. Patient was noted to have a large abscess within the right colon which was drained. The colon mass was dissected off of the duodenum and sent to pathology. There was obvious concerns for enlarged lymphadenopathy within the mesentery. Underwent right colectomy with ileostomy and partial omentectomy. Following the procedure, patient was transferred to the intensive care unit in critical condition. He remains intubated to the mechanical ventilator. Postoperative chest x-rays the endotracheal tube in appropriate positioning above the nehemias. Nasogastric tube coursing below the diaphragm. No focal opacities, pleural effusions, pneumothoraces, or otherwise acute cardiopulmonary process. Current ventilator settings: AC, respiratory rate 24, tidal volume 450, FiO2 100% PEEP of 5. Postoperative ABG consistent with combined metabolic and respiratory acidosis with a PaO2 of 420, pCO2 46, pH of 7.24. Patient is currently synchronous with current settings and sedated on propofol at 40 mcg/kg/min. Normal saline also infusing at 130 mL/h. He is tachycardic and borderline hypotensive with a blood pressure of 93/72 mmHg, heart rate is 120 bpm. Did previously receive 2.4 L crystalloid fluid bolus. Also, received 2 units PRBCs perioperatively. Mottled appearance to the lower extremities. Previously, noted to be febrile. Patient was empirically covered on a combination of Zosyn and vancomycin for abdominal sepsis. He does have a midline abdominal incision with postoperative dressing clean and intact. There is a right-sided abdominal ileostomy which is pink and beefy red. No significant output. Postoperative labs including a CBC with a WBC count of 8.5, hemoglobin 7.8 g/dL, platelets 571. 02/18/2025 Patient is seen and evaluated resting comfortably in bed; has been transferred out of ICU Vital signs are reviewed and stable with temperature of 97.7, pulse 90, respiration 18 and blood pressure 158/97, O2 saturation 95% Lab review shows WBC 9.39, hemoglobin of 11.2, sodium 131, potassium 3.8, BUN/creatinine of 10/0.68 -Patient is status post right colectomy with ileostomy on 02/13/2025; surgery on board; patient is maintaining oral intake - Continue with IV antibiotics in form of Zosyn and Flagyl 02/19/2025 Patient seen and evaluated and discussed with nursing staff; continue to ask for IV Dilaudid every 3 hours; remains on [place] Vital signs are reviewed temperature 98.1, pulse 85, respiration 20 and blood pressure 154/83 Blood work reveals WBC of 10.7, hemoglobin of 10.3, sodium 131, potassium 3.9, BUN/creatinine 7/0.59 Patient is status post colectomy for perforated colonic neoplasm on 02/14/2024 -General Surgery on board; patient continues to make improvement; possible discharge in next -02/20 Patient is little bit, he got full quickly. No vomiting Abdominal pain but is not down. Colostomy is working and he had 3-4 bowel movements yesterday No other new complaint 02/21 Patient states he feels the same, he is fully awake and oriented sitting up in bed. No vomiting. He still is little bit Abdominal pain is mild to moderate and controlled. He is having bowel movement through his ileostomy He has 1+ bilateral pitting leg edema He remains on broad-spectrum antibiotics with IV vancomycin and Zosyn and Flagyl 02/22 Patient is not eating much Abdominal wound healing Hemodynamically stable WBC is up to 15.2. Hemoglobin 9.7. Sodium 136 creatinine 1.1 IV vancomycin dosed per pharmacy been adjusted. Trough is therapeutic at 20.5 yesterday. Remains on IV vancomycin and Zosyn and Flagyl Colon biopsy Invasive moderately differentiated colonic adenocarcinoma Monitor kidney function as well Discussed the plan with the patient 02/23 Patient still not eating much No much abdominal pain Has not bowel movement through the ileostomy 02/24 Patient feels the same, he is little bit He has little abdominal pain He has limited bowel movement through the ileostomy bag He is mildly tachycardic He has persistent leukocytosis about 14.9 and hemoglobin stable at 9.3 He remains on broad-spectrum antibiotics with IV vancomycin and Zosyn and Flagyl Colonic biopsy: Invasive moderately differentiated colonic adenocarcinoma arising within right colon 02/25 Patient improving slowly and gradually Still has abdominal pain and tenderness. Still is little bit He is spiking low-grade fever He is on Zosyn. IV vancomycin and Flagyl were held after initial treatment for several days and weeks We will check MRSA screen, also we will monitor if keep spiking fever may consider adding further antibiotic 02/26 Continue patient clinically looks the same Awake alert pt Is little with some tenderness mainly in the left side No more fever Remains on Zosyn Objective - Vital Signs Vital signs: Vital Signs Temp 99.0 F 02/26/25 08:16 Pulse 110 H 02/26/25 08:16 Resp 16 02/26/25 08:16 BP 155/105 02/26/25 08:16 Pulse Ox 96 02/26/25 08:16 FiO2 40 02/14/25 12:00 Intake & Output 02/25/25 02/26/25 02/26/25 18:59 06:59 18:59 Intake Total 240 236 Output Total 1500 800 Balance -1260 -800 236 Weight 53.5 kg Intake: Oral 240 236 Output: Urine 700 400 Stool 800 400 Other: Voiding Method Urinal Urinal ABP, PAP, CO, CI - Last Documented Arterial Blood Pressure 108/62 - Exam -GENERAL: The patient is alert and oriented x3, not in any acute distress. Well developed, well nourished. Generally weak HEENT: Pupils are round and equally reacting to light. EOMI. No scleral icterus. No conjunctival pallor. Normocephalic, atraumatic. No pharyngeal erythema. No thyromegaly. CARDIOVASCULAR: S1 and S2 present. No murmurs, rubs, or gallops. PULMONARY: Chest is clear to auscultation, no wheezing , no crackles. -ABDOMEN: Soft, nontender, nondistended, normoactive bowel sounds. No palpable organomegaly. Midline surgical incision in place with right lower quadrant colostomy in MUSCULOSKELETAL: No joint swelling or deformity. EXTREMITIES: No cyanosis, clubbing, or pedal edema. NEUROLOGICAL: Gross neurological examination did not reveal any focal deficits. SKIN: No rashes. no petechiae. - Labs CBC & Chem 7: 02/26/25 12:39 02/22/25 06:07 Assessment and Plan Assessment: Colonic mass with perforation, pneumoperitoneum, intra-abdominal abscess. Status post exploratory laparotomy with drainage of abscess, right colectomy, end il eostomy, and partial omentectomy. Pathology pending, cultures revealed Streptococcus anginosus, beta-hemolytic strep group C --Patient remains on IV Zosyn, while vancomycin and Flagyl were discontinued per pharmacy team recommendation as pt was on day 13 of iv vancomycin and unarobic mo can be covered by zosyn alreayd , we will keep monitor , if worsening infection or fever , we will consider resuming them again Colonic mass with concerns for metastatic disease with enlargement of mesenteric lymph nodes, also, indeterminate but probable metastatic disease to the liver - Colon biopsy Invasive moderately differentiated colonic adenocarcinoma, patient is aware Postoperative ventilator management, extubated and on 2 liters nasal cannula; currently saturating above 92% on 2 L; plan to titrate or wean as able - Patient has been placed on a diet with plans to advance as tolerated Combined respiratory and metabolic acidosis Acute blood loss anemia, status post 2 units PRBCs Hypokalemia, replace per protocol; will monitor electrolytes closely Hypocalcemia, replaced History of alcohol abuse DVT prophylaxis; CDs/Lovenox CODE STATUS; full code
--- NOTE | 2025-02-27 17:12 | P.PN ---
Subjective Progress Note Date: 02/27/25 Patient is a 59-year-old male with past medical history significant for alcohol abuse, and prior abdominal surgery for hernia repair in 2018. Presented emergency department yesterday evening complaining of abdominal pain. [place] something had popped in his right sided abdomen. Workup at the emergency depa rtment including an abdominal/pelvis CT remarkable for an hepatic flexure colonic mass with perforation resulting in pneumoperitoneum and an abscess formation along the right lateral abdomen. Concerns for metastatic disease to the mesentery with multiple lymph nodes present. Also, indeterminate but probable liver metastatic disease versus abscess noted. Reactive enteritis/colitis secondary to perforation and intra-abdominal leak feces contents. Patient was then taken to the operating room for exploratory laparotomy. Patient was noted to have a large abscess within the right colon which was drained. The colon mass was dissected off of the duodenum and sent to pathology. There was obvious concerns for enlarged lymphadenopathy within the mesentery. Underwent right colectomy with ileostomy and partial omentectomy. Following the procedure, patient was transferred to the intensive care unit in critical condition. He remains intubated to the mechanical ventilator. Postoperative chest x-rays the endotracheal tube in appropriate positioning above the nehemias. Nasogastric tube coursing below the diaphragm. No focal opacities, pleural effusions, pneumothoraces, or otherwise acute cardiopulmonary process. Current ventilator settings: AC, respiratory rate 24, tidal volume 450, FiO2 100% PEEP of 5. Postoperative ABG consistent with combined metabolic and respiratory acidosis with a PaO2 of 420, pCO2 46, pH of 7.24. Patient is currently synchronous with current settings and sedated on propofol at 40 mcg/kg/min. Normal saline also infusing at 130 mL/h. He is tachycardic and borderline hypotensive with a blood pressure of 93/72 mmHg, heart rate is 120 bpm. Did previously receive 2.4 L crystalloid fluid bolus. Also, received 2 units PRBCs perioperatively. Mottled appearance to the lower extremities. Previously, noted to be febrile. Patient was empirically covered on a combination of Zosyn and vancomycin for abdominal sepsis. He does have a midline abdominal incision with postoperative dressing clean and intact. There is a right-sided abdominal ileostomy which is pink and beefy red. No significant output. Postoperative labs including a CBC with a WBC count of 8.5, hemoglobin 7.8 g/dL, platelets 571. Postoperative CMP including a sodium 130, potassium 3.4, chloride 94, serum bicarb 24, BUN 17, creatinine 0.97, glucose 88. Lactic 1.4. LFTs unremarkable. Lipase 46. Patient's next of kin is his brother. States he does not have very much known medical history as he does not follow routinely with a doctor. He is reportedly a heavy alcohol drinker. 02/14/25 - He is seen and evaluated in the ICU, room 259. He is on the mechanical ventilator, volume assist control , rate of 24, tidal volume of 450, FiO2 40% and PEEP of 5. Blood gases this morning show pO2 of 94, pCO2 of 25, pH of 7.45. He continues to be on Propofol at 35 mcg/kg/min, Zosyn and Vancomycin. Current labs include WBCs 23.42, Hgb 10.5, Hct 30.9, PLT 439, Na 137, K 3.3, BUN 29, Cr 1.52, Ca 6.6. Blood cultures continue to be pending at this time. Chest X-ray from this morning shows possible right layering pleural effusion. The patient is seen today February 15, 2025 selective care unit. He was transferred out of the intensive care unit yesterday. He is currently resting in bed. Awake and alert in no acute distress. Maintaining O2 saturations in the 90s on 2 L/min per nasal cannula. He has normal saline at 10 mL/h. Colon mass pathology pending. He is status post 2 units of packed red blood cells this admission. Current hemoglobin 10.6. Platelets 403. White count 18.9. Sodium 133. Potassium 3.7. Bicarb 27. BUN 25. Creatinine 1.08. Glucose 79. Blood culture revealed no growth. Wound culture revealed Streptococcus anginosus, beta-hemolytic strep group C. He remains on Zosyn and vancomycin along with Flagyl. Lovenox for DVT prophylaxis. Continued on bronchodilators. The patient is seen today February 16, 2025 in follow-up on the selective care unit. He is currently resting in bed. Awake and alert in no acute distress. Maintaining O2 saturations in the 90s on 2 L/min per nasal cannula. Has been afebrile. Hemodynamically stable. Chest x-ray shows improved aeration of the lungs bilaterally. Some right basilar atelectasis. Colonic abscess was positive for Streptococcus anginosus, beta-hemolytic strep group C. White count 16.2. Hemoglobin 10.8. Platelets 398. Sodium 132. Potassium 3.8. Bicarb 26. BUN 19. Creatinine 0.89. Glucose 85. He remains on Flagyl, vancomycin and Zosyn. Lovenox for DVT prophylaxis. Remains on bronchodilators. Encouraged regarding the increased use of the incentive spirometer. Tolerating a clear liquid diet. The patient is seen today February 17, 2025 in follow-up on the selective care unit. He is currently sitting up in bed. Awake and alert in no acute distress. He denies any worsening shortness of breath, cough or congestion. He does have some ongoing surgical site pain of the abdomen. He is maintaining good O2 saturations in the upper 90s on 2 L/min per nasal cannula. He is afebrile. He modynamically stable. He is status post 2 units of packed red blood cells this admission. Today's hemoglobin is 11.4. Platelets 381. White count 11.7. Sodium 132. Potassium 4.1. Bicarb 21. BUN 17. Creatinine 0.79. He remains on DuoNeb inhalations. Lovenox for DVT prophylaxis. Antibiotics in the form of vancomycin and Zosyn along with Flagyl. Diet advanced per surgical services. The patient is seen today February 27, 2025 in follow-up on the selective care unit. He is awake and alert in no acute distress. Currently sitting up in bed. Maintaining good O2 saturations up to 100% on 2 L/min per nasal cannula. He is afebrile. Hemodynamically stable. He is status post 2 units of packed red blood cells this admission. White count 13.9. Hemoglobin 9.9. Platelets 1027. He is currently on Zosyn. He was having ongoing issues with abdominal pain. CT scan of the abdomen revealed a new left upper quadrant fluid collection which might be subscapular hemorrhage involving the spleen. Postsurgical changes from 02/12/2025 CT. Reduction in gas seen throughout the abdomen. Prior hepatic flexure mass no longer visualized. Lymphadenopathy not visualized. Colostomy present. Postsurgical changes anterior abdominal wall. Objective - Vital Signs Vital signs: Vital Signs Temp 99 F 02/27/25 11:45 Pulse 104 H 02/27/25 11:45 Resp 16 02/27/25 11:45 BP 130/82 02/27/25 11:45 Pulse Ox 100 02/27/25 11:45 FiO2 21 02/26/25 11:09 Intake & Output 02/26/25 02/27/25 02/27/25 18:59 06:59 18:59 Intake Total 698 236 Output Total 800 750 Balance -102 -514 Weight 69 kg 69 kg Intake: Oral 698 236 Output: Urine 650 750 Stool 150 Other: Voiding Method Urinal Urinal Urinal ABP, PAP, CO, CI - Last Documented Arterial Blood Pressure 108/62 - Exam General: Awake, 59-year-old male, sitting up in bed, on 2 L nasal cannula, in no distress. Derm: Warm, dry, intact Head: Atraumatic, normocephalic, symmetric Eyes: EOMI, anicteric sclera NOSE: Clear with pink turbinates. Mouth: No lip lesion, mucus membranes moist Cardiovascular: S1 S2 reg, no murmur, rubs, or gallops; distant heart sounds. Lungs: CTA bilateral, no rales, no accessory muscle use ABDOMEN: Midline abdominal incision with postoperative dressing clean and intact. Right ileostomy noted, stoma appears pink/beefy red. Positive output. Abdomen is soft. Extremities: No cyanosis or edema present. Right brachial arterial line noted. Neuro: Cannot be assessed at this time. Psych: Well appearing, appropriate affect - Labs CBC & Chem 7: 02/26/25 12:39 02/22/25 06:07 Labs: Microbiology - Last 24 Hours (Table) 02/25/25 16:40 Nasal Screen MRSA/MSSA - Final Nasal Swab Assessment and Plan Assessment: Colonic mass with perforation, pneumoperitoneum, intra-abdominal abscess. On February 12, 2025 received a exploratory laparotomy with drainage of abscess, right colectomy, end ileostomy, and partial omentectomy. Pathology pending, cultures revealed Streptococcus anginosus, beta-hemolytic strep group C Crampy abdominal pain. Follow-up CAT scan of the abdomen and pelvis on 02/25/2025 shows new left upper lobe quadrant fluid collection that may be a subcapsular hemorrhage involving the spleen. Further evaluation of the spleen and abdomen is recommended with IV contrast. Postsurgical changes is seen throughout the abdomen. Prior hepatic flexure mass is no longer visualized. Lymphadenopathy is not visualized. Colostomy is present. Right hepatic dome lesion possibly a necrotic mass versus an abscess remains present Colonic adenocarcinoma Postoperative ventilator management, extubated and on 2 liters nasal cannula Abdominal sepsis Combined respiratory and metabolic acidosis Acute blood loss anemia, status post 2 units PRBCs Hypokalemia, replace per protocol Hypocalcemia, replaced History of alcohol abuse Plan: The patient was seen and evaluated Labs and medications reviewed Ostomy functioning Stable and on 2 L nasal cannula Titrate down/off the FiO2 as tolerated Continued on DuoNeb inhalations Lovenox for DVT prophylaxis Remains on Zosyn Increase his activity as tolerated Tolerating a regular diet Plan is for [facility] at discharge I have personally seen and examined the patient, performed the documentation and the assessment and plan as written. Number of minutes spent on the visit: 10 Dictation was produced using [employer] dictation software. Please excuse any grammatical, word or spelling errors.
--- NOTE | 2025-02-27 17:58 | P.PN ---
Subjective Progress Note Date: 02/27/25 Principal diagnosis: Perforated colon cancer Patient looks much better today. Says he still gets winded quite easily. Says over the last 3 to 4 days his pain has improved overall but still persist in the left side. Tmax 99.2. Still with intermittent tachycardia. No labs from today. Tolerating diet although appetite diminished Objective - Vital Signs Vital signs: Vital Signs Temp 99 F 02/27/25 11:45 Pulse 104 H 02/27/25 11:45 Resp 16 02/27/25 11:45 BP 130/82 02/27/25 11:45 Pulse Ox 100 02/27/25 11:45 FiO2 21 02/26/25 11:09 Intake & Output 02/26/25 02/27/25 02/27/25 18:59 06:59 18:59 Intake Total 698 236 Output Total 800 1050 Balance -102 -814 Weight 69 kg 69 kg Intake: Oral 698 236 Output: Urine 650 1050 Stool 150 Other: Voiding Method Urinal Urinal Urinal ABP, PAP, CO, CI - Last Documented Arterial Blood Pressure 108/62 - Exam Abdomen: Soft, mild diffuse tenderness, slightly increased left upper quadrant - Labs CBC & Chem 7: 02/26/25 12:39 02/22/25 06:07 Labs: Microbiology - Last 24 Hours (Table) 02/25/25 16:40 Nasal Screen MRSA/MSSA - Final Nasal Swab Assessment and Plan (1) Perforated bowel Narrative/Plan: Patient overall looks better than yesterday. Continue regular diet. Continue nonoperative approach to the patient's splenic fluid collection. Recheck labs tomorrow. Increase Dilaudid to every 3 hours. Current Visit: Yes Status: Acute Priority: High Code(s): K63.1 - PERFORATION OF INTESTINE (NONTRAUMATIC) SNOMED Code(s): 20276935
[2025-02-27] MEDS: HYDROmorphone 1 MG/ML 1 ML SYRINGE IVP PRN (19:05)
--- NOTE | 2025-02-28 02:32 | PN ---
PROGRESS NOTE DATE OF SERVICE: 02/27/2025 This 59-year-old gentleman with a past medical history admitted with colonic perforation. The patient is complaining of some weakness. The patient also had some fever also, closely monitored. Rehab is being planned. PAST MEDICAL HISTORY: Reviewed. REVIEW OF SYSTEMS: Fourteen-point review of systems negative except as mentioned earlier. CURRENT MEDICATIONS: Reviewed. PHYSICAL EXAMINATION: VITAL SIGNS: Pulse 104, blood pressure n respirations 16. HEENT: Conjunctivae normal. NECK: No jugular venous distention. CARDIOVASCULAR: S1, S2. RESPIRATIONS: Breath sounds diminished at the bases. Few scattered rhonchi. ABDOMEN: Soft and nontender. LABORATORY DATA: Reviewed. Cultures are noted. Multiple anaerobic bacteria noted. Wound culture. ASSESSMENT: 1. Colonic mass with perforation with pneumoperitoneum and intraabdominal abscess, status post laparotomy, drainage of the abscess, right colectomy. 2. Chronic mass with possible metastatic disease. 3. Continued fever. 4. Postoperative ventilator management. 5. Acute blood loss anemia. 6. Multiple other. 7. History of EtOH. RECOMMENDATIONS AND DISCUSSION: To continue current management. PT/OT evaluation. Otherwise, repeat labs in the morning. Continue with empiric antibiotics. Follow with multiple consultants. Prognosis guarded. Further recommendations to follow. MMODL / IJN: [id number] / MTDD
[2025-02-28 07:57] LABS: Basophils # (A) 0.05 10*3/uL (0.00-0.10); Basophils % (A) 0.6 %; Eosinophils # (A) 0.24 10*3/uL (0.04-0.35); Eosinophils % (A) 2.7 %; HCT 24.8 % (39.6-50.0); Lymphocytes # (A) 1.43 10*3/uL (0.90-5.00); Lymphocytes % (A) 16.1 %; MCH 25.3 pg (27.0-32.0); MCHC 31.9 g/dL (32.0-37.0); MCV 79.5 fL (80.0-97.0); Monocytes # (A) 1.35 10*3/uL (0.20-1.00); Monocytes % (A) 15.2 %; Neutrophils # (A) 5.70 10*3/uL (1.80-7.70); Neutrophils % (A) 64.1 %; Platelet Count 932 10*3/uL (140-440); RBC 3.12 10*6/uL (4.40-5.60); RDW 18.3 % (11.5-14.5); WBC 8.89 10*3/uL (4.50-10.00)
[2025-02-28 08:02] LABS: HGB 7.9 g/dL (13.0-17.0)
[2025-02-28 08:10] LABS: ALT 10 U/L (4-49); AST 21 U/L (17-59); African American GFR (CKD) >90 (>60 ml/min/1.73 sqM); Albumin 2.0 g/dL (3.5-5.0); Alkaline Phosphatase 156 U/L (38-126); Anion Gap 5 mmol/L; Blood Urea Nitrogen 8 mg/dL (9-20); Calcium 8.0 mg/dL (8.4-10.2); Carbon Dioxide 26 mmol/L (22-30); Chloride 106 mmol/L (98-107); Glucose 107 mg/dL (74-99); Non-African American GFR(CKD) 87 (>60 ml/min/1.73 sqM); Potassium 3.8 mmol/L (3.5-5.1); Sodium 137 mmol/L (137-145); Total Protein 5.0 g/dL (6.3-8.2)
--- NOTE | 2025-02-28 11:47 | P.PN ---
Subjective Progress Note Date: 02/28/25 Patient is a 59-year-old male with past medical history significant for alcohol abuse, and prior abdominal surgery for hernia repair in 2018. Presented emergency department yesterday evening complaining of abdominal pain. [place] something had popped in his right sided abdomen. Workup at the emergency depa rtment including an abdominal/pelvis CT remarkable for an hepatic flexure colonic mass with perforation resulting in pneumoperitoneum and an abscess formation along the right lateral abdomen. Concerns for metastatic disease to the mesentery with multiple lymph nodes present. Also, indeterminate but probable liver metastatic disease versus abscess noted. Reactive enteritis/colitis secondary to perforation and intra-abdominal leak feces contents. Patient was then taken to the operating room for exploratory laparotomy. Patient was noted to have a large abscess within the right colon which was drained. The colon mass was dissected off of the duodenum and sent to pathology. There was obvious concerns for enlarged lymphadenopathy within the mesentery. Underwent right colectomy with ileostomy and partial omentectomy. Following the procedure, patient was transferred to the intensive care unit in critical condition. He remains intubated to the mechanical ventilator. Postoperative chest x-rays the endotracheal tube in appropriate positioning above the nehemias. Nasogastric tube coursing below the diaphragm. No focal opacities, pleural effusions, pneumothoraces, or otherwise acute cardiopulmonary process. Current ventilator settings: AC, respiratory rate 24, tidal volume 450, FiO2 100% PEEP of 5. Postoperative ABG consistent with combined metabolic and respiratory acidosis with a PaO2 of 420, pCO2 46, pH of 7.24. Patient is currently synchronous with current settings and sedated on propofol at 40 mcg/kg/min. Normal saline also infusing at 130 mL/h. He is tachycardic and borderline hypotensive with a blood pressure of 93/72 mmHg, heart rate is 120 bpm. Did previously receive 2.4 L crystalloid fluid bolus. Also, received 2 units PRBCs perioperatively. Mottled appearance to the lower extremities. Previously, noted to be febrile. Patient was empirically covered on a combination of Zosyn and vancomycin for abdominal sepsis. He does have a midline abdominal incision with postoperative dressing clean and intact. There is a right-sided abdominal ileostomy which is pink and beefy red. No significant output. Postoperative labs including a CBC with a WBC count of 8.5, hemoglobin 7.8 g/dL, platelets 571. Postoperative CMP including a sodium 130, potassium 3.4, chloride 94, serum bicarb 24, BUN 17, creatinine 0.97, glucose 88. Lactic 1.4. LFTs unremarkable. Lipase 46. Patient's next of kin is his brother. States he does not have very much known medical history as he does not follow routinely with a doctor. He is reportedly a heavy alcohol drinker. 02/14/25 - He is seen and evaluated in the ICU, room 259. He is on the mechanical ventilator, volume assist control , rate of 24, tidal volume of 450, FiO2 40% and PEEP of 5. Blood gases this morning show pO2 of 94, pCO2 of 25, pH of 7.45. He continues to be on Propofol at 35 mcg/kg/min, Zosyn and Vancomycin. Current labs include WBCs 23.42, Hgb 10.5, Hct 30.9, PLT 439, Na 137, K 3.3, BUN 29, Cr 1.52, Ca 6.6. Blood cultures continue to be pending at this time. Chest X-ray from this morning shows possible right layering pleural effusion. The patient is seen today February 15, 2025 selective care unit. He was transferred out of the intensive care unit yesterday. He is currently resting in bed. Awake and alert in no acute distress. Maintaining O2 saturations in the 90s on 2 L/min per nasal cannula. He has normal saline at 10 mL/h. Colon mass pathology pending. He is status post 2 units of packed red blood cells this admission. Current hemoglobin 10.6. Platelets 403. White count 18.9. Sodium 133. Potassium 3.7. Bicarb 27. BUN 25. Creatinine 1.08. Glucose 79. Blood culture revealed no growth. Wound culture revealed Streptococcus anginosus, beta-hemolytic strep group C. He remains on Zosyn and vancomycin along with Flagyl. Lovenox for DVT prophylaxis. Continued on bronchodilators. The patient is seen today February 16, 2025 in follow-up on the selective care unit. He is currently resting in bed. Awake and alert in no acute distress. Maintaining O2 saturations in the 90s on 2 L/min per nasal cannula. Has been afebrile. Hemodynamically stable. Chest x-ray shows improved aeration of the lungs bilaterally. Some right basilar atelectasis. Colonic abscess was positive for Streptococcus anginosus, beta-hemolytic strep group C. White count 16.2. Hemoglobin 10.8. Platelets 398. Sodium 132. Potassium 3.8. Bicarb 26. BUN 19. Creatinine 0.89. Glucose 85. He remains on Flagyl, vancomycin and Zosyn. Lovenox for DVT prophylaxis. Remains on bronchodilators. Encouraged regarding the increased use of the incentive spirometer. Tolerating a clear liquid diet. The patient is seen today February 17, 2025 in follow-up on the selective care unit. He is currently sitting up in bed. Awake and alert in no acute distress. He denies any worsening shortness of breath, cough or congestion. He does have some ongoing surgical site pain of the abdomen. He is maintaining good O2 saturations in the upper 90s on 2 L/min per nasal cannula. He is afebrile. He modynamically stable. He is status post 2 units of packed red blood cells this admission. Today's hemoglobin is 11.4. Platelets 381. White count 11.7. Sodium 132. Potassium 4.1. Bicarb 21. BUN 17. Creatinine 0.79. He remains on DuoNeb inhalations. Lovenox for DVT prophylaxis. Antibiotics in the form of vancomycin and Zosyn along with Flagyl. Diet advanced per surgical services. The patient is seen today February 27, 2025 in follow-up on the selective care unit. He is awake and alert in no acute distress. Currently sitting up in bed. Maintaining good O2 saturations up to 100% on 2 L/min per nasal cannula. He is afebrile. Hemodynamically stable. He is status post 2 units of packed red blood cells this admission. White count 13.9. Hemoglobin 9.9. Platelets 1027. He is currently on Zosyn. He was having ongoing issues with abdominal pain. CT scan of the abdomen revealed a new left upper quadrant fluid collection which might be subscapular hemorrhage involving the spleen. Postsurgical changes from 02/12/2025 CT. Reduction in gas seen throughout the abdomen. Prior hepatic flexure mass no longer visualized. Lymphadenopathy not visualized. Colostomy present. Postsurgical changes anterior abdominal wall. The patient is seen today February 28, 2025 in follow-up on the selective care unit. He is resting in bed. Awake and alert in no acute distress. Maintaining O2 saturations in the high 90s on 2 L/min per nasal cannula. He has been afebrile. Hemodynamically stable. He is status post 2 units of packed red blood cells this admission. Current hemoglobin 7.9. Platelets 932. White count 8.8. Sodium 137. Potassium 3.8. Bicarb 26. BUN 8. Creatinine 0.96. Glucose 107. He remains on Zosyn. Ostomy is functioning. Tolerating a regular diet. Objective - Vital Signs Vital signs: Vital Signs Temp 98 F 02/28/25 09:50 Pulse 61 02/28/25 09:50 Resp 16 02/28/25 09:50 BP 126/80 02/28/25 09:50 Pulse Ox 99 02/28/25 09:50 FiO2 21 02/26/25 11:09 Intake & Output 02/27/25 02/28/25 02/28/25 18:59 06:59 18:59 Intake Total 236 180 Output Total 1300 850 700 Balance -1064 -850 -520 Weight 69 kg 67 kg Intake: Oral 236 180 Output: Urine 1300 850 500 Stool 200 Other: Voiding Method Urinal Urinal Urinal # Voids 3 ABP, PAP, CO, CI - Last Documented Arterial Blood Pressure 108/62 - Exam General: Awake, weak 59-year-old male, resting up in bed, on 2 L nasal cannula, in no distress. Derm: Warm, dry, intact Head: Atraumatic, normocephalic, symmetric Eyes: EOMI, anicteric sclera NOSE: Clear with pink turbinates. Mouth: No lip lesion, mucus membranes moist Cardiovascular: S1 S2 reg, no murmur, rubs, or gallops; distant heart sounds. Lungs: CTA bilateral, no rales, no accessory muscle use ABDOMEN: Midline abdominal incision clean and intact. Right ileostomy noted, stoma appears pink/beefy red. Positive output. Abdomen is soft. Extremities: No cyanosis or edema present. Right brachial arterial line noted. Neuro: Cannot be assessed at this time. Psych: Well appearing, appropriate affect - Labs CBC & Chem 7: 02/28/25 06:40 02/28/25 06:40 Labs: Abnormal Lab Results - Last 24 Hours (Table) 02/28/25 02/28/25 Range/Units 06:40 06:40 RBC 3.12 L (4.40-5.60) 10*6/uL Hgb 7.9 L D (13.0-17.0) g/dL Hct 24.8 L (39.6-50.0) % MCV 79.5 L (80.0-97.0) fL MCH 25.3 L (27.0-32.0) pg MCHC 31.9 L (32.0-37.0) g/dL Plt Count 932 H (140-440) 10*3/uL MPV 8.8 L (9.5-12.2) fL Immature Gran # 0.12 H (0.00-0.04) 10*3/uL Monocytes # 1.35 H (0.20-1.00) 10*3/uL BUN 8 L (9-20) mg/dL Glucose 107 H (74-99) mg/dL Calcium 8.0 L (8.4-10.2) mg/dL Alkaline Phosphatase 156 H (38-126) U/L Total Protein 5.0 L (6.3-8.2) g/dL Albumin 2.0 L (3.5-5.0) g/dL Microbiology - Last 24 Hours (Table) 02/25/25 16:40 Nasal Screen MRSA/MSSA - Final Nasal Swab Assessment and Plan Assessment: Colonic mass with perforation, pneumoperitoneum, intra-abdominal abscess. On February 12, 2025 received a exploratory laparotomy with drainage of abscess, right colectomy, end ileostomy, and partial omentectomy. Pathology pending, cultures revealed Streptococcus anginosus, beta-hemolytic strep group C Crampy abdominal pain. Follow-up CAT scan of the abdomen and pelvis on 02/25/2025 shows new left upper lobe quadrant fluid collection that may be a subcapsular hemorrhage involving the spleen. Further evaluation of the spleen and abdomen is recommended with IV contrast. Postsurgical changes is seen throughout the abdomen. Prior hepatic flexure mass is no longer visualized. Lymphadenopathy is not visualized. Colostomy is present. Right hepatic dome lesion possibly a necrotic mass versus an abscess remains present Colonic adenocarcinoma Postoperative ventilator management, extubated and on 2 liters nasal cannula Abdominal sepsis Combined respiratory and metabolic acidosis Acute blood loss anemia, status post 2 units PRBCs Hypokalemia, replace per protocol Hypocalcemia, replaced History of alcohol abuse Plan: The patient was seen and evaluated Labs and medications reviewed Stable and on 2 L nasal cannula Titrate down/off the FiO2 as tolerated Continued on DuoNeb inhalations Continue the incentive spirometer Lovenox for DVT prophylaxis Remains on Zosyn Increase his activity as tolerated Tolerating a regular diet Discharge once cleared by surgical services Plan is for [facility] for rehabilitation I have personally seen and examined the patient, performed the documentation and the assessment and plan as written. Number of minutes spent on the visit: 10 Dictation was produced using [employer] dictation software. Please excuse any g rammatical, word or spelling errors.
--- NOTE | 2025-02-28 12:27 | P.PN ---
Subjective Progress Note Date: 02/28/25 SURGICAL PROGRESS NOTE CHIEF COMPLAINT: Right colon mass HISTORY OF PRESENT ILLNESS: Patient is status post exploratory laparotomy, drainage of abscess, right colectomy with ileostomy and partial pneumonectomy on 02/12/2025. Patient does report abdominal pain incision site. He states that the pain is improving. Denies any nausea or vomiting. Ostomy is functioning. There was some leaking from the colostomy bag. They had been changed yesterday. Ostomy nurse will reevaluate colostomy bag again today. Afebrile. WBC is down from 13-8.89 hemoglobin down from 9.9-7.[address] Hillman is covering for Dr. De La Cruz PHYSICAL EXAM: VITAL SIGNS: Reviewed. GENERAL: Well-developed in no acute distress. ABDOMEN: Soft. Nondistended. Tenderness with palpation at incision site. Incision site clean dry and intact. Ileostomy with stool present. NEUROLOGIC: Alert and oriented. Cranial nerves II through XII grossly intact. ASSESSMENT: 1. Right colon mass with perforation and intraperitoneal abscess with metastatic disease 2. Colonic adenocarcinoma 3. Splenic fluid collection PLAN: -Continue to monitor -Continue pain management -Repeat hemoglobin in a.m. -Continue nonoperative approach for splenic fluid collection -Continue regular diet -Continue antibiotics -Ostomy nurse following -GI prophylaxis Protonix Physician Care Team Coordinator Scheduler note has been reviewed by physician. Signing provider agrees with the documented findings, assessment, and plan of care. I have personally seen and examined the patient, reviewed the EXTRUDER OPERATOR [employer]ICAL /PAs history, exam and MDM and agree with the assessment and plan as written. Based on total visit time, I have performed more than 50% of the visit. As above: Patient says his pain is better controlled today than it was yesterday with the every 3 hour Dilaudid shots. Still pain is across the abdomen and feels spastic at times. He is having ostomy output. Appetite remains low but he thinks improving slightly. Labs noted. White blood cell count is improved but the hemoglobin dropped as well today. Platelets at 932. Hemodynamically the patient is stable. He is afebrile. Will repeat CBC tomorrow. Likely will plan repeat CAT scan later this week. Spoke with the patient's brother by phone who is his power of prosecuting attorney here in town while his is away. Clinical scenario reviewed in detail. Objective - Vital Signs Vital signs: Vital Signs Temp 98 F 02/28/25 09:50 Pulse 61 02/28/25 09:50 Resp 16 02/28/25 09:50 BP 126/80 02/28/25 09:50 Pulse Ox 99 02/28/25 09:50 FiO2 21 02/26/25 11:09 Intake & Output 02/27/25 02/28/25 02/28/25 18:59 06:59 18:59 Intake Total 236 180 Output Total 1300 850 700 Balance -1064 -850 -520 Weight 69 kg 67 kg Intake: Oral 236 180 Output: Urine 1300 850 500 Stool 200 Other: Voiding Method Urinal Urinal Urinal # Voids 3 ABP, PAP, CO, CI - Last Documented Arterial Blood Pressure 108/62 - Labs CBC & Chem 7: 02/28/25 06:40 02/28/25 06:40 Labs: Abnormal Lab Results - Last 24 Hours (Table) 02/28/25 02/28/25 Range/Units 06:40 06:40 RBC 3.12 L (4.40-5.60) 10*6/uL Hgb 7.9 L D (13.0-17.0) g/dL Hct 24.8 L (39.6-50.0) % MCV 79.5 L (80.0-97.0) fL MCH 25.3 L (27.0-32.0) pg MCHC 31.9 L (32.0-37.0) g/dL Plt Count 932 H (140-440) 10*3/uL MPV 8.8 L (9.5-12.2) fL Immature Gran # 0.12 H (0.00-0.04) 10*3/uL Monocytes # 1.35 H (0.20-1.00) 10*3/uL BUN 8 L (9-20) mg/dL Glucose 107 H (74-99) mg/dL Calcium 8.0 L (8.4-10.2) mg/dL Alkaline Phosphatase 156 H (38-126) U/L Total Protein 5.0 L (6.3-8.2) g/dL Albumin 2.0 L (3.5-5.0) g/dL Microbiology - Last 24 Hours (Table) 02/25/25 16:40 Nasal Screen MRSA/MSSA - Final Nasal Swab
[2025-03-01 04:24] LABS: Basophils # (A) 0.07 10*3/uL (0.00-0.10); Basophils % (A) 0.9 %; Eosinophils # (A) 0.25 10*3/uL (0.04-0.35); Eosinophils % (A) 3.0 %; HCT 23.3 % (39.6-50.0); HGB 7.4 g/dL (13.0-17.0); Lymphocytes # (A) 1.22 10*3/uL (0.90-5.00); Lymphocytes % (A) 14.9 %; MCH 25.5 pg (27.0-32.0); MCHC 31.8 g/dL (32.0-37.0); MCV 80.3 fL (80.0-97.0); Monocytes # (A) 1.40 10*3/uL (0.20-1.00); Monocytes % (A) 17.1 %; Neutrophils # (A) 5.16 10*3/uL (1.80-7.70); Neutrophils % (A) 62.8 %; Platelet Count 866 10*3/uL (140-440); RBC 2.90 10*6/uL (4.40-5.60); RDW 18.1 % (11.5-14.5); WBC 8.21 10*3/uL (4.50-10.00)
[2025-03-01 05:12] LABS: ALT 10 U/L (4-49); AST 21 U/L (17-59); African American GFR (CKD) >90 (>60 ml/min/1.73 sqM); Albumin 1.9 g/dL (3.5-5.0); Alkaline Phosphatase 123 U/L (38-126); Anion Gap 5 mmol/L; Blood Urea Nitrogen 6 mg/dL (9-20); Calcium 8.2 mg/dL (8.4-10.2); Carbon Dioxide 26 mmol/L (22-30); Chloride 104 mmol/L (98-107); Glucose 100 mg/dL (74-99); Non-African American GFR(CKD) >90 (>60 ml/min/1.73 sqM); Potassium 3.8 mmol/L (3.5-5.1); Sodium 135 mmol/L (137-145); Total Protein 4.7 g/dL (6.3-8.2)
--- NOTE | 2025-03-01 05:39 | PN ---
PROGRESS NOTE DATE OF SERVICE: 02/28/2025 SUBJECTIVE: This is a 59-year-old gentleman who was history of chronic mass perforation, admitted with multiple complex medical issues. The patient improved clinically. ECF rehab is being planned. No chest pain. No palpitation. PHYSICAL EXAMINATION: VITAL SIGNS: Pulse 98, blood pressure 130/80, respirations 16. HEENT: Conjunctivae normal. CARDIOVASCULAR: S1, S2. RESPIRATIONS: Breath sounds diminished at the bases. Few scattered rhonchi. ABDOMEN: Soft, mild distention. EXTREMITIES: Legs, no edema. NERVOUS SYSTEM: Nonfocal. LABORATORY DATA: Hemoglobin 7 5. Rest of the labs are noted. ASSESSMENT: 1. Colonic mass with perforation with pneumoperitoneum and abdominal abscess, status post laparotomy, drainage, abscess right colectomy. 2. Chronic mass with possible metastatic disease. 3. Anemia. 4. Continued fever. 5. Postoperative ventilator management. 6. Multiple other medical problems. 7. History of EtOH. 8. Gait dysfunction. RECOMMENDATION: Recommend to continue current medications and repeat labs. If the hemoglobin is dropping, I would recommend 1 more unit of transfusion, otherwise closely monitor with Surgery. Further recommendations to follow. PT, OT evaluation. Possible ECF rehab. MMODL / IJN: [id number] /
--- NOTE | 2025-03-01 11:28 | P.PN ---
Subjective Progress Note Date: 03/01/25 SURGICAL PROGRESS NOTE CHIEF COMPLAINT: Right colon mass HISTORY OF PRESENT ILLNESS: Patient is status post exploratory laparotomy, drainage of abscess, right colectomy with ileostomy and partial pneumonectomy on 02/12/2025. Patient continues to complain of cramping left side of the abdominal incision. He does not feel that the pain is getting any worse. His ostomy is functioning. He has received ostomy teaching. He has had no further leaking from the ostomy bag. Afebrile. WBC 8.21 Hgb down from 7.9-7.[address] Hillman is covering for Dr. De La Cruz PHYSICAL EXAM: VITAL SIGNS: Reviewed. GENERAL: Well-developed in no acute distress. ABDOMEN: Soft. Nondistended. Tenderness with palpation at incision site. Incision site clean dry and intact. Ileostomy with stool present. NEUROLOGIC: Alert and oriented. Cranial nerves II through XII grossly intact. ASSESSMENT: 1. Right colon mass with perforation and intraperitoneal abscess with metastatic disease 2. Colonic adenocarcinoma 3. Splenic fluid collection PLAN: -Continue to monitor -Continue pain management -Repeat hemoglobin in a.m. -Continue nonoperative approach for splenic fluid collection -Continue regular diet -Continue antibiotics -Ostomy nurse following -GI prophylaxis Protonix Physician Street Engineer note has been reviewed by physician. Signing provider agrees with the documented findings, assessment, and plan of care. I have personally seen and examined the patient, reviewed the AUTOMOBILE W[employer]ER [employer] /PAs history, exam and MDM and agree with the assessment and plan as written. Based on total visit time, I have performed more than 50% of the visit. As above: Patient's hemoglobin slightly lower today. Patient looks fairly well however. Still having some abdominal discomfort. Will repeat CAT scan to see if any changes are noted within the splenic fluid collection. Objective - Vital Signs Vital signs: Vital Signs Temp 98.4 F 03/01/25 07:53 Pulse 93 03/01/25 07:53 Resp 17 03/01/25 07:53 BP 132/82 03/01/25 07:53 Pulse Ox 98 03/01/25 07:53 FiO2 21 02/26/25 11:09 Intake & Output 02/28/25 03/01/25 03/01/25 18:59 06:59 18:59 Intake Total 540 0 180 Output Total 1600 700 Balance -1060 0 -520 Weight 74 kg Intake: Oral 540 0 180 Output: Urine 1400 700 Stool 200 Other: Voiding Method Urinal Urinal ABP, PAP, CO, CI - Last Documented Arterial Blood Pressure 108/62 - Labs CBC & Chem 7: 03/01/25 03:28 03/01/25 03:28 Labs: Abnormal Lab Results - Last 24 Hours (Table) 03/01/25 03/01/25 Range/Units 03:28 03:28 RBC 2.90 L (4.40-5.60) 10*6/uL Hgb 7.4 L (13.0-17.0) g/dL Hct 23.3 L (39.6-50.0) % MCH 25.5 L (27.0-32.0) pg MCHC 31.8 L (32.0-37.0) g/dL Plt Count 866 H (140-440) 10*3/uL MPV 9.0 L (9.5-12.2) fL Immature Gran # 0.11 H (0.00-0.04) 10*3/uL Monocytes # 1.40 H (0.20-1.00) 10*3/uL Sodium 135 L (137-145) mmol/L BUN 6 L (9-20) mg/dL Glucose 100 H (74-99) mg/dL Calcium 8.2 L (8.4-10.2) mg/dL Total Protein 4.7 L (6.3-8.2) g/dL Albumin 1.9 L (3.5-5.0) g/dL
--- NOTE | 2025-03-01 13:43 | P.PN ---
Subjective Progress Note Date: 03/01/25 Patient is a 59-year-old male with past medical history significant for alcohol abuse, and prior abdominal surgery for hernia repair in 2018. Presented emergency department yesterday evening complaining of abdominal pain. [place] something had popped in his right sided abdomen. Workup at the emergency depa rtment including an abdominal/pelvis CT remarkable for an hepatic flexure colonic mass with perforation resulting in pneumoperitoneum and an abscess formation along the right lateral abdomen. Concerns for metastatic disease to the mesentery with multiple lymph nodes present. Also, indeterminate but probable liver metastatic disease versus abscess noted. Reactive enteritis/colitis secondary to perforation and intra-abdominal leak feces contents. Patient was then taken to the operating room for exploratory laparotomy. Patient was noted to have a large abscess within the right colon which was drained. The colon mass was dissected off of the duodenum and sent to pathology. There was obvious concerns for enlarged lymphadenopathy within the mesentery. Underwent right colectomy with ileostomy and partial omentectomy. Following the procedure, patient was transferred to the intensive care unit in critical condition. He remains intubated to the mechanical ventilator. Postoperative chest x-rays the endotracheal tube in appropriate positioning above the nehemias. Nasogastric tube coursing below the diaphragm. No focal opacities, pleural effusions, pneumothoraces, or otherwise acute cardiopulmonary process. Current ventilator settings: AC, respiratory rate 24, tidal volume 450, FiO2 100% PEEP of 5. Postoperative ABG consistent with combined metabolic and respiratory acidosis with a PaO2 of 420, pCO2 46, pH of 7.24. Patient is currently synchronous with current settings and sedated on propofol at 40 mcg/kg/min. Normal saline also infusing at 130 mL/h. He is tachycardic and borderline hypotensive with a blood pressure of 93/72 mmHg, heart rate is 120 bpm. Did previously receive 2.4 L crystalloid fluid bolus. Also, received 2 units PRBCs perioperatively. Mottled appearance to the lower extremities. Previously, noted to be febrile. Patient was empirically covered on a combination of Zosyn and vancomycin for abdominal sepsis. He does have a midline abdominal incision with postoperative dressing clean and intact. There is a right-sided abdominal ileostomy which is pink and beefy red. No significant output. Postoperative labs including a CBC with a WBC count of 8.5, hemoglobin 7.8 g/dL, platelets 571. Postoperative CMP including a sodium 130, potassium 3.4, chloride 94, serum bicarb 24, BUN 17, creatinine 0.97, glucose 88. Lactic 1.4. LFTs unremarkable. Lipase 46. Patient's next of kin is his brother. States he does not have very much known medical history as he does not follow routinely with a doctor. He is reportedly a heavy alcohol drinker. 02/14/25 - He is seen and evaluated in the ICU, room 259. He is on the mechanical ventilator, volume assist control , rate of 24, tidal volume of 450, FiO2 40% and PEEP of 5. Blood gases this morning show pO2 of 94, pCO2 of 25, pH of 7.45. He continues to be on Propofol at 35 mcg/kg/min, Zosyn and Vancomycin. Current labs include WBCs 23.42, Hgb 10.5, Hct 30.9, PLT 439, Na 137, K 3.3, BUN 29, Cr 1.52, Ca 6.6. Blood cultures continue to be pending at this time. Chest X-ray from this morning shows possible right layering pleural effusion. The patient is seen today February 15, 2025 selective care unit. He was transferred out of the intensive care unit yesterday. He is currently resting in bed. Awake and alert in no acute distress. Maintaining O2 saturations in the 90s on 2 L/min per nasal cannula. He has normal saline at 10 mL/h. Colon mass pathology pending. He is status post 2 units of packed red blood cells this admission. Current hemoglobin 10.6. Platelets 403. White count 18.9. Sodium 133. Potassium 3.7. Bicarb 27. BUN 25. Creatinine 1.08. Glucose 79. Blood culture revealed no growth. Wound culture revealed Streptococcus anginosus, beta-hemolytic strep group C. He remains on Zosyn and vancomycin along with Flagyl. Lovenox for DVT prophylaxis. Continued on bronchodilators. The patient is seen today February 16, 2025 in follow-up on the selective care unit. He is currently resting in bed. Awake and alert in no acute distress. Maintaining O2 saturations in the 90s on 2 L/min per nasal cannula. Has been afebrile. Hemodynamically stable. Chest x-ray shows improved aeration of the lungs bilaterally. Some right basilar atelectasis. Colonic abscess was positive for Streptococcus anginosus, beta-hemolytic strep group C. White count 16.2. Hemoglobin 10.8. Platelets 398. Sodium 132. Potassium 3.8. Bicarb 26. BUN 19. Creatinine 0.89. Glucose 85. He remains on Flagyl, vancomycin and Zosyn. Lovenox for DVT prophylaxis. Remains on bronchodilators. Encouraged regarding the increased use of the incentive spirometer. Tolerating a clear liquid diet. The patient is seen today February 17, 2025 in follow-up on the selective care unit. He is currently sitting up in bed. Awake and alert in no acute distress. He denies any worsening shortness of breath, cough or congestion. He does have some ongoing surgical site pain of the abdomen. He is maintaining good O2 saturations in the upper 90s on 2 L/min per nasal cannula. He is afebrile. He modynamically stable. He is status post 2 units of packed red blood cells this admission. Today's hemoglobin is 11.4. Platelets 381. White count 11.7. Sodium 132. Potassium 4.1. Bicarb 21. BUN 17. Creatinine 0.79. He remains on DuoNeb inhalations. Lovenox for DVT prophylaxis. Antibiotics in the form of vancomycin and Zosyn along with Flagyl. Diet advanced per surgical services. The patient is seen today February 27, 2025 in follow-up on the selective care unit. He is awake and alert in no acute distress. Currently sitting up in bed. Maintaining good O2 saturations up to 100% on 2 L/min per nasal cannula. He is afebrile. Hemodynamically stable. He is status post 2 units of packed red blood cells this admission. White count 13.9. Hemoglobin 9.9. Platelets 1027. He is currently on Zosyn. He was having ongoing issues with abdominal pain. CT scan of the abdomen revealed a new left upper quadrant fluid collection which might be subscapular hemorrhage involving the spleen. Postsurgical changes from 02/12/2025 CT. Reduction in gas seen throughout the abdomen. Prior hepatic flexure mass no longer visualized. Lymphadenopathy not visualized. Colostomy present. Postsurgical changes anterior abdominal wall. The patient is seen today February 28, 2025 in follow-up on the selective care unit. He is resting in bed. Awake and alert in no acute distress. Maintaining O2 saturations in the high 90s on 2 L/min per nasal cannula. He has been afebrile. Hemodynamically stable. He is status post 2 units of packed red blood cells this admission. Current hemoglobin 7.9. Platelets 932. White count 8.8. Sodium 137. Potassium 3.8. Bicarb 26. BUN 8. Creatinine 0.96. Glucose 107. He remains on Zosyn. Ostomy is functioning. Tolerating a regular diet. The patient is seen today March 01, 2025 in follow-up on the regular medical floor. He was transferred here from the selective care unit. He is currently resting fairly comfortably in bed. Awake and alert in no acute distress. Maintaining O2 saturations in the high 90s on 3 L/min per nasal cannula. He is afebrile. Hemodynamically stable. Ostomy functioning. Tolerating a diet. He is status post 2 units of packed red blood cells this admission. Current hemoglobin 7.4. Platelets 866. White count 8.2. Sodium 135. Potassium 3.8. Bicarb 26. BUN 6. Creatinine 0.85. Glucose 100. He continues to work well with the incentive spirometer. His pain is fairly well-managed. He remains on Zosyn. Objective - Vital Signs Vital signs: Vital Signs Temp 98.4 F 03/01/25 07:53 Pulse 93 03/01/25 07:53 Resp 17 03/01/25 07:53 BP 132/82 03/01/25 07:53 Pulse Ox 98 03/01/25 07:53 FiO2 21 02/26/25 11:09 Intake & Output 02/28/25 03/01/25 03/01/25 18:59 06:59 18:59 Intake Total 540 0 180 Output Total 1600 700 Balance -1060 0 -520 Weight 74 kg Intake: Oral 540 0 180 Output: Urine 1400 700 Stool 200 Other: Voiding Method Urinal Urinal ABP, PAP, CO, CI - Last Documented Arterial Blood Pressure 108/62 - Exam GENERAL EXAM: Alert, 59-year-old male, on 3 L nasal cannula, comfortable in no apparent distress. HEAD: Normocephalic. EYES: Normal reaction of pupils, equal size. NOSE: Clear with pink turbinates. THROAT: No erythema or exudates. NECK: No masses, no JVD. CHEST: No chest wall deformity. LUNGS: Equal air entry with no crackles, wheeze, rhonchi or dullness. CVS: S1 and S2 normal with no audible murmur, regular rhythm. ABDOMEN: Midline incision clean dry and well-approximated. Ileostomy in place. Functioning. Normal bowel sounds, no guarding or rigidity. SPINE: No scoliosis or deformity SKIN: No rashes CENTRAL NERVOUS SYSTEM: No focal deficits, tone is normal in all 4 extremities. EXTREMITIES: There is no peripheral edema. No clubbing, no cyanosis. Peripheral pulses are intact. - Labs CBC & Chem 7: 03/01/25 03:28 03/01/25 03:28 Labs: Abnormal Lab Results - Last 24 Hours (Table) 03/01/25 03/01/25 Range/Units 03:28 03:28 RBC 2.90 L (4.40-5.60) 10*6/uL Hgb 7.4 L (13.0-17.0) g/dL Hct 23.3 L (39.6-50.0) % MCH 25.5 L (27.0-32.0) pg MCHC 31.8 L (32.0-37.0) g/dL Plt Count 866 H (140-440) 10*3/uL MPV 9.0 L (9.5-12.2) fL Immature Gran # 0.11 H (0.00-0.04) 10*3/uL Monocytes # 1.40 H (0.20-1.00) 10*3/uL Sodium 135 L (137-145) mmol/L BUN 6 L (9-20) mg/dL Glucose 100 H (74-99) mg/dL Calcium 8.2 L (8.4-10.2) mg/dL Total Protein 4.7 L (6.3-8.2) g/dL Albumin 1.9 L (3.5-5.0) g/dL Assessment and Plan Assessment: Colonic mass with perforation, pneumoperitoneum, intra-abdominal abscess. On February 12, 2025 received a exploratory laparotomy with drainage of abscess, right colectomy, end ileostomy, and partial omentectomy. Pathology positive for adenocarcinoma, cultures revealed Streptococcus anginosus, beta-hemolytic strep group C Crampy abdominal pain. Follow-up CAT scan of the abdomen and pelvis on 01/30 shows new left upper lobe quadrant fluid collection that may be a subcapsular hemorrhage involving the spleen. Further evaluation of the spleen and abdomen is recommended with IV contrast. Postsurgical changes is seen throughout the abdomen. Prior hepatic flexure mass is no longer visualized. Lymphadenopathy is not visualized. Colostomy is present. Right hepatic dome lesion possibly a necrotic mass versus an abscess remains present Colonic adenocarcinoma Postoperative ventilator management, extubated and on 2 liters nasal cannula Abdominal sepsis Combined respiratory and metabolic acidosis Acute blood loss anemia, status post 2 units PRBCs Hypokalemia, replace per protocol Hypocalcemia, replaced History of alcohol abuse Plan: The patient was seen and evaluated Labs and medications reviewed Stable and on 3 L nasal cannula Titrate down/off the FiO2 as tolerated Encourage the increased use of the incentive spirometer Lovenox for DVT prophylaxis Remains on Zosyn Increase his activity as tolerated Tolerating a regular diet Ostomy is functioning Follow-up CT scan of the abdomen later this week Discharge once cleared by surgical services Plan is for [facility] for rehabilitation This patient was seen independently by the pulmonary nurse practitioner rebekah sing pulmonary issues I have personally seen and examined the patient, performed the documentation and the assessment and plan as written. Number of minutes spent on the visit: 25 Dictation was produced using [employer] dictation software. Please excuse any grammatical, word or spelling errors.
--- NOTE | 2025-03-01 15:15 | PN ---
PROGRESS NOTE DATE OF SERVICE: 03/01/2025 SUBJECTIVE: This is a 59-year-old gentleman was admitted after colonic mass and perforation is improving significantly. No chest pain. No palpitation. PHYSICAL EXAMINATION: VITAL SIGNS: Pulse is 100, blood pressure 135/81, and respirations 17. CHEST: Clear to auscultation. CARDIOVASCULAR: S1, S2. ABDOMEN: Soft, status post surgery. LABORATORY DATA: Hemoglobin 7.4. ASSESSMENT: 1. Colonic mass with perforation with pneumoperitoneum and abdominal abscess, status post laparotomy and drainage of abscess, right colectomy. 2. Symptomatic anemia. 3. Chronic mass with possible metastatic disease. 4. Anemia. 5. Continued fever, improved. 6. Postoperative ventilator management. 7. Multiple complex medical issues. 8. History of EtOH. RECOMMENDATIONS: Recommend to continue current management and continue symptomatic treatment. Otherwise cultures are polymicrobial. I would recommend 1 unit of transfusion. Continue to monitor. Further recommendations to follow. MMODL / IJN: [id number] /
[2025-03-02 08:04] LABS: Anion Gap 6.70 mmol/L (4.00-12.00); BUN/Creat Ratio 6.33 Ratio (12.00-20.00); Blood Urea Nitrogen 5.7 mg/dL (9.0-27.0); Calcium 8.0 mg/dL (8.7-10.3); Carbon Dioxide 25.3 mmol/L (21.6-31.8); Chloride 103 mmol/L (96-109); Glucose 99 mg/dL (70-110); Potassium 4.0 mmol/L (3.5-5.5); Sodium 135 mmol/L (135-145)
[2025-03-02] MEDS: IOPAMIDOL CONTRAST (ORAL USE) VIAL PO PRN (08:35)
[2025-03-02 09:06] LABS: Basophils # (M) 0.09 X 10*3/uL (0.00-0.10); Eosinophils # (M) 0.53 X 10*3/uL (0.04-0.35); HCT 26.3 % (39.6-50.0); HGB 8.1 g/dL (13.0-17.0); Lymphocytes # (M) 0.70 X 10*3/uL (0.90-5.00); MCH 25.6 pg (27.0-32.0); MCHC 30.8 g/dL (32.0-37.0); MCV 83.2 FL (80.0-97.0); Monocytes # (M) 1.23 X 10*3/uL (0.20-1.00); NRBC Per 100 WBC 0 X 10*3/uL (0.00-0.01); Neutrophils # (M) 6.13 X 10*3/uL (1.80-7.70); Neutrophils % (M) 70 %; Platelet Count 787 X 10*3/uL (140-440); RBC 3.16 X 10*6/uL (4.40-5.60); RDW 18.0 % (11.5-14.5); WBC 8.76 X 10*3/uL (4.50-10.00)
--- NOTE | 2025-03-02 11:01 | CT ---
EXAMINATION TYPE: CT abdomen pelvis w con DATE OF EXAM: 03/02/2025 10:23 AM COMPARISON: 02/25/2025 CLINICAL INDICATION: Male, 59 years old with history of abdominal pain, follow up on fluid collection , Abdominal pain, follow up on fluid collection TECHNIQUE:CT scan of the abdomen and pelvis is performed without Oral Contrast and with IV Contrast, patient injected with 100 ml mL of Isovue 300. CT DLP: 929 mGycm, Automated exposure control for dose reduction was used. FINDINGS: LUNG BASES-: No visible nodule. No infiltrate. Moderate basilar effusions and atelectasis and/or inf iltrates. LIVER/GB: No calcified gallstones. 4.3 x 4.4 x 5.3 cm irregular mass anterior segment right hepatic lobe could reflect underlying neoplasm versus abscess. No change since prior study. No additional ma sses or collections seen within the liver. Biliary tree is of normal caliber. PANCREAS: Perisplenic collection is significantly smaller in size and currently measures 11.7 x 10.1 x 10.3 cm. Surrounding fat attenuation could reflect underlying inflammatory change. Collection could reflect perisplenic or subcapsular hemorrhage however infected collection is not excluded. SPLEEN: No splenic enlargement. No lesion seen. ADRENALS: No nodule. No thickening. KIDNEYS/BLADDER: No hydronephrosis. No nephrolithiasis. No distinct renal mass. Urinary bladder g rossly unremarkable. BOWEL: Midline skin heidy noted. Right-sided ostomy identified. There is bowel wall thickening invo lving the ileal loops which could be related to hypoalbuminemia versus underlying inflammatory proces s although findings are nonspecific. The colon appears to be of normal caliber as visualized. GENITAL ORGANS: No gross abnormality. LYMPH NODES: No greater than 1cm abdominal or pelvic lymph nodes are appreciated. AORTA: No significant abnormality. OSSEOUS STRUCTURES: No significant abnormality is seen. OTHER: Subcutaneous edema may reflect a degree of anasarca. Small amount of fluid adjacent to the evaristo er edge. IMPRESSION: 1. Perisplenic collection is significantly smaller in size and currently measures 11.7 x 10.1 x 10.3 cm. Surrounding fat attenuation could reflect underlying inflammatory change. Collection could reflec t perisplenic or subcapsular hemorrhage however infected collection is not excluded. 2. Hepatic abscess versus neoplasm. 3.Moderate basilar effusions and atelectasis and/or infiltrates. 4. Small bowel wall thickening as noted above. [facility], , 03/02/2025 10:59 AM
--- NOTE | 2025-03-02 11:11 | P.PN ---
Subjective Progress Note Date: 03/02/25 SURGICAL PROGRESS NOTE CHIEF COMPLAINT: Right colon mass HISTORY OF PRESENT ILLNESS: Patient is status post exploratory laparotomy, drainage of abscess, right colectomy with ileostomy and partial pneumonectomy on 02/12/2025. Patient continues to report left-sided crampy abdominal pain. Afebrile. WBC 8.76 Hgb 8[address] scan reported perisplenic collection is significantly smaller in size measuring 11.7 x 10.1 x 10.3 cm. Surrounding fat attenuation could reflect underlying inflammatory changes. Collection could reflect perisplenic or subcapsular hemorrhage. However infected collection is not excluded. Hepatic abscess versus neoplasm. Dr. Hillman is covering for Dr. De La Cruz PHYSICAL EXAM: VITAL SIGNS: Reviewed. GENERAL: Well-developed in no acute distress. ABDOMEN: Soft. Nondistended. Tenderness with palpation left side of abdomen. Incision site clean dry and intact. Ileostomy with stool present. NEUROLOGIC: Alert and oriented. Cranial nerves II through XII grossly intact. ASSESSMENT: 1. Right colon mass with perforation and intraperitoneal abscess with metasta tic disease 2. Colonic adenocarcinoma 3. Splenic fluid collection. Decreased in size on CT PLAN: -Continue to monitor -Continue pain management -Repeat hemoglobin in a.m. -Continue nonoperative approach for splenic fluid collection -Continue regular diet -Continue antibiotics -Increase activity level -GI prophylaxis Protonix Physician Subacute Nurse note has been reviewed by physician. Signing provider agrees with the documented findings, assessment, and plan of care. Patient says his pain is about the same today may be slightly worse overnight. CAT scan reviewed and the perisplenic fluid collection is much improved. It is down by at least 6 to 7 cm. No active hemorrhage seen. No significant free fluid seen although I suspect that the size change may be related to some fluid leaking from that collection site. That may be contributing slightly to his pain recently. Continue analgesics. Given the CAT scan appearance no surgical intervention planned at this time. Continue regular diet. Continue physical therapy. Objective - Vital Signs Vital signs: Vital Signs Temp 98.0 F 03/02/25 08:30 Pulse 54 L 03/02/25 08:30 Resp 15 03/02/25 08:30 BP 144/90 03/02/25 08:30 Pulse Ox 100 03/02/25 08:30 FiO2 21 02/26/25 11:09 Intake & Output 03/01/25 03/02/25 03/02/25 18:59 06:59 18:59 Intake Total 957 310 Output Total 1400 800 Balance -443 -490 Weight 70 kg Intake: Oral 957 Blood Product 0 310 Rc As-1 Unit 0 310 [id number] Output: Urine 1200 800 Stool 200 Other: Voiding Method Urinal Urinal ABP, PAP, CO, CI - Last Documented Arterial Blood Pressure 108/62 - Labs CBC & Chem 7: 03/02/25 04:06 03/02/25 04:06 Labs: Abnormal Lab Results - Last 24 Hours (Table) 03/01/25 03/02/25 03/02/25 Range/Units 15:00 04:06 04:06 RBC 3.16 L (4.40-5.60) X 10*6/uL Hgb 8.1 L (13.0-17.0) g/dL Hct 26.3 L (39.6-50.0) % MCH 25.6 L (27.0-32.0) pg MCHC 30.8 L (32.0-37.0) g/dL RDW 18.0 H (11.5-14.5) % Plt Count 787 H (140-440) X 10*3/uL MPV 9.0 L (9.5-12.2) FL Lymphocytes # (Manual) 0.70 L (0.90-5.00) X 10*3/uL Monocytes # (Manual) 1.23 H (0.20-1.00) X 10*3/uL Eosinophils # (Manual) 0.53 H (0.04-0.35) X 10*3/uL BUN 5.7 L (9.0-27.0) mg/dL BUN/Creatinine Ratio 6.33 L (12.00-20.00) Ratio Calcium 8.0 L (8.7-10.3) mg/dL Crossmatch See Detail
[2025-03-03] MEDS: NYSTATIN 100,000 UNIT/ML SUSP 500,000 UNIT/5 ML CUP PO SCH (01:31)
--- NOTE | 2025-03-03 02:21 | PN ---
PROGRESS NOTE DATE OF SERVICE: 03/02/2025 SUBJECTIVE: This 59-year-old gentleman admitted after chronic mass perforation, is being closely monitored at this time. ECF rehab is being planned. Repeat CAT scan of the abdomen and pelvis showed the perisplenic collection and hepatic abscess versus a neoplasm. The patient is being closely monitored. No chest pain. No palpitation. PHYSICAL EXAMINATION: VITAL SIGNS: Pulse is 91, blood pressure 130/90, respirations 16. CHEST: Few scattered rhonchi and crackles. ABDOMEN: Soft. NERVOUS SYSTEM: Nonfocal. LABORATORY DATA: Reviewed. ASSESSMENT: 1. Invasive moderately differentiated colonic adenocarcinoma of the right colon. 2. Chronic mass with perforation with pneumoperitoneum and abdominal abscess, status post laparotomy and drainage of abscess, right colectomy. 3. Symptomatic anemia. 4. Colonic mass with possible metastatic disease. 5. Hepatic lesion, possible malignancy versus abscess. 6. Anemia. 7. Continued fever, improved. 8. Postoperative ventilator management. 9. Multiple complex medical issues. 10.History of EtOH. RECOMMENDATIONS: Recommend to continue current management and continue symptomatic treatment. Otherwise, continue to monitor. Guarded prognosis because of multiple complex medical issues. Further recommendations to follow. MMODL / IJN: [id number] /
[2025-03-03] MEDS: THIAMINE 100 MG TAB PO SCH (08:06)
[2025-03-03] MEDS: FOLIC ACID 1 MG TAB PO SCH (08:06)
--- NOTE | 2025-03-03 10:09 | P.PN ---
Subjective Progress Note Date: 03/03/25 Principal diagnosis: Perforated colon cancer Patient seems to be doing better today. Says his pain is a bit less. Feels more energetic. Morning labs pending. No nausea or vomiting. Appetite remains diminished although he did eat some breakfast. Ostomy functioning. Objective - Vital Signs Vital signs: Vital Signs Temp 98.0 F 03/03/25 07:22 Pulse 82 03/03/25 07:22 Resp 16 03/03/25 07:22 BP 138/88 03/03/25 07:22 Pulse Ox 99 03/03/25 07:22 FiO2 21 02/26/25 11:09 Intake & Output 03/02/25 03/03/25 03/03/25 18:59 06:59 18:59 Intake Total 700 Output Total 2100 400 400 Balance -1400 -400 -400 Weight 70 kg 72 kg Intake: Intake, IV Titration 100 Amount Piperacillin-Tazobactam 3 100 .375 gm In Sodium Chloride 0.9% 100 ml @ 25 mls/hr IVPB [facility] Rx#: [id number] Oral 600 Output: Urine 1500 400 400 Stool 600 Other: Voiding Method Urinal Urinal # Voids 1 # Bowel Movements 1 ABP, PAP, CO, CI - Last Documented Arterial Blood Pressure 108/62 - Exam Abdomen: Soft, nondistended, incision clean and dry, very slight erythema distal one third of incision without fluctuance or drainage - Labs CBC & Chem 7: 03/02/25 04:06 03/02/25 04:06 Assessment and Plan (1) Intra-abdominal abscess Narrative/Plan: Patient seems to be slowly improving. Yesterday's CAT scan was encouraging. Check today's labs. Ambulate. Continue diet. Current Visit: Yes Status: Acute Priority: High Code(s): K65.1 - PERITONEAL ABSCESS SNOMED Code(s): 73918482
[2025-03-03] MEDS: MULTIVITAMINS, THERA 1 EACH TAB PO SCH (11:15)
--- NOTE | 2025-03-03 23:48 | PN ---
PROGRESS NOTE DATE OF SERVICE: 03/03/2025 SUBJECTIVE: This 59-year-old gentleman who was admitted after colonic mass perforation, has invasive moderately differentiated colonic adenocarcinoma. The patient also on Eraxis, which is apparently not covered. The most recent CT scan of the abdomen showed some perisplenic collection and other abnormalities also. PAST MEDICAL HISTORY: Reviewed. REVIEW OF SYSTEMS: A 14-point review of systems negative except as mentioned earlier. CURRENT MEDICATIONS: Reviewed. PHYSICAL EXAMINATION: VITAL SIGNS: Pulse is 82, blood pressure 130/80, and respirations 16. HEENT: Conjunctivae normal. CARDIOVASCULAR: S1, S2. RESPIRATIONS: Breath sounds diminished at the bases. ABDOMEN: Soft. NERVOUS SYSTEM: Nonfocal. LABORATORY DATA: Reviewed. ASSESSMENT: 1. Invasive moderately differentiated adenocarcinoma of the right colon. 2. Colonic mass with perforation with pneumoperitoneum and abdominal abscess, status post laparotomy, drainage, abscess and right colectomy. 3. Symptomatic anemia. 4. Chronic mass with possible metastatic disease. 5. Hepatic lesion, possibly malignancy versus abscess. 6. Anemia. 7. Continued fever, improved. 8. Postoperative wound management. 9. Multiple complex medical issues. 10.History of EtOH. RECOMMENDATIONS AND DISCUSSION: I recommend to continue current management and symptomatic treatment. Otherwise, currently the white count is normal. Cultures are noted. The patient is still on empiric antibiotics. We will continue to monitor. Guarded prognosis. Repeat labs. Further recommendations to follow. MMODL / IJN: [id number] /
[2025-03-04 09:25] LABS: HCT 27.3 % (39.6-50.0); HGB 8.3 g/dL (13.0-17.0); MCH 25.4 pg (27.0-32.0); MCHC 30.4 g/dL (32.0-37.0); MCV 83.5 FL (80.0-97.0); NRBC Per 100 WBC 0 X 10*3/uL (0.00-0.01); Platelet Count 815 X 10*3/uL (140-440); RBC 3.27 X 10*6/uL (4.40-5.60); RDW 17.7 % (11.5-14.5); WBC 7.62 X 10*3/uL (4.50-10.00)
[2025-03-04 09:26] LABS: Basophils # (A) 0.05 X 10*3/uL (0.00-0.10); Basophils % (A) 0.7 %; Eosinophils # (A) 0.28 X 10*3/uL (0.04-0.35); Eosinophils % (A) 3.7 %; Immature Grans, Automated 2.60 %; Lymphocytes # (A) 1.52 X 10*3/uL (0.90-5.00); Lymphocytes % (A) 19.9 %; Monocytes # (A) 1.10 X 10*3/uL (0.20-1.00); Monocytes % (A) 14.4 %; Neutrophils # (A) 4.47 X 10*3/uL (1.80-7.70); Neutrophils % (A) 58.7 %
--- NOTE | 2025-03-04 10:08 | P.PN ---
Subjective Progress Note Date: 03/04/25 Principal diagnosis: Perforated colon cancer Patient doing well today. Says this is the first day his pain has felt definitively better. White blood cell count normal, hemoglobin 8.3 from 8.12 days ago. Objective - Vital Signs Vital signs: Vital Signs Temp 97.9 F 03/04/25 07:23 Pulse 85 03/04/25 07:23 Resp 18 03/04/25 07:23 BP 153/83 03/04/25 07:23 Pulse Ox 100 03/04/25 07:23 FiO2 21 02/26/25 11:09 Intake & Output 03/03/25 03/04/25 03/04/25 18:59 06:59 18:59 Intake Total 1620 Output Total 750 1425 Balance -750 195 Intake: Oral 1620 Output: Urine 750 1425 Other: Voiding Method Urinal # Voids 300 ABP, PAP, CO, CI - Last Documented Arterial Blood Pressure 108/62 - Exam Abdomen: Soft, mild tenderness, incision clean and dry, no appreciable erythema, ostomy functioning - Labs CBC & Chem 7: 03/04/25 04:15 03/02/25 04:06 Labs: Abnormal Lab Results - Last 24 Hours (Table) 03/04/25 Range/Units 04:15 RBC 3.27 L (4.40-5.60) X 10*6/uL Hgb 8.3 L (13.0-17.0) g/dL Hct 27.3 L (39.6-50.0) % MCH 25.4 L (27.0-32.0) pg MCHC 30.4 L (32.0-37.0) g/dL RDW 17.7 H (11.5-14.5) % Plt Count 815 H (140-440) X 10*3/uL Immature Gran # 0.20 H (0.00-0.04) X 10*3/uL Monocytes # 1.10 H (0.20-1.00) X 10*3/uL Assessment and Plan (1) Intra-abdominal abscess Narrative/Plan: Patient doing better today. Increase activity. Continue diet. Recheck labs tomorrow. Current Visit: Yes Status: Acute Priority: High Code(s): K65.1 - PERITONEAL ABSCESS SNOMED Code(s): 42780819
[2025-03-04 10:09] LABS: Anion Gap 6.00 mmol/L (4.00-12.00); BUN/Creat Ratio 4.70 Ratio (12.00-20.00); Blood Urea Nitrogen 4.7 mg/dL (9.0-27.0); Calcium 8.3 mg/dL (8.7-10.3); Carbon Dioxide 27.0 mmol/L (21.6-31.8); Chloride 105 mmol/L (96-109); Glucose 106 mg/dL (70-110); Potassium 4.7 mmol/L (3.5-5.5); Sodium 138 mmol/L (135-145)
--- NOTE | 2025-03-04 14:43 | P.PN ---
Subjective Progress Note Date: 03/04/25 59-year-old male with past medical history significant for alcohol abuse, and prior abdominal surgery for hernia repair in 2018. Presented emergency department yesterday evening complaining of abdominal pain. [place] something had popped in his right sided abdomen. Workup at the emergency department including an abdominal/pelvis CT remarkable for an hepatic flexure colonic mass with perforation resulting in pneumoperitoneum and an abscess formation along the right lateral abdomen. Concerns for metastatic disease to the mesentery with multiple lymph nodes present. Also, indeterminate but probable liver metastatic disease versus abscess noted. Reactive enteritis/colitis secondary to perforation and intra-abdominal leak feces contents. Patient was then taken to the operating room for exploratory laparotomy. Patient was noted to have a large abscess within the right colon which was drained. The colon mass was dissected off of the duodenum and sent to pathology. There was obvious concerns for enlarged lymphadenopathy within the mesentery. Underwent right colectomy with ileostomy and partial omentectomy. Following the procedure, patient was transferred to the intensive care unit in critical condition. He remains intubated to the mechanical ventilator. Postoperative chest x-rays the endotracheal tube in appropriate positioning above the nehemias. Nasogastric tube coursing below the diaphragm. No focal opacities, pleural effusions, pneumothoraces, or otherwise acute cardiopulmonary process. Current ventilator settings: AC, respiratory rate 24, tidal volume 450, FiO2 100% PEEP of 5. Postoperative ABG consistent with combined metabolic and respiratory acidosis with a PaO2 of 420, pCO2 46, pH of 7.24. Patient is currently synchronous with current settings and sedated on propofol at 40 mcg/kg/min. Normal saline also infusing at 130 mL/h. He is tachycardic and borderline hypotensive with a blood pressure of 93/72 mmHg, heart rate is 120 bpm. Did previously receive 2.4 L crystalloid fluid bolus. Also, received 2 units PRBCs perioperatively. Mottled appearance to the lower extremities. Previously, noted to be febrile. Patient was empirically covered on a combination of Zosyn and vancomycin for abdominal sepsis. He does have a midline abdominal incision with postoperative dressing clean and intact. There is a right-sided abdominal ileostomy which is pink and beefy red. No significant output. Postoperative labs including a CBC with a WBC count of 8.5, hemoglobin 7.8 g/dL, platelets 571. 02/18/2025 Patient is seen and evaluated resting comfortably in bed; has been transferred out of ICU Vital signs are reviewed and stable with temperature of 97.7, pulse 90, respiration 18 and blood pressure 158/97, O2 saturation 95% Lab review shows WBC 9.39, hemoglobin of 11.2, sodium 131, potassium 3.8, BUN/creatinine of 10/0.68 -Patient is status post right colectomy with ileostomy on 02/13/2025; surgery on board; patient is maintaining oral intake - Continue with IV antibiotics in form of Zosyn and Flagyl 02/19/2025 Patient seen and evaluated and discussed with nursing staff; continue to ask for IV Dilaudid every 3 hours; remains on [place] Vital signs are reviewed temperature 98.1, pulse 85, respiration 20 and blood pressure 154/83 Blood work reveals WBC of 10.7, hemoglobin of 10.3, sodium 131, potassium 3.9, BUN/creatinine 7/0.59 Patient is status post colectomy for perforated colonic neoplasm on 02/14/2024 -General Surgery on board; patient continues to make improvement; possible discharge in next -02/20 Patient is little bit, he got full quickly. No vomiting Abdominal pain but is not down. Colostomy is working and he had 3-4 bowel movements yesterday No other new complaint 02/21 Patient states he feels the same, he is fully awake and oriented sitting up in bed. No vomiting. He still is little bit Abdominal pain is mild to moderate and controlled. He is having bowel movement through his ileostomy He has 1+ bilateral pitting leg edema He remains on broad-spectrum antibiotics with IV vancomycin and Zosyn and Flagyl 02/22 Patient is not eating much Abdominal wound healing Hemodynamically stable WBC is up to 15.2. Hemoglobin 9.7. Sodium 136 creatinine 1.1 IV vancomycin dosed per pharmacy been adjusted. Trough is therapeutic at 20.5 yesterday. Remains on IV vancomycin and Zosyn and Flagyl Colon biopsy Invasive moderately differentiated colonic adenocarcinoma Monitor kidney function as well Discussed the plan with the patient 02/23 Patient still not eating much No much abdominal pain Has not bowel movement through the ileostomy 02/24 Patient feels the same, he is little bit He has little abdominal pain He has limited bowel movement through the ileostomy bag He is mildly tachycardic He has persistent leukocytosis about 14.9 and hemoglobin stable at 9.3 He remains on broad-spectrum antibiotics with IV vancomycin and Zosyn and Flagyl Colonic biopsy: Invasive moderately differentiated colonic adenocarcinoma arising within right colon 02/25 Patient improving slowly and gradually Still has abdominal pain and tenderness. Still is little bit He is spiking low-grade fever He is on Zosyn. IV vancomycin and Flagyl were held after initial treatment for several days and weeks We will check MRSA screen, also we will monitor if keep spiking fever may consider adding further antibiotic 02/26 Continue patient clinically looks the same Awake alert pt Is little with some tenderness mainly in the left side No more fever Remains on Zosyn 03/04. Dr. Torres took over care. Patient underwent exploratory laparotomy with drainage of abscess, right colectomy, end ileostomy, and partial omentectomy. Patient wound culture growing Streptococcus anginosus, beta-hemolytic Streptococcus Stated normal pain has improved. Denies any nausea or vomiting denies REVIEW OF SYSTEMS: CONSTITUTIONAL: No fever, no malaise,. CARDIOVASCULAR: No chest pain, no palpitations, no syncope. PULMONARY: No shortness of breath, no cough, GASTROINTESTINAL: As mentioned above NEUROLOGICAL: No headaches, no weakness, PHYSICAL EXAMINATION: GENERAL: The patient is alert and oriented x3, not in any acute distress. Ill looking HEENT: Pupils are round and equally reacting to light. EOMI. No scleral icterus. No conjunctival pallor. Normocephalic, atraumatic. No pharyngeal erythema. No thyromegaly. CARDIOVASCULAR: S1 and S2 present. No murmurs, rubs, or gallops. PULMONARY: Chest is clear to auscultation, no wheezing or crackles. ABDOMEN: Soft, nontender, nondistended, surgical incisions seen, ostomy seen MUSCULOSKELETAL: No joint swelling or deformity. EXTREMITIES: No cyanosis, clubbing, or pedal edema. NEUROLOGICAL: Gross neurological examination did not reveal any focal deficits. SKIN: No rashes. Assessment and plan Colonic mass with perforation, pneumoperitoneum, intra-abdominal abscess. Status post exploratory laparotomy with drainage of abscess, right colectomy, end ileostomy, and partial omentectomy. cultures revealed Streptococcus anginosus, beta-hemolytic strep group C Currently on IV Zosyn ID consult Colonic mass with concerns for metastatic disease with enlargement of mesenteric lymph nodes, also, indeterminate but probable metastatic disease to the liver - Colon biopsy Invasive moderately differentiated colonic adenocarcinoma, Hematology consulted, following, recommendations noted Postoperative ventilator management, extubated and on 2 liters nasal cannula; currently saturating above 92% on 2 L; plan to titrate or wean as able Resolved Acute blood loss anemia, status post 2 units PRBCs monitor CBC Hypokalemia, monitor BMP Hypocalcemia, monitor BMP History of alcohol abuse Labs and medication were reviewed.. Continue same treatment. Continue with symptomatic treatment. Resume home medication. Monitor labs and vitals. DVT and GI prophylaxis. Further recommendations as per clinical course of the patient Dictation was produced using [employer] dictation software. please excuse any grammatical, word or spelling errors. Objective - Vital Signs Vital signs: Vital Signs Temp 97.9 F 03/04/25 07:23 Pulse 85 03/04/25 07:23 Resp 18 03/04/25 07:23 BP 153/83 03/04/25 07:23 Pulse Ox 100 03/04/25 07:23 FiO2 21 02/26/25 11:09 Intake & Output 03/03/25 03/04/25 03/04/25 18:59 06:59 18:59 Intake Total 1620 Output Total 750 1425 Balance -750 195 Intake: Oral 1620 Output: Urine 750 1425 Other: Voiding Method Urinal # Voids 300 ABP, PAP, CO, CI - Last Documented Arterial Blood Pressure 108/62 - Labs CBC & Chem 7: 03/04/25 04:15 03/04/25 04:15 Labs: Abnormal Lab Results - Last 24 Hours (Table) 03/04/25 03/04/25 Range/Units 04:15 04:15 RBC 3.27 L (4.40-5.60) X 10*6/uL Hgb 8.3 L (13.0-17.0) g/dL Hct 27.3 L (39.6-50.0) % MCH 25.4 L (27.0-32.0) pg MCHC 30.4 L (32.0-37.0) g/dL RDW 17.7 H (11.5-14.5) % Plt Count 815 H (140-440) X 10*3/uL Immature Gran # 0.20 H (0.00-0.04) X 10*3/uL Monocytes # 1.10 H (0.20-1.00) X 10*3/uL BUN 4.7 L (9.0-27.0) mg/dL BUN/Creatinine Ratio 4.70 L (12.00-20.00) Ratio Calcium 8.3 L (8.7-10.3) mg/dL
--- NOTE | 2025-03-04 23:15 | P.CONS ---
History of Present Illness - Reason for Consult Consult date: 03/04/25 Intra-abdominal abscess Requesting physician: Salomón Torres - Chief Complaint Abdominal pain x few days - History of Present Illness Patient is a 59-year-old male with a past medical history negative for asthma or reflux presenting the hospital 3 weeks ago for evaluation of abdominal pain with sudden worsening patient on presentation to the hospital did have abdominal pelvis CT did shows hepatic flexure colonic mass with perforation resulting in pneumoperitoneum and abscess formation patient was taken to the OR on 02/12/2025 and the patient is status post drainage of the abscess right colectomy with ileostomy and partial omentectomy the abdominal culture were positive for Streptococcus anginosus group C strep as well as some multiple anaerobes including Fusobacterium bacteroids Prevotella and the patient has been on Zosyn for the last 20 days patient did not have any high-grade fevers during this hospital stay few low-grade fevers did have elevated white count is up to 23,000 however the white count has been normal since 02/28/2025 patient did have repeat abdominal pelvis CT done on 02/25/2025 which did mention new left upper quadrant fluid collection which may be subcapsular hemorrhage involving the spleen postsurgical changes right hepatic lobe lesion possible necrotic mass large hydrocele and the patient has been managed with no surgical treatment for that abnormal findings patient on time my evaluation denies having any fever or imaging the patient denies having any chest pain or shortness of breath or cough patient abdominal pain is currently controlled incision is currently healed and did have output in his ileostomy hide is been tolerating a regular diet Review of Systems Positive point and negatives has been mentioned in the HPI, complete review of systems was performed and all other systems are negative Past Medical History Past Medical History: Asthma, GERD/Reflux Additional Past Medical History / Comment(s): Asthma as a child History of Any Multi-Drug Resistant Organisms: None Reported Past Surgical History: Hernia Repair, Orthopedic Surgery Additional Past Surgical History / Comment(s): R forearm flexor muscle laceration with I&D/repair, possible L inguinal surgery as a child (pt not certain), circumcism. Past Anesthesia/Blood Transfusion Reactions: No Reported Reaction Smoking Status: Current every day smoker Past Alcohol Use History: None Reported Past Drug Use History: Marijuana - Past Family History Mother Additional Family Medical History / Comment(s): Mother has had to have brain kelvin les but pt does not know the reason. She is 76yrs old. Father Family Medical History: Myocardial Infarction ([place]) Additional Family Medical History / Comment(s): Father of a [place] at the age of 69yrs. Medications and Allergies Home Medications Medication Instructions Recorded Confirmed Type No Known Home Medications 02/13/25 02/13/25 History Allergies Allergy/AdvReac Type Severity Reaction Status Date / Time No Known Allergies Allergy Verified 02/13/25 11:35 Physical Exam Vitals: Vital Signs Temp Pulse Pulse Resp BP Pulse Ox 03/04/25 07:23 97.9 F 85 18 153/83 100 03/04/25 01:04 98.2 F 91 16 142/88 94 L 03/03/25 18:09 98.3 F 94 16 135/85 94 L Intake and Output 03/03/25 03/04/25 03/04/25 22:59 06:59 14:59 Intake Total 1620 Output Total 200 1425 Balance -200 195 Intake: Oral 1620 Output: Urine 200 1425 Other: Voiding Method Urinal GENERAL DESCRIPTION: Middle-age male lying in bed, no distress. No tachypnea or accessory muscle of respiration use. HEENT: Shows Pallor , no scleral icterus. Oral mucous membrane is dry. NECK: Trachea central, no thyromegaly. LUNGS: Unlabored breathing. Clear to auscultation anteriorly. No wheeze or crackle. HEART: S1, S2, regular rate and rhythm. No loud murmur ABDOMEN: Soft, midline incision is currently healed no significant tenderness output in the ileostomy EXTREMITIES: No edema of feet. SKIN: No rash, no masses palpable. NEUROLOGICAL: The patient is awake, alert, oriented x3, mood and affect normal. Results CBC & Chem 7: 03/04/25 04:15 03/04/25 04:15 Labs: Abnormal Lab Results - Last 24 Hours (Table) 03/04/25 03/04/25 Range/Units 04:15 04:15 RBC 3.27 L (4.40-5.60) X 10*6/uL Hgb 8.3 L (13.0-17.0) g/dL Hct 27.3 L (39.6-50.0) % MCH 25.4 L (27.0-32.0) pg MCHC 30.4 L (32.0-37.0) g/dL RDW 17.7 H (11.5-14.5) % Plt Count 815 H (140-440) X 10*3/uL Immature Gran # 0.20 H (0.00-0.04) X 10*3/uL Monocytes # 1.10 H (0.20-1.00) X 10*3/uL BUN 4.7 L (9.0-27.0) mg/dL BUN/Creatinine Ratio 4.70 L (12.00-20.00) Ratio Calcium 8.3 L (8.7-10.3) mg/dL Assessment and Plan (1) Intra-abdominal abscess Current Visit: Yes Status: Acute Priority: High Code(s): K65.1 - PE RITONEAL ABSCESS SNOMED Code(s): 62646368 (2) Perforated bowel Current Visit: Yes Status: Acute Priority: High Code(s): K63.1 - PERFORATION OF INTESTINE (NONTRAUMATIC) SNOMED Code(s): 75002217 Plan: 1patient presented to the hospital with abdominal pain about 3 weeks ago before this initial evaluation and has been diagnosed with a right-sided colonic mass with perforation and abscess status post laparotomy and drainage of the abscess and diverting ileostomy along with right hemicolectomy abdominal culture positive for strep and multiple anaerobes he did have a follow-up CT on 02/26/20 with concern for possible subcapsular collection and was a question of possible hematoma rather than abscess and being monitored by surgical team patient did not have any fever and the patient white count is normalized 2patient will be treated with Zosyn 3.375 g with outpatient but adequate [place] for the multiple pathogens grown in the culture 3if there is no concern for abnormality seen on the CT due to being an abscess may be able to transition over antibiotic on discharge at there was no evidence of any other abscess on the CT 02/25/2025 Question concern answered We will follow on clinical condition and cultures to further adjust medication if needed Thank you for this consultation we will follow the patient along with you Dictation was produced using [employer] dictation software. please excuse any grammatical, word or spelling errors. Time with Patient: Greater than 30
[2025-03-05 08:53] LABS: HCT 26.1 % (39.6-50.0); HGB 7.9 g/dL (13.0-17.0); MCH 25.1 pg (27.0-32.0); MCHC 30.3 g/dL (32.0-37.0); MCV 82.9 FL (80.0-97.0); NRBC Per 100 WBC 0 X 10*3/uL (0.00-0.01); Platelet Count 789 X 10*3/uL (140-440); RBC 3.15 X 10*6/uL (4.40-5.60); RDW 17.7 % (11.5-14.5); WBC 7.83 X 10*3/uL (4.50-10.00)
[2025-03-05 08:54] LABS: Basophils # (A) 0.07 X 10*3/uL (0.00-0.10); Basophils % (A) 0.9 %; Eosinophils # (A) 0.32 X 10*3/uL (0.04-0.35); Eosinophils % (A) 4.1 %; Immature Grans, Automated 2.80 %; Lymphocytes # (A) 1.82 X 10*3/uL (0.90-5.00); Lymphocytes % (A) 23.2 %; Monocytes # (A) 1.06 X 10*3/uL (0.20-1.00); Monocytes % (A) 13.5 %; Neutrophils # (A) 4.34 X 10*3/uL (1.80-7.70); Neutrophils % (A) 55.5 %
[2025-03-05 09:03] LABS: Anion Gap 7.90 mmol/L (4.00-12.00); BUN/Creat Ratio 5.50 Ratio (12.00-20.00); Blood Urea Nitrogen 5.5 mg/dL (9.0-27.0); Calcium 8.2 mg/dL (8.7-10.3); Carbon Dioxide 26.1 mmol/L (21.6-31.8); Chloride 105 mmol/L (96-109); Glucose 87 mg/dL (70-110); Potassium 3.9 mmol/L (3.5-5.5); Sodium 139 mmol/L (135-145)
--- NOTE | 2025-03-05 09:58 | P.PN ---
Subjective Progress Note Date: 02/27/25 Principal diagnosis: Colon adenocarcinoma In f/u today pt is planning on leaving for rehab. He is doing fairly well post op, tolerating oral intake, ostomy functioning, he does feel that he is weak in general. Objective - Vital Signs Vital signs: Vital Signs Temp 99 F 02/27/25 11:45 Pulse 104 H 02/27/25 11:45 Resp 16 02/27/25 11:45 BP 130/82 02/27/25 11:45 Pulse Ox 100 02/27/25 11:45 FiO2 21 02/26/25 11:09 Intake & Output 02/26/25 02/27/25 02/27/25 18:59 06:59 18:59 Intake Total 698 236 Output Total 800 750 Balance -102 -514 Weight 69 kg Intake: Oral 698 236 Output: Urine 650 750 Stool 150 Other: Voiding Method Urinal Urinal Urinal ABP, PAP, CO, CI - Last Documented Arterial Blood Pressure 108/62 - Constitutional General appearance: Present: average body habitus, cooperative, no acute d istress - EENT Eyes: Present: anicteric sclerae, EOMI ENT: Present: hearing grossly normal - Respiratory Details: resp unlabored at rest - Cardiovascular Details: skin warm, well perfused - Peripheral edema leg Peripheral Edema: bilateral: Trace - Labs CBC & Chem 7: 03/05/25 03:34 03/05/25 03:34 Labs: Abnormal Lab Results - Last 24 Hours (Table) 02/26/25 Range/Units 12:39 Plt Count 1027 H* (140-440) 10*3/uL Assessment and Plan (1) Colon adenocarcinoma Current Visit: Yes Status: Acute Priority: High Code(s): C18.9 - MALIGNANT NEOPLASM OF COLON, UNSPECIFIED SNOMED Code(s): 355926509 (2) Perforated bowel Current Visit: Yes Status: Acute Priority: High Code(s): K63.1 - PERFORATION OF INTESTINE (NONTRAUMATIC) SNOMED Code(s): 33667628 (3) Intra-abdominal abscess Current Visit: Yes Status: Acute Priority: High Code(s): K65.1 - PERITONEAL ABSCESS SNOMED Code(s): 77548388 (4) Anemia Current Visit: Yes Status: Acute Priority: High Code(s): D64.9 - ANEMIA, UNSPECIFIED SNOMED Code(s): 617820754 Plan: Colon mass, perforated mass, intra-abdominal abscess-path +colon adenocarcinoma. -Patient presented with sudden onset abdominal pain. He was taken to surgery rather urgently, he is status post exploratory laparotomy, resection of colon mass, partial omentectomy, drainage of abscess and creation of end ileostomy - Pathology positive for invasive moderately differentiated colon adenocarcinoma, with 7/28 lymph nodes positive. Discussed findings with patient, and need for adjuvant chemo. Treatment will be on hold typically 4 weeks s/p surgery to allow adequate healing time. PET scan date and time in DC plan - NGS, PDL-1 slides requested - Will plan for outpt PET CT and liver MRI. - Clinic f/u upon discharge, appt documented in DC plan Anemia - Likely secondary to blood loss from colon mass. - Anemia work up most consistent with inflammation and possibly B12 function deficiency. Will recheck iron studies once pt has healed from surgery and give parenteral iron if appropriate. Will supplement B12.
--- NOTE | 2025-03-05 10:33 | P.PN ---
Subjective Progress Note Date: 03/05/25 Principal diagnosis: Perforated colon cancer Patient doing better today. Pain continues to gradually improved. He did get out of bed and moved some yesterday. Hemoglobin 7.9 from 8.3. Ostomy functioning. Tolerating diet. Objective - Vital Signs Vital signs: Vital Signs Temp 97.8 F 03/05/25 07:08 Pulse 79 03/05/25 07:08 Resp 16 03/05/25 07:08 BP 153/91 03/05/25 07:08 Pulse Ox 99 03/05/25 07:08 FiO2 21 02/26/25 11:09 Intake & Output 03/04/25 03/05/25 03/05/25 18:59 06:59 18:59 Output Total 1100 Balance -1100 Weight 43 kg Output: Urine 1100 Other: Voiding Method Urinal # Voids 2 6 ABP, PAP, CO, CI - Last Documented Arterial Blood Pressure 108/62 - Exam Abdomen: Soft, nondistended, incision clean and dry, ostomy functioning, minimal tenderness - Labs CBC & Chem 7: 03/05/25 03:34 03/05/25 03:34 Labs: Abnormal Lab Results - Last 24 Hours (Table) 03/05/25 03/05/25 Range/Units 03:34 03:34 RBC 3.15 L (4.40-5.60) X 10*6/uL Hgb 7.9 L (13.0-17.0) g/dL Hct 26.1 L (39.6-50.0) % MCH 25.1 L (27.0-32.0) pg MCHC 30.3 L (32.0-37.0) g/dL RDW 17.7 H (11.5-14.5) % Plt Count 789 H (140-440) X 10*3/uL MPV 9.0 L (9.5-12.2) FL Immature Gran # 0.22 H (0.00-0.04) X 10*3/uL Monocytes # 1.06 H (0.20-1.00) X 10*3/uL BUN 5.5 L (9.0-27.0) mg/dL BUN/Creatinine Ratio 5.50 L (12.00-20.00) Ratio Calcium 8.2 L (8.7-10.3) mg/dL Assessment and Plan (1) Intra-abdominal abscess Narrative/Plan: Patient doing better at this time. Repeat CBC tomorrow. Continue increasing activity. Continue physical therapy. Anticipate transfer to rehab early this week. Current Visit: Yes Status: Acute Priority: High Code(s): K65.1 - PERITONEAL ABSCESS SNOMED Code(s): 42945399
--- NOTE | 2025-03-05 15:34 | P.PN ---
Subjective Progress Note Date: 03/05/25 This is a pleasant 59-year-old male who came into the hospital secondary to a perforated bowel with pneumoperitoneum and underwent exploratory laparotomy with right colectomy drainage of abscess and ileostomy placement back on February 17. Patient has been continued on a course of IV Zosyn. He is currently afebrile and on room air. He is currently tolerating regular diet. He is having stool from the ostomy. He states that his pain is fairly well-controlled at this time. He had a repeat abdominal pelvis CT completed on March 02 which reveals a perisplenic collection questionable hemorrhagic versus hepatic abscess and neoplasm with moderate bilateral pleural effusions. He is reporting no shortness of breath no chest discomfort. He has been up ambulating to the restroom. He is planning for discharge to [facility] when medically stable. His labs today reveal a white blood cell count of 11.83, hemoglobin 7.9, sodium 139, potassium 3.9, BUN of 5.5, creatinine of 1.0. Review of Systems Constitutional: Denied any fatigue denied any fever. Cardio vascular: denied any chest pain, palpitations Gastrointestinal: denied any nausea, vomiting, diarrhea Pulmonary: Denied any shortness of breath cough Neurologic denied any new focal deficits All inpatient medications were reviewed and appropriate changes in these medications as dictated in the interval history and assessment and plan. PHYSICAL EXAMINATION: GENERAL: The patient is alert and oriented x3, not in any acute distress. Well d eveloped, well nourished. HEENT: Pupils are round and equally reacting to light. EOMI. No scleral icterus. No conjunctival pallor. Normocephalic, atraumatic. No pharyngeal erythema. No thyromegaly. CARDIOVASCULAR: S1 and S2 present. No murmurs, rubs, or gallops. PULMONARY: Chest is clear to auscultation, no wheezing or crackles. ABDOMEN: Soft, nontender, nondistended, normoactive bowel sounds. No palpable organomegaly. Right quadrant ostomy in place. MUSCULOSKELETAL: No joint swelling or deformity. EXTREMITIES: No cyanosis, clubbing, or pedal edema. NEUROLOGICAL: Gross neurological examination did not reveal any focal deficits. SKIN: No rashes. Assessment Colonic mass with perforation, pneumoperitoneum, intra-abdominal abscess. Status post exploratory laparotomy with drainage of abscess, right colectomy, end ileostomy, and partial omentectomy. Colonic mass with concerns for metastatic disease with enlargement of mesenteric lymph nodes, also, indeterminate but probable metastatic disease to the liver- Colon biopsy Invasive moderately differentiated colonic adenocarcinoma, Postoperative ventilator management, extubated and on 2 liters nasal cannula; currently saturating above 92% on 2 L; plan to titrate or wean as able Acute blood loss anemia, status post 2 units PRBCs monitor CBC Hypokalemia Hypocalcemia; resolved History of alcohol abuse Hx asthma stable Hx of Gastroesophageal reflux disease Chronic and ongoing nicotine use Chronic alcoholism GI prophylaxis DVT prophylaxis as per primary Full Code Plan Patient is continued on regular diet Hematology consulted, following, recommendations noted ID consulted Continue course of IV zosyn Monitor electrolytes and renal function PT/OT consult plans for [facility] on DC when medically stable The impression and plan of care has been dictated by Tavia Elena, Nurse Practitioner as directed. Dr. Daria MD I have performed a history and physical examination and medical decision making of this patient, discussed the same with the dictator, and agree with the dictators assessment and plan as written, documented as a scribe. Based on total visit time, I have performed more than 50% of this visit. Objective - Vital Signs Vital signs: Vital Signs Temp 97.9 F 03/05/25 13:51 Pulse 90 03/05/25 13:51 Resp 17 03/05/25 13:51 BP 152/90 03/05/25 13:51 Pulse Ox 97 03/05/25 13:51 FiO2 21 02/26/25 11:09 Intake & Output 03/04/25 03/05/25 03/05/25 18:59 06:59 18:59 Intake Total 360 Output Total 1100 Balance -740 Weight 43 kg Intake: Oral 360 Output: Urine 1100 Other: Voiding Method Urinal # Voids 2 6 ABP, PAP, CO, CI - Last Documented Arterial Blood Pressure 108/62 - Labs CBC & Chem 7: 03/05/25 03:34 03/05/25 03:34 Labs: Abnormal Lab Results - Last 24 Hours (Table) 03/05/25 03/05/25 Range/Units 03:34 03:34 RBC 3.15 L (4.40-5.60) X 10*6/uL Hgb 7.9 L (13.0-17.0) g/dL Hct 26.1 L (39.6-50.0) % MCH 25.1 L (27.0-32.0) pg MCHC 30.3 L (32.0-37.0) g/dL RDW 17.7 H (11.5-14.5) % Plt Count 789 H (140-440) X 10*3/uL MPV 9.0 L (9.5-12.2) FL Immature Gran # 0.22 H (0.00-0.04) X 10*3/uL Monocytes # 1.06 H (0.20-1.00) X 10*3/uL BUN 5.5 L (9.0-27.0) mg/dL BUN/Creatinine Ratio 5.50 L (12.00-20.00) Ratio Calcium 8.2 L (8.7-10.3) mg/dL Assessment and Plan Time with Patient: Less than 30
--- NOTE | 2025-03-05 17:18 | P.PN ---
Subjective Progress Note Date: 03/05/25 Principal diagnosis: Reason for follow-up is perforated colon/abscess Patient is a 59-year-old male with a past medical history negative for asthma or reflux presenting the hospital with abdominal pain has been diagnosed with perforated right-sided colon cancer in this patient with status post laparotomy right colectomy ileostomy and drainage of the intra-abdominal abscess grew multiple pathogen. On today's evaluation that is 03/05/2025, Patient is afebrile patient is currently on room air and denies having any shortness of breath, the patient denies any chest pain or cough, the patient denies any nausea vomiting circumventing some left-sided abdominal pain though some controlled with the pain medication. Patient white count 7.83 creatinine 1.0 Objective - Vital Signs Vital signs: Vital Signs Temp 97.9 F 03/05/25 13:51 Pulse 90 03/05/25 13:51 Resp 17 03/05/25 13:51 BP 152/90 03/05/25 13:51 Pulse Ox 97 03/05/25 13:51 FiO2 21 02/26/25 11:09 Intake & Output 03/04/25 03/05/25 03/05/25 18:59 06:59 18:59 Intake Total 1620 Output Total 1650 Balance -30 Weight 43 kg Intake: Oral 1620 Output: Urine 1650 Other: Voiding Method Urinal # Voids 2 6 ABP, PAP, CO, CI - Last Documented Arterial Blood Pressure 108/62 - Exam GENERAL DESCRIPTION: Middle-age male lying in bed in no distress RESPIRATORY SYSTEM: Unlabored breathing , decreased breath sounds at bases HEART: S1 S2 regular rate and rhythm , ABDOMEN: Soft , mild tenderness EXTREMITIES: No edema feet - Labs CBC & Chem 7: 03/05/25 03:34 03/05/25 03:34 Labs: Abnormal Lab Results - Last 24 Hours (Table) 03/05/25 03/05/25 Range/Units 03:34 03:34 RBC 3.15 L (4.40-5.60) X 10*6/uL Hgb 7.9 L (13.0-17.0) g/dL Hct 26.1 L (39.6-50.0) % MCH 25.1 L (27.0-32.0) pg MCHC 30.3 L (32.0-37.0) g/dL RDW 17.7 H (11.5-14.5) % Plt Count 789 H (140-440) X 10*3/uL MPV 9.0 L (9.5-12.2) FL Immature Gran # 0.22 H (0.00-0.04) X 10*3/uL Monocytes # 1.06 H (0.20-1.00) X 10*3/uL BUN 5.5 L (9.0-27.0) mg/dL BUN/Creatinine Ratio 5.50 L (12.00-20.00) Ratio Calcium 8.2 L (8.7-10.3) mg/dL Assessment and Plan (1) Intra-abdominal abscess Current Visit: Yes Status: Acute Priority: High Code(s): K65.1 - PERITONEAL ABSCESS SNOMED Code(s): 00398460 (2) Perforated bowel Current Visit: Yes Status: Acute Priority: High Code(s): K63.1 - PERFORATION OF INTESTINE (NONTRAUMATIC) SNOMED Code(s): 17838117 Plan: 1patient presented to the hospital with abdominal pain about 3 weeks ago before this initial evaluation and has been diagnosed with a right-sided colonic mass with perforation and abscess status post laparotomy and drainage of the abscess and diverting ileostomy along with right hemicolectomy abdominal culture positive for strep and multiple anaerobes he did have a follow-up CT on 02/25/2025 with concern for possible subcapsular collection and was a question of possible hematoma rather than abscess and being monitored by surgical team patient did not have any fever and the patient white count is normalized 2patient to continue with Zosyn 3.375 g with outpatient but adequate coverage for the multiple pathogens grown in the culture 3if there is no concern for abnormality seen on the CT due to being an abscess may be able to transition over antibiotic on discharge at there was no evidence of any other abscess on the CT 02/25/2025 Dictation was produced using [employer] dictation software. please excuse any grammatical, word or spelling errors. Time with Patient: Less than 30
[2025-03-05] MEDS: traMADol 50 MG TAB PO PRN (18:51)
[2025-03-06] MEDS: ZINC OXIDE PASTE (Z-GUARD) 1 APPLIC TOPICAL PRN (06:51)
[2025-03-06 08:17] LABS: HCT 27.9 % (39.6-50.0); HGB 8.5 g/dL (13.0-17.0); Lymphocytes % (A) 17.6 %; MCH 25.8 pg (27.0-32.0); MCHC 30.5 g/dL (32.0-37.0); MCV 84.8 FL (80.0-97.0); Monocytes % (A) 10.9 %; NRBC Per 100 WBC 0 X 10*3/uL (0.00-0.01); Neutrophils % (A) 65.0 %; Platelet Count 790 X 10*3/uL (140-440); RBC 3.29 X 10*6/uL (4.40-5.60); RDW 18.0 % (11.5-14.5); WBC 8.56 X 10*3/uL (4.50-10.00)
[2025-03-06 08:18] LABS: Basophils # (A) 0.08 X 10*3/uL (0.00-0.10); Basophils % (A) 0.9 %; Eosinophils # (A) 0.26 X 10*3/uL (0.04-0.35); Eosinophils % (A) 3.0 %; Immature Grans, Automated 2.60 %; Lymphocytes # (A) 1.51 X 10*3/uL (0.90-5.00); Monocytes # (A) 0.93 X 10*3/uL (0.20-1.00); Neutrophils # (A) 5.56 X 10*3/uL (1.80-7.70)
[2025-03-06 08:32] LABS: Anion Gap 8.00 mmol/L (4.00-12.00); BUN/Creat Ratio 5.00 Ratio (12.00-20.00); Blood Urea Nitrogen 5.5 mg/dL (9.0-27.0); Calcium 8.5 mg/dL (8.7-10.3); Carbon Dioxide 27.0 mmol/L (21.6-31.8); Chloride 103 mmol/L (96-109); Glucose 110 mg/dL (70-110); Magnesium 1.5 mg/dL (1.5-2.4); Potassium 4.1 mmol/L (3.5-5.5); Sodium 138 mmol/L (135-145)
[2025-03-06] MEDS ORDERED: Magnesium Replacement Protocol 1 EACH MISC MISCELLANE PRN (13:41)
[2025-03-06 13:47] VITALS: BMI 12.7
[2025-03-06] MEDS: HYDROcodone/APAP 7.5-325MG 1 EACH TAB PO PRN (14:33)
[2025-03-06] MEDS: MAGNESIUM SULFATE-D5W PMX 1 GM in DEXTROSE/WATER 1 100ML.BAG IVPB SCH (14:34)
--- NOTE | 2025-03-06 14:55 | P.PN ---
Subjective Progress Note Date: 03/06/25 Patient appears to be resting in his bed comfortably. He states he still requires IV Dilaudid. Have not seen the patient in the week. I was out of town for a week. On exam vital signs appear stable. Abdomen soft. Colostomy is functioning. Staple line is well-healed. Patient will have his heidy removed. We will start [place] and save the Dilaudid for IV breakthrough pain. Anticipate discharge hopefully next 48 hours Objective - Vital Signs Vital signs: Vital Signs Temp 97.5 F L 03/06/25 14:43 Pulse 82 03/06/25 14:43 Resp 17 03/06/25 14:43 BP 149/86 03/06/25 14:43 Pulse Ox 96 03/06/25 14:43 FiO2 21 02/26/25 11:09 Intake & Output 03/05/25 03/06/25 03/06/25 18:59 06:59 18:59 Intake Total 1620 Output Total 1650 800 900 Balance -30 -800 -900 Weight 42.5 kg 42.5 kg Intake: Oral 1620 Output: Urine 1650 800 700 Stool 200 Other: Voiding Method Urinal # Voids 1 ABP, PAP, CO, CI - Last Documented Arterial Blood Pressure 108/62 - Labs CBC & Chem 7: 03/06/25 03:19 03/06/25 03:19 Labs: Abnormal Lab Results - Last 24 Hours (Table) 03/06/25 03/06/25 Range/Units 03:19 03:19 RBC 3.29 L (4.40-5.60) X 10*6/uL Hgb 8.5 L (13.0-17.0) g/dL Hct 27.9 L (39.6-50.0) % MCH 25.8 L (27.0-32.0) pg MCHC 30.5 L (32.0-37.0) g/dL RDW 18.0 H (11.5-14.5) % Plt Count 790 H (140-440) X 10*3/uL MPV 9.0 L (9.5-12.2) FL Immature Gran # 0.22 H (0.00-0.04) X 10*3/uL BUN 5.5 L (9.0-27.0) mg/dL BUN/Creatinine Ratio 5.00 L (12.00-20.00) Ratio Calcium 8.5 L (8.7-10.3) mg/dL
[2025-03-06] MEDS: HYDROmorphone 0.5 MG/0.5 ML SYRINGE IVP PRN (16:34)
--- NOTE | 2025-03-06 18:59 | P.PN ---
Subjective Progress Note Date: 03/06/25 This is a pleasant 59-year-old male who came into the hospital secondary to a perforated bowel with pneumoperitoneum and underwent exploratory laparotomy with right colectomy drainage of abscess and ileostomy placement back on February 17. Patient has been continued on a course of IV Zosyn. He is currently afebrile and on room air. He is currently tolerating regular diet. He is having stool from the ostomy. He states that his pain is fairly well-controlled at this time. He had a repeat abdominal pelvis CT completed on March 02 which reveals a perisplenic collection questionable hemorrhagic versus hepatic abscess and neoplasm with moderate bilateral pleural effusions. He is reporting no shortnes s of breath no chest discomfort. He has been up ambulating to the restroom. He is planning for discharge to [facility] when medically stable. His labs today reveal a white blood cell count of 11.83, hemoglobin 7.9, sodium 139, potassium 3.9, BUN of 5.5, creatinine of 1.0. 03/06/2025 Patient is seen in follow-up today sitting up in bed and per nursing staff, has not been up much at all and continues to request IV pain medications [id number]. Patient did have [place] for breakthrough pain which has and will renew and continue to encourage this and avoid IV Dilaudid if possible. Will adjust medications accordingly. Patient ostomy is functioning and having bowel movement and reports has been up to the bathroom although is significantly weak. Patient has had prolonged hospitalization and will be going to [facility] on discharge for continued strength and mobility. Encourage incentive spirometer use and increase activity as tolerated with sitting up more frequently and sitting up in the chair with all meals. Patient is medically stable and should be considered for discharge to [facility]. Review of Systems Constitutional: Denied any fatigue denied any fever. Cardio vascular: denied any chest pain, palpitations Gastrointestinal: denied any nausea, vomiting, diarrhea, continues to report abdominal discomfort Pulmonary: Denied any shortness of breath cough Neurologic denied any new focal deficits, diffusely weak All inpatient medications were reviewed and appropriate changes in these medications as dictated in the interval history and assessment and plan. PHYSICAL EXAMINATION: GENERAL: The patient is alert and oriented x3, not in any acute distress. Well developed, well nourished. Elderly appearing, cachectic HEENT: Pupils are round and equally reacting to light. EOMI. No scleral icterus. No conjunctival pallor. Normocephalic, atraumatic. No pharyngeal erythema. No thyromegaly. CARDIOVASCULAR: S1 and S2 muffled PULMONARY: Diminished breath sounds bilaterally otherwise chest is clear to auscultation, no wheezing or crackles. ABDOMEN: Soft, tender, mildly distended, normoactive bowel sounds. No palpable organomegaly. Right quadrant ostomy in place. MUSCULOSKELETAL: No joint swelling or deformity. EXTREMITIES: No cyanosis, clubbing, or pedal edema. NEUROLOGICAL: Gross neurological examination did not reveal any focal deficits. Diffusely weak SKIN: No rashes. Assessment: Colonic mass with perforation, pneumoperitoneum, intra-abdominal abscess. Status post exploratory laparotomy with drainage of abscess, right colectomy, end ileo stomy, and partial omentectomy. Colonic mass with concerns for metastatic disease with enlargement of mesenteric lymph nodes, also, indeterminate but probable metastatic disease to the liver- Colon biopsy Invasive moderately differentiated colonic adenocarcinoma Postoperative ventilator management, extubated and on 2 liters nasal cannula; currently saturating above 92% on 2 L; plan to titrate or wean as able Acute blood loss anemia, status post 2 units PRBCs, monitor CBC, hemoglobin above 8 Hypokalemia Hypocalcemia; resolved History of alcohol abuse Hx asthma, not in exacerbation Hx of Gastroesophageal reflux disease Chronic and ongoing nicotine use Chronic alcoholism GI prophylaxis DVT prophylaxis as per primary Full Code Plan: Patient is continued on regular diet, encourage oral intake Hematology consulted, following, will follow-up outpatient Recommend adjusting IV narcotics and resuming Donovan Encourage sitting up in the chairs during meals at least 3 times a day Encouraged increased activity as tolerated with walking Magnesium low and will be replaced per protocol, repeat labs in a.m. ID following as patient is maintained on antibiotics. [facility] [place] when medically stable We will continue to follow with general surgery during hospitalization. Thank you kindly for this consultation The impression and plan of care has been dictated by Delia Ryder, Nurse Practitioner as directed. Dr. Daria MD I have performed a history and physical examination and medical decision making of this patient, discussed the same with the dictator, and agree with the dictators assessment and plan as written, documented as a scribe. Based on total visit time, I have performed more than 50% of this visit. Objective - Vital Signs Vital signs: Vital Signs Temp 98.8 F 03/06/25 00:59 Pulse 80 03/06/25 00:59 Resp 16 03/06/25 00:59 BP 150/85 03/06/25 00:59 Pulse Ox 96 03/06/25 00:59 FiO2 21 02/26/25 11:09 Intake & Output 03/05/25 03/05/25 03/06/25 06:59 18:59 06:59 Intake Total 1620 Output Total 1650 800 Balance -30 -800 Weight 43 kg 42.5 kg Intake: Oral 1620 Output: Urine 1650 800 Other: # Voids 6 1 ABP, PAP, CO, CI - Last Documented Arterial Blood Pressure 108/62 - Labs CBC & Chem 7: 03/06/25 03:19 03/06/25 03:19 Labs: Abnormal Lab Results - Last 24 Hours (Table) 03/05/25 03/05/25 Range/Units 03:34 03:34 RBC 3.15 L (4.40-5.60) X 10*6/uL Hgb 7.9 L (13.0-17.0) g/dL Hct 26.1 L (39.6-50.0) % MCH 25.1 L (27.0-32.0) pg MCHC 30.3 L (32.0-37.0) g/dL RDW 17.7 H (11.5-14.5) % Plt Count 789 H (140-440) X 10*3/uL MPV 9.0 L (9.5-12.2) FL Immature Gran # 0.22 H (0.00-0.04) X 10*3/uL Monocytes # 1.06 H (0.20-1.00) X 10*3/uL BUN 5.5 L (9.0-27.0) mg/dL BUN/Creatinine Ratio 5.50 L (12.00-20.00) Ratio Calcium 8.2 L (8.7-10.3) mg/dL
--- NOTE | 2025-03-07 15:08 | P.PN ---
Subjective Progress Note Date: 03/07/25 This is a pleasant 59-year-old male who came into the hospital secondary to a perforated bowel with pneumoperitoneum and underwent exploratory laparotomy with right colectomy drainage of abscess and ileostomy placement back on February 17. Patient has been continued on a course of IV Zosyn. He is currently afebrile and on room air. He is currently tolerating regular diet. He is having stool from the ostomy. He states that his pain is fairly well-controlled at this time. He had a repeat abdominal pelvis CT completed on March 02 which reveals a perisplenic collection questionable hemorrhagic versus hepatic abscess and neoplasm with moderate bilateral pleural effusions. He is reporting no shortnes s of breath no chest discomfort. He has been up ambulating to the restroom. He is planning for discharge to [facility] when medically stable. His labs today reveal a white blood cell count of 11.83, hemoglobin 7.9, sodium 139, potassium 3.9, BUN of 5.5, creatinine of 1.0. 03/06/2025 Patient is seen in follow-up today sitting up in bed and per nursing staff, has not been up much at all and continues to request IV pain medications [id number]. Patient did have [place] for breakthrough pain which has and will renew and continue to encourage this and avoid IV Dilaudid if possible. Will adjust medications accordingly. Patient ostomy is functioning and having bowel movement and reports has been up to the bathroom although is significantly weak. Patient has had prolonged hospitalization and will be going to [facility] on discharge for continued strength and mobility. Encourage incentive spirometer use and increase activity as tolerated with sitting up more frequently and sitting up in the chair with all meals. Patient is medically stable and should be considered for discharge to [facility]. 03/07/2025 Patient is seen in follow-up today with no acute overnight issues other than requesting IV Dilaudid. Adjustments to medications made and patient was resumed on [place] 7.5. Discuss further with patient about avoiding IV narcotics and working with nursing staff regarding this. Patient is significantly weak has minimally gotten out of the bed, is not working with ostomy nurse regarding any type of ostomy training, not eating very well although reports is eating fine, appears cachectic with significant muscle wasting noted in extreme weakness. Case management is following as patient will be going to [facility] on discharge and requires insurance authorization which is pending. Encouraged increase activity as tolerated and getting up out of the bed more frequently. Patient is admitted to general surgery. Review of Systems Constitutional: Denied any fatigue denied any fever. Cardio vascular: denied any chest pain, palpitations Gastrointestinal: denied any nausea, vomiting, diarrhea, continues to report abdominal discomfort Pulmonary: Denied any shortness of breath cough Neurologic denied any new focal deficits, diffusely weak All inpatient medications were reviewed and appropriate changes in these medications as dictated in the interval history and assessment and plan. PHYSICAL EXAMINATION: GENERAL: The patient is alert and oriented x3, not in any acute distress. Well developed, well nourished. Avoids a lot of eye contact, flat affect, appears depressed elderly appearing, cachectic HEENT: Pupils are round and equally reacting to light. EOMI. No scleral icterus. No conjunctival pallor. Normocephalic, atraumatic. No pharyngeal erythema. No thyromegaly. CARDIOVASCULAR: S1 and S2 muffled PULMONARY: Diminished breath sounds bilaterally otherwise chest is clear to auscultation, no wheezing or crackles. ABDOMEN: Soft, tender, non-distended, normoactive bowel sounds. No palpable organomegaly. Right quadrant ostomy in place. Surgical heidy noted MUSCULOSKELETAL: No joint swelling or deformity. EXTREMITIES: No cyanosis, clubbing, or pedal edema. NEUROLOGICAL: Gross neurological examination did not reveal any focal deficits. Diffusely weak SKIN: No rashes. Assessment: Colonic mass with perforation, pneumoperitoneum, intra-abdominal abscess. Status post exploratory laparotomy with drainage of abscess, right colectomy, end ile ostomy, and partial omentectomy. Colonic mass with concerns for metastatic disease with enlargement of mesenteric lymph nodes, also, indeterminate but probable metastatic disease to the liver- Colon biopsy Invasive moderately differentiated colonic adenocarcinoma Postoperative ventilator management, extubated and on 2 liters nasal cannula; currently saturating above 92% on 2 L; plan to titrate or wean as able Acute blood loss anemia, status post 2 units PRBCs, monitor CBC, hemoglobin above 8 Hypokalemia Hypocalcemia; resolved History of alcohol abuse Hx asthma, not in exacerbation Hx of Gastroesophageal reflux disease Chronic and ongoing nicotine use Chronic alcoholism GI prophylaxis DVT prophylaxis as per primary Full Code Plan: Patient is continued on regular diet, encourage oral intake, reports to tolerating diet although not eating very much Hematology consulted, following, will follow-up outpatient Recommend adjusting IV narcotics and continuing [place]. Discussed with nursing staff as well as patient regarding limiting IV Dilaudid Encourage sitting up in the chairs during meals at least 3 times a day Encouraged increased activity as tolerated with walking Magnesium was replaced and somewhat improved today ID following as patient is maintained on antibiotics. plans for [facility] [place] when medically stable. Patient will require insurance authorization which was submitted and pending at this time. Case management following working on discharge planning Hopeful for discharge in the next 24 hours. Patient is admitted to general surgery We will continue to follow with general surgery during hospitalization. Thank you kindly for this consultation The impression and plan of care has been dictated by Delia Ryder, Nurse Practitioner as directed. Dr. Daria MD I have performed a history and physical examination and medical decision making of this patient, discussed the same with the dictator, and agree with the dictators assessment and plan as written, documented as a scribe. Based on total visit time, I have performed more than 50% of this visit. Objective - Vital Signs Vital signs: Vital Signs Temp 98.6 F 03/07/25 08:00 Pulse 79 03/07/25 08:00 Resp 16 03/07/25 08:00 BP 137/90 03/07/25 08:00 Pulse Ox 97 03/07/25 08:10 FiO2 21 02/26/25 11:09 Intake & Output 03/06/25 03/07/25 03/07/25 18:59 06:59 18:59 Output Total 1100 500 800 Balance -1100 -500 -800 Weight 42.5 kg 42.1 kg Output: Urine 900 500 800 Stool 200 Other: Voiding Method Urinal # Bowel Movements 1 1 ABP, PAP, CO, CI - Last Documented Arterial Blood Pressure 108/62 - Labs CBC & Chem 7: 03/06/25 03:19 03/06/25 03:19
--- NOTE | 2025-03-07 15:26 | P.PN ---
Subjective Progress Note Date: 03/06/25 Principal diagnosis: Reason for follow-up is perforated colon/abscess Patient is a 59-year-old male with a past medical history negative for asthma or reflux presenting the hospital with abdominal pain has been diagnosed with perforated right-sided colon cancer in this patient with status post laparotomy right colectomy ileostomy and drainage of the intra-abdominal abscess grew multiple pathogen. On today's evaluation that is 03/06/2025, patient has been afebrile, patient is breathing comfortably and is currently on 2 L nasal cannula oxygen, patient denies having any chest pain and cough, patient denies nausea vomiting some left-sided abdominal pain but no worsening did have output in his ileostomy Patient white count is 8.56, creatinine is 1.1 Objective - Vital Signs Vital signs: Vital Signs Temp 98.0 F 03/06/25 07:42 Pulse 83 03/06/25 07:42 Resp 18 03/06/25 07:42 BP 144/90 03/06/25 07:42 Pulse Ox 99 03/06/25 07:42 FiO2 21 02/26/25 11:09 Intake & Output 03/05/25 03/06/25 03/06/25 18:59 06:59 18:59 Intake Total 1620 Output Total 1650 800 900 Balance -30 -800 -900 Weight 42.5 kg Intake: Oral 1620 Output: Urine 1650 800 700 Stool 200 Other: Voiding Method Urinal # Voids 1 ABP, PAP, CO, CI - Last Documented Arterial Blood Pressure 108/62 - Exam GENERAL DESCRIPTION: Middle-age male lying in bed in no distress RESPIRATORY SYSTEM: Unlabored breathing , decreased breath sounds at bases HEART: S1 S2 regular rate and rhythm , ABDOMEN: Soft , mild tenderness EXTREMITIES: No edema feet - Labs CBC & Chem 7: 03/06/25 03:19 03/06/25 03:19 Labs: Abnormal Lab Results - Last 24 Hours (Table) 03/06/25 03/06/25 Range/Units 03:19 03:19 RBC 3.29 L (4.40-5.60) X 10*6/uL Hgb 8.5 L (13.0-17.0) g/dL Hct 27.9 L (39.6-50.0) % MCH 25.8 L (27.0-32.0) pg MCHC 30.5 L (32.0-37.0) g/dL RDW 18.0 H (11.5-14.5) % Plt Count 790 H (140-440) X 10*3/uL MPV 9.0 L (9.5-12.2) FL Immature Gran # 0.22 H (0.00-0.04) X 10*3/uL BUN 5.5 L (9.0-27.0) mg/dL BUN/Creatinine Ratio 5.00 L (12.00-20.00) Ratio Calcium 8.5 L (8.7-10.3) mg/dL Assessment and Plan (1) Intra-abdominal abscess Current Visit: Yes Status: Acute Priority: High Code(s): K65.1 - PERITONEAL ABSCESS SNOMED Code(s): 49718573 (2) Perforated bowel Current Visit: Yes Status: Acute Priority: High Code(s): K63.1 - PERFORATION OF INTESTINE (NONTRAUMATIC) SNOMED Code(s): 39085093 Plan: 1patient presented to the hospital with abdominal pain about 3 weeks ago before this initial evaluation and has been diagnosed with a right-sided colonic mass with perforation and abscess status post laparotomy and drainage of the abscess and diverting ileostomy along with right hemicolectomy abdominal culture positive for strep and multiple anaerobes he did have a follow-up CT on 02/25/2025 with concern for possible subcapsular collection and was a question of possible hematoma rather than abscess and being monitored by surgical team patient did not have any fever and the patient white count is normalized 2patient is currently being treated with Zosyn 3.375 g while inpatient and should provide adequate coverage for the multiple pathogens grown in the culture Dictation was produced using [employer] dictation software. please excuse any grammatical, word or spelling errors. Time with Patient: Less than 30
--- NOTE | 2025-03-07 15:27 | P.PN ---
Subjective Progress Note Date: 03/07/25 Principal diagnosis: Reason for follow-up is perforated colon/abscess Patient is a 59-year-old male with a past medical history negative for asthma or reflux presenting the hospital with abdominal pain has been diagnosed with perforated right-sided colon cancer in this patient with status post laparotomy right colectomy ileostomy and drainage of the intra-abdominal abscess grew multiple pathogen. On today's evaluation that is 03/07/2025, Patient is afebrile this morning patient denies having any chest pain shortness of breath or cough, the patient is currently on 2 L nasal cannula oxygen patient denies any nausea vomiting he did have output in ileostomy still some left-sided abdominal pain but no worsening. No new labs were obtained today Objective - Vital Signs Vital signs: Vital Signs Temp 98.6 F 03/07/25 08:00 Pulse 79 03/07/25 08:00 Resp 16 03/07/25 08:00 BP 137/90 03/07/25 08:00 Pulse Ox 97 03/07/25 08:10 FiO2 21 02/26/25 11:09 Intake & Output 03/06/25 03/07/25 03/07/25 18:59 06:59 18:59 Output Total 1100 500 800 Balance -1100 -500 -800 Weight 42.5 kg 42.1 kg Output: Urine 900 500 800 Stool 200 Other: Voiding Method Urinal # Bowel Movements 1 1 ABP, PAP, CO, CI - Last Documented Arterial Blood Pressure 108/62 - Exam GENERAL DESCRIPTION: Middle-age male lying in bed in no distress RESPIRATORY SYSTEM: Unlabored breathing , decreased breath sounds at bases HEART: S1 S2 regular rate and rhythm , ABDOMEN: Soft , mild tenderness EXTREMITIES: No edema feet - Labs CBC & Chem 7: 03/06/25 03:19 03/06/25 03:19 Assessment and Plan (1) Intra-abdominal abscess Current Visit: Yes Status: Acute Priority: High Code(s): K65.1 - PERITONEAL ABSCESS SNOMED Code(s): 64103838 (2) Perforated bowel Current Visit: Yes Status: Acute Priority: High Code(s): K63.1 - PERF ORATION OF INTESTINE (NONTRAUMATIC) SNOMED Code(s): 03793512 Plan: 1patient presented to the hospital with abdominal pain about 3 weeks ago before this initial evaluation and has been diagnosed with a right-sided colonic mass with perforation and abscess status post laparotomy and drainage of the abscess and diverting ileostomy along with right hemicolectomy abdominal culture positive for strep and multiple anaerobes he did have a follow-up CT on 02/25/2025 with concern for possible subcapsular collection and was a question of possible hematoma rather than abscess and being monitored by surgical team patient did not have any fever and the patient white count is normalized 2patient is afebrile and the patient white count normal to continue with Zosyn 3.375 g while inpatient and monitor clinical course closely Dictation was produced using [employer] dictation software. please excuse any grammatical, word or spelling errors. Time with Patient: Less than 30
--- NOTE | 2025-03-07 18:55 | P.PN ---
Subjective Progress Note Date: 03/07/25 Principal diagnosis: Colon adenocarcinoma In f/u today pt is wanting to get to rehab, he has no new c/o, tolerating oral intake, ostomy functioning Objective - Vital Signs Vital signs: Vital Signs Temp 98.1 F 03/07/25 15:56 Pulse 83 03/07/25 15:56 Resp 18 03/07/25 15:56 BP 150/90 03/07/25 15:56 Pulse Ox 100 03/07/25 15:56 FiO2 21 02/26/25 11:09 Intake & Output 03/06/25 03/07/25 03/07/25 18:59 06:59 18:59 Output Total 5597 417 9513 Balance -1100 -500 -1200 Weight 42.5 kg 42.1 kg Output: Urine 676 955 1416 Stool 200 Other: Voiding Method Urinal # Voids 2 # Bowel Movements 1 1 ABP, PAP, CO, CI - Last Documented Arterial Blood Pressure 108/62 - Constitutional General appearance: Present: average body habitus, cooperative, no acute distress - EENT Eyes: Present: anicteric sclerae, EOMI ENT: Present: hearing grossly normal - Respiratory Details: resp unlabored at rest - Peripheral edema leg Peripheral Edema: bilateral: None - Integumentary Integumentary: Present: normal - Neurologic Neurologic: Present: CNII-XII intact - Musculoskeletal Musculoskeletal: Present: generalized weakness - Psychiatric Psychiatric: Present: A&O x's 3, appropriate affect, intact judgment & insight - Labs CBC & Chem 7: 03/06/25 03:19 03/06/25 03:19 Assessment and Plan (1) Colon adenocarcinoma Current Visit: Yes Status: Acute Priority: High Code(s): C18.9 - MALIGNANT NEOPLASM OF COLON, UNSPECIFIED SNOMED Code(s): 382111097 (2) Perforated bowel Current Visit: Yes Status: Acute Priority: High Code(s): K63.1 - PERFORATION OF INTESTINE (NONTRAUMATIC) SNOMED Code(s): 88837365 (3) Intra-abdominal abscess Current Visit: Yes Status: Acute Priority: High Code(s): K65.1 - PERITONEAL ABSCESS SNOMED Code(s): 05853476 (4) Anemia Current Visit: Yes Status: Acute Priority: High Code(s): D64.9 - ANEMIA, UNSPECIFIED SNOMED Code(s): 047730471 Plan: Colon mass, perforated mass, intra-abdominal abscess-path +colon adenocarcinoma. -Patient presented with sudden onset abdominal pain. He was taken to surgery rather urgently, he is status post exploratory laparotomy, resection of colon mass, partial omentectomy, drainage of abscess and creation of end ileostomy - Pathology positive for invasive moderately differentiated colon adenocarcinoma, with 7/28 lymph nodes positive. Needs adjuvant chemo. Treatment will be on hold at least 4 weeks post op and until pt has recovered adequately and completed rehabilitation. PET scan date and time in DC plan. - NGS, PDL-1 testing in process - Clinic f/u upon discharge, appt documented in DC plan Anemia - Likely secondary to blood loss from colon mass. - Anemia work up most consistent with inflammation and possibly B12 function deficiency. Will recheck iron studies once pt has healed from surgery and give parenteral iron if appropriate. -Supplement B12.
--- NOTE | 2025-03-08 14:09 | P.PN ---
Subjective Progress Note Date: 03/08/25 Patient is feeling better. He has some pain. The pain is improved. On exam vital signs were stable. Abdomen soft. Ileostomy is functioning. Status post right colectomy for perforated colon cancer. Patient will most likely be discharged tomorrow. Objective - Vital Signs Vital signs: Vital Signs Temp 97.6 F 03/08/25 07:49 Pulse 80 03/08/25 07:55 Resp 16 03/08/25 07:55 BP 136/82 03/08/25 07:49 Pulse Ox 98 03/08/25 07:49 FiO2 21 02/26/25 11:09 Intake & Output 03/07/25 03/08/25 03/08/25 18:59 06:59 18:59 Output Total 1200 1800 800 Balance -1200 -1800 -800 Output: Urine 1200 1800 800 Other: Voiding Method Urinal Urinal # Voids 2 # Bowel Movements 1 ABP, PAP, CO, CI - Last Documented Arterial Blood Pressure 108/62 - Labs CBC & Chem 7: 03/06/25 03:19 03/06/25 03:19
--- NOTE | 2025-03-08 17:19 | P.PN ---
Subjective Progress Note Date: 03/08/25 This is a pleasant 59-year-old male who came into the hospital secondary to a perforated bowel with pneumoperitoneum and underwent exploratory laparotomy with right colectomy drainage of abscess and ileostomy placement back on February 17. Patient has been continued on a course of IV Zosyn. He is currently afebrile and on room air. He is currently tolerating regular diet. He is having stool from the ostomy. He states that his pain is fairly well-controlled at this time. He had a repeat abdominal pelvis CT completed on March 02 which reveals a perisplenic collection questionable hemorrhagic versus hepatic abscess and neoplasm with moderate bilateral pleural effusions. He is reporting no shortness of breath no chest discomfort. He has been up ambulating to the restroom. He is planning for discharge to [facility] when medically stable. His labs today reveal a white blood cell count of 11.83, hemoglobin 7.9, sodium 139, potassium 3.9, BUN of 5.5, creatinine of 1.0. 03/06/2025 Patient is seen in follow-up today sitting up in bed and per nursing staff, has not been up much at all and continues to request IV pain medications [id number]. Patient did have [place] for breakthrough pain which has and will renew and continue to encourage this and avoid IV Dilaudid if possible. Will adjust medications accordingly. Patient ostomy is functioning and having bowel movement and reports has been up to the bathroom although is significantly weak. Patient has had prolonged hospitalization and will be going to [facility] on discharge for continued strength and mobility. Encourage incentive spirometer use and increase activity as tolerated with sitting up more frequently and sitting up in the chair with all meals. Patient is medically stable and should be considered for discharge to [facility]. 03/07/2025 Patient is seen in follow-up today with no acute overnight issues other than requesting IV Dilaudid. Adjustments to medications made and patient was resumed on [place] 7.5. Discuss further with patient about avoiding IV narcotics and working with nursing staff regarding this. Patient is significantly weak has minimally gotten out of the bed, is not working with ostomy nurse regarding any type of ostomy training, not eating very well although reports is eating fine, appears cachectic with significant muscle wasting noted in extreme weakness. Case management is following as patient will be going to [facility] on discharge and requires insurance authorization which is pending. Encouraged increase activity as tolerated and getting up out of the bed more frequently. Patient is admitted to general surgery. 03/08/2025 Patient evaluated today in follow up on the medical floor. Resting in bed comfortably. Making stool and gas from ostomy. Pending insurance authorization for discharge vs. home with home care. Requesting ostomy resource RN to follow up with patient tomorrow to reinforce ostomy teaching. Review of Systems Constitutional: Denied any fatigue denied any fever. Cardio vascular: denied any chest pain, palpitations Gastrointestinal: denied any nausea, vomiting, diarrhea, continues to report abdominal discomfort Pulmonary: Denied any shortness of breath cough Neurologic denied any new focal deficits, diffusely weak All inpatient medications were reviewed and appropriate changes in these medications as dictated in the interval history and assessment and plan. PHYSICAL EXAMINATION: GENERAL: The patient is alert and oriented x3, not in any acute distress. Well developed, well nourished. Avoids a lot of eye contact, flat affect, appears depressed elderly appearing, cachectic HEENT: Pupils are round and equally reacting to light. EOMI. No scleral icterus. No conjunctival pallor. Normocephalic, atraumatic. No pharyngeal erythema. No th yromegaly. CARDIOVASCULAR: S1 and S2 muffled PULMONARY: Diminished breath sounds bilaterally otherwise chest is clear to auscultation, no wheezing or crackles. ABDOMEN: Soft, tender, non-distended, normoactive bowel sounds. No palpable organomegaly. Right quadrant ostomy in place. Surgical heidy noted MUSCULOSKELETAL: No joint swelling or deformity. EXTREMITIES: No cyanosis, clubbing, or pedal edema. NEUROLOGICAL: Gross neurological examination did not reveal any focal deficits. Diffusely weak SKIN: No rashes. Assessment: Colonic mass with perforation, pneumoperitoneum, intra-abdominal abscess. Status post exploratory laparotomy with drainage of abscess, right colectomy, end ileos aishwarya, and partial omentectomy. Colonic mass with concerns for metastatic disease with enlargement of mesenteric lymph nodes, also, indeterminate but probable metastatic disease to the liver- Colon biopsy Invasive moderately differentiated colonic adenocarcinoma Postoperative ventilator management, extubated and on 2 liters nasal cannula; currently saturating above 92% on 2 L; plan to titrate or wean as able Acute blood loss anemia, status post 2 units PRBCs, monitor CBC, hemoglobin above 8 Hypokalemia Hypocalcemia; resolved History of alcohol abuse Hx asthma, not in exacerbation Hx of Gastroesophageal reflux disease Chronic and ongoing nicotine use Chronic alcoholism GI prophylaxis DVT prophylaxis as per primary Full Code Plan: Patient is continued on regular diet, encourage oral intake, reports to tolerating diet although not eating very much Hematology consulted, following, will follow-up outpatient Recommend adjusting IV narcotics and continuing [place]. Discussed with nursing staff as well as patient regarding limiting IV Dilaudid Encourage sitting up in the chairs during meals at least 3 times a day Encouraged increased activity as tolerated with walking Magnesium was replaced and somewhat improved today ID following as patient is maintained on antibiotics. plans for [facility] on DC when medically stable. Patient will require insurance authorization which was submitted and pending at this time. Case management following working on discharge planning Hopeful for discharge in the next 24 hours. Patient is admitted to general surgery We will continue to follow with general surgery during hospitalization. Thank you kindly for this consultation The impression and plan of care has been dictated by Tavia Elena, Nurse Practitioner as directed. Dr. Daria MD I have performed a history and physical examination and medical decision making of this patient, discussed the same with the dictator, and agree with the dictators assessment and plan as written, documented as a scribe. Based on total visit time, I have performed more than 50% of this visit. Objective - Vital Signs Vital signs: Vital Signs Temp 97.8 F 03/08/25 14:00 Pulse 86 03/08/25 14:00 Resp 15 03/08/25 14:00 BP 136/87 03/08/25 14:00 Pulse Ox 99 03/08/25 14:00 FiO2 21 02/26/25 11:09 Intake & Output 03/07/25 03/08/25 03/08/25 18:59 06:59 18:59 Output Total 1200 1800 1050 Balance -1200 -1800 -1050 Output: Urine 1200 1800 1050 Other: Voiding Method Urinal Urinal # Voids 2 # Bowel Movements 1 ABP, PAP, CO, CI - Last Documented Arterial Blood Pressure 108/62 - Labs CBC & Chem 7: 03/06/25 03:19 03/06/25 03:19 Assessment and Plan Time with Patient: Less than 30
--- NOTE | 2025-03-09 07:50 | P.PN ---
Subjective Progress Note Date: 03/08/25 Principal diagnosis: Reason for follow-up is perforated colon/abscess Patient is a 59-year-old male with a past medical history negative for asthma or reflux presenting the hospital with abdominal pain has been diagnosed with perforated right-sided colon cancer in this patient with status post laparotomy right colectomy ileostomy and drainage of the intra-abdominal abscess grew multiple pathogen. On today's evaluation that is 03/08/2025,the patient denies any fever or any chills, patient is breathing comfortably on room air, the patient denies chest pain shortness of breath and no significant cough, patient denies any worsening abdominal pain, no nausea vomiting and tolerating his diet. No new labs has been obtained today Objective - Vital Signs Vital signs: Vital Signs Temp 97.6 F 03/08/25 07:49 Pulse 80 03/08/25 07:55 Resp 16 03/08/25 07:55 BP 136/82 03/08/25 07:49 Pulse Ox 98 03/08/25 07:49 FiO2 21 02/26/25 11:09 Intake & Output 03/07/25 03/08/25 03/08/25 18:59 06:59 18:59 Output Total 1200 1800 650 Balance -1200 -1800 -650 Output: Urine 1200 1800 650 Other: Voiding Method Urinal Urinal # Voids 2 # Bowel Movements 1 ABP, PAP, CO, CI - Last Documented Arterial Blood Pressure 108/62 - Exam GENERAL DESCRIPTION: Middle-age male lying in bed in no distress RESPIRATORY SYSTEM: Unlabored breathing , decreased breath sounds at bases HEART: S1 S2 regular rate and rhythm , ABDOMEN: Soft , mild tenderness EXTREMITIES: No edema feet - Labs CBC & Chem 7: 03/06/25 03:19 03/06/25 03:19 Assessment and Plan (1) Intra-abdominal abscess Current Visit: Yes Status: Acute Priority: High Code(s): K65.1 - PERITONEAL ABSCESS SNOMED Code(s): 91916070 (2) Perforated bowel Current Visit: Yes Status: Acute Priority: High Code(s): K63.1 - PERFORATION OF INTESTINE (NONTRAUMATIC) SNOMED Code(s): 63492136 Plan: 1patient presented to the hospital with abdominal pain about 3 weeks ago before this initial evaluation and has been diagnosed with a right-sided colonic mass with perforation and abscess status post laparotomy and drainage of the abscess and diverting ileostomy along with right hemicolectomy abdominal culture positive for strep and multiple anaerobes he did have a follow-up CT on 02/25/2025 with concern for possible subcapsular collection and was a question of possible hematoma rather than abscess and being monitored by surgical team patient did not have any fever and the patient white count is normalized 2patient is afebrile and the patient white count normal as of 03/07/2025, patient to continue with Zosyn 3.375 g while inpatient and may consider short course of oral antibiotic on discharge Dictation was produced using [email or web address] dictation software. please excuse any grammatical, word or spelling errors. Time with Patient: Less than 30
[2025-03-09 11:53] VITALS: RESP 18
--- NOTE | 2025-03-09 14:37 | P.DS ---
Providers Date of admission: 02/12/25 19:56 Expected date of discharge: 03/09/25 Attending physician: Power Humphrey Consults: 02/12/25 19:56 Consult Physician Routine Consulting Provider: Joslyn Lamb Consult Reason/Comments: medical management Do you want consulting provider notified?: Yes Consult Physician Routine Consulting Provider: Zia Gillespie Consult Reason/Comments: malignancy Do you want consulting provider notified?: Yes 02/12/25 23:40 Consult Physician Routine Consulting Provider: Melissa Hay Consult Reason/Comments: ICU management Do you want consulting provider notified?: Already Contacted 03/04/25 14:40 Consult Physician Routine Consulting Provider: Corey Mathias Consult Reason/Comments: Intra-abdominal abscess Do you want consulting provider notified?: Yes Primary care physician: Stated None Hospital Course: This is a 59-year-old male who was admitted through the emergency room with complaints of abdominal pain. Patient with workup found evidence of a perforated right colon neoplasm. Patient underwent exploratory laparotomy with right colectomy. Patient did relatively well postoperatively. Please see hospital chart for details. Procedures: Exploratory laparotomy Right colectomy Patient Condition at Discharge: Serious Plan - Discharge Summary New Discharge Prescriptions: New Docusate [Colace] 100 mg PO BID #20 capsule Acetaminophen Tab [Tylenol] 650 mg PO Q6H #30 tab Ibuprofen [Motrin] 600 mg PO Q6HR PRN #40 tab PRN Reason: Pain oxyCODONE HCL [OxyIR] 5 mg PO Q6H PRN 3 Days #10 tab PRN Reason: Pain Discharge Medication List Acetaminophen Tab [Tylenol] 650 mg PO Q6H #30 tab 03/09/25 [Rx] Docusate [Colace] 100 mg PO BID #20 capsule 03/09/25 [Rx] Ibuprofen [Motrin] 600 mg PO Q6HR PRN #40 tab 03/09/25 [Rx] oxyCODONE HCL [OxyIR] 5 mg PO Q6H PRN 3 Days #10 tab 03/09/25 [Rx] Follow up Appointment(s)/Referral(s): Home,[facility] [NON-STAFF] - 1-2 Days ([facility] will call you to schedule your in home care visits. ) Christal Parra MD [STAFF PHYSICIAN] - 03/22/25 9:30 am [facility], [NON-STAFF] - 1 Week None,Stated [Primary Care Provider] - 1-2 days Power Humphrey MD [STAFF PHYSICIAN] - 1 Week Activity/Diet/Wound Care/Special Instructions: PET SCAN SCHEDULED FOR February AT 12:30 AT [facility] Ostomy: [place] cut to fit 1 piece appliance #[id number] No sting skin prep as needed for irritation of peristomal skin. Stoma paste applied around stoma, focusing on the area of dimpling near incision line to fill in uneven areas of peristomal skin. Kemar seal applied to one piece [place] cut to fit appliance #[id number] to continue to even out skin level. Change every 3 to 5 days and more frequently if leaking; empty when no more than half full Last changed: 03/09/25 Discharge Disposition: TRANSFER TO SNF/ECF
--- NOTE | 2025-03-09 15:00 | P.PN ---
Subjective Progress Note Date: 03/09/25 Principal diagnosis: Reason for follow-up is perforated colon/abscess Patient is a 59-year-old male with a past medical history negative for asthma or reflux presenting the hospital with abdominal pain has been diagnosed with perforated right-sided colon cancer in this patient with status post laparotomy right colectomy ileostomy and drainage of the intra-abdominal abscess grew multiple pathogen. On today's evaluation that is 03/09/2025,the patient remains to be afebrile, patient is on room air not requiring supplemental oxygen and denies any shortness of breath no chest pain or cough.Patient denies having any nausea or vomiting, mention improvement in abdominal pain feeling better and has been discharged to the rehab. No new lab has been obtained today Objective - Vital Signs Vital signs: Vital Signs Temp 98.0 F 03/09/25 06:59 Pulse 73 03/09/25 06:59 Resp 18 03/09/25 06:59 BP 131/86 03/09/25 06:59 Pulse Ox 95 03/09/25 06:59 FiO2 21 02/26/25 11:09 Intake & Output 03/08/25 03/09/25 03/09/25 18:59 06:59 18:59 Output Total 1050 1300 1015 Balance -1050 -1300 -1015 Output: Urine 1050 1100 915 Stool 200 100 Other: Voiding Method Urinal Urinal Urinal ABP, PAP, CO, CI - Last Documented Arterial Blood Pressure 108/62 - Exam GENERAL DESCRIPTION: Middle-age male lying in bed in no distress RESPIRATORY SYSTEM: Unlabored breathing , decreased breath sounds at bases HEART: S1 S2 regular rate and rhythm , ABDOMEN: Soft , mild tenderness EXTREMITIES: No edema feet - Labs CBC & Chem 7: 03/06/25 03:19 03/06/25 03:19 Assessment and Plan (1) Intra-abdominal abscess Current Visit: Yes Status: Acute Priority: High Code(s): K65.1 - PE RITONEAL ABSCESS SNOMED Code(s): 02544006 (2) Perforated bowel Current Visit: Yes Status: Acute Priority: High Code(s): K63.1 - PERFORATION OF INTESTINE (NONTRAUMATIC) SNOMED Code(s): 36828513 Plan: 1patient presented to the hospital with abdominal pain about 3 weeks ago before this initial evaluation and has been diagnosed with a right-sided colonic mass with perforation and abscess status post laparotomy and drainage of the abscess and diverting ileostomy along with right hemicolectomy abdominal culture positive for strep and multiple anaerobes he did have a follow-up CT on 02/26/20 25 with concern for possible subcapsular collection and was a question of possible hematoma rather than abscess and being monitored by surgical team patient did not have any fever and the patient white count is normalized 2patient is afebrile and the patient white count normal as of 3 patient has had adequate IV Zosyn 3.375 g while inpatient and may consider short course of oral Ceftin and Flagyl on discharge discussed with [employer] for medical team Dictation was produced using [employer] dictation software. please excuse any grammatical, word or spelling errors. Time with Patient: Less than 30
--- NOTE | 2025-03-09 15:04 | P.PN ---
Subjective Progress Note Date: 03/09/25 This is a pleasant 59-year-old male who came into the hospital secondary to a perforated bowel with pneumoperitoneum and underwent exploratory laparotomy with right colectomy drainage of abscess and ileostomy placement back on February 17. Patient has been continued on a course of IV Zosyn. He is currently afebrile and on room air. He is currently tolerating regular diet. He is having stool from the ostomy. He states that his pain is fairly well-controlled at this time. He had a repeat abdominal pelvis CT completed on March 02 which reveals a perisplenic collection questionable hemorrhagic versus hepatic abscess and neoplasm with moderate bilateral pleural effusions. He is reporting no shortness of breath no chest discomfort. He has been up ambulating to the restroom. He is planning for discharge to [facility] when medically stable. His labs today reveal a white blood cell count of 11.83, hemoglobin 7.9, sodium 139, potassium 3.9, BUN of 5.5, creatinine of 1.0. 03/06/2025 Patient is seen in follow-up today sitting up in bed and per nursing staff, has not been up much at all and continues to request IV pain medications [id number]. Patient did have [place] for breakthrough pain which has and will renew and continue to encourage this and avoid IV Dilaudid if possible. Will adjust medications accordingly. Patient ostomy is functioning and having bowel movement and reports has been up to the bathroom although is significantly weak. Patient has had prolonged hospitalization and will be going to [facility] on discharge for continued strength and mobility. Encourage incentive spirometer use and increase activity as tolerated with sitting up more frequently and sitting up in the chair with all meals. Patient is medically stable and should be considered for discharge to [facility]. 03/07/2025 Patient is seen in follow-up today with no acute overnight issues other than requesting IV Dilaudid. Adjustments to medications made and patient was resumed on [place] 7.5. Discuss further with patient about avoiding IV narcotics and working with nursing staff regarding this. Patient is significantly weak has minimally gotten out of the bed, is not working with ostomy nurse regarding any type of ostomy training, not eating very well although reports is eating fine, appears cachectic with significant muscle wasting noted in extreme weakness. Case management is following as patient will be going to [facility] on discharge and requires insurance authorization which is pending. Encouraged increase activity as tolerated and getting up out of the bed more frequently. Patient is admitted to general surgery. 03/08/2025 Patient evaluated today in follow up on the medical floor. Resting in bed comfortably. Making stool and gas from ostomy. Pending insurance authorization for discharge vs. home with home care. Requesting ostomy resource RN to follow up with patient tomorrow to reinforce ostomy teaching. 03/09/2025 Patient evaluated today in follow up on the medical floor. Patient resting comfortably. Education done with ostomy rescource RN today. He is complaining of mild discomfort near the abdominal incision. He is making stool per ostomy. Patient will be discharged to [facility] today. He needs to establish with primary care. PET scan has been scheduled and requires close follow up with oncology on DC. ID recommending 5 days of oral ceftin and oral flagyl on DC. Review of Systems Constitutional: Denied any fatigue denied any fever. Cardio vascular: denied any chest pain, palpitations Gastrointestinal: denied any nausea, vomiting, diarrhea, continues to report abdominal discomfort Pulmonary: Denied any shortness of breath cough Neurologic denied any new focal deficits, diffusely weak All inpatient medications were reviewed and appropriate changes in these medications as dictated in the interval history and assessment and plan. PHYSICAL EXAMINATION: GENERAL: The patient is alert and oriented x3, not in any acute distress. Well developed, well nourished. Avoids a lot of eye contact, flat affect, appears depressed elderly appearing, cachectic HEENT: Pupils are round and equally reacting to light. EOMI. No scleral icterus. No conjunctival pallor. Normocephalic, atraumatic. No pharyngeal erythema. No thyromegaly. CARDIOVASCULAR: S1 and S2 muffled PULMONARY: Diminished breath sounds bilaterally otherwise chest is clear to auscultation, no wheezing or crackles. ABDOMEN: Soft, tender, non-distended, normoactive bowel sounds. No palpable organomegaly. Right quadrant ostomy in place. Surgical heidy noted MUSCULOSKELETAL: No joint swelling or deformity. EXTREMITIES: No cyanosis, clubbing, or pedal edema. NEUROLOGICAL: Gross neurological examination did not reveal any focal deficits. Diffusely weak SKIN: No rashes. Assessment: Colonic mass with perforation, pneumoperitoneum, intra-abdominal abscess. Status post exploratory laparotomy with drainage of abscess, right colectomy, end ileostomy, and partial omentectomy. Colonic mass with concerns for metastatic disease with enlargement of mesenteric lymph nodes, also, indeterminate but probable metastatic disease to the liver- Colon biopsy Invasive moderately differentiated colonic adenocarcinoma Postoperative ventilator management, extubated and on 2 liters nasal cannula; currently saturating above 92% on 2 L; plan to titrate or wean as able Acute blood loss anemia, status post 2 units PRBCs, monitor CBC, hemoglobin above 8 Hypokalemia Hypocalcemia; resolved History of alcohol abuse Hx asthma, not in exacerbation Hx of Gastroesophageal reflux disease Chronic and ongoing nicotine use Chronic alcoholism GI prophylaxis DVT prophylaxis as per primary Full Code Plan: Patient is continued on regular diet, encourage oral intake, reports to tolerating diet although not eating very much Hematology consulted, following, will follow-up outpatient Recommend adjusting IV narcotics and continuing [place]. Discussed with nursing staff as well as patient regarding limiting IV Dilaudid Encourage sitting up in the chairs during meals at least 3 times a day Encouraged increased activity as tolerated with walking Magnesium was replaced and somewhat improved today ID following as patient is maintained on antibiotics. [facility] when medically stable. Patient will require insurance authorization which was submitted and pending at this time. Case management following working on discharge planning Hopeful for discharge in the next 24 hours. Patient is admitted to general surgery We will continue to follow with general surgery during hospitalization. Thank you kindly for this consultation The impression and plan of care has been dictated by Tavia Elena, Nurse Practitioner as directed. Dr. Daria MD I have performed a history and physical examination and medical decision making of this patient, discussed the same with the dictator, and agree with the dictators assessment and plan as written, documented as a scribe. Based on total visit time, I have performed more than 50% of this visit. Objective - Vital Signs Vital signs: Vital Signs Temp 98.0 F 03/09/25 06:59 Pulse 73 03/09/25 06:59 Resp 18 03/09/25 06:59 BP 131/86 03/09/25 06:59 Pulse Ox 95 03/09/25 06:59 FiO2 21 02/26/25 11:09 Intake & Output 03/08/25 03/09/25 03/09/25 18:59 06:59 18:59 Output Total 1050 1300 1015 Balance -1050 -1300 -1015 Output: Urine 1050 1100 915 Stool 200 100 Other: Voiding Method Urinal Urinal Urinal ABP, PAP, CO, CI - Last Documented Arterial Blood Pressure 108/62 - Labs CBC & Chem 7: 03/06/25 03:19 03/06/25 03:19 Assessment and Plan Time with Patient: Less than 30
[2025-03-09 15:21] VITALS: BP 153/88; PULSE 80; TEMP 97.9
== END 2025-03-09 16:03 | DRG 329 ==
LOC: EC 17:53 → 4SSUR 19:56 → 2SICU 21:09 → 3SCARD 02-14 17:46 → 4SSUR 02-28 21:04
PROVIDERS: ADMIT Surgery; ATTEND Surgery
PROC: 0D1B0Z4 Bypass Ileum to Cutaneous, Open Approach (ICD-10-PCS; 2025-02-12)
PROC: 0DBU0ZZ Excision of Omentum, Open Approach (ICD-10-PCS; 2025-02-12)
PROC: 0W9G0ZZ Drainage of Peritoneal Cavity, Open Approach (ICD-10-PCS; 2025-02-12)
PROC: 30233N1 Transfusion of Nonautologous Red Blood Cells into Peripheral Vein, Percutaneous Approach (ICD-10-PCS; 2025-02-12)
PROC: 0DTF0ZZ Resection of Right Large Intestine, Open Approach (ICD-10-PCS; principal; 2025-02-12 20:22)
DX: C18.2 Malignant neoplasm of ascending colon (principal); K63.1 Perforation of intestine (nontraumatic); K65.1 Peritoneal abscess; B48.8 Other specified mycoses; K63.0 Abscess of intestine; D73.5 Infarction of spleen; C78.7 Secondary malignant neoplasm of liver and intrahepatic bile duct; J90 Pleural effusion, not elsewhere classified; C77.2 Secondary and unspecified malignant neoplasm of intra-abdominal lymph nodes; F10.20 Alcohol dependence, uncomplicated; E88.A Wasting disease (syndrome) due to underlying condition; J45.909 Unspecified asthma, uncomplicated; K76.89 Other specified diseases of liver; E87.4 Mixed disorder of acid-base balance; D62 Acute posthemorrhagic anemia; Z68.1 Body mass index [BMI] 19.9 or less, adult; E83.51 Hypocalcemia; M62.59 Muscle wasting and atrophy, not elsewhere classified, multiple sites; I95.9 Hypotension, unspecified; F17.200 Nicotine dependence, unspecified, uncomplicated; N43.3 Hydrocele, unspecified; B95.4 Other streptococcus as the cause of diseases classified elsewhere; E87.6 Hypokalemia; E87.70 Fluid overload, unspecified; F41.9 Anxiety disorder, unspecified; K52.89 Other specified noninfective gastroenteritis and colitis; B96.6 Bacteroides fragilis [B. fragilis] as the cause of diseases classified elsewhere; B96.89 Other specified bacterial agents as the cause of diseases classified elsewhere; R09.02 Hypoxemia; K21.9 Gastro-esophageal reflux disease without esophagitis; R53.81 Other malaise; R26.9 Unspecified abnormalities of gait and mobility; Z79.899 Other long term (current) drug therapy
CPT/HCPCS: 36415; 36430; 71045; 74177; 80048; 80053; 80202; 81003; 82150; 82330; 82565; 82607; 82728; 82747; 82805; 83540; 83550; 83605; 83690; 83735; 83921; 85025; 85027; 85610; 85730; 86850; 86900; 86901; 86920; 87040; 87070; 87075; 87077; 87186; 87205; 88307; 88309; 88341; 88342; 93005; 94002; 94003; 94640; 94760; 96361; 96374; 96375; 96376; 99291

== ENCOUNTER 2025-03-27 17:39 | Emergency (ER) | payer OTHER ==
--- NOTE | 2025-03-27 18:49 | ED ---
General Adult HPI - General Source: patient, RN notes reviewed Mode of arrival: ambulatory Limitations: no limitations <Wilson Adamson - Last Filed: 03/27/25 18:49> - General Source: patient, RN notes reviewed Mode of arrival: ambulatory - History of Present Illness -: days(s) Severity scale (1-10): 10 Consistency: constant Improves with: none Worsens with: none Associated Symptoms: denies other symptoms <Tony Saucedo - Last Filed: 03/27/25 20:40> - General Chief complaint: Recheck/Abnormal Lab/Rx Stated complaint: Right side irritation Time Seen by Provider: 03/27/25 17:46 - History of Present Illness Initial comments: Quick note: This is a 60-year-old male with history including asthma and GERD presenting for ostomy site issue. Patient states he has recently run out of ostomy bags and is requesting assistance to obtain more. States he is currently using a tissue to collect stool from ostomy site. Patient states he is also requesting assistance about how to properly apply the ostomy bag around his ostomy site. Patient notes some redness to the skin around the site, stating the ostomy itself appears well with no issues or pain. Patient states he has had the ostomy for about 4 weeks now. (Wilson Adamson) This is a 60-year-old male to the ER for evaluation pain, patient ran out of his ostomy bags and having significant stool drained under his abdomen with burning and redness and irritation. Patient is here for replenishment of ostomy bags and wound care (Tony Saucedo) - Related Data Previous Rx's Medication Instructions Recorded Acetaminophen Tab [Tylenol] 650 mg PO Q6H #30 tab 03/09/25 Calcium Carb-Vit D 500Mg-5Mcg 1 each PO BID-W/MEALS tab 03/09/25 [Oscal 500+D 5 Mcg (200 Iu)] Cefuroxime [Ceftin] 250 mg PO BID 5 Days #10 tab 03/09/25 Docusate [Colace] 100 mg PO BID #20 capsule 03/09/25 Folic Acid 1 mg PO DAILY tab 03/09/25 Ibuprofen [Motrin] 600 mg PO Q6HR PRN #40 tab 03/09/25 Multivitamins, Thera [Multivitamin 1 each PO DAILY@1200 tab 03/09/25 (formulary)] Thiamine [Vitamin B-1] 100 mg PO DAILY tab 03/09/25 metroNIDAZOLE [Flagyl] 500 mg PO TID 5 Days #15 tab 03/09/25 oxyCODONE HCL [OxyIR] 5 mg PO Q6H PRN 3 Days #10 tab 03/09/25 Allergies Allergy/AdvReac Type Severity Reaction Status Date / Time No Known Allergies Allergy Verified 03/27/25 17:51 Review of Systems ROS Other: All systems not noted in ROS Statement are negative. <Wilson Adamson - Last Filed: 03/27/25 18:49> ROS Other: All systems not noted in ROS Statement are negative. <Tony Saucedo - Last Filed: 03/27/25 20:40> ROS Statement: Those systems with pertinent positive or pertinent negative responses have been documented in the HPI. Past Medical History Past Medical History: Asthma, GERD/Reflux Additional Past Medical History / Comment(s): Asthma as a child History of Any Multi-Drug Resistant Organisms: None Reported Past Surgical History: Bowel Resection, Hernia Repair, Orthopedic Surgery Additional Past Surgical History / Comment(s): R forearm flexor muscle laceration with I&D/repair, possible L inguinal surgery as a child (pt not certain), circumcism. Past Anesthesia/Blood Transfusion Reactions: No Reported Reaction Smoking Status: Current every day smoker Past Alcohol Use History: None Reported Past Drug Use History: Marijuana - Past Family History Mother Additional Family Medical History / Comment(s): Mother has had to have brain surgery but pt does not know the reason. She is 76yrs old. Father Family Medical History: Myocardial Infarction ([place]) Additional Family Medical History / Comment(s): Father of a [place] at the age of 69yrs. <Wilson Adamson - Last Filed: 03/27/25 18:49> General Exam Limitations: no limitations <Juan DiegoWilson - Last Filed: 03/27/25 18:49> General appearance: alert, in no apparent distress Head exam: Present: atraumatic, normocephalic, normal inspection Eye exam: Present: normal appearance, PERRL, EOMI. Absent: scleral icterus, conjunctival injection, periorbital swelling ENT exam: Present: normal exam, mucous membranes moist Neck exam: Present: normal inspection. Absent: tenderness, meningismus, lymphadenopathy Respiratory exam: Present: normal lung sounds bilaterally. Absent: respiratory distress, wheezes, rales, rhonchi, stridor Cardiovascular Exam: Present: regular rate, normal rhythm, normal heart sounds. Absent: systolic murmur, diastolic murmur, rubs, gallop, clicks GI/Abdominal exam: Present: soft, normal bowel sounds. Absent: distended, tenderness, guarding, rebound, rigid Extremities exam: Present: normal inspection, full ROM, normal capillary refill. Absent: tenderness, pedal edema, joint swelling, calf tenderness Back exam: Present: normal inspection Neurological exam: Present: alert, oriented X3, CN II-XII intact Psychiatric exam: Present: normal affect, normal mood Skin exam: Present: warm, dry, intact, normal color. Absent: rash <Tony Saucedo - Last Filed: 03/27/25 20:40> - General Exam Comments Initial Comments: Visual Physical Exam Vital signs reviewed General: Well-appearing, nontoxic, no acute distress. Head: Normocephalic, atraumatic Eyes: PERRLA, EOMI ENT: Airway patent Chest: Nonlabored breathing Skin: No visual rash, normal skin tone Neuro: Alert and oriented 3 Musculoskeletal: No gross abnormalities (Wilson Adamson) Severe irritation of the ostomy site (Tony Saucedo) Course <Tony Saucedo - Last Filed: 03/27/25 20:40> Vital Signs 03/27/25 17:47 Temperature 97.8 F Pulse Rate 94 Respiratory 20 Rate Blood Pressure 125/82 O2 Sat by Pulse 97 Oximetry - Reevaluation(s) Reevaluation #1: 03/27/25 20:38 Medical records reviewed (Tony Saucedo) Reevaluation #2: 03/27/25 20:38 Patient symptoms unchanged here in the ER ostomy bag is placed (Tony aSucedo) Reevaluation #3: 03/27/25 20:38 Patient informed of results and questions answered (Tony Saucedo) Reevaluation #4: Was pt. sent in by a medical professional or institution (, PA, ADDICTIONS THERAPIST, urgent care, hospital, or penitentiary...) When possible be specific @ -no Did you speak to anyone other than the patient for history (EMS, parent, family, police, friend...)? What history was obtained from this source @ -no Did you review nursing and triage notes (agree or disagree)? Why? @ -agree Are old charts reviewed (outside hosp., previous admission, EMS record, old EKG, old radiological studies, urgent care reports/EKG's, penitentiary records)? Report findings @ -yes Differential Diagnosis (chest pain, altered mental status, abdominal pain women, abdominal pain men, vaginal bleeding, weakness, fever, dyspnea, syncope, headache, dizziness, GI bleed, back pain, seizure, CVA, palpatations, mental health, musculoskeletal)? @ -prior EKG interpreted by me (3pts min.). @ -yes X-rays interpreted by me (1pt min.). @ -yes negative for acute disease CT interpreted by me (1pt min.). @ -no U/S interpreted by me (1pt. min.). @ -no What testing was considered but not performed or refused? (CT, X-rays, U/S, labs)? Why? @ -none What meds were considered but not given or refused? Why? @ -none Did you discuss the management of the patient with other professionals (professionals i.e. , PA, ADDICTIONS THERAPIST, lab, RT, psych nurse, social media developer, mail carriers supervisor, teacher, structural engineering drafting officer, piano case and bench assembler)? Give summary @ -no Was smoking cessation discussed for >3mins.? @ -no Was critical care preformed (if so, how long)? @ -no Were there social determinants of health that impacted care today? How? (Homelessness, low income, unemployed, alcoholism, drug addiction, transportation, low edu. Level, literacy, decrease access to med. care, [facility], rehab)? @ -none Was there de-escalation of care discussed even if they declined (Discuss DNR or withdrawal of care, Hospice)? DNR status @ -no What co-morbidities impacted this encounter? (DM, HTN, Smoking, COPD, CAD, Cancer, CVA, ARF, Chemo, Hep., AIDS, mental health diagnosis, sleep apnea, morbid obesity)? @ -none Was patient admitted / discharged? Hospital course, mention meds given and route, prescriptions, significant lab abnormalities, going to OR and other pertinent info. @ - Undiagnosed new problem with uncertain prognosis? @ -no Drug Therapy requiring intensive monitoring for toxicity (Heparin, Nitro, Insulin, Cardizem)? @ -no Were any procedures done? @ -no Diagnosis/symptom? @ - Acute, or Chronic, or Acute on Chronic? @ -Acute Uncomplicated (without systemic symptoms) or Complicated (systemic symptoms)? @ -Complicated Side effects of treatment? @ -no Exacerbation, Progression, or Severe Exacerbation? @ -exacerbation Poses a threat to life or bodily function? How? (Chest pain, [place], [place], pneumonia, PE, COPD, DKA, ARF, appy, cholecystitis, CVA, Diverticulitis, Homicidal, Suicidal, threat to staff... and all critical care pts) @ -yes (Tony Saucedo) Medical Decision Making <Wilson Adamson - Last Filed: 03/27/25 18:49> <Tony Saucedo - Last Filed: 03/27/25 20:40> - Medical Decision Making I completed the quick note portion of this chart signed JUSTICE Still (Wilson Adamson) 60 male to ER to ER for ostomy bags, patient does have significant cellulitis bu rn dermatitis to abdomen from stool and acid, patient given wound care instructions and discharged home (Tony Saucedo) Disposition <Wilson Adamson - Last Filed: 03/27/25 18:49> Is patient prescribed a controlled substance at d/c from ED?: No Time of Disposition: 20:30 <Tony Saucedo - Last Filed: 03/27/25 20:40> Clinical Impression: Complication of ostomy Disposition: HOME SELF-CARE Condition: Fair Instructions (If sedation given, give patient instructions): Abdominal Pain (ED) Referrals: None,Stated [Primary Care Provider] - 1-2 days
[2025-03-27 21:26] VITALS: BP 122/78; PULSE 88; RESP 18; TEMP 98.2
== END 2025-03-27 21:26 | disposition home or self-care (01) ==
LOC: EC 17:39
DX: K94.00 Colostomy complication, unspecified (principal); F17.200 Nicotine dependence, unspecified, uncomplicated
CPT/HCPCS: 99283